=== PATIENT | male | born 1940 | race African-American/Black ===

== ENCOUNTER 2018-07-28 12:21 | Inpatient (IN) | payer OTHER ==
--- NOTE | 2018-07-28 12:54 | CON.CARD ---
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 Amaro 01/2018 presented with several days of orthopea, dyspnea at rest and on exertion , LE edema, PND without chest pain, near or true syncope, palpitations. Reports medication and diet compliance, denies NSAID use. 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 COMPOSITOR: Yes: CVA (rt hemiparesis) Cardio/Vascular: Yes: AFIB, CAD (S/P PCI), CHF (systolic dysfunction, Cardiomyopathy), HTN, Hyperlipdemia, Murmur, Other Gastrointestinal: Yes: Gastritis, GI Bleed Renal/: Yes: Renal Inusuff (Baseline Scr 1.3mg/dL - CKD Stage III), BPH Musculoskeletal: Yes: Osteoarthritis - Past Surgical History Past Surgical History: Yes: Colonoscopy, Permanent Pacemaker (FOR SSS), Stent - Alcohol/Substance Use Hx Alcohol Use: No - Smoking History Smoking history: Unknown if ever smoked Have you smoked in the past 12 months: No Aproximately how many cigarettes per day: 0 If you are a former smoker, when did you quit?: 20 YRS AGO - Social History Usual Living Arrangement: Long Term History of Recent Travel: No Home Medications - Allergies Allergies/Adverse Reactions: Allergies Allergy/AdvReac Type Severity Reaction Status Date / Time No Known Allergies Allergy Verified 07/28/18 12:36 - Home Medications Home Medications: Ambulatory Orders Atorvastatin Ca [Lipitor] 20 mg PO HS 07/27/14 Cholecalciferol (Vitamin D3) [Vitamin D3] 1,000 unit PO DAILY 07/27/14 Carvedilol [Coreg -] 25 mg PO BID #60 tablet 08/01/15 Ramipril [Altace] 5 mg PO DAILY #30 capsule 08/01/15 Spironolactone [Aldactone -] 25 mg PO DAILY #30 tablet 08/01/15 Carvedilol [Coreg -] 25 mg PO BID 07/28/18 Docusate Sodium [Colace -] 100 mg PO BID PRN 07/28/18 Furosemide [Lasix -] 80 mg PO AM 07/28/18 Furosemide [Lasix] 40 mg PO DAILY 07/28/18 Potassium Chloride [K-Dur -] 20 meq PO DAILY 07/28/18 Warfarin Na [Coumadin -] 2.5 mg PO DAILY@1800 07/28/18 Review of Systems - Review of Systems Cardiovascular: reports: Edema, Shortness of Breath Respiratory: reports: Orthopnea, SOB, SOB on Exertion Vital Signs: Vital Signs Temperature 97.9 F 07/28/18 12:34 Pulse Rate 73 07/28/18 12:34 Respiratory Rate 20 07/28/18 12:34 Blood Pressure 114/80 07/28/18 12:34 O2 Sat by Pulse Oximetry (%) 98 07/28/18 12:34 Constitutional: Yes: No Distress, Calm Neck: Yes: Supple Respiratory: Yes: Regular, Diminished, On Nasal O2 Gastrointestinal: Yes: Normal Bowel Sounds, Soft Cardiovascular: Yes: Regular Rate and Rhythm JVD: No Carotid Bruit: No Heart Sounds: Yes: S1, S2 Murmur: Yes: Systolic Murmur, Grade 2 Edema: Yes Edema: LLE: 3+, RLE: 3+ - Other Data Prior Cardiac Procedures: PTCA with Stent Ejection Fraction %: LVEF < 40 % Imaging - Results Chest X-ray: Pending EKG: Report Reviewed (Afib v-paced) Problem List - Problems (1) AICD (automatic cardioverter/defibrillator) present Code(s): Z95.810 - PRESENCE OF AUTOMATIC (IMPLANTABLE) CARDIAC DEFIBRILLATOR (2) COPD (chronic obstructive pulmonary disease) Code(s): J44.9 - CHRONIC OBSTRUCTIVE PULMONARY DISEASE, UNSPECIFIED Qualifiers: Emphysema type: unspecified (3) CVA (cerebral infarction) Code(s): I63.9 - CEREBRAL INFARCTION, UNSPECIFIED Qualifiers: Cerebral infarction mechanism: unspecified mechanism Qualified Code(s): I63.9 - Cerebral infarction, unspecified (4) HLD (hyperlipidemia) Code(s): E78.5 - HYPERLIPIDEMIA, UNSPECIFIED Qualifiers: Hyperlipidemia type: pure hypercholesterolemia Qualified Code(s): E78.00 - Pure hypercholesterolemia, unspecified; E78.0 - Pure hypercholesterolemia (5) HTN (hypertension) Code(s): I10 - ESSENTIAL (PRIMARY) HYPERTENSION Qualifiers: Hypertension type: essential hypertension Qualified Code(s): I10 - Essential (primary) hypertension (6) Leg edema Code(s): R60.0 - LOCALIZED EDEMA (7) Pulmonary hypertension Code(s): I27.2 - OTHER SECONDARY PULMONARY HYPERTENSION * DO NOT USE * (8) Shortness of breath Code(s): R06.02 - SHORTNESS OF BREATH (9) Status post coronary artery stent placement Code(s): Z95.5 - PRESENCE OF CORONARY ANGIOPLASTY IMPLANT AND GRAFT (10) Systolic CHF, acute on chronic Code(s): I50.23 - ACUTE ON CHRONIC SYSTOLIC (CONGESTIVE) HEART FAILURE Assessment/Plan December 19, 2017 Dilated LV with severely decreased LVEF 30%, DAV LA 4.8 cm, mod MR , mild TR, RVP 39 mmHg, mild ao dilatation 4.3 cm Sep 14, 2017 Pharm stress: Severe diffuse global HK LVEF 22% 1. Acute on chronic class III-IV NYHA classification LV systolic failure 2. CAD post PCI/stent angina pectoris 3. Permanent atrial fibrillation on chronic A/C [id number] score of 4 on coumadin with subtherapeutic INR 4. 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 HTN/HCVD 6. Hypercholesterolemia 7. History of CVA with right hemiparesis 8. Acute on CKD stage 3 now at baseline 9. Underlying CKD secondary to Hypertensive Nephrosclerosis vs. Acquired Cystic Renal Disease (unlikely PCKD given normal size kidneys) 10. Anemia 11. PAD 12. COPD and pulm HTN 13. Gynecomastia PLAN: 1. Inotropic diuresis with dobutamine and Lasix gtt and Eplerenone 25 qd with monitor diuretic response, renal function and electrolytes, wrap legs 2. Continue Coreg 25 bid, Lipitor 80 qhs, ASA 81 qd and Entresto 49/51 bid, add BiDil as hemodynamics tolerate 3. Dose Coumadin with close monitoring of INR and CBC 4. Thank you for consultative opportunity
--- NOTE | 2018-07-28 13:03 | PDOC ---
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 The patient saw his PCP who had him see his stage set designer who sent him to the ER for lasix due to lower extremity edema and fluid overload. The patient also note associated fatigue. Pt is a poor historian. Patient denies headache, lightheadedness. Denies fever, chills. Denies chest pain. Denies nausea, vomiting, diarrhea, abdominal pain. Allergies: NKA Surgical History: pacemaker PCP: Leighann De La Cruz Farmworker Grain: Lucretia Amaro <Mary Ann De Anda - Last Filed: 07/28/18 16:54> - General Chief Complaint: Congestive Heart Failure Stated Complaint: PCP SENT Time Seen by Provider: 07/28/18 12:36 Past History <Oziel Epstein - Last Filed: 07/28/18 13:46> - Past Medical History Anemia: Yes Asthma: No Cancer: No Cardiac Disorders: Yes (afib) CVA: Yes (left residual weakness and facial asymmetry) COPD: No CHF: Yes Dementia: No Diabetes: No GI Disorders: No Disorders: Yes (BPH) HTN: Yes Hypercholesterolemia: Yes Liver Disease: No Seizures: No Thyroid Disease: No - Surgical History Abdominal Surgery: No Appendectomy: No Cardiac Surgery: Yes (pacemaker) Cholecystectomy: No Lung Surgery: No Neurologic Surgery: No Orthopedic Surgery: No - Suicide/Smoking/Psychosocial Hx Smoking Status: Yes Smoking History: Unknown if ever smoked Have you smoked in the past 12 months: No Number of Cigarettes Smoked Daily: 0 If you are a former smoker, when did you quit?: 20 YRS AGO Hx Alcohol Use: No Drug/Substance Use Hx: No Substance Use Type: Alcohol Hx Substance Use Treatment: No <Mary Ann De Anda - Last Filed: 07/28/18 16:54> - Past Medical History Allergies/Adverse Reactions: Allergies Allergy/AdvReac Type Severity Reaction Status Date / Time No Known Allergies Allergy Verified 07/28/18 12:36 Home Medications: Ambulatory Orders Atorvastatin Ca [Lipitor] 20 mg PO HS 07/27/14 Cholecalciferol (Vitamin D3) [Vitamin D3] 1,000 unit PO DAILY 07/27/14 Carvedilol [Coreg -] 25 mg PO BID #60 tablet 08/01/15 Ramipril [Altace] 5 mg PO DAILY #30 capsule 08/01/15 Spironolactone [Aldactone -] 25 mg PO DAILY #30 tablet 08/01/15 Carvedilol [Coreg -] 25 mg PO BID 07/28/18 Docusate Sodium [Colace -] 100 mg PO BID PRN 07/28/18 Furosemide [Lasix -] 80 mg PO AM 07/28/18 Furosemide [Lasix] 40 mg PO DAILY 07/28/18 Potassium Chloride [K-Dur -] 20 meq PO DAILY 07/28/18 Warfarin Na [Coumadin -] 2.5 mg PO DAILY@1800 07/28/18 Review of Systems - Review of Systems Comments:: 07/28/18 13:40 GENERAL/CONSTITUTIONAL: +tiredness. No fever or chills. No weakness. HEAD, EYES, EARS, NOSE AND THROAT: No change in vision. No ear pain or discharge. No sore throat. GASTROINTESTINAL: No nausea, vomiting, diarrhea or constipation. GENITOURINARY: No dysuria, frequency, or change in urination. CARDIOVASCULAR: +shortness of breath. +lower extremity edema. No chest pain. RESPIRATORY: No cough, wheezing, or hemoptysis. MUSCULOSKELETAL: No joint or muscle swelling or pain. No neck or back pain. SKIN: No rash NEUROLOGIC: No headache, vertigo, loss of consciousness, or change in strength/ sensation. ENDOCRINE: No increased thirst. No abnormal weight change. HEMATOLOGIC/LYMPHATIC: No anemia, easy bleeding, or history of blood clots. ALLERGIC/IMMUNOLOGIC: No hives or skin allergy. <Mary Ann De Anda - Last Filed: 07/28/18 16:54> *Physical Exam - Vital Signs Last Vital Signs Temp Pulse Resp BP Pulse Ox 97.9 F 73 20 114/80 98 07/28/18 12:34 07/28/18 12:34 07/28/18 12:34 07/28/18 12:34 07/28/18 12:34 <Oziel Epstein - Last Filed: 07/28/18 13:46> - Vital Signs Last Vital Signs Temp Pulse Resp BP Pulse Ox 97.9 F 73 20 114/80 98 07/28/18 12:34 07/28/18 12:34 07/28/18 12:34 07/28/18 12:34 07/28/18 12:34 - Physical Exam Comments: 07/28/18 13:57 GENERAL: Awake, alert, oriented to name and place, in no acute distress eating candy ENT: Auricles normal inspection, hearing grossly normal, nares patent, oropharynx clear without exudates. Moist mucosa NECK: Normal ROM, supple, no lymphadenopathy LUNGS: diminished b/l BS, no crackles or wheezing HEART: Regular rate and rhythm, normal S1 and S2, no murmurs, rubs or gallops ABDOMEN: Soft, nontender, normoactive bowel sounds. No masses EXTREMITIES: 2+ pitting edema symmetric b/l. No cords, erythema, or tenderness NEUROLOGICAL: Normal speech, cranial nerves intact SKIN: Warm, Dry, normal turgor, no rashes or lesions noted. <Mary Ann De Anda - Last Filed: 07/28/18 16:54> Moderate Sedation - Procedure Monitoring Vital Signs: Procedure Monitoring Vital Signs Temperature 97.9 F 07/28/18 12:34 Pulse Rate 73 07/28/18 12:34 Respiratory Rate 07/28/18 12:34 Blood Pressure 114/80 07/28/18 12:34 O2 Sat by Pulse Oximetry (%) 98 07/28/18 12:34 <Oziel Epstein - Last Filed: 07/28/18 13:46> - Procedure Monitoring Vital Signs: Procedure Monitoring Vital Signs Temperature 97.9 F 07/28/18 12:34 Pulse Rate 73 07/28/18 12:34 Respiratory Rate 20 07/28/18 12:34 Blood Pressure 114/80 07/28/18 12:34 O2 Sat by Pulse Oximetry (%) 98 07/28/18 12:34 <Mary Ann De Anda - Last Filed: 07/28/18 16:54> Heart Score/ECG Review #1 07/28/18 13:59 Twelve-lead EKG was performed and reviewed by me. Ventricular paced rhythm, rate 70 to. Normal axis. When compared to EKG from July 2015, no significant change. <Mary Ann De Anda - Last Filed: 07/28/18 16:54> ED Treatment Course - LABORATORY CBC & Chemistry Diagram: 07/28/18 13:00 07/28/18 13:54 - RADIOLOGY Radiology Studies Ordered: Category Date Time Status CHEST X-RAY PORTABLE* [RAD] Stat Radiology 07/28/18 12:57 Ordered <Mary Ann De Anda - Last Filed: 07/28/18 16:54> Medical Decision Making - Medical Decision Making 07/28/18 13:15 78yo M with multiple medical problems presents to the ED for admission for IV diuresis 2/2 CHF exacerbation. Vitals wnl, pt in no acute respiratory distress. Plan for labs, CXR, admission. Dr. Guevara at the bedside evaluating pt at this time 07/28/18 16:52 BNP elevated consistent with CHF exacerbaiton Trop 0.06, likely demand Pt admitted to Dr. De La Cruz Case discussed in detail with admitting physician including history, physical exam and ancillary studies. Admitting physician has assumed care for the patient, will follow all pending diagnostics and will complete the evaluation and treatment. <Mary Ann De Anda - Last Filed: 07/28/18 16:54> *DC/Admit/Observation/Transfer - Attestations Scribe Attestion: 07/28/18 13:46 Documentation prepared by PANKAJ Briscoe, acting as medical aides teacher for Mary Ann De Anda MD. <Oziel Epstein - Last Filed: 07/28/18 13:46> - Discharge Dispostion Decision to Admit order: Yes - Attestations Physician Attestion: 07/28/18 16:54 I, Dr. Mary Ann De Anda MD, attest that this document has been prepared under my direction and personally reviewed by me in its entirety. I further attest, that it accurately reflects all work, treatment, procedures and medical decision -making performed by me. <Mary Ann De Anda - Last Filed: 07/28/18 16:54> Diagnosis at time of Disposition: Shortness of breath, Systolic CHF, acute on chronic, [place] (dyspnea on exertion) - Discharge Dispostion Condition at time of disposition: Stable
[2018-07-28 14:39] LABS: BASO % 1.2 % (0-2.0); EOS % 2.4 % (0-4.5); HEMATOCRIT 34.2 % (35.4-49); HEMOGLOBIN 11.5 GM/dL (11.7-16.9); LYMPH % 21.4 % (8-40); MCH 28.7 pg (25.7-33.7); MCHC 33.6 g/dl (32.0-35.9); MEAN CELL VOLUME 85.4 fl (80-96); MEAN PLT VOLUME 9.2 fl (7.5-11.1); MONO % 11.7 % (3.8-10.2); NEUT % 63.3 % (42.8-82.8); PLATELET COUNT 154 K/MM3 (134-434); RBC 4.01 M/mm3 (4.00-5.60); WHITE BLOOD COUNT 3.4 K/mm3 (4.0-10.0)
[2018-07-28 14:51] LABS: INR 1.59 (0.83-1.09); PROTHROMBIN TIME (PATIENT) 18.9 SEC (9.7-13.0)
[2018-07-28 14:54] LABS: ACTIVATED PTT 33.6 SECONDS (25.2-36.5)
[2018-07-28 15:06] LABS: N-TERMINAL BNP 22047.5 pg/ml (5-450)
[2018-07-28 15:36] LABS: URINE APPEARANCE CLEAR; URINE BILIRUBIN NEGATIVE (<2.0 mg/dL); URINE COLOR YELLOW; URINE GLUCOSE (UA) NEGATIVE (NEGATIVE); URINE KETONE NEGATIVE (NEGATIVE); URINE LEUK ESTERASE TRACE (NEGATIVE); URINE NITRITE NEGATIVE (NEGATIVE); URINE PROTEIN NEGATIVE (NEGATIVE); URINE UROBILINOGEN 4.0 E.U/dl mg/dL (0.2-1.0)
[2018-07-28 15:47] LABS: URINE HYALINE CAST 16 /lpf
--- NOTE | 2018-07-28 15:53 | EKG ---
Test Reason : Blood Pressure : / mmHG Vent. Rate : 072 BPM Atrial Rate : 072 BPM P-R Int : 000 ms QRS Dur : 166 ms QT Int : 466 ms P-R-T Axes : 000 138 -23 degrees QTc Int : 510 ms Ventricular-paced rhythm ABNORMAL ECG WHEN COMPARED WITH ECG OF 23-JUL-2015 15:15, ELECTRONIC VENTRICULAR PACEMAKER HAS REPLACED WIDE QRS RHYTHM Confirmed by CHARLIE LOONEY, YONI ([id number]) on 07/28/2018 3:53:26 PM Referred By: Confirmed By:YONI GUERRA MD
[2018-07-28 15:59] LABS: ALBUMIN 3.6 g/dl (3.4-5.0); ALK PHOS 59 U/L (45-117); ANION GAP 6 MMOL/L (8-16); BILIRUBIN,TOTAL 2.8 mg/dL (0.2-1); BLOOD UREA NITROGEN 25 mg/dL (7-18); CALCIUM 8.8 mg/dL (8.5-10.1); CHLORIDE 105 mmol/L (98-107); CO2 26 mmol/L (21-32); CREATININE 1.8 mg/dL (0.55-1.3); GLUCOSE,RANDOM 118 mg/dL (74-106); MAGNESIUM 2.6 mg/dL (1.8-2.4); POTASSIUM 4.8 mmol/L (3.5-5.1); SGOT/AST 17 U/L (15-37); SGPT/ALT 16 U/L (13-61); SODIUM 137 mmol/L (136-145); TOT PROT 7.6 g/dl (6.4-8.2)
[2018-07-28] MEDS ORDERED: WARFARIN NA 5 MG TABLET (UD) PO ONE (18:00)
[2018-07-28] MEDS ORDERED: FUROSEMIDE 40 MG/4 ML INJECTABLE VIAL IVPUSH ONE (19:28)
[2018-07-28] MEDS ORDERED: WARFARIN NA 5 MG TABLET (UD) ONE (19:30)
[2018-07-28] MEDS ORDERED: FUROSEMIDE 40 MG/4 ML INJECTABLE VIAL ONE (19:30)
[2018-07-28] MEDS: DOBUTAMINE 250 MG/D5W - 250,000 MCG/250 ML INFUS.BAG IV SCH (20:07)
--- NOTE | 2018-07-28 21:09 | HP ---
Admitting History and Physical - Primary Care Physician PCP: Leighann De La Cruz - Admission Chief Complaint: Lower extremity edema History of Present Illness: Patient is a 78 y/o male with past medical history of CHF, HTN, HLD, A-fib, CAD , CVA with right hemiparesis, gastritis, BPH, anemia, and OA. Patient is a poor historian. When asked what brought him to ED he states "my doctor sent me " and could not elaborate further. As per ED documentation patient was sent to [facility] ED by his franchise sales manager Dr. Amaro for lower extremity edema. Denies chest pain, dizziness. History Source: Patient Limitations to Obtaining History: Poor Historian - Past Medical History MANAGER ENDOSCOPY: Yes: CVA (rt hemiparesis) Cardiovascular: Yes: AFIB, CAD (S/P PCI), CHF (systolic dysfunction, Cardiomyopathy), HTN, Hyperlipdemia, Murmur, Other Gastrointestinal: Yes: Gastritis, GI Bleed Renal/: Yes: Renal Inusuff (Baseline Scr 1.3mg/dL - CKD Stage III), BPH Heme/Onc: Yes: Anemia Musculoskeletal: Yes: Osteoarthritis - Past Surgical History Past Surgical History: Yes: Colonoscopy, Permanent Pacemaker (FOR SSS), Stent - Smoking History Smoking history: Unknown if ever smoked Have you smoked in the past 12 months: No Aproximately how many cigarettes per day: 0 If you are a former smoker, when did you quit?: 20 YRS AGO - Alcohol/Substance Use Hx Alcohol Use: No - Social History Usual Living Arrangement: Yes: Other (Lives with friend) History of Recent Travel: No <Minerva Weiner - Last Filed: 07/28/18 21:04> Home Medications <Minerva Weiner - Last Filed: 07/28/18 21:04> <Noy Alfaro - Last Filed: 07/29/18 08:45> - Allergies Allergies/Adverse Reactions: Allergies Allergy/AdvReac Type Severity Reaction Status Date / Time No Known Allergies Allergy Verified 07/28/18 12:36 - Home Medications Home Medications: Ambulatory Orders Atorvastatin Ca [Lipitor] 20 mg PO HS 07/27/14 Cholecalciferol (Vitamin D3) [Vitamin D3] 1,000 unit PO DAILY 07/27/14 Carvedilol [Coreg -] 25 mg PO BID #60 tablet 08/01/15 Ramipril [Altace] 5 mg PO DAILY #30 capsule 08/01/15 Spironolactone [Aldactone -] 25 mg PO DAILY #30 tablet 08/01/15 Carvedilol [Coreg -] 25 mg PO BID 07/28/18 Docusate Sodium [Colace -] 100 mg PO BID PRN 07/28/18 Furosemide [Lasix -] 80 mg PO AM 07/28/18 Furosemide [Lasix] 40 mg PO DAILY 07/28/18 Potassium Chloride [K-Dur -] 20 meq PO DAILY 07/28/18 Warfarin Na [Coumadin -] 2.5 mg PO DAILY@1800 07/28/18 Review of Systems - Review of Systems Constitutional: reports: Other (Fatigue) Eyes: reports: No Symptoms HENT: reports: No Symptoms Neck: reports: No Symptoms Cardiovascular: reports: Edema (B/L lower extremity L>R) Respiratory: reports: Cough (non-productive), SOB Gastrointestinal: reports: No Symptoms Genitourinary: reports: No Symptoms Breasts: reports: No Symptoms Reported Musculoskeletal: reports: No Symptoms Integumentary: reports: No Symptoms Neurological: reports: No Symptoms Endocrine: reports: No Symptoms Hematology/Lymphatic: reports: No Symptoms Psychiatric: reports: No Symptoms <Minerva Weiner Filed: 07/28/18 21:04> Physical Examination Vital Signs: Vital Signs Temperature 98.3 F 07/28/18 19:43 Pulse Rate 70 07/28/18 19:43 Respiratory Rate 18 07/28/18 19:43 Blood Pressure 129/91 07/28/18 20:07 O2 Sat by Pulse Oximetry (%) 100 07/28/18 19:43 Constitutional: Yes: No Distress, Calm Eyes: Yes: Conjunctiva Clear HENT: Yes: Atraumatic Neck: Yes: Supple Cardiovascular: Yes: Regular Rate and Rhythm Respiratory: Yes: Diminished Gastrointestinal: Yes: Normal Bowel Sounds, Soft Musculoskeletal: Yes: Muscle Weakness Extremities: Yes: WNL Edema: Yes Edema: LLE: 3+, RLE: 2+ Integumentary: Yes: WNL Neurological: Yes: Alert, Pre-Existing Deficit Psychiatric: Yes: Alert Labs: CBC, BMP 07/28/18 13:00 07/28/18 13:54 <Minerva Weiner Last Filed: 07/28/18 21:04> Vital Signs: Vital Signs Temperature 98.3 F 07/29/18 02:00 Pulse Rate 76 07/29/18 06:00 Respiratory Rate 20 07/29/18 06:00 Blood Pressure 109/65 07/29/18 06:00 O2 Sat by Pulse Oximetry (%) 100 07/28/18 21:15 Labs: CBC, BMP 07/29/18 06:30 <Noy Alfaro - Last Filed: 07/29/18 08:45> Imaging - Results Chest X-ray: Report Reviewed EKG: Report Reviewed <Minerva Weiner - Last Filed: 07/28/18 21:04> Problem List - Problems (1) [place] (dyspnea on exertion) Code(s): R06.09 - OTHER FORMS OF DYSPNEA (2) Shortness of breath Code(s): R06.02 - SHORTNESS OF BREATH (3) Systolic CHF, acute on chronic Code(s): I50.23 - ACUTE ON CHRONIC SYSTOLIC (CONGESTIVE) HEART FAILURE (4) Afib Code(s): I48.91 - UNSPECIFIED ATRIAL FIBRILLATION Qualifiers: Atrial fibrillation type: chronic Qualified Code(s): I48.2 - Chronic atrial fibrillation (5) CAD (coronary artery disease) Code(s): I25.10 - ATHSCL HEART DISEASE OF [place] CORONARY ARTERY W/O ANG PCTRS Qualifiers: Coronary Disease-Associated Artery/Lesion type: [place] artery [place] vs. transplanted heart: [place] heart Associated angina: without angina Qualified Code(s): I25.10 - Atherosclerotic heart disease of [place] coronary artery without angina pectoris (6) CVA (cerebral infarction) Code(s): I63.9 - CEREBRAL INFARCTION, UNSPECIFIED Qualifiers: Cerebral infarction mechanism: unspecified mechanism Qualified Code(s): I63.9 - Cerebral infarction, unspecified (7) HLD (hyperlipidemia) Code(s): E78.5 - HYPERLIPIDEMIA, UNSPECIFIED Qualifiers: Hyperlipidemia type: pure hypercholesterolemia Qualified Code(s): E78.00 - Pure hypercholesterolemia, unspecified; E78.0 - Pure hypercholesterolemia (8) HTN (hypertension) Code(s): I10 - ESSENTIAL (PRIMARY) HYPERTENSION Qualifiers: Hypertension type: essential hypertension Qualified Code(s): I10 - Essential (primary) hypertension (9) Leg edema Code(s): R60.0 - LOCALIZED EDEMA (10) Pacemaker Code(s): Z95.0 - PRESENCE OF CARDIAC PACEMAKER <Minerva Weiner - Last Filed: 07/28/18 21:04> Assessment/Plan -admit to med-surg, tele monitoring -cardio/pulm consult -Lasix IV BID, entresto -1L fluid restriction -daily weights, strict I&O -cont carvedilol -cont atorvastatin -O2 via NC, keep SpO2 >90% -low Na diet -cont asa -on AC, monitor PT/INR daily and dose accordingly -troponin elev, will monitor -BUN/Cr elev, will consult renal -dvt ppx <Minerva Weiner - Last Filed: 07/28/18 21:04> PATIENT SEEN AND EXAMINED AND I AGREE WITH ABOVE NOTE <Noy Alfaro - Last Filed: 07/29/18 08:45>
[2018-07-28] MEDS: ATORVASTATIN CA 80 MG TABLET (FP) PO SCH (23:08)
[2018-07-28] MEDS: SACUBITRIL/VALSARTAN 49 MG-51 MG TABLET PO SCH (23:08)
[2018-07-28] MEDS: CARVEDILOL 25 MG TABLET (FP) PO SCH (23:08)
[2018-07-29] MEDS ORDERED: FUROSEMIDE 40 MG/4 ML INJECTABLE VIAL IVPUSH SCH (06:00)
[2018-07-29] MEDS: FUROSEMIDE 40 MG/4 ML INJECTABLE VIAL IVPUSH SCH ×2 (06:49→14:26)
[2018-07-29 07:55] LABS: BASO % 1.5 % (0-2.0); EOS % 3.6 % (0-4.5); HEMATOCRIT 32.4 % (35.4-49); HEMOGLOBIN 10.2 GM/dL (11.7-16.9); LYMPH % 26.8 % (8-40); MCHC 31.4 g/dl (32.0-35.9); MEAN CELL VOLUME 86.1 fl (80-96); MEAN PLT VOLUME 9.3 fl (7.5-11.1); MONO % 14.2 % (3.8-10.2); NEUT % 53.9 % (42.8-82.8); PLATELET COUNT 152 K/MM3 (134-434); RBC 3.77 M/mm3 (4.00-5.60)
[2018-07-29 08:03] LABS: INR 1.85 (0.83-1.09)
--- NOTE | 2018-07-29 08:49 | PN ---
Progress Note, Physician History of Present Illness: Good diuretic response with inotropic diuresis with improvement in orthopea, dyspnea and, LE edema. - Current Medication List Current Medications: Active Medications Aspirin (Asa -) 81 mg PO DAILY [facility] Atorvastatin Calcium (Lipitor -) 80 mg PO HS [facility] Last Admin: 07/28/18 23:08 Dose: 80 mg Carvedilol (Coreg -) 25 mg PO BID [facility] Last Admin: 07/28/18 23:08 Dose: 25 mg Furosemide (Lasix Injection -) 60 mg IVPUSH BID@0600,1400 [facility] Last Admin: 07/29/18 06:49 Dose: 60 mg Dobutamine HCl/Dextrose (Dobutamine 250 Mg/D5w -) 250,000 mcg in 250 mls @ 28.032 mls/hr IV TITR [facility]; Protocol Last Titration: 07/28/18 21:15 Dose: 5 mcg/kg/min, 28.032 mls/hr Sacubitril/Valsartan (Entresto 49 Mg-51 Mg Tablet) 1 tab PO BID [facility] Last Admin: 07/28/18 23:08 Dose: 1 tab - Objective Vital Signs: Vital Signs Temperature 98.3 F 07/29/18 02:00 Pulse Rate 76 07/29/18 06:00 Respiratory Rate 20 07/29/18 06:00 Blood Pressure 109/65 07/29/18 06:00 O2 Sat by Pulse Oximetry (%) 100 07/28/18 21:15 Constitutional: Yes: No Distress, Calm, Thin Neck: Yes: Supple Cardiovascular: Yes: Regular Rate and Rhythm Respiratory: Yes: Regular, Diminished, On Nasal O2 Gastrointestinal: Yes: Normal Bowel Sounds, Soft Edema: Yes Edema: LLE: 2+, RLE: 2+ Labs: CBC, BMP 07/29/18 06:30 INR, PTT INR 1.85 (0.83-1.09) H 07/29/18 06:30 - ....Imaging EKG: Report Reviewed (Afib v-paced) Problem List - Problems (1) AICD (automatic cardioverter/defibrillator) present Code(s): Z95.810 - PRESENCE OF AUTOMATIC (IMPLANTABLE) CARDIAC DEFIBRILLATOR (2) COPD (chronic obstructive pulmonary disease) Code(s): J44.9 - CHRONIC OBSTRUCTIVE PULMONARY DISEASE, UNSPECIFIED Qualifiers: Emphysema type: unspecified (3) CVA (cerebral infarction) Code(s): I63.9 - CEREBRAL INFARCTION, UNSPECIFIED Qualifiers: Cerebral infarction mechanism: unspecified mechanism Qualified Code(s): I63.9 - Cerebral infarction, unspecified (4) HLD (hyperlipidemia) Code(s): E78.5 - HYPERLIPIDEMIA, UNSPECIFIED Qualifiers: Hyperlipidemia type: pure hypercholesterolemia Qualified Code(s): E78.00 - Pure hypercholesterolemia, unspecified; E78.0 - Pure hypercholesterolemia (5) HTN (hypertension) Code(s): I10 - ESSENTIAL (PRIMARY) HYPERTENSION Qualifiers: Hypertension type: essential hypertension Qualified Code(s): I10 - Essential (primary) hypertension (6) Leg edema Code(s): R60.0 - LOCALIZED EDEMA (7) Pulmonary hypertension Code(s): I27.2 - OTHER SECONDARY PULMONARY HYPERTENSION * DO NOT USE * (8) Shortness of breath Code(s): R06.02 - SHORTNESS OF BREATH (9) Status post coronary artery stent placement Code(s): Z95.5 - PRESENCE OF CORONARY ANGIOPLASTY IMPLANT AND GRAFT (10) Systolic CHF, acute on chronic Code(s): I50.23 - ACUTE ON CHRONIC SYSTOLIC (CONGESTIVE) HEART FAILURE Assessment/Plan December 19, 2017 Dilated LV with severely decreased LVEF 30%, DAV LA 4.8 cm, mod MR , mild TR, RVP 39 mmHg, mild ao dilatation 4.3 cm Sep 14, 2017 Pharm stress: Severe diffuse global HK LVEF 22% 1. Acute on chronic class III-IV NYHA classification LV systolic failure 2. CAD post PCI/stent angina pectoris 3. Permanent atrial fibrillation on chronic A/C [id number] score of 4 on coumadin with subtherapeutic INR 4. 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 HTN/HCVD 6. Hypercholesterolemia 7. History of CVA with right hemiparesis 8. Acute on CKD stage 3 9. Underlying CKD secondary to Hypertensive Nephrosclerosis vs. Acquired Cystic Renal Disease (unlikely PCKD given normal size kidneys) 10. Anemia 11. PAD 12. COPD and pulm HTN 13. Gynecomastia PLAN: 1. Inotropic diuresis with dobutamine gtt @ 5, Lasix 60 IV bid and Eplerenone 25 qd with monitor diuretic response, renal function and electrolytes, wrap legs 2. Continue Coreg 25 bid, Lipitor 80 qhs, ASA 81 qd and Entresto 49/51 bid, add BiDil as hemodynamics tolerate 3. Dose Coumadin with close monitoring of INR and CBC
[2018-07-29 08:57] LABS: ALK PHOS 49 U/L (45-117); ANION GAP 11 MMOL/L (8-16); BILIRUBIN,TOTAL 2.6 mg/dL (0.2-1); BLOOD UREA NITROGEN 24 mg/dL (7-18); CALCIUM 8.5 mg/dL (8.5-10.1); CHLORIDE 107 mmol/L (98-107); CO2 23 mmol/L (21-32); CREATININE 1.7 mg/dL (0.55-1.3); GLUCOSE,RANDOM 82 mg/dL (74-106); POTASSIUM 3.8 mmol/L (3.5-5.1); SGOT/AST 14 U/L (15-37); SGPT/ALT 13 U/L (13-61); SODIUM 140 mmol/L (136-145); TOT PROT 6.3 g/dl (6.4-8.2)
[2018-07-29] MEDS ORDERED: PT OWN MED DRAWER 7, Y5N ONE (10:06)
[2018-07-29] MEDS: CARVEDILOL 25 MG TABLET (FP) PO SCH ×2 (10:23→22:36)
[2018-07-29] MEDS: EPLERENONE 25 MG TABLET PO SCH (10:23)
[2018-07-29] MEDS: ASPIRIN 81 MG CHEWABLE TABLETS PO SCH (10:23)
[2018-07-29] MEDS: SACUBITRIL/VALSARTAN 49 MG-51 MG TABLET PO SCH ×2 (10:24→23:15)
--- NOTE | 2018-07-29 11:03 | PN ---
Progress Note (short form) - Note Progress Note: PULMONARY CONSULTATION DICTATED 07/29/18 IMP DYSPNEA ACUTE ON CHRONIC CHF NONISCHEMIC CARDIOMYOPATHY AFIB SSS S/P PPM ASHD S/P STENTS H/O PULMONARY NODULES H/O CVA HTN HLD CKD PULMONARY HTN H/O COPD PLAN LASIX/DOBUTAMINE PER CARDIOLOGY INHALED BRONCHODILATORS PRN SUPPLEMENTAL O2 DAILY WTS AC MONITOR INR F/U CHEST X-RAYS MONITOR LYTES,RENAL FUNCTION CHEST CT FOR F/U PULMONARY NODULES DR STONER Problem List - Problems (1) [place] (dyspnea on exertion) Code(s): R06.09 - OTHER FORMS OF DYSPNEA (2) Shortness of breath Code(s): R06.02 - SHORTNESS OF BREATH (3) Systolic CHF, acute on chronic Code(s): I50.23 - ACUTE ON CHRONIC SYSTOLIC (CONGESTIVE) HEART FAILURE (4) AICD (automatic cardioverter/defibrillator) present Code(s): Z95.810 - PRESENCE OF AUTOMATIC (IMPLANTABLE) CARDIAC DEFIBRILLATOR (5) Acute renal failure superimposed on stage 3 chronic kidney disease Code(s): N17.9 - ACUTE KIDNEY FAILURE, UNSPECIFIED; N18.3 - CHRONIC KIDNEY DISEASE, STAGE 3 (MODERATE) (6) CAD (coronary artery disease) Code(s): I25.10 - ATHSCL HEART DISEASE OF [place] CORONARY ARTERY W/O ANG PCTRS Qualifiers: Coronary Disease-Associated Artery/Lesion type: [place] artery [place] vs. transplanted heart: [place] heart Associated angina: without angina Qualified Code(s): I25.10 - Atherosclerotic heart disease of [place] coronary artery without angina pectoris (7) CVA (cerebral infarction) Code(s): I63.9 - CEREBRAL INFARCTION, UNSPECIFIED Qualifiers: Cerebral infarction mechanism: unspecified mechanism Qualified Code(s): I63.9 - Cerebral infarction, unspecified (8) HLD (hyperlipidemia) Code(s): E78.5 - HYPERLIPIDEMIA, UNSPECIFIED Qualifiers: Hyperlipidemia type: pure hypercholesterolemia Qualified Code(s): E78.00 - Pure hypercholesterolemia, unspecified; E78.0 - Pure hypercholesterolemia (9) HTN (hypertension) Code(s): I10 - ESSENTIAL (PRIMARY) HYPERTENSION Qualifiers: Hypertension type: essential hypertension Qualified Code(s): I10 - Essential (primary) hypertension (10) Leg edema Code(s): R60.0 - LOCALIZED EDEMA (11) Pulmonary hypertension Code(s): I27.2 - OTHER SECONDARY PULMONARY HYPERTENSION * DO NOT USE * (12) Status post coronary artery stent placement Code(s): Z95.5 - PRESENCE OF CORONARY ANGIOPLASTY IMPLANT AND GRAFT
--- NOTE | 2018-07-29 11:40 | CONS ---
DATE OF CONSULTATION: 07/29/2018 REFERRING PHYSICIAN: Leighann De La Cruz MD HISTORY OF PRESENT ILLNESS: The patient is a 78-year-old black male with past medical history of ASHD, status post stents, permanent atrial fibrillation, maintained on anticoagulation, sick sinus syndrome, status post pacemaker, nonischemic dilated cardiomyopathy, status post ICD, hypertension, chronic kidney disease, also hyperlipidemia, admitted to [facility] with increasing shortness of breath, dyspnea on exertion and orthopnea. The patient also noted to have increasing lower extremity edema. There are no apparent chest pains, palpitations. Patient was admitted with the above. On admission he was felt to be acute on chronic CHF. He was started on Lasix as well as Dobutrex. Patient denies any chest pain at this time. Denies any fever, chills, nausea, vomiting or diaphoresis. Denies any history of occupational exposure to chemicals or fumes. He has a history of smoking; quit greater than 20 years ago. PAST MEDICAL HISTORY: Again includes history of hypertensive cardiovascular disease, ASHD, status post stents, hypertension, hyperlipidemia, cardiomyopathy, CVA gastritis, BPH, anemia, osteoarthritis, permanent pacemaker for sick sinus, atrial fibrillation, chronic kidney disease. REVIEW OF SYSTEMS: Positive shortness of breath. Positive cough. No chest pain. No palpitation. No abdominal pain. Positive lower extremity edema. CURRENT MEDICATIONS: Include Entresto, Coumadin, Dobutrex, Coreg, Lipitor, Lasix IV 60, eplerenone, aspirin. PHYSICAL EXAMINATION:General: The patient is a well-developed, well-nourished male, awake, alert, mildly confused but in no acute distress. Vital Signs: He is afebrile, blood pressure 130/64, respiratory rate is 20, O2 saturation is 86% on room air. HEENT: Normocephalic, atraumatic. Neck: Supple, large. Cardiac: Irregular S1, S2. Chest: Bilateral crackles. Abdomen: Soft. Bowel sounds positive. Extremities: Bilateral lower extremity edema. LABORATORIES: WBC is 4, hemoglobin 10.2, hematocrit 32.4 with a platelet count of 152,000. INR is 1.85. BUN 24, creatinine 1.7. Chest x-ray: Mild congestion bilaterally, cardiomegaly. BNP is 22,660. IMPRESSION: Acute hypoxemic respiratory failure secondary to: 1. Acute on chronic congestive heart failure. 2. Nonischemic dilated cardiomyopathy. 3. Arteriosclerotic heart disease, status post stent. 4. Atrial fibrillation. 5. History of sick sinus syndrome, status post a permanent pacemaker. 6. History of cerebrovascular accident, residual deficit. 7. Acute on chronic kidney disease. 8. Hypertensive cardiovascular disease. 9. Hyperlipidemia. 10. H/O Pulmonary nodules PLAN: Continue IV Lasix, Dobutrex and eplerenone as per Cardiology. Supplemental O2. Obtain followup chest x-rays.chest ct. Daily weights. Monitor INR. Anticoagulation as INR. Thank you. MAISHA STONER M.D. [id number] MTDD
--- NOTE | 2018-07-29 11:56 | PN ---
Progress Note, Physician - Current Medication List Current Medications: Active Medications Aspirin (Asa -) 81 mg PO DAILY [facility] Last Admin: 07/29/18 10:23 Dose: 81 mg Atorvastatin Calcium (Lipitor -) 80 mg PO HS [facility] Last Admin: 07/28/18 23:08 Dose: 80 mg Carvedilol (Coreg -) 25 mg PO BID [facility] Last Admin: 07/29/18 10:23 Dose: 25 mg Eplerenone (Eplerenone) 25 mg PO DAILY@0800 [facility] Last Admin: 07/29/18 10:23 Dose: 25 mg Furosemide (Lasix Injection -) 60 mg IVPUSH BID@0600,1400 [facility] Last Admin: 07/29/18 06:49 Dose: 60 mg Dobutamine HCl/Dextrose (Dobutamine 250 Mg/D5w -) 250,000 mcg in 250 mls @ 28.032 mls/hr IV TITR [facility]; Protocol Last Titration: 07/28/18 21:15 Dose: 5 mcg/kg/min, 28.032 mls/hr Sacubitril/Valsartan (Entresto 49 Mg-51 Mg Tablet) 1 tab PO BID [facility] Last Admin: 07/29/18 10:24 Dose: 1 tab Warfarin Sodium (Coumadin -) 5 mg PO ONCE@1800 ONE Stop: 07/29/18 18:01 - Objective Vital Signs: Vital Signs Temperature 97.7 F 07/29/18 10:00 Pulse Rate 71 07/29/18 10:00 Respiratory Rate 20 07/29/18 10:00 Blood Pressure 130/64 07/29/18 10:00 O2 Sat by Pulse Oximetry (%) 100 07/28/18 21:15 Cardiovascular: Yes: S1, S2 Respiratory: Yes: Diminished, On Nasal O2 Gastrointestinal: Yes: Normal Bowel Sounds, Soft Edema: Yes Labs: CBC, BMP 07/29/18 06:30 07/29/18 06:30 INR, PTT INR 1.85 (0.83-1.09) H 07/29/18 06:30 Problem List - Problems (1) Systolic CHF, acute on chronic Assessment/Plan: Orders 07/28/18 19:15 Dobutamine 250 mg/D5w - 250,000 mcg in 250 ml IV TITR 07/28/18 22:00 Carvedilol [Coreg -] 25 mg PO BID Sacubitril/Valsartan [Entresto 49 mg-51 mg Tablet] 1 tab PO BID 07/29/18 06:00 Furosemide Injection [Lasix Injection -] 60 mg IVPUSH BID@0600,1400 07/29/18 09:00 Eplerenone 25 mg PO DAILY@0800 Code(s): I50.23 - ACUTE ON CHRONIC SYSTOLIC (CONGESTIVE) HEART FAILURE (2) AICD (automatic cardioverter/defibrillator) present Code(s): Z95.810 - PRESENCE OF AUTOMATIC (IMPLANTABLE) CARDIAC DEFIBRILLATOR (3) Acute renal failure superimposed on stage 3 chronic kidney disease Assessment/Plan: -Renal on board -follow labs Code(s): N17.9 - ACUTE KIDNEY FAILURE, UNSPECIFIED; N18.3 - CHRONIC KIDNEY DISEASE, STAGE 3 (MODERATE) (4) CAD (coronary artery disease) Assessment/Plan: -No cp Troponin, BNP 07/28/18 07/28/18 07/28/18 13:54 13:54 13:54 Troponin I Cancelled Cancelled 0.06 H B-Natriuretic Peptide 20075.5 H 07/29/18 06:30 Troponin I 0.08 H B-Natriuretic Peptide 59939.0 H Code(s): I25.10 - ATHSCL HEART DISEASE OF [place] CORONARY ARTERY W/O ANG PCTRS Qualifiers: Coronary Disease-Associated Artery/Lesion type: [place] artery [place] vs. transplanted heart: [place] heart Associated angina: without angina Qualified Code(s): I25.10 - Atherosclerotic heart disease of [place] coronary artery without angina pectoris (5) COPD (chronic obstructive pulmonary disease) Assessment/Plan: -Pulm on board Code(s): J44.9 - CHRONIC OBSTRUCTIVE PULMONARY DISEASE, UNSPECIFIED Qualifiers: Emphysema type: unspecified (6) Afib Assessment/Plan: -Coumadin -Monitor INR INR, PTT INR 1.85 (0.83-1.09) H 07/29/18 06:30 Code(s): I48.91 - UNSPECIFIED ATRIAL FIBRILLATION Qualifiers: Atrial fibrillation type: chronic Qualified Code(s): I48.2 - Chronic atrial fibrillation
--- NOTE | 2018-07-29 13:10 | CON.NEP ---
Consult Consult Specialty:: nephrology Reason for Consultation:: liana - History of Present Illness Chief Complaint: none History of Present Illness: Patient is a 78 y/o male with past medical history of CHF, HTN, HLD, A-fib, CAD , CVA with right hemiparesis, gastritis, BPH, anemia, and OA. He was referred by manager program for lower extremity edema. He is with his who states he had very tight legs and was dyspneic and coughing. She knew he needed fluid removed The patient is currently eating and does not answer many questions though he makes eye contact. Reportedly, there is no difficulty urinating. per he was in an induced coma in September 2017 for 2 weeks after he had fallen. - History Source Limitations to Obtaining History: Dementia - Past Medical History [employer]: Yes: CVA (rt hemiparesis) Cardio/Vascular: Yes: AFIB, CAD (S/P PCI), CHF (systolic dysfunction, Cardiomyopathy), HTN, Hyperlipdemia, Murmur, Other Gastrointestinal: Yes: Gastritis, GI Bleed Renal/: Yes: Renal Inusuff (Baseline Scr 1.3mg/dL - CKD Stage III), BPH Musculoskeletal: Yes: Osteoarthritis - Past Surgical History Past Surgical History: Yes: Colonoscopy, Permanent Pacemaker (FOR SSS), Stent - Alcohol/Substance Use Hx Alcohol Use: No - Smoking History Smoking history: Unknown if ever smoked Have you smoked in the past 12 months: No Aproximately how many cigarettes per day: 0 If you are a former smoker, when did you quit?: 20 YRS AGO - Social History Usual Living Arrangement: Senior Living History of Recent Travel: No Home Medications - Allergies Allergies/Adverse Reactions: Allergies Allergy/AdvReac Type Severity Reaction Status Date / Time No Known Allergies Allergy Verified 07/28/18 12:36 - Home Medications Home Medications: Ambulatory Orders Atorvastatin Ca [Lipitor] 20 mg PO HS 07/27/14 Cholecalciferol (Vitamin D3) [Vitamin D3] 1,000 unit PO DAILY 07/27/14 Carvedilol [Coreg -] 25 mg PO BID #60 tablet 08/01/15 Ramipril [Altace] 5 mg PO DAILY #30 capsule 08/01/15 Spironolactone [Aldactone -] 25 mg PO DAILY #30 tablet 08/01/15 Carvedilol [Coreg -] 25 mg PO BID 07/28/18 Docusate Sodium [Colace -] 100 mg PO BID PRN 07/28/18 Furosemide [Lasix -] 80 mg PO AM 07/28/18 Furosemide [Lasix] 40 mg PO DAILY 07/28/18 Potassium Chloride [K-Dur -] 20 meq PO DAILY 07/28/18 Warfarin Na [Coumadin -] 2.5 mg PO DAILY@1800 07/28/18 Review of Systems - Review of Systems Constitutional: reports: Weakness Eyes: reports: No Symptoms HENT: reports: No Symptoms Neck: reports: No Symptoms Cardiovascular: reports: Edema Respiratory: reports: Cough Gastrointestinal: reports: No Symptoms Genitourinary: reports: No Symptoms Breasts: reports: No Symptoms Reported Musculoskeletal: reports: No Symptoms Integumentary: reports: No Symptoms Neurological: reports: No Symptoms Endocrine: reports: No Symptoms Hematology/Lymphatic: reports: No Symptoms Psychiatric: reports: No Symptoms Nephrology Consult - Height Height: 5 ft 6 in - Weight Weight: 203 lb 9.6 oz - BMI Body Mass Index (BMI): 32.8 - Lab Results CBC,BMP: CBC, BMP 07/29/18 06:30 07/29/18 06:30 Anion Gap: Anion Gap Anion Gap 11 MMOL/L (8-16) 07/29/18 06:30 - Imaging Chest X-ray: Report Reviewed (chf) - Physical Examination Vital Signs: Vital Signs Temperature 97.7 F 07/29/18 10:00 Pulse Rate 71 07/29/18 10:00 Respiratory Rate 20 07/29/18 10:00 Blood Pressure 130/64 07/29/18 10:00 O2 Sat by Pulse Oximetry (%) 95 07/29/18 09:00 Constitutional: Yes: Well Nourished, No Distress, Calm Eyes: Yes: Conjunctiva Clear HENT: Yes: Atraumatic, Normocephalic Neck: Yes: Supple, Trachea Midline Cardiovascular: Yes: Regular Rate and Rhythm Respiratory: Yes: Regular, Rhonchi Gastrointestinal: Yes: Normal Bowel Sounds Musculoskeletal: Yes: WNL Extremities: Yes: WNL Edema: Yes Edema: LLE: 2+, RLE: 2+ Wound/Incision: Yes: Clean/Dry Neurological: Yes: Alert, Confusion Psychiatric: Yes: Alert Assessment/Plan IMPRESSION CHF probable cardiorenal syndrome ckd - non proteinuric dementia previous pulmonary nodules on CT from 2014 emphysematous changes on that ct from 2015 renal cysts- likely acquired PLAN continue diuresis monitor renal function would repeat ct scan of chest unless already repeated renal sonogram cardiology follow up spep/upep MV
[2018-07-29] MEDS: DOBUTAMINE 250 MG/D5W - 250,000 MCG/250 ML INFUS.BAG IV SCH (16:34)
[2018-07-29] MEDS ORDERED: WARFARIN NA 5 MG TABLET (UD) PO ONE (18:00)
[2018-07-29] MEDS: ATORVASTATIN CA 80 MG TABLET (FP) PO SCH (22:36)
[2018-07-30] MEDS: DOBUTAMINE 250 MG/D5W - 250,000 MCG/250 ML INFUS.BAG IV SCH ×3 (02:41→19:22)
[2018-07-30] MEDS: FUROSEMIDE 40 MG/4 ML INJECTABLE VIAL IVPUSH SCH ×2 (06:12→14:59)
[2018-07-30 08:04] LABS: ANION GAP 9 MMOL/L (8-16); BLOOD UREA NITROGEN 19 mg/dL (7-18); CALCIUM 8.1 mg/dL (8.5-10.1); CHLORIDE 106 mmol/L (98-107); CO2 27 mmol/L (21-32); CREATININE 1.5 mg/dL (0.55-1.3); GLUCOSE,RANDOM 82 mg/dL (74-106); POTASSIUM 3.9 mmol/L (3.5-5.1); SODIUM 142 mmol/L (136-145)
[2018-07-30] MEDS: CARVEDILOL 25 MG TABLET (FP) PO SCH ×2 (09:58→21:21)
[2018-07-30] MEDS: ASPIRIN 81 MG CHEWABLE TABLETS PO SCH (09:58)
[2018-07-30] MEDS: EPLERENONE 25 MG TABLET PO SCH (09:58)
[2018-07-30] MEDS: SACUBITRIL/VALSARTAN 49 MG-51 MG TABLET PO SCH ×2 (09:59→21:21)
--- NOTE | 2018-07-30 10:21 | PN ---
Progress Note, Physician History of Present Illness: pulmonary alert,feeling better,less dyspneic. pt remains on dobutamine drip - Current Medication List Current Medications: Active Medications Aspirin (Asa -) 81 mg PO DAILY [facility] Last Admin: 07/30/18 09:58 Dose: 81 mg Atorvastatin Calcium (Lipitor -) 80 mg PO HS [facility] Last Admin: 07/29/18 22:36 Dose: 80 mg Carvedilol (Coreg -) 25 mg PO BID [facility] Last Admin: 07/30/18 09:58 Dose: 25 mg Eplerenone (Eplerenone) 25 mg PO DAILY@0800 [facility] Last Admin: 07/30/18 09:58 Dose: 25 mg Furosemide (Lasix Injection -) 60 mg IVPUSH BID@0600,1400 [facility] Last Admin: 07/30/18 06:12 Dose: 60 mg Dobutamine HCl/Dextrose (Dobutamine 250 Mg/D5w -) 250,000 mcg in 250 mls @ 28.032 mls/hr IV TITR [facility]; Protocol Last Admin: 07/30/18 02:41 Dose: 5 mcg/kg/min, 28.032 mls/hr Sacubitril/Valsartan (Entresto 49 Mg-51 Mg Tablet) 1 tab PO BID [facility] Last Admin: 07/30/18 09:59 Dose: 1 tab - Objective Vital Signs: Vital Signs Temperature 97.6 F 07/30/18 06:00 Pulse Rate 76 07/30/18 06:00 Respiratory Rate 18 07/30/18 06:00 Blood Pressure 112/67 07/30/18 06:00 O2 Sat by Pulse Oximetry (%) 96 07/29/18 21:00 Constitutional: Yes: Well Nourished, Calm Eyes: Yes: WNL HENT: Yes: WNL Neck: Yes: WNL Cardiovascular: Yes: Regular Rate and Rhythm, S1, S2 Respiratory: Yes: Rales (bibasilar rales) Gastrointestinal: Yes: Normal Bowel Sounds, Soft Extremities: Yes: WNL Edema: Yes Labs: CBC, BMP 07/29/18 06:30 07/30/18 06:30 INR, PTT INR 1.85 (0.83-1.09) H 07/29/18 06:30 Problem List - Problems (1) [place] (dyspnea on exertion) Code(s): R06.09 - OTHER FORMS OF DYSPNEA (2) Shortness of breath Code(s): R06.02 - SHORTNESS OF BREATH (3) Systolic CHF, acute on chronic Code(s): I50.23 - ACUTE ON CHRONIC SYSTOLIC (CONGESTIVE) HEART FAILURE (4) AICD (automatic cardioverter/defibrillator) present Code(s): Z95.810 - PRESENCE OF AUTOMATIC (IMPLANTABLE) CARDIAC DEFIBRILLATOR (5) Acute renal failure superimposed on stage 3 chronic kidney disease Code(s): N17.9 - ACUTE KIDNEY FAILURE, UNSPECIFIED; N18.3 - CHRONIC KIDNEY DISEASE, STAGE 3 (MODERATE) (6) CAD (coronary artery disease) Code(s): I25.10 - ATHSCL HEART DISEASE OF [place] CORONARY ARTERY W/O ANG PCTRS Qualifiers: Coronary Disease-Associated Artery/Lesion type: [place] artery [place] vs. transplanted heart: [place] heart Associated angina: without angina Qualified Code(s): I25.10 - Atherosclerotic heart disease of [place] coronary artery without angina pectoris (7) CVA (cerebral infarction) Code(s): I63.9 - CEREBRAL INFARCTION, UNSPECIFIED Qualifiers: Cerebral infarction mechanism: unspecified mechanism Qualified Code(s): I63.9 - Cerebral infarction, unspecified (8) HLD (hyperlipidemia) Code(s): E78.5 - HYPERLIPIDEMIA, UNSPECIFIED Qualifiers: Hyperlipidemia type: pure hypercholesterolemia Qualified Code(s): E78.00 - Pure hypercholesterolemia, unspecified; E78.0 - Pure hypercholesterolemia (9) HTN (hypertension) Code(s): I10 - ESSENTIAL (PRIMARY) HYPERTENSION Qualifiers: Hypertension type: essential hypertension Qualified Code(s): I10 - Essential (primary) hypertension (10) Leg edema Code(s): R60.0 - LOCALIZED EDEMA (11) Pulmonary hypertension Code(s): I27.2 - OTHER SECONDARY PULMONARY HYPERTENSION * DO NOT USE * (12) Status post coronary artery stent placement Code(s): Z95.5 - PRESENCE OF CORONARY ANGIOPLASTY IMPLANT AND GRAFT Assessment/Plan IMP DYSPNEA IMPROVING ACUTE ON CHRONIC CHF NON-ISCHEMIC CARDIOMYOPATHY AFIB SSS S/P PPM ASHD S/P STENTS H/O CVA H/O PULMONARY NODULES HTN HLD CKD PULMONARY HTN H/O COPD PLAN LASIX/DOBUTAMINE PER CARDIOLOGY INHALED BRONCHODILATORS PRN SUPPLEMENTAL O2 DAILY WTS MONITOR INR F/U CHEST X-RAYS MONITOR LYTES,RENAL FUNCTION CHEST 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 Problem List - Problems (1) [place] (dyspnea on exertion) Code(s): R06.09 - OTHER FORMS OF DYSPNEA (2) Shortness of breath Code(s): R06.02 - SHORTNESS OF BREATH (3) Systolic CHF, acute on chronic Code(s): I50.23 - ACUTE ON CHRONIC SYSTOLIC (CONGESTIVE) HEART FAILURE (4) AICD (automatic cardioverter/defibrillator) present Code(s): Z95.810 - PRESENCE OF AUTOMATIC (IMPLANTABLE) CARDIAC DEFIBRILLATOR (5) Acute renal failure superimposed on stage 3 chronic kidney disease Code(s): N17.9 - ACUTE KIDNEY FAILURE, UNSPECIFIED; N18.3 - CHRONIC KIDNEY DISEASE, STAGE 3 (MODERATE) (6) CAD (coronary artery disease) Code(s): I25.10 - ATHSCL HEART DISEASE OF [place] CORONARY ARTERY W/O ANG PCTRS Qualifiers: Coronary Disease-Associated Artery/Lesion type: [place] artery [place] vs. transplanted heart: [place] heart Associated angina: without angina Qualified Code(s): I25.10 - Atherosclerotic heart disease of [place] coronary artery without angina pectoris (7) CVA (cerebral infarction) Code(s): I63.9 - CEREBRAL INFARCTION, UNSPECIFIED Qualifiers: Cerebral infarction mechanism: unspecified mechanism Qualified Code(s): I63.9 - Cerebral infarction, unspecified (8) HLD (hyperlipidemia) Code(s): E78.5 - HYPERLIPIDEMIA, UNSPECIFIED Qualifiers: Hyperlipidemia type: pure hypercholesterolemia Qualified Code(s): E78.00 - Pure hypercholesterolemia, unspecified; E78.0 - Pure hypercholesterolemia (9) HTN (hypertension) Code(s): I10 - ESSENTIAL (PRIMARY) HYPERTENSION Qualifiers: Hypertension type: essential hypertension Qualified Code(s): I10 - Essential (primary) hypertension (10) Leg edema Code(s): R60.0 - LOCALIZED EDEMA (11) Pulmonary hypertension Code(s): I27.2 - OTHER SECONDARY PULMONARY HYPERTENSION * DO NOT USE * (12) Status post coronary artery stent placement Code(s): Z95.5 - PRESENCE OF CORONARY ANGIOPLASTY IMPLANT AND GRAFT
--- NOTE | 2018-07-30 11:35 | PN ---
Progress Note, Physician - Current Medication List Current Medications: Active Medications Aspirin (Asa -) 81 mg PO DAILY [facility] Last Admin: 07/30/18 09:58 Dose: 81 mg Atorvastatin Calcium (Lipitor -) 80 mg PO HS [facility] Last Admin: 07/29/18 22:36 Dose: 80 mg Carvedilol (Coreg -) 25 mg PO BID [facility] Last Admin: 07/30/18 09:58 Dose: 25 mg Eplerenone (Eplerenone) 25 mg PO DAILY@0800 [facility] Last Admin: 07/30/18 09:58 Dose: 25 mg Furosemide (Lasix Injection -) 60 mg IVPUSH BID@0600,1400 [facility] Last Admin: 07/30/18 06:12 Dose: 60 mg Dobutamine HCl/Dextrose (Dobutamine 250 Mg/D5w -) 250,000 mcg in 250 mls @ 28.032 mls/hr IV TITR [facility]; Protocol Last Admin: 07/30/18 02:41 Dose: 5 mcg/kg/min, 28.032 mls/hr Sacubitril/Valsartan (Entresto 49 Mg-51 Mg Tablet) 1 tab PO BID [facility] Last Admin: 07/30/18 09:59 Dose: 1 tab - Objective Vital Signs: Vital Signs Temperature 97.6 F 07/30/18 06:00 Pulse Rate 76 07/30/18 06:00 Respiratory Rate 18 07/30/18 06:00 Blood Pressure 112/67 07/30/18 06:00 O2 Sat by Pulse Oximetry (%) 96 07/29/18 21:00 Cardiovascular: Yes: S1, S2 Respiratory: Yes: Regular, CTA Bilaterally Gastrointestinal: Yes: Normal Bowel Sounds, Soft Labs: CBC, BMP 07/29/18 06:30 07/30/18 06:30 INR, PTT INR 1.85 (0.83-1.09) H 07/29/18 06:30 Problem List - Problems (1) Systolic CHF, acute on chronic Assessment/Plan: Orders 07/28/18 19:15 Dobutamine 250 mg/D5w - 250,000 mcg in 250 ml IV TITR 07/28/18 22:00 Carvedilol [Coreg -] 25 mg PO BID Sacubitril/Valsartan [Entresto 49 mg-51 mg Tablet] 1 tab PO BID 07/29/18 06:00 Furosemide Injection [Lasix Injection -] 60 mg IVPUSH BID@0600,1400 07/29/18 09:00 Eplerenone 25 mg PO DAILY@0800 Code(s): I50.23 - ACUTE ON CHRONIC SYSTOLIC (CONGESTIVE) HEART FAILURE (2) AICD (automatic cardioverter/defibrillator) present Code(s): Z95.810 - PRESENCE OF AUTOMATIC (IMPLANTABLE) CARDIAC DEFIBRILLATOR (3) Acute renal failure superimposed on stage 3 chronic kidney disease Assessment/Plan: -Renal on board -follow labs Code(s): N17.9 - ACUTE KIDNEY FAILURE, UNSPECIFIED; N18.3 - CHRONIC KIDNEY DISEASE, STAGE 3 (MODERATE) (4) CAD (coronary artery disease) Assessment/Plan: -No cp Troponin, BNP 07/28/18 07/28/18 07/28/18 13:54 13:54 13:54 Troponin I Cancelled Cancelled 0.06 H B-Natriuretic Peptide 35345.5 H 07/29/18 06:30 Troponin I 0.08 H B-Natriuretic Peptide 96758.0 H Code(s): I25.10 - ATHSCL HEART DISEASE OF [place] CORONARY ARTERY W/O ANG PCTRS Qualifiers: Coronary Disease-Associated Artery/Lesion type: [place] artery [place] vs. transplanted heart: [place] heart Associated angina: without angina Qualified Code(s): I25.10 - Atherosclerotic heart disease of [place] coronary artery without angina pectoris (5) COPD (chronic obstructive pulmonary disease) Assessment/Plan: -Pulm on board Code(s): J44.9 - CHRONIC OBSTRUCTIVE PULMONARY DISEASE, UNSPECIFIED Qualifiers: Emphysema type: unspecified (6) Afib Assessment/Plan: -Coumadin -Monitor INR INR, PTT INR 1.85 (0.83-1.09) H 07/29/18 06:30 Code(s): I48.91 - UNSPECIFIED ATRIAL FIBRILLATION Qualifiers: Atrial fibrillation type: chronic Qualified Code(s): I48.2 - Chronic atrial fibrillation
--- NOTE | 2018-07-30 11:50 | PN ---
Progress Note, Physician History of Present Illness: Good diuretic response with inotropic diuresis with improvement in orthopea, dyspnea and, LE edema. - Current Medication List Current Medications: Active Medications Aspirin (Asa -) 81 mg PO DAILY [facility] Last Admin: 07/30/18 09:58 Dose: 81 mg Atorvastatin Calcium (Lipitor -) 80 mg PO HS [facility] Last Admin: 07/29/18 22:36 Dose: 80 mg Carvedilol (Coreg -) 25 mg PO BID [facility] Last Admin: 07/30/18 09:58 Dose: 25 mg Eplerenone (Eplerenone) 25 mg PO DAILY@0800 [facility] Last Admin: 07/30/18 09:58 Dose: 25 mg Furosemide (Lasix Injection -) 60 mg IVPUSH BID@0600,1400 [facility] Last Admin: 07/30/18 06:12 Dose: 60 mg Dobutamine HCl/Dextrose (Dobutamine 250 Mg/D5w -) 250,000 mcg in 250 mls @ 28.032 mls/hr IV TITR [facility]; Protocol Last Admin: 07/30/18 02:41 Dose: 5 mcg/kg/min, 28.032 mls/hr Sacubitril/Valsartan (Entresto 49 Mg-51 Mg Tablet) 1 tab PO BID [facility] Last Admin: 07/30/18 09:59 Dose: 1 tab - Objective Vital Signs: Vital Signs Temperature 97.6 F 07/30/18 06:00 Pulse Rate 76 07/30/18 06:00 Respiratory Rate 18 07/30/18 06:00 Blood Pressure 112/67 07/30/18 06:00 O2 Sat by Pulse Oximetry (%) 96 07/29/18 21:00 Constitutional: Yes: No Distress, Calm, Thin Neck: Yes: Supple Cardiovascular: Yes: Regular Rate and Rhythm Respiratory: Yes: Regular, Diminished, On Nasal O2 Gastrointestinal: Yes: Normal Bowel Sounds, Soft Edema: Yes Edema: LLE: 1+, RLE: 1+ Labs: CBC, BMP 07/29/18 06:30 07/30/18 06:30 INR, PTT INR 1.85 (0.83-1.09) H 07/29/18 06:30 - ....Imaging EKG: Report Reviewed (Tele: Afib v-paced) Problem List - Problems (1) AICD (automatic cardioverter/defibrillator) present Code(s): Z95.810 - PRESENCE OF AUTOMATIC (IMPLANTABLE) CARDIAC DEFIBRILLATOR (2) COPD (chronic obstructive pulmonary disease) Code(s): J44.9 - CHRONIC OBSTRUCTIVE PULMONARY DISEASE, UNSPECIFIED Qualifiers: Emphysema type: unspecified (3) CVA (cerebral infarction) Code(s): I63.9 - CEREBRAL INFARCTION, UNSPECIFIED Qualifiers: Cerebral infarction mechanism: unspecified mechanism Qualified Code(s): I63.9 - Cerebral infarction, unspecified (4) HLD (hyperlipidemia) Code(s): E78.5 - HYPERLIPIDEMIA, UNSPECIFIED Qualifiers: Hyperlipidemia type: pure hypercholesterolemia Qualified Code(s): E78.00 - Pure hypercholesterolemia, unspecified; E78.0 - Pure hypercholesterolemia (5) HTN (hypertension) Code(s): I10 - ESSENTIAL (PRIMARY) HYPERTENSION Qualifiers: Hypertension type: essential hypertension Qualified Code(s): I10 - Essential (primary) hypertension (6) Leg edema Code(s): R60.0 - LOCALIZED EDEMA (7) Pulmonary hypertension Code(s): I27.2 - OTHER SECONDARY PULMONARY HYPERTENSION * DO NOT USE * (8) Shortness of breath Code(s): R06.02 - SHORTNESS OF BREATH (9) Status post coronary artery stent placement Code(s): Z95.5 - PRESENCE OF CORONARY ANGIOPLASTY IMPLANT AND GRAFT (10) Systolic CHF, acute on chronic Code(s): I50.23 - ACUTE ON CHRONIC SYSTOLIC (CONGESTIVE) HEART FAILURE Assessment/Plan December 19, 2017 Dilated LV with severely decreased LVEF 30%, DAV LA 4.8 cm, mod MR , mild TR, RVP 39 mmHg, mild ao dilatation 4.3 cm Sep 14, 2017 Pharm stress: Severe diffuse global HK LVEF 22% 1. Acute on chronic class III-IV NYHA classification LV systolic failure 2. CAD post PCI/stent angina pectoris 3. 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 HTN/HCVD 6. Hypercholesterolemia 7. History of CVA with right hemiparesis 8. Acute on CKD stage 3 improving 9. Underlying CKD secondary to Hypertensive Nephrosclerosis vs. Acquired Cystic Renal Disease (unlikely PCKD given normal size kidneys) 10. Anemia 11. PAD 12. COPD and pulm HTN 13. Gynecomastia PLAN: 1. Wean inotropic diuresis with dobutamine gtt @ 5, Lasix 40 IV bid and Eplerenone 25 qd with monitor diuretic response, renal function and electrolytes , wrap legs 2. Continue Coreg 25 bid, Lipitor 80 qhs, ASA 81 qd and Entresto 49/51 bid, add BiDil as hemodynamics tolerate 3. Dose Coumadin with close monitoring of INR and CBC
[2018-07-30 12:18] LABS: PROTHROMBIN TIME (PATIENT) 23.8 SEC (9.7-13.0)
--- NOTE | 2018-07-30 12:44 | PN ---
Progress Note (short form) - Note Progress Note: RENAL Pt is awake and alert again having lunch denies complaints Last Vital Signs Temp Pulse Resp BP Pulse Ox 97.6 F 76 18 112/67 96 07/30/18 06:00 07/30/18 06:00 07/30/18 06:00 07/30/18 06:00 07/29/18 21:00 lungs clear cvs s1s2 rr abd soft ext has compression bandages on both legs and still has some edema neuro alert CBC, BMP 07/29/18 06:30 07/30/18 06:30 Current Medications Generic Name Dose Route Start Last Admin Trade Name Sivaq PRN Reason Stop Dose Admin Aspirin 81 mg 07/29/18 10:00 07/30/18 09:58 Asa - PO 81 mg DAILY [facility] Administration Atorvastatin Calcium 80 mg 07/28/18 22:00 07/29/18 22:36 Lipitor - PO 80 mg HS [facility] Administration Carvedilol 25 mg 07/28/18 22:00 07/30/18 09:58 Coreg - PO 25 mg BID [facility] Administration Eplerenone 25 mg 07/29/18 09:00 07/30/18 09:58 Eplerenone PO 25 mg DAILY@0800 [facility] Administration Furosemide 40 mg 07/30/18 11:58 Lasix Injection - IVPUSH BID@0600,1400 F[facility] Dobutamine HCl/Dextrose 250,000 mcg in 250 mls @ 28.032 mls/hr 07/28/18 19:15 07/30/18 02:41 Dobutamine 250 Mg/D5w - IV 5 mcg/kg/min TITR [facility] 28.032 mls/hr Administration Protocol 5 MCG/KG/MIN Sacubitril/Valsartan 1 tab 07/28/18 22:00 07/30/18 09:59 Entresto 49 Mg-51 Mg Tablet PO 1 tab BID [facility] Administration Warfarin Sodium 5 mg 07/30/18 18:00 Coumadin - PO 07/30/18 18:01 ONCE@1800 ONE IMPRESSION CHF probable cardiorenal syndrome- JASMYN has improved with diuresis ckd - non proteinuric dementia previous pulmonary nodules on CT from 2014 emphysematous changes on that ct from 2014 renal cysts- likely acquired PLAN continue diuresis monitor renal function would repeat ct scan of chest unless already repeated renal sonogram cardiology follow up spep/upep MV
[2018-07-30] MEDS ORDERED: WARFARIN NA 5 MG TABLET (UD) PO ONE (18:00)
[2018-07-30] MEDS: ATORVASTATIN CA 80 MG TABLET (FP) PO SCH (21:21)
[2018-07-31] MEDS: FUROSEMIDE 40 MG/4 ML INJECTABLE VIAL IVPUSH SCH ×2 (06:40→15:12)
[2018-07-31 07:02] LABS: BASO % 1.1 % (0-2.0); EOS % 4.7 % (0-4.5); HEMOGLOBIN 10.8 GM/dL (11.7-16.9); LYMPH % 25.3 % (8-40); MCH 26.7 pg (25.7-33.7); MCHC 30.9 g/dl (32.0-35.9); MEAN CELL VOLUME 86.3 fl (80-96); MONO % 12.2 % (3.8-10.2); NEUT % 56.7 % (42.8-82.8); PLATELET COUNT 168 K/MM3 (134-434); RBC 4.06 M/mm3 (4.00-5.60); RDW 20.7 % (11.9-15.9); WHITE BLOOD COUNT 3.7 K/mm3 (4.0-10.0)
[2018-07-31 07:20] LABS: INR 1.99 (0.83-1.09); PROTHROMBIN TIME (PATIENT) 23.6 SEC (9.7-13.0)
[2018-07-31 07:45] LABS: ALBUMIN 3.1 g/dl (3.4-5.0); ALK PHOS 54 U/L (45-117); ANION GAP 7 MMOL/L (8-16); BLOOD UREA NITROGEN 17 mg/dL (7-18); CALCIUM 8.2 mg/dL (8.5-10.1); CHLORIDE 106 mmol/L (98-107); CO2 29 mmol/L (21-32); CREATININE 1.5 mg/dL (0.55-1.3); GLUCOSE,RANDOM 93 mg/dL (74-106); POTASSIUM 3.8 mmol/L (3.5-5.1); SGOT/AST 14 U/L (15-37); SGPT/ALT 14 U/L (13-61); SODIUM 142 mmol/L (136-145); TOT PROT 6.7 g/dl (6.4-8.2)
--- NOTE | 2018-07-31 10:49 | PN ---
Progress Note, Physician History of Present Illness: pulmonary alert,feeling better,less dyspneic,on dobutamine drip.. - Current Medication List Current Medications: Active Medications Aspirin (Asa -) 81 mg PO DAILY [facility] Last Admin: 07/30/18 09:58 Dose: 81 mg Atorvastatin Calcium (Lipitor -) 80 mg PO HS [facility] Last Admin: 07/30/18 21:21 Dose: 80 mg Carvedilol (Coreg -) 25 mg PO BID [facility] Last Admin: 07/30/18 21:21 Dose: 25 mg Eplerenone (Eplerenone) 25 mg PO DAILY@0800 [facility] Last Admin: 07/30/18 09:58 Dose: 25 mg Furosemide (Lasix Injection -) 40 mg IVPUSH BID@0600,1400 [facility] Last Admin: 07/31/18 06:40 Dose: 40 mg Dobutamine HCl/Dextrose (Dobutamine 250 Mg/D5w -) 250,000 mcg in 250 mls @ 28.032 mls/hr IV TITR [facility]; Protocol Last Admin: 07/30/18 19:22 Dose: Not Given Sacubitril/Valsartan (Entresto 49 Mg-51 Mg Tablet) 1 tab PO BID [facility] Last Admin: 07/30/18 21:21 Dose: 1 tab - Objective Vital Signs: Vital Signs Temperature 98.5 F 07/31/18 06:00 Pulse Rate 71 07/31/18 06:00 Respiratory Rate 18 07/31/18 06:00 Blood Pressure 102/53 L 07/31/18 06:00 O2 Sat by Pulse Oximetry (%) 98 07/31/18 06:00 Constitutional: Yes: Well Nourished, Calm Eyes: Yes: WNL HENT: Yes: WNL Neck: Yes: WNL Cardiovascular: Yes: Regular Rate and Rhythm, S1, S2 Respiratory: Yes: Rales (bibasilar crackles) Gastrointestinal: Yes: Normal Bowel Sounds, Soft Extremities: Yes: WNL Edema: Yes Labs: CBC, BMP 07/31/18 05:30 07/31/18 05:30 INR, PTT INR 1.99 (0.83-1.09) H 07/31/18 05:30 Problem List - Problems (1) [place] (dyspnea on exertion) Code(s): R06.09 - OTHER FORMS OF DYSPNEA (2) Shortness of breath Code(s): R06.02 - SHORTNESS OF BREATH (3) Systolic CHF, acute on chronic Code(s): I50.23 - ACUTE ON CHRONIC SYSTOLIC (CONGESTIVE) HEART FAILURE (4) AICD (automatic cardioverter/defibrillator) present Code(s): Z95.810 - PRESENCE OF AUTOMATIC (IMPLANTABLE) CARDIAC DEFIBRILLATOR (5) Acute renal failure superimposed on stage 3 chronic kidney disease Code(s): N17.9 - ACUTE KIDNEY FAILURE, UNSPECIFIED; N18.3 - CHRONIC KIDNEY DISEASE, STAGE 3 (MODERATE) (6) CAD (coronary artery disease) Code(s): I25.10 - ATHSCL HEART DISEASE OF [place] CORONARY ARTERY W/O ANG PCTRS Qualifiers: Coronary Disease-Associated Artery/Lesion type: [place] artery [place] vs. transplanted heart: [place] heart Associated angina: without angina Qualified Code(s): I25.10 - Atherosclerotic heart disease of [place] coronary artery without angina pectoris (7) CVA (cerebral infarction) Code(s): I63.9 - CEREBRAL INFARCTION, UNSPECIFIED Qualifiers: Cerebral infarction mechanism: unspecified mechanism Qualified Code(s): I63.9 - Cerebral infarction, unspecified (8) HLD (hyperlipidemia) Code(s): E78.5 - HYPERLIPIDEMIA, UNSPECIFIED Qualifiers: Hyperlipidemia type: pure hypercholesterolemia Qualified Code(s): E78.00 - Pure hypercholesterolemia, unspecified; E78.0 - Pure hypercholesterolemia (9) HTN (hypertension) Code(s): I10 - ESSENTIAL (PRIMARY) HYPERTENSION Qualifiers: Hypertension type: essential hypertension Qualified Code(s): I10 - Essential (primary) hypertension (10) Leg edema Code(s): R60.0 - LOCALIZED EDEMA (11) Pulmonary hypertension Code(s): I27.2 - OTHER SECONDARY PULMONARY HYPERTENSION * DO NOT USE * (12) Status post coronary artery stent placement Code(s): Z95.5 - PRESENCE OF CORONARY ANGIOPLASTY IMPLANT AND GRAFT Assessment/Plan IMP DYSPNEA IMPROVING ACUTE ON CHRONIC CHF NON-ISCHEMIC CARDIOMYOPATHY AFIB SSS S/P PPM ASHD S/P STENTS H/O CVA H/O PULMONARY NODULES HTN HLD CKD PULMONARY HTN H/O COPD PLAN LASIX/DOBUTAMINE PER CARDIOLOGY INHALED BRONCHODILATORS PRN SUPPLEMENTAL O2 DAILY WTS MONITOR INR F/U CHEST X-RAYS MONITOR LYTES,RENAL FUNCTION 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 Problem List - Problems (1) [place] (dyspnea on exertion) Code(s): R06.09 - OTHER FORMS OF DYSPNEA (2) Shortness of breath Code(s): R06.02 - SHORTNESS OF BREATH (3) Systolic CHF, acute on chronic Code(s): I50.23 - ACUTE ON CHRONIC SYSTOLIC (CONGESTIVE) HEART FAILURE (4) AICD (automatic cardioverter/defibrillator) present Code(s): Z95.810 - PRESENCE OF AUTOMATIC (IMPLANTABLE) CARDIAC DEFIBRILLATOR (5) Acute renal failure superimposed on stage 3 chronic kidney disease Code(s): N17.9 - ACUTE KIDNEY FAILURE, UNSPECIFIED; N18.3 - CHRONIC KIDNEY DISEASE, STAGE 3 (MODERATE) (6) CAD (coronary artery disease) Code(s): I25.10 - ATHSCL HEART DISEASE OF [place] CORONARY ARTERY W/O ANG PCTRS Qualifiers: Coronary Disease-Associated Artery/Lesion type: [place] artery [place] vs. transplanted heart: [place] heart Associated angina: without angina Qualified Code(s): I25.10 - Atherosclerotic heart disease of [place] coronary artery without angina pectoris (7) CVA (cerebral infarction) Code(s): I63.9 - CEREBRAL INFARCTION, UNSPECIFIED Qualifiers: Cerebral infarction mechanism: unspecified mechanism Qualified Code(s): I63.9 - Cerebral infarction, unspecified (8) HLD (hyperlipidemia) Code(s): E78.5 - HYPERLIPIDEMIA, UNSPECIFIED Qualifiers: Hyperlipidemia type: pure hypercholesterolemia Qualified Code(s): E78.00 - Pure hypercholesterolemia, unspecified; E78.0 - Pure hypercholesterolemia (9) HTN (hypertension) Code(s): I10 - ESSENTIAL (PRIMARY) HYPERTENSION Qualifiers: Hypertension type: essential hypertension Qualified Code(s): I10 - Essential (primary) hypertension (10) Leg edema Code(s): R60.0 - LOCALIZED EDEMA (11) Pulmonary hypertension Code(s): I27.2 - OTHER SECONDARY PULMONARY HYPERTENSION * DO NOT USE * (12) Status post coronary artery stent placement Code(s): Z95.5 - PRESENCE OF CORONARY ANGIOPLASTY IMPLANT AND GRAFT
[2018-07-31 11:03] LABS: ACANTHOCYTES 1+; ANISOCYTOSIS 1+; MACROCYTOSIS 0; OVALOCYTE 1+; PLATELET ESTIMATE NORMAL
[2018-07-31] MEDS ORDERED: PT OWN MED DRAWER 7, Y5N ONE ×2 (11:07→21:31)
--- NOTE | 2018-07-31 11:43 | PN ---
Progress Note, Physician Chief Complaint: patient seen and examined on lasix and dobutamine drip - Current Medication List Current Medications: Active Medications Aspirin (Asa -) 81 mg PO DAILY [facility] Last Admin: 07/30/18 09:58 Dose: 81 mg Atorvastatin Calcium (Lipitor -) 80 mg PO HS [facility] Last Admin: 07/30/18 21:21 Dose: 80 mg Carvedilol (Coreg -) 25 mg PO BID [facility] Last Admin: 07/30/18 21:21 Dose: 25 mg Eplerenone (Eplerenone) 25 mg PO DAILY@0800 [facility] Last Admin: 07/30/18 09:58 Dose: 25 mg Furosemide (Lasix Injection -) 40 mg IVPUSH BID@0600,1400 [facility] Last Admin: 07/31/18 06:40 Dose: 40 mg Dobutamine HCl/Dextrose (Dobutamine 250 Mg/D5w -) 250,000 mcg in 250 mls @ 28.032 mls/hr IV TITR [facility]; Protocol Last Admin: 07/30/18 19:22 Dose: Not Given Sacubitril/Valsartan (Entresto 49 Mg-51 Mg Tablet) 1 tab PO BID [facility] Last Admin: 07/30/18 21:21 Dose: 1 tab - Objective Vital Signs: Vital Signs Temperature 98.5 F 07/31/18 06:00 Pulse Rate 70 07/31/18 10:00 Respiratory Rate 20 07/31/18 10:00 Blood Pressure 128/78 07/31/18 10:00 O2 Sat by Pulse Oximetry (%) 96 07/31/18 09:00 Constitutional: Yes: Calm Cardiovascular: Yes: Regular Rate and Rhythm, S1, S2 Respiratory: Yes: Rales Gastrointestinal: Yes: Normal Bowel Sounds, Soft Edema: Yes Neurological: Yes: Alert Labs: CBC, BMP 07/31/18 05:30 07/31/18 05:30 INR, PTT INR 1.99 (0.83-1.09) H 07/31/18 05:30 Problem List - Problems (1) Systolic CHF, acute on chronic Assessment/Plan: lasix iv dobutamine cardiolog on board i/o eprenone entrestro Code(s): I50.23 - ACUTE ON CHRONIC SYSTOLIC (CONGESTIVE) HEART FAILURE (2) Acute renal failure superimposed on stage 3 chronic kidney disease Assessment/Plan: renal on board diuresis renal sono to look for renal cysts Code(s): N17.9 - ACUTE KIDNEY FAILURE, UNSPECIFIED; N18.3 - CHRONIC KIDNEY DISEASE, STAGE 3 (MODERATE) (3) Anemia Assessment/Plan: iron panel Code(s): D64.9 - ANEMIA, UNSPECIFIED Qualifiers: Anemia type: unspecified type Qualified Code(s): D64.9 - Anemia, unspecified (4) Afib Assessment/Plan: on coumadin check inr Code(s): I48.91 - UNSPECIFIED ATRIAL FIBRILLATION Qualifiers: Atrial fibrillation type: chronic Qualified Code(s): I48.2 - Chronic atrial fibrillation
[2018-07-31] MEDS: CARVEDILOL 25 MG TABLET (FP) PO SCH ×2 (11:55→21:42)
[2018-07-31] MEDS: ASPIRIN 81 MG CHEWABLE TABLETS PO SCH (11:55)
[2018-07-31] MEDS: SACUBITRIL/VALSARTAN 49 MG-51 MG TABLET PO SCH ×2 (11:55→21:48)
[2018-07-31] MEDS: EPLERENONE 25 MG TABLET PO SCH (11:56)
--- NOTE | 2018-07-31 12:45 | PN ---
Progress Note, Physician History of Present Illness: Good diuretic response with inotropic diuresis with improvement in orthopea, dyspnea and LE edema. - Current Medication List Current Medications: Active Medications Aspirin (Asa -) 81 mg PO DAILY [facility] Last Admin: 07/31/18 11:55 Dose: 81 mg Atorvastatin Calcium (Lipitor -) 80 mg PO HS [facility] Last Admin: 07/30/18 21:21 Dose: 80 mg Carvedilol (Coreg -) 25 mg PO BID [facility] Last Admin: 07/31/18 11:55 Dose: 25 mg Eplerenone (Eplerenone) 25 mg PO DAILY@0800 [facility] Last Admin: 07/31/18 11:56 Dose: 25 mg Furosemide (Lasix Injection -) 40 mg IVPUSH BID@0600,1400 [facility] Last Admin: 07/31/18 06:40 Dose: 40 mg Dobutamine HCl/Dextrose (Dobutamine 250 Mg/D5w -) 250,000 mcg in 250 mls @ 28.032 mls/hr IV TITR [facility]; Protocol Last Admin: 07/30/18 19:22 Dose: Not Given Sacubitril/Valsartan (Entresto 49 Mg-51 Mg Tablet) 1 tab PO BID [facility] Last Admin: 07/31/18 11:55 Dose: 1 tab Warfarin Sodium (Coumadin -) 4 mg PO ONCE@1800 ONE Stop: 07/31/18 18:01 - Objective Vital Signs: Vital Signs Temperature 98.5 F 07/31/18 06:00 Pulse Rate 70 07/31/18 10:00 Respiratory Rate 20 07/31/18 10:00 Blood Pressure 128/78 07/31/18 10:00 O2 Sat by Pulse Oximetry (%) 96 07/31/18 09:00 Constitutional: Yes: No Distress, Calm, Thin Neck: Yes: Supple Cardiovascular: Yes: Regular Rate and Rhythm Respiratory: Yes: Regular, Diminished Gastrointestinal: Yes: Normal Bowel Sounds, Soft Edema: Yes Edema: LLE: Trace, RLE: Trace Labs: CBC, BMP 07/31/18 05:30 07/31/18 05:30 INR, PTT INR 1.99 (0.83-1.09) H 07/31/18 05:30 - ....Imaging EKG: Report Reviewed (Tele: Afib v-paced) Problem List - Problems (1) AICD (automatic cardioverter/defibrillator) present Code(s): Z95.810 - PRESENCE OF AUTOMATIC (IMPLANTABLE) CARDIAC DEFIBRILLATOR (2) COPD (chronic obstructive pulmonary disease) Code(s): J44.9 - CHRONIC OBSTRUCTIVE PULMONARY DISEASE, UNSPECIFIED Qualifiers: Emphysema type: unspecified (3) CVA (cerebral infarction) Code(s): I63.9 - CEREBRAL INFARCTION, UNSPECIFIED Qualifiers: Cerebral infarction mechanism: unspecified mechanism Qualified Code(s): I63.9 - Cerebral infarction, unspecified (4) HLD (hyperlipidemia) Code(s): E78.5 - HYPERLIPIDEMIA, UNSPECIFIED Qualifiers: Hyperlipidemia type: pure hypercholesterolemia Qualified Code(s): E78.00 - Pure hypercholesterolemia, unspecified; E78.0 - Pure hypercholesterolemia (5) HTN (hypertension) Code(s): I10 - ESSENTIAL (PRIMARY) HYPERTENSION Qualifiers: Hypertension type: essential hypertension Qualified Code(s): I10 - Essential (primary) hypertension (6) Leg edema Code(s): R60.0 - LOCALIZED EDEMA (7) Pulmonary hypertension Code(s): I27.2 - OTHER SECONDARY PULMONARY HYPERTENSION * DO NOT USE * (8) Shortness of breath Code(s): R06.02 - SHORTNESS OF BREATH (9) Status post coronary artery stent placement Code(s): Z95.5 - PRESENCE OF CORONARY ANGIOPLASTY IMPLANT AND GRAFT (10) Systolic CHF, acute on chronic Code(s): I50.23 - ACUTE ON CHRONIC SYSTOLIC (CONGESTIVE) HEART FAILURE Assessment/Plan December 19, 2017 Dilated LV with severely decreased LVEF 30%, DAV LA 4.8 cm, mod MR , mild TR, RVP 39 mmHg, mild ao dilatation 4.3 cm Sep 14, 2017 Pharm stress: Severe diffuse global HK LVEF 22% 1. Acute on chronic class III-IV NYHA classification LV systolic failure 2. CAD post PCI/stent angina pectoris 3. 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 HTN/HCVD 6. Hypercholesterolemia 7. History of CVA with right hemiparesis 8. Acute on CKD stage 3 improving 9. Underlying CKD secondary to Hypertensive Nephrosclerosis vs. Acquired Cystic Renal Disease (unlikely PCKD given normal size kidneys) 10. Anemia 11. PAD 12. COPD and pulm HTN 13. Gynecomastia PLAN: 1. Wean inotropic diuresis with dobutamine gtt @ 2.5, Lasix 40 IV bid and Eplerenone 25 qd with monitor diuretic response, renal function and electrolytes , wrap legs 2. Continue Coreg 25 bid, Lipitor 80 qhs, ASA 81 qd and Entresto 49/51 bid, add BiDil as hemodynamics tolerate 3. Dose Coumadin with close monitoring of INR and CBC 4. F/u chest CT and renal US
--- NOTE | 2018-07-31 15:53 | PN ---
Progress Note, Physician History of Present Illness: Pt seen and examined at bedside. He feels that his breathing is improving. He remains on tele and on a dobutamine drip. - Current Medication List Current Medications: Active Medications Aspirin (Asa -) 81 mg PO DAILY [facility] Last Admin: 07/31/18 11:55 Dose: 81 mg Atorvastatin Calcium (Lipitor -) 80 mg PO HS [facility] Last Admin: 07/30/18 21:21 Dose: 80 mg Carvedilol (Coreg -) 25 mg PO BID [facility] Last Admin: 07/31/18 11:55 Dose: 25 mg Eplerenone (Eplerenone) 25 mg PO DAILY@0800 [facility] Last Admin: 07/31/18 11:56 Dose: 25 mg Furosemide (Lasix Injection -) 40 mg IVPUSH BID@0600,1400 [facility] Last Admin: 07/31/18 15:12 Dose: 40 mg Dobutamine HCl/Dextrose (Dobutamine 250 Mg/D5w -) 250,000 mcg in 250 mls @ 14.016 mls/hr IV TITR [facility]; Protocol Sacubitril/Valsartan (Entresto 49 Mg-51 Mg Tablet) 1 tab PO BID [facility] Last Admin: 07/31/18 11:55 Dose: 1 tab Warfarin Sodium (Coumadin -) 4 mg PO ONCE@1800 ONE Stop: 07/31/18 18:01 - Objective Vital Signs: Vital Signs Temperature 98.8 F 07/31/18 14:41 Pulse Rate 77 07/31/18 14:41 Respiratory Rate 20 07/31/18 14:41 Blood Pressure 136/67 07/31/18 14:41 O2 Sat by Pulse Oximetry (%) 96 07/31/18 09:00 Constitutional: Yes: Calm Eyes: Yes: Conjunctiva Clear HENT: Yes: Atraumatic Cardiovascular: Yes: S1, S2 Respiratory: Yes: On Nasal O2 Gastrointestinal: Yes: Soft Genitourinary: Yes: Incontinence Musculoskeletal: Yes: Muscle Weakness Edema: Yes Edema: LLE: 1+, RLE: 1+ Integumentary: Yes: Venous Stasis Changes Neurological: Yes: Oriented Labs: CBC, BMP 07/31/18 05:30 07/31/18 05:30 INR, PTT INR 1.99 (0.83-1.09) H 07/31/18 05:30 Assessment/Plan Current Medications Generic Name Dose Route Start Last Admin Trade Name Suraj PRN Reason Stop Dose Admin Aspirin 81 mg 07/29/18 10:00 07/31/18 11:55 Asa - PO 81 mg DAILY FELICIA Administration Atorvastatin Calcium 80 mg 07/28/18 22:00 07/30/18 21:21 Lipitor - PO 80 mg HS FELICIA Administration Carvedilol 25 mg 07/28/18 22:00 07/31/18 11:55 Coreg - PO 25 mg BID FELICIA Administration Eplerenone 25 mg 07/29/18 09:00 07/31/18 11:56 Eplerenone PO 25 mg DAILY@0800 FEL[facility] Administration Furosemide 40 mg 07/30/18 11:58 07/31/18 15:12 Lasix Injection - IVPUSH 40 mg BID@0600,1400 FELICIA Administration Dobutamine HCl/Dextrose 250,000 mcg in 250 mls @ 14.016 mls/hr 07/31/18 12:49 Dobutamine 250 Mg/D5w - IV TITR FELICIA Protocol 2.5 MCG/KG/MIN Sacubitril/Valsartan 1 tab 07/28/18 22:00 07/31/18 11:55 Entresto 49 Mg-51 Mg Tablet PO 1 tab BID [facility] Administration Warfarin Sodium 4 mg 07/31/18 18:00 Coumadin - PO 07/31/18 18:01 ONCE@1800 ONE Laboratory Tests 07/29/15 07/30/15 07/28/18 05:35 09:45 13:54 Creatinine 1.4 H Cancelled 1.8 H Urine Protein Urine Blood Urine Total Protein Urine PEP Interpret MARISSA M-Fredi 07/28/18 07/29/18 07/30/18 14:46 06:30 06:30 Creatinine 1.7 H 1.5 H Urine Protein Negative Urine Blood Negative Urine Total Protein Urine PEP Interpret MARISSA M-Fredi 07/30/18 07/31/18 06:30 05:30 Creatinine 1.5 H Urine Protein Urine Blood Urine Total Protein Pending Urine PEP Interpret Pending MARISSA M-Fredi Pending Impression 1. CKD 2. likely cardiorenal syndrome 3. CHF 4. dementia 5. pulm nodules 6. renal cysts 7. HLD Plan - cont diuretics - renal function is stabilizing - ua was negative for blood or protein - follow spep - follow chest ct - cardio input appreciated
[2018-07-31] MEDS: DOBUTAMINE 250 MG/D5W - 250,000 MCG/250 ML INFUS.BAG IV SCH (17:56)
[2018-07-31] MEDS ORDERED: WARFARIN NA 2 MG TABLET (UD) PO ONE (18:00)
[2018-07-31] MEDS: ATORVASTATIN CA 80 MG TABLET (FP) PO SCH (21:42)
[2018-08-01] MEDS: FUROSEMIDE 40 MG/4 ML INJECTABLE VIAL IVPUSH SCH ×2 (06:58→13:29)
--- NOTE | 2018-08-01 07:16 | PN ---
Progress Note (short form) - Note Progress Note: Chief Complaint: Events noted, notes reviewed, denies any chest pain or dyspnea , Dobutamine infusion in progress History of Present Illness: Seen and examined on telemetry. Events noted, notes reviewed, denies any chest pain or dyspnea, Dobutamine infusion in progress Weight noted A/C from my understanding has been an issue with Coumadin, unstable INR, recommend DOAC's unless they are absolutely contraindicated Current Medications: Current Medications Aspirin (Asa -) 81 mg PO DAILY [facility] Last Admin: 07/31/18 11:55 Dose: 81 mg Atorvastatin Calcium (Lipitor -) 80 mg PO HS [facility] Last Admin: 07/31/18 21:42 Dose: 80 mg Carvedilol (Coreg -) 25 mg PO BID [facility] Last Admin: 07/31/18 21:42 Dose: 25 mg Eplerenone (Eplerenone) 25 mg PO DAILY@0800 [facility] Last Admin: 07/31/18 11:56 Dose: 25 mg Furosemide (Lasix Injection -) 40 mg IVPUSH BID@0600,1400 [facility] Last Admin: 08/01/18 06:58 Dose: 40 mg Dobutamine HCl/Dextrose (Dobutamine 250 Mg/D5w -) 250,000 mcg in 250 mls @ 14.016 mls/hr IV TITR [facility]; Protocol Last Admin: 07/31/18 17:56 Dose: 2.5 mcg/kg/min, 14.016 mls/hr Sacubitril/Valsartan (Entresto 49 Mg-51 Mg Tablet) 1 tab PO BID [facility] Last Admin: 07/31/18 21:48 Dose: 1 tab - Objective Vital Signs: Last Vital Signs Temp Pulse Resp BP Pulse Ox 97.5 F L 70 20 124/80 95 08/01/18 01:34 08/01/18 05:00 08/01/18 05:00 08/01/18 05:00 07/31/18 21:00 Intake & Output 07/29/18 07/30/18 07/31/18 08/01/18 23:59 23:59 23:59 23:59 Intake Total 856 1220 1086 336 Output Total 1650 900 400 200 Balance -794 320 686 136 Weight 203 lb 9.6 oz 201 lb 199 lb 3.2 oz 198 lb 9.6 oz Constitutional: No Distress, Calm Neck: Supple Negative JVD No Bruit Respiratory: Diminished Breath Sounds at the Bases Cardiovascular: S1 S2 Regular Rate and Rhythm Grade 2-3/6 SM Gastrointestinal: Soft Benign Normal Bowel Sounds Ext: Bilateral 1-2+ edema Labs: CBC, BMP 07/31/18 05:30 07/31/18 05:30 Hepatic Panel Total Bilirubin 2.0 mg/dL (0.2-1) H 07/31/18 05:30 AST 14 U/L (15-37) L 07/31/18 05:30 ALT 14 U/L (13-61) 07/31/18 05:30 Alkaline Phosphatase 54 U/L (45-117) 07/31/18 05:30 Albumin 3.1 g/dl (3.4-5.0) L 07/31/18 05:30 INR, PTT INR 1.99 (0.83-1.09) H 07/31/18 05:30 Assessment/Plan ASSESSMENT: 1. Acute on chronic class III-IV NYHA classification systolic LV failure, clinically resolving 2. CAD post PCI/stent angina pectoris, clinically stable 3. Persistent atrial fibrillation on chronic A/C [id number] score of 4, on Coumadin, sub-therapeutic INR 4. ANNOUNCER-D, history of sick sinus syndrome 5. HTN 6. Hypercholesterolemia 7. History of CVA 8. CKD with acute exacerbation 9. Anemia PLAN: 1. Continue Coreg 2. Continue Entresto 3. Continue Lasix and titrate dosage as needed and as tolerated with close monitoring of renal function 4. Continue Ispra and titrate dosage as needed and as tolerated with close monitoring of renal function 5. Continue Dobutamine at 5 mcg/kg/min., wean off as tolerated 6. Recommend D/C Coumadin (unstable INR) and initiating DOAC's/Eliquis as an alternative with caution and close monitoring of CBC Lucretia Amaro M.D.
[2018-08-01 07:46] LABS: EOS % 5.3 % (0-4.5); HEMATOCRIT 32.5 % (35.4-49); LYMPH % 23.4 % (8-40); MCH 28.8 pg (25.7-33.7); MCHC 33.7 g/dl (32.0-35.9); MEAN CELL VOLUME 85.4 fl (80-96); MEAN PLT VOLUME 8.6 fl (7.5-11.1); MONO % 11.3 % (3.8-10.2); PLATELET COUNT 172 K/MM3 (134-434); RBC 3.81 M/mm3 (4.00-5.60); RDW 20.4 % (11.9-15.9); WHITE BLOOD COUNT 3.6 K/mm3 (4.0-10.0)
[2018-08-01 08:12] LABS: INR 2.04 (0.83-1.09); PROTHROMBIN TIME (PATIENT) 24.2 SEC (9.7-13.0)
[2018-08-01 08:14] LABS: ALBUMIN 2.9 g/dl (3.4-5.0); ALK PHOS 56 U/L (45-117); ANION GAP 5 MMOL/L (8-16); BILIRUBIN,TOTAL 1.8 mg/dL (0.2-1); BLOOD UREA NITROGEN 16 mg/dL (7-18); CALCIUM 8.1 mg/dL (8.5-10.1); CHLORIDE 105 mmol/L (98-107); CO2 31 mmol/L (21-32); CREATININE 1.3 mg/dL (0.55-1.3); GLUCOSE,RANDOM 85 mg/dL (74-106); SGOT/AST 13 U/L (15-37); SGPT/ALT 13 U/L (13-61); SODIUM 141 mmol/L (136-145); TOT PROT 6.4 g/dl (6.4-8.2)
[2018-08-01] MEDS ORDERED: PT OWN MED DRAWER 7, Y5N ONE ×3 (08:33→21:46)
--- NOTE | 2018-08-01 09:04 | PN ---
Progress Note, Physician - Current Medication List Current Medications: Active Medications Aspirin (Asa -) 81 mg PO DAILY [facility] Last Admin: 07/31/18 11:55 Dose: 81 mg Atorvastatin Calcium (Lipitor -) 80 mg PO HS [facility] Last Admin: 07/31/18 21:42 Dose: 80 mg Carvedilol (Coreg -) 25 mg PO BID [facility] Last Admin: 07/31/18 21:42 Dose: 25 mg Eplerenone (Eplerenone) 25 mg PO DAILY@0800 [facility] Last Admin: 07/31/18 11:56 Dose: 25 mg Furosemide (Lasix Injection -) 40 mg IVPUSH BID@0600,1400 [facility] Last Admin: 08/01/18 06:58 Dose: 40 mg Dobutamine HCl/Dextrose (Dobutamine 250 Mg/D5w -) 250,000 mcg in 250 mls @ 14.016 mls/hr IV TITR [facility]; Protocol Last Admin: 07/31/18 17:56 Dose: 2.5 mcg/kg/min, 14.016 mls/hr Sacubitril/Valsartan (Entresto 49 Mg-51 Mg Tablet) 1 tab PO BID [facility] Last Admin: 07/31/18 21:48 Dose: 1 tab - Objective Vital Signs: Vital Signs Temperature 97.5 F L 08/01/18 01:34 Pulse Rate 70 08/01/18 05:00 Respiratory Rate 20 08/01/18 05:00 Blood Pressure 124/80 08/01/18 05:00 O2 Sat by Pulse Oximetry (%) 95 07/31/18 21:00 Cardiovascular: Yes: S1, S2 Respiratory: Yes: Regular, CTA Bilaterally Gastrointestinal: Yes: Normal Bowel Sounds, Soft Edema: Yes (less) Labs: CBC, BMP 08/01/18 06:18 08/01/18 06:18 INR, PTT INR 2.04 (0.83-1.09) H 08/01/18 06:18 Problem List - Problems (1) Systolic CHF, acute on chronic Assessment/Plan: Orders 07/28/18 19:15 Dobutamine 250 mg/D5w - 250,000 mcg in 250 ml IV TITR 07/28/18 22:00 Carvedilol [Coreg -] 25 mg PO BID Sacubitril/Valsartan [Entresto 49 mg-51 mg Tablet] 1 tab PO BID 07/29/18 06:00 Furosemide Injection [Lasix Injection -] 60 mg IVPUSH BID@0600,1400 07/29/18 09:00 Eplerenone 25 mg PO DAILY@0800 Code(s): I50.23 - ACUTE ON CHRONIC SYSTOLIC (CONGESTIVE) HEART FAILURE (2) AICD (automatic cardioverter/defibrillator) present Code(s): Z95.810 - PRESENCE OF AUTOMATIC (IMPLANTABLE) CARDIAC DEFIBRILLATOR (3) Acute renal failure superimposed on stage 3 chronic kidney disease Assessment/Plan: -Renal on board -follow labs Code(s): N17.9 - ACUTE KIDNEY FAILURE, UNSPECIFIED; N18.3 - CHRONIC KIDNEY DISEASE, STAGE 3 (MODERATE) (4) CAD (coronary artery disease) Assessment/Plan: -No cp Troponin, BNP 07/28/18 07/28/18 07/28/18 13:54 13:54 13:54 Troponin I Cancelled Cancelled 0.06 H B-Natriuretic Peptide 73535.5 H 07/29/18 06:30 Troponin I 0.08 H B-Natriuretic Peptide 27772.0 H Code(s): I25.10 - ATHSCL HEART DISEASE OF [place] CORONARY ARTERY W/O ANG PCTRS Qualifiers: Coronary Disease-Associated Artery/Lesion type: [place] artery [place] vs. transplanted heart: [place] heart Associated angina: without angina Qualified Code(s): I25.10 - Atherosclerotic heart disease of [place] coronary artery without angina pectoris (5) COPD (chronic obstructive pulmonary disease) Assessment/Plan: -Pulm on board Code(s): J44.9 - CHRONIC OBSTRUCTIVE PULMONARY DISEASE, UNSPECIFIED Qualifiers: Emphysema type: unspecified (6) Afib Assessment/Plan: -Coumadin -Monitor INR INR, PTT INR 2.04 (0.83-1.09) H 08/01/18 06:18 Code(s): I48.91 - UNSPECIFIED ATRIAL FIBRILLATION Qualifiers: Atrial fibrillation type: chronic Qualified Code(s): I48.2 - Chronic atrial fibrillation (7) UTI (urinary tract infection) Assessment/Plan: Microbiology 07/28/18 14:46 Urine - Urine Clean Catch Urine Culture - Final Acinetobacter Baumannii/Haemol ID consult Code(s): N39.0 - URINARY TRACT INFECTION, SITE NOT SPECIFIED
[2018-08-01] MEDS: EPLERENONE 25 MG TABLET PO SCH (09:12)
[2018-08-01] MEDS: CARVEDILOL 25 MG TABLET (FP) PO SCH ×2 (09:12→21:48)
[2018-08-01] MEDS: ASPIRIN 81 MG CHEWABLE TABLETS PO SCH (09:12)
[2018-08-01] MEDS: SACUBITRIL/VALSARTAN 49 MG-51 MG TABLET PO SCH ×2 (09:13→21:49)
--- NOTE | 2018-08-01 12:04 | PN ---
Progress Note, Physician History of Present Illness: pulmonary alert,no distress,-cp,-sob,-cough,remains on dobutamine drip - Current Medication List Current Medications: Active Medications Apixaban (Eliquis -) 5 mg PO BID [facility] Atorvastatin Calcium (Lipitor -) 80 mg PO HS [facility] Last Admin: 07/31/18 21:42 Dose: 80 mg Carvedilol (Coreg -) 25 mg PO BID [facility] Last Admin: 08/01/18 09:12 Dose: 25 mg Eplerenone (Eplerenone) 25 mg PO DAILY@0800 [facility] Last Admin: 08/01/18 09:12 Dose: 25 mg Furosemide (Lasix Injection -) 60 mg IVPUSH BID@0600,1400 [facility] Dobutamine HCl/Dextrose (Dobutamine 250 Mg/D5w -) 250,000 mcg in 250 mls @ 14.016 mls/hr IV TITR [facility]; Protocol Last Admin: 07/31/18 17:56 Dose: 2.5 mcg/kg/min, 14.016 mls/hr Sacubitril/Valsartan (Entresto 49 Mg-51 Mg Tablet) 1 tab PO BID [facility] Last Admin: 08/01/18 09:13 Dose: 1 tab Warfarin Sodium (Coumadin -) 4 mg PO DAILY@1800 [facility] - Objective Vital Signs: Vital Signs Temperature 98 F 08/01/18 09:00 Pulse Rate 70 08/01/18 09:00 Respiratory Rate 18 08/01/18 09:00 Blood Pressure 130/90 08/01/18 09:00 O2 Sat by Pulse Oximetry (%) 95 07/31/18 21:00 Constitutional: Yes: Well Nourished, Calm Eyes: Yes: WNL HENT: Yes: WNL Neck: Yes: WNL Cardiovascular: Yes: Pulse Irregular, S1, S2 Respiratory: Yes: Diminished Gastrointestinal: Yes: Normal Bowel Sounds, Soft Extremities: Yes: WNL Edema: Yes Labs: CBC, BMP 08/01/18 06:18 08/01/18 06:18 INR, PTT INR 2.04 (0.83-1.09) H 08/01/18 06:18 Problem List - Problems (1) [place] (dyspnea on exertion) Code(s): R06.09 - OTHER FORMS OF DYSPNEA (2) Shortness of breath Code(s): R06.02 - SHORTNESS OF BREATH (3) Systolic CHF, acute on chronic Code(s): I50.23 - ACUTE ON CHRONIC SYSTOLIC (CONGESTIVE) HEART FAILURE (4) AICD (automatic cardioverter/defibrillator) present Code(s): Z95.810 - PRESENCE OF AUTOMATIC (IMPLANTABLE) CARDIAC DEFIBRILLATOR (5) Acute renal failure superimposed on stage 3 chronic kidney disease Code(s): N17.9 - ACUTE KIDNEY FAILURE, UNSPECIFIED; N18.3 - CHRONIC KIDNEY DISEASE, STAGE 3 (MODERATE) (6) CAD (coronary artery disease) Code(s): I25.10 - ATHSCL HEART DISEASE OF [place] CORONARY ARTERY W/O ANG PCTRS Qualifiers: Coronary Disease-Associated Artery/Lesion type: [place] artery [place] vs. transplanted heart: [place] heart Associated angina: without angina Qualified Code(s): I25.10 - Atherosclerotic heart disease of [place] coronary artery without angina pectoris (7) CVA (cerebral infarction) Code(s): I63.9 - CEREBRAL INFARCTION, UNSPECIFIED Qualifiers: Cerebral infarction mechanism: unspecified mechanism Qualified Code(s): I63.9 - Cerebral infarction, unspecified (8) HLD (hyperlipidemia) Code(s): E78.5 - HYPERLIPIDEMIA, UNSPECIFIED Qualifiers: Hyperlipidemia type: pure hypercholesterolemia Qualified Code(s): E78.00 - Pure hypercholesterolemia, unspecified; E78.0 - Pure hypercholesterolemia (9) HTN (hypertension) Code(s): I10 - ESSENTIAL (PRIMARY) HYPERTENSION Qualifiers: Hypertension type: essential hypertension Qualified Code(s): I10 - Essential (primary) hypertension (10) Leg edema Code(s): R60.0 - LOCALIZED EDEMA (11) Pulmonary hypertension Code(s): I27.2 - OTHER SECONDARY PULMONARY HYPERTENSION * DO NOT USE * (12) Status post coronary artery stent placement Code(s): Z95.5 - PRESENCE OF CORONARY ANGIOPLASTY IMPLANT AND GRAFT Assessment/Plan IMP DYSPNEA IMPROVING ACUTE ON CHRONIC CHF NON-ISCHEMIC CARDIOMYOPATHY AFIB SSS S/P PPM ASHD S/P STENTS H/O CVA H/O PULMONARY NODULES HTN HLD CKD PULMONARY HTN H/O COPD PLAN LASIX/DOBUTAMINE PER CARDIOLOGY INHALED BRONCHODILATORS PRN SUPPLEMENTAL O2 DAILY WTS ELIQUIS F/U CHEST X-RAYS MONITOR LYTES,RENAL FUNCTION DR STONER Problem List - Problems (1) [place] (dyspnea on exertion) Code(s): R06.09 - OTHER FORMS OF DYSPNEA (2) Shortness of breath Code(s): R06.02 - SHORTNESS OF BREATH (3) Systolic CHF, acute on chronic Code(s): I50.23 - ACUTE ON CHRONIC SYSTOLIC (CONGESTIVE) HEART FAILURE (4) AICD (automatic cardioverter/defibrillator) present Code(s): Z95.810 - PRESENCE OF AUTOMATIC (IMPLANTABLE) CARDIAC DEFIBRILLATOR (5) Acute renal failure superimposed on stage 3 chronic kidney disease Code(s): N17.9 - ACUTE KIDNEY FAILURE, UNSPECIFIED; N18.3 - CHRONIC KIDNEY DISEASE, STAGE 3 (MODERATE) (6) CAD (coronary artery disease) Code(s): I25.10 - ATHSCL HEART DISEASE OF [place] CORONARY ARTERY W/O ANG PCTRS Qualifiers: Coronary Disease-Associated Artery/Lesion type: [place] artery [place] vs. transplanted heart: [place] heart Associated angina: without angina Qualified Code(s): I25.10 - Atherosclerotic heart disease of [place] coronary artery without angina pectoris (7) CVA (cerebral infarction) Code(s): I63.9 - CEREBRAL INFARCTION, UNSPECIFIED Qualifiers: Cerebral infarction mechanism: unspecified mechanism Qualified Code(s): I63.9 - Cerebral infarction, unspecified (8) HLD (hyperlipidemia) Code(s): E78.5 - HYPERLIPIDEMIA, UNSPECIFIED Qualifiers: Hyperlipidemia type: pure hypercholesterolemia Qualified Code(s): E78.00 - Pure hypercholesterolemia, unspecified; E78.0 - Pure hypercholesterolemia (9) HTN (hypertension) Code(s): I10 - ESSENTIAL (PRIMARY) HYPERTENSION Qualifiers: Hypertension type: essential hypertension Qualified Code(s): I10 - Essential (primary) hypertension (10) Leg edema Code(s): R60.0 - LOCALIZED EDEMA (11) Pulmonary hypertension Code(s): I27.2 - OTHER SECONDARY PULMONARY HYPERTENSION * DO NOT USE * (12) Status post coronary artery stent placement Code(s): Z95.5 - PRESENCE OF CORONARY ANGIOPLASTY IMPLANT AND GRAFT
--- NOTE | 2018-08-01 13:05 | PN ---
Progress Note, Physician History of Present Illness: Pt seen and examined at bedside. He is awake and appears comfortable. He denies shortness of breath. - Current Medication List Current Medications: Active Medications Apixaban (Eliquis -) 5 mg PO BID [facility] Atorvastatin Calcium (Lipitor -) 80 mg PO HS [facility] Last Admin: 07/31/18 21:42 Dose: 80 mg Carvedilol (Coreg -) 25 mg PO BID [facility] Last Admin: 08/01/18 09:12 Dose: 25 mg Eplerenone (Eplerenone) 25 mg PO DAILY@0800 [facility] Last Admin: 08/01/18 09:12 Dose: 25 mg Furosemide (Lasix Injection -) 60 mg IVPUSH BID@0600,1400 [facility] Dobutamine HCl/Dextrose (Dobutamine 250 Mg/D5w -) 250,000 mcg in 250 mls @ 14.016 mls/hr IV TITR [facility]; Protocol Last Admin: 07/31/18 17:56 Dose: 2.5 mcg/kg/min, 14.016 mls/hr Sacubitril/Valsartan (Entresto 49 Mg-51 Mg Tablet) 1 tab PO BID [facility] Last Admin: 08/01/18 09:13 Dose: 1 tab Warfarin Sodium (Coumadin -) 4 mg PO DAILY@1800 [facility] - Objective Vital Signs: Vital Signs Temperature 98 F 08/01/18 09:00 Pulse Rate 70 08/01/18 09:00 Respiratory Rate 18 08/01/18 09:00 Blood Pressure 130/90 08/01/18 09:00 O2 Sat by Pulse Oximetry (%) 95 07/31/18 21:00 Constitutional: Yes: Calm Eyes: Yes: Conjunctiva Clear HENT: Yes: Atraumatic Neck: Yes: Supple Cardiovascular: Yes: S1, S2 Respiratory: Yes: CTA Bilaterally Gastrointestinal: Yes: Soft Musculoskeletal: Yes: WNL Edema: Yes Edema: LLE: Trace, RLE: Trace Neurological: Yes: Oriented Psychiatric: Yes: Oriented Labs: CBC, BMP 08/01/18 06:18 08/01/18 06:18 INR, PTT INR 2.04 (0.83-1.09) H 08/01/18 06:18 Assessment/Plan Current Medications Generic Name Dose Route Start Last Admin Trade Name Sivaq PRN Reason Stop Dose Admin Apixaban 5 mg 08/01/18 22:00 Eliquis - PO BID [facility] Atorvastatin Calcium 80 mg 07/28/18 22:00 07/31/18 21:42 Lipitor - PO 80 mg HS [facility]ELICIA Administration Carvedilol 25 mg 07/28/18 22:00 08/01/18 09:12 Coreg - PO 25 mg BID [facility] Administration Eplerenone 25 mg 07/29/18 09:00 08/01/18 09:12 Eplerenone PO 25 mg DAILY@0800 [facility] Administration Furosemide 60 mg 08/01/18 09:19 Lasix Injection - IVPUSH BID@0600,1400 [facility] Dobutamine HCl/Dextrose 250,000 mcg in 250 mls @ 14.016 mls/hr 07/31/18 12:49 07/31/18 17:56 Dobutamine 250 Mg/D5w - IV 2.5 mcg/kg/min TITR [facility]ELIC[facility] 14.016 mls/hr Administration Protocol 2.5 MCG/KG/MIN Sacubitril/Valsartan 1 tab 07/28/18 22:00 08/01/18 09:13 Entresto 49 Mg-51 Mg Tablet PO 1 tab BID [facility] Administration Warfarin Sodium 4 mg 08/01/18 18:00 Coumadin - PO DAILY@1800 [facility] Impression 1. CKD 2. likely cardiorenal syndrome 3. CHF 4. dementia 5. pulm nodules 6. renal cysts 7. HLD Plan - cont lasix - renal function is improving - likely in part cardiorenal - follow spep - ct chest reviewed - cardio input appreciated
--- NOTE | 2018-08-01 15:45 | PN ---
Progress Note (short form) - Note Progress Note: ID consult dictated imp/reccd 78 yo man admitted for CHF 07/28 unclear why ua and urine culture were sent no fevers no dysuria asked to comment on urine culture results ua is negative low colony count acinetobacter no need to treat AT THIS TIME- he is asymptomatic with low colony count suspect this represents colonization contact isolation for resistant acinetobacter diuresis per cardiology please call back if needed Problem List - Problems (1) Systolic CHF, acute on chronic Code(s): I50.23 - ACUTE ON CHRONIC SYSTOLIC (CONGESTIVE) HEART FAILURE (2) Asymptomatic bacteriuria Code(s): R82.71 - BACTERIURIA (3) 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
--- NOTE | 2018-08-01 16:38 | CONS ---
INFECTIOUS DISEASE CONSULTATION DATE OF CONSULTATION: DATE OF DICTATION: 08/01/2018 REQUESTING PHYSICIAN: Leighann De L aCruz MD This is a 78-year-old man, past medical history of congestive heart failure. He has cardiomyopathy and a defibrillator. He has a history of severe non-ischemic dilated cardiomyopathy as well as coronary artery disease, permanent atrial fibrillation, sick sinus syndrome, who also had a CVA, admitted with worsening shortness of breath and lower extremity edema. This was on the . He had no complaints of fevers or chills and was otherwise well except for his shortness of breath and leg edema. He was admitted on the . He had denied any fevers, chills, nausea, vomiting, diaphoresis. He denies any dysuria. He, for unclear reasons, had a UA and urine culture sent on the , and I am asked to comment on the results. He is currently resting comfortably. He has been in the hospital since the . Today is the , and he feels well. He reports his breathing has improved. His lower extremity edema has also improved. He is hoping to go home soon. He has no urinary complaints whatsoever. ALLERGIES: He has no known drug allergies. PAST MEDICAL HISTORY: Notable for history of cardiomyopathy, hypertension, hyperlipidemia. He is status post CVA. He has history of gastritis, BPH, anemia, osteoarthritis, sick sinus syndrome, atrial fibrillation, chronic kidney disease. He has a permanent pacemaker in place as well. MEDICATIONS AN OUTPATIENT: Include atorvastatin, Coreg, Coumadin, Colace, vitamin D, Lasix, Lipitor, Aldactone, Altace, and Lasix. SOCIAL HISTORY: He lives at home with his . There is no history of any substance use. He quit smoking 20 years ago. He has a defibrillator in place as well. REVIEW OF SYSTEMS: He reports improvement in his breathing, improvement in his lower extremity edema. No fevers or chills. No flank pain or dysuria. In fact, he reports his urination is improved. PHYSICAL EXAMINATION: General: He is awake and alert. Vital Signs: Temperature is 98, pulse of 70, blood pressure 130/90, respiratory rate is 18. He weighs 90 kg. HEENT: He is normocephalic. His eyes are anicteric. Neck: Supple. Lungs: Bibasilar crackles. Heart: Regular rate and rhythm. Chest: Defibrillator site is without any erythema. Abdomen: Soft. He has no suprapubic or CVA tenderness. Extremities: Trace edema. DIAGNOSTIC DATA: Labs are notable for a white count of 3.6, hemoglobin 11, platelets are 172. INR is 2. BUN is 16 and creatinine 1.3. Urinalysis had 5 leukocytes and trace leukocyte esterase. Urine culture has 30,000-40,000 acinetobacter. He had a chest CT done during the hospital stay that showed moderate cardiomegaly, prominent pulmonary arteries, interstitial changes consistent with congestion, trace ascites. In summary, this is a 78-year-old man with ischemic cardiomyopathy and defibrillator, admitted for congestive heart failure on July 28, who has: 1. Asymptomatic bacteriuria. No need to treat at this time. He is asymptomatic with low colony count. I suspect this represents colonization. He does need contact isolation for resistance as the organism fits criteria for multi-drug resistant acinetobacter. 2. Congestive heart failure. Diuresis per Cardiology. Please call back if needed. DIVINE MATA M.D. [id number]
[2018-08-01] MEDS: DOBUTAMINE 250 MG/D5W - 250,000 MCG/250 ML INFUS.BAG IV SCH (17:59)
[2018-08-01] MEDS ORDERED: WARFARIN NA 2 MG TABLET (UD) PO SCH (18:00)
[2018-08-01] MEDS: ATORVASTATIN CA 80 MG TABLET (FP) PO SCH (21:48)
[2018-08-01] MEDS: APIXABAN 5 MG TABLET PO SCH (21:48)
[2018-08-02] MEDS: FUROSEMIDE 40 MG/4 ML INJECTABLE VIAL IVPUSH SCH (06:09)
[2018-08-02 06:20] LABS: BASO % 1.8 % (0-2.0); HEMOGLOBIN 10.8 GM/dL (11.7-16.9); LYMPH % 29.6 % (8-40); MCH 28.8 pg (25.7-33.7); MCHC 33.6 g/dl (32.0-35.9); MEAN CELL VOLUME 85.7 fl (80-96); MEAN PLT VOLUME 8.9 fl (7.5-11.1); MONO % 10.9 % (3.8-10.2); NEUT % 51.7 % (42.8-82.8); PLATELET COUNT 171 K/MM3 (134-434); RBC 3.74 M/mm3 (4.00-5.60); RDW 20.4 % (11.9-15.9); WHITE BLOOD COUNT 3.2 K/mm3 (4.0-10.0)
[2018-08-02 06:36] LABS: ALK PHOS 54 U/L (45-117); ANION GAP 7 MMOL/L (8-16); BILIRUBIN,TOTAL 1.8 mg/dL (0.2-1); BLOOD UREA NITROGEN 17 mg/dL (7-18); CALCIUM 7.8 mg/dL (8.5-10.1); CHLORIDE 106 mmol/L (98-107); CO2 29 mmol/L (21-32); CREATININE 1.2 mg/dL (0.55-1.3); GLUCOSE,RANDOM 83 mg/dL (74-106); MAGNESIUM 1.9 mg/dL (1.8-2.4); SGOT/AST 12 U/L (15-37); SGPT/ALT 13 U/L (13-61); SODIUM 142 mmol/L (136-145); TOT PROT 6.2 g/dl (6.4-8.2)
[2018-08-02 06:41] LABS: INR 2.34 (0.83-1.09); PROTHROMBIN TIME (PATIENT) 27.8 SEC (9.7-13.0)
[2018-08-02 08:06] LABS: SERUM IRON SATURATION 15 % (15-55); TOTAL IRON BINDING CAPACITY 266 ug/dL (250-450); UIBC 227 ug/dL (111-343)
[2018-08-02] MEDS ORDERED: PT OWN MED DRAWER 7, Y5N ONE (09:49)
--- NOTE | 2018-08-02 10:16 | PN ---
Progress Note, Physician History of Present Illness: Good diuretic response with inotropic diuresis with improvement in orthopea, dyspnea and LE edema. - Current Medication List Current Medications: Active Medications Apixaban (Eliquis -) 5 mg PO BID [facility] Last Admin: 08/01/18 21:48 Dose: 5 mg Atorvastatin Calcium (Lipitor -) 80 mg PO HS [facility] Last Admin: 08/01/18 21:48 Dose: 80 mg Carvedilol (Coreg -) 25 mg PO BID [facility] Last Admin: 08/01/18 21:48 Dose: 25 mg Eplerenone (Eplerenone) 25 mg PO DAILY@0800 [facility] Last Admin: 08/01/18 09:12 Dose: 25 mg Furosemide (Lasix Injection -) 60 mg IVPUSH BID@0600,1400 [facility] Last Admin: 08/02/18 06:09 Dose: 60 mg Dobutamine HCl/Dextrose (Dobutamine 250 Mg/D5w -) 250,000 mcg in 250 mls @ 14.016 mls/hr IV TITR [facility]; Protocol Last Admin: 08/01/18 17:59 Dose: 2.5 mcg/kg/min, 14.016 mls/hr Sacubitril/Valsartan (Entresto 49 Mg-51 Mg Tablet) 1 tab PO BID [facility] Last Admin: 08/01/18 21:49 Dose: 1 tab - Objective Vital Signs: Vital Signs Temperature 98 F 08/02/18 09:20 Pulse Rate 82 08/02/18 09:20 Respiratory Rate 20 08/02/18 09:20 Blood Pressure 95/57 L 08/02/18 09:20 O2 Sat by Pulse Oximetry (%) 95 08/01/18 22:27 Constitutional: Yes: No Distress, Calm, Thin Neck: Yes: Supple Cardiovascular: Yes: Regular Rate and Rhythm, Murmur (2/6 SM) Respiratory: Yes: Regular, Diminished, On Nasal O2 Gastrointestinal: Yes: Normal Bowel Sounds, Soft Edema: Yes Edema: LLE: Trace, RLE: Trace Labs: CBC, BMP 08/02/18 05:30 08/02/18 05:30 INR, PTT INR 2.34 (0.83-1.09) H 08/02/18 05:30 - ....Imaging EKG: Report Reviewed (Tele: Afib v-paced) Problem List - Problems (1) AICD (automatic cardioverter/defibrillator) present Code(s): Z95.810 - PRESENCE OF AUTOMATIC (IMPLANTABLE) CARDIAC DEFIBRILLATOR (2) COPD (chronic obstructive pulmonary disease) Code(s): J44.9 - CHRONIC OBSTRUCTIVE PULMONARY DISEASE, UNSPECIFIED Qualifiers: Emphysema type: unspecified (3) CVA (cerebral infarction) Code(s): I63.9 - CEREBRAL INFARCTION, UNSPECIFIED Qualifiers: Cerebral infarction mechanism: unspecified mechanism Qualified Code(s): I63.9 - Cerebral infarction, unspecified (4) HLD (hyperlipidemia) Code(s): E78.5 - HYPERLIPIDEMIA, UNSPECIFIED Qualifiers: Hyperlipidemia type: pure hypercholesterolemia Qualified Code(s): E78.00 - Pure hypercholesterolemia, unspecified; E78.0 - Pure hypercholesterolemia (5) HTN (hypertension) Code(s): I10 - ESSENTIAL (PRIMARY) HYPERTENSION Qualifiers: Hypertension type: essential hypertension Qualified Code(s): I10 - Essential (primary) hypertension (6) Leg edema Code(s): R60.0 - LOCALIZED EDEMA (7) Pulmonary hypertension Code(s): I27.2 - OTHER SECONDARY PULMONARY HYPERTENSION * DO NOT USE * (8) Shortness of breath Code(s): R06.02 - SHORTNESS OF BREATH (9) Status post coronary artery stent placement Code(s): Z95.5 - PRESENCE OF CORONARY ANGIOPLASTY IMPLANT AND GRAFT (10) Systolic CHF, acute on chronic Code(s): I50.23 - ACUTE ON CHRONIC SYSTOLIC (CONGESTIVE) HEART FAILURE Assessment/Plan December 19, 2017 Dilated LV with severely decreased LVEF 30%, DAV LA 4.8 cm, mod MR , mild TR, RVP 39 mmHg, mild ao dilatation 4.3 cm Sep 14, 2017 Pharm stress: Severe diffuse global HK LVEF 22% Jul 31, [address]: Pulm HTN, congestion, trace ascites, cholelithiasis with thickened GB 1. Acute on chronic class III-IV NYHA classification LV systolic failure, clinically resolving 2. CAD post PCI/stent angina pectoris 3. 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 HTN/HCVD 6. Hypercholesterolemia 7. History of CVA with right hemiparesis 8. Acute on CKD stage 3 improving 9. Underlying CKD secondary to Hypertensive Nephrosclerosis vs. Acquired Cystic Renal Disease (unlikely PCKD given normal size kidneys) 10. Anemia 11. PAD 12. COPD and pulm HTN 13. Gynecomastia PLAN: 1. Wean inotropic diuresis with dobutamine gtt @ 2.5, Lasix 40 IV bid and Eplerenone 25 qd with monitor diuretic response, renal function and electrolytes , wrap legs 2. Continue Coreg 25 bid, Lipitor 80 qhs and Entresto 49/51 bid, add BiDil as hemodynamics tolerate 3. D/C Coumadin (unstable INR) and initiated DOAC's/Eliquis 5 bid as an alternative once INR<2.0
[2018-08-02] MEDS ORDERED: FUROSEMIDE 40 MG/4 ML INJECTABLE VIAL IVPUSH SCH (10:23)
[2018-08-02] MEDS: APIXABAN 5 MG TABLET PO SCH ×2 (10:26→22:13)
[2018-08-02] MEDS: EPLERENONE 25 MG TABLET PO SCH ×2 (10:26→15:25)
[2018-08-02] MEDS: CARVEDILOL 25 MG TABLET (FP) PO SCH ×3 (10:26→22:13)
[2018-08-02] MEDS: SACUBITRIL/VALSARTAN 49 MG-51 MG TABLET PO SCH ×2 (10:27→22:13)
--- NOTE | 2018-08-02 11:10 | PN ---
Progress Note, Physician History of Present Illness: pulmonary alert,no distress,-sob,-cp,pt remains on Dobutamine drip - Current Medication List Current Medications: Active Medications Apixaban (Eliquis -) 5 mg PO BID [facility] Last Admin: 08/02/18 10:26 Dose: 5 mg Atorvastatin Calcium (Lipitor -) 80 mg PO HS [facility] Last Admin: 08/01/18 21:48 Dose: 80 mg Carvedilol (Coreg -) 25 mg PO BID [facility] Last Admin: 08/01/18 21:48 Dose: 25 mg Eplerenone (Eplerenone) 25 mg PO DAILY@0800 [facility] Last Admin: 08/01/18 09:12 Dose: 25 mg Furosemide (Lasix Injection -) 40 mg IVPUSH BID@0600,1400 [facility] Stop: 08/02/18 23:59 Dobutamine HCl/Dextrose (Dobutamine 250 Mg/D5w -) 250,000 mcg in 250 mls @ 14.016 mls/hr IV TITR [facility]; Protocol Last Admin: 08/01/18 17:59 Dose: 2.5 mcg/kg/min, 14.016 mls/hr Sacubitril/Valsartan (Entresto 49 Mg-51 Mg Tablet) 1 tab PO BID [facility] Last Admin: 08/02/18 10:27 Dose: 1 tab - Objective Vital Signs: Vital Signs Temperature 98 F 08/02/18 09:20 Pulse Rate 82 08/02/18 09:20 Respiratory Rate 20 08/02/18 09:20 Blood Pressure 95/57 L 08/02/18 09:20 O2 Sat by Pulse Oximetry (%) 95 08/01/18 22:27 Constitutional: Yes: Well Nourished, Calm Eyes: Yes: WNL HENT: Yes: WNL Neck: Yes: WNL Cardiovascular: Yes: Pulse Irregular, S1, S2 Respiratory: Yes: Diminished, Rales (BIBASILAR RALES) Gastrointestinal: Yes: Normal Bowel Sounds, Soft Extremities: Yes: WNL Edema: Yes Labs: CBC, BMP 08/02/18 05:30 08/02/18 05:30 INR, PTT INR 2.34 (0.83-1.09) H 08/02/18 05:30 Problem List - Problems (1) [place] (dyspnea on exertion) Code(s): R06.09 - OTHER FORMS OF DYSPNEA (2) Shortness of breath Code(s): R06.02 - SHORTNESS OF BREATH (3) Systolic CHF, acute on chronic Code(s): I50.23 - ACUTE ON CHRONIC SYSTOLIC (CONGESTIVE) HEART FAILURE (4) AICD (automatic cardioverter/defibrillator) present Code(s): Z95.810 - PRESENCE OF AUTOMATIC (IMPLANTABLE) CARDIAC DEFIBRILLATOR (5) Acute renal failure superimposed on stage 3 chronic kidney disease Code(s): N17.9 - ACUTE KIDNEY FAILURE, UNSPECIFIED; N18.3 - CHRONIC KIDNEY DISEASE, STAGE 3 (MODERATE) (6) CAD (coronary artery disease) Code(s): I25.10 - ATHSCL HEART DISEASE OF [place] CORONARY ARTERY W/O ANG PCTRS Qualifiers: Coronary Disease-Associated Artery/Lesion type: [place] artery [place] vs. transplanted heart: redding heart Associated angina: without angina Qualified Code(s): I25.10 - Atherosclerotic heart disease of [place] coronary artery without angina pectoris (7) CVA (cerebral infarction) Code(s): I63.9 - CEREBRAL INFARCTION, UNSPECIFIED Qualifiers: Cerebral infarction mechanism: unspecified mechanism Qualified Code(s): I63.9 - Cerebral infarction, unspecified (8) HLD (hyperlipidemia) Code(s): E78.5 - HYPERLIPIDEMIA, UNSPECIFIED Qualifiers: Hyperlipidemia type: pure hypercholesterolemia Qualified Code(s): E78.00 - Pure hypercholesterolemia, unspecified; E78.0 - Pure hypercholesterolemia (9) HTN (hypertension) Code(s): I10 - ESSENTIAL (PRIMARY) HYPERTENSION Qualifiers: Hypertension type: essential hypertension Qualified Code(s): I10 - Essential (primary) hypertension (10) Leg edema Code(s): R60.0 - LOCALIZED EDEMA (11) Pulmonary hypertension Code(s): I27.2 - OTHER SECONDARY PULMONARY HYPERTENSION * DO NOT USE * (12) Status post coronary artery stent placement Code(s): Z95.5 - PRESENCE OF CORONARY ANGIOPLASTY IMPLANT AND GRAFT Assessment/Plan IMP DYSPNEA IMPROVING ACUTE ON CHRONIC CHF NON-ISCHEMIC CARDIOMYOPATHY AFIB SSS S/P PPM ASHD S/P STENTS H/O CVA H/O PULMONARY NODULES HTN HLD CKD PULMONARY HTN H/O COPD PLAN LASIX/DOBUTAMINE PER CARDIOLOGY INHALED BRONCHODILATORS PRN SUPPLEMENTAL O2 DAILY WTS ELIQUIS F/U CHEST X-RAYS MONITOR LYTES,RENAL FUNCTION DR STONER Problem List - Problems (1) [place] (dyspnea on exertion) Code(s): R06.09 - OTHER FORMS OF DYSPNEA (2) Shortness of breath Code(s): R06.02 - SHORTNESS OF BREATH (3) Systolic CHF, acute on chronic Code(s): I50.23 - ACUTE ON CHRONIC SYSTOLIC (CONGESTIVE) HEART FAILURE (4) AICD (automatic cardioverter/defibrillator) present Code(s): Z95.810 - PRESENCE OF AUTOMATIC (IMPLANTABLE) CARDIAC DEFIBRILLATOR (5) Acute renal failure superimposed on stage 3 chronic kidney disease Code(s): N17.9 - ACUTE KIDNEY FAILURE, UNSPECIFIED; N18.3 - CHRONIC KIDNEY DISEASE, STAGE 3 (MODERATE) (6) CAD (coronary artery disease) Code(s): I25.10 - ATHSCL HEART DISEASE OF [place] CORONARY ARTERY W/O ANG PCTRS Qualifiers: Coronary Disease-Associated Artery/Lesion type: [place]ing artery [place] vs. transplanted heart: redding heart Associated angina: without angina Qualified Code(s): I25.10 - Atherosclerotic heart disease of [place] coronary artery without angina pectoris (7) CVA (cerebral infarction) Code(s): I63.9 - CEREBRAL INFARCTION, UNSPECIFIED Qualifiers: Cerebral infarction mechanism: unspecified mechanism Qualified Code(s): I63.9 - Cerebral infarction, unspecified (8) HLD (hyperlipidemia) Code(s): E78.5 - HYPERLIPIDEMIA, UNSPECIFIED Qualifiers: Hyperlipidemia type: pure hypercholesterolemia Qualified Code(s): E78.00 - Pure hypercholesterolemia, unspecified; E78.0 - Pure hypercholesterolemia (9) HTN (hypertension) Code(s): I10 - ESSENTIAL (PRIMARY) HYPERTENSION Qualifiers: Hypertension type: essential hypertension Qualified Code(s): I10 - Essential (primary) hypertension (10) Leg edema Code(s): R60.0 - LOCALIZED EDEMA (11) Pulmonary hypertension Code(s): I27.2 - OTHER SECONDARY PULMONARY HYPERTENSION * DO NOT USE * (12) Status post coronary artery stent placement Code(s): Z95.5 - PRESENCE OF CORONARY ANGIOPLASTY IMPLANT AND GRAFT
--- NOTE | 2018-08-02 11:54 | PN ---
Progress Note, Physician History of Present Illness: Pt seen and examined at bedside. He is awake and alert. He denies shortness of breath. - Current Medication List Current Medications: Active Medications Apixaban (Eliquis -) 5 mg PO BID [facility] Last Admin: 08/02/18 10:26 Dose: 5 mg Atorvastatin Calcium (Lipitor -) 80 mg PO HS [facility] Last Admin: 08/01/18 21:48 Dose: 80 mg Carvedilol (Coreg -) 25 mg PO BID [facility] Last Admin: 08/01/18 21:48 Dose: 25 mg Eplerenone (Eplerenone) 25 mg PO DAILY@0800 [facility] Last Admin: 08/01/18 09:12 Dose: 25 mg Furosemide (Lasix Injection -) 40 mg IVPUSH BID@0600,1400 [facility] Stop: 08/02/18 23:59 Dobutamine HCl/Dextrose (Dobutamine 250 Mg/D5w -) 250,000 mcg in 250 mls @ 14.016 mls/hr IV TITR [facility]; Protocol Last Admin: 08/01/18 17:59 Dose: 2.5 mcg/kg/min, 14.016 mls/hr Sacubitril/Valsartan (Entresto 49 Mg-51 Mg Tablet) 1 tab PO BID [facility] Last Admin: 08/02/18 10:27 Dose: 1 tab - Objective Vital Signs: Vital Signs Temperature 98 F 08/02/18 09:20 Pulse Rate 82 08/02/18 09:20 Respiratory Rate 20 08/02/18 09:20 Blood Pressure 95/57 L 08/02/18 09:20 O2 Sat by Pulse Oximetry (%) 95 08/01/18 22:27 Constitutional: Yes: Calm Eyes: Yes: Conjunctiva Clear HENT: Yes: Atraumatic Neck: Yes: Supple Cardiovascular: Yes: S1, S2 Respiratory: Yes: CTA Bilaterally Gastrointestinal: Yes: Soft Genitourinary: Yes: WNL Musculoskeletal: Yes: Muscle Weakness Edema: Yes Edema: LLE: Trace, RLE: Trace Neurological: Yes: Other (awake) Psychiatric: Yes: Oriented Labs: CBC, BMP 08/02/18 05:30 08/02/18 05:30 INR, PTT INR 2.34 (0.83-1.09) H 08/02/18 05:30 Assessment/Plan Current Medications Generic Name Dose Route Start Last Admin Trade Name Suraj PRN Reason Stop Dose Admin Apixaban 5 mg 08/01/18 22:00 08/02/18 10:26 Eliquis - PO 5 mg BID [facility] Administration Atorvastatin Calcium 80 mg 07/28/18 22:00 08/01/18 21:48 Lipitor - PO 80 mg HS [facility] Administration Carvedilol 25 mg 07/28/18 22:00 08/01/18 21:48 Coreg - PO 25 mg BID [facility] Administration Eplerenone 25 mg 07/29/18 09:00 08/01/18 09:12 Eplerenone PO 25 mg DAILY@0800 [facility] Administration Furosemide 40 mg 08/02/18 10:23 Lasix Injection - IVPUSH 08/02/18 23:59 BID@0600,1400 [facility] Dobutamine HCl/Dextrose 250,000 mcg in 250 mls @ 14.016 mls/hr 07/31/18 12:49 08/01/18 17:59 Dobutamine 250 Mg/D5w - IV 2.5 mcg/kg/min TITR [facility] 14.016 mls/hr Administration Protocol 2.5 MCG/KG/MIN Sacubitril/Valsartan 1 tab 07/28/18 22:00 08/02/18 10:27 Entresto 49 Mg-51 Mg Tablet PO 1 tab BID [facility] Administration Impression 1. CKD 2. likely cardiorenal syndrome 3. CHF 4. dementia 5. pulm nodules 6. renal cysts 7. HLD Plan - volume status is improving - cont lasix - repeat labs in am - renal function is improved - likely in part cardiorenal - follow spep
[2018-08-02] MEDS: DOBUTAMINE 250 MG/D5W - 250,000 MCG/250 ML INFUS.BAG IV SCH (13:38)
[2018-08-02 17:16] LABS: TOTAL PROTEIN, URINE 18.3 mg/dL (Not Estab.)
--- NOTE | 2018-08-02 17:21 | PN ---
Progress Note, Physician Chief Complaint: CHF ARF on CKD stage 3 History of Present Illness: Previous notes and events reviewed alert and awake NAD on dobutamine drip denies chest pain, sob - Current Medication List Current Medications: Active Medications Apixaban (Eliquis -) 5 mg PO BID [facility] Last Admin: 08/02/18 10:26 Dose: 5 mg Atorvastatin Calcium (Lipitor -) 80 mg PO HS [facility] Last Admin: 08/01/18 21:48 Dose: 80 mg Carvedilol (Coreg -) 25 mg PO BID [facility] Last Admin: 08/02/18 15:25 Dose: 25 mg Eplerenone (Eplerenone) 25 mg PO DAILY@0800 [facility] Last Admin: 08/02/18 15:25 Dose: 25 mg Furosemide (Lasix Injection -) 40 mg IVPUSH BID@0600,1400 [facility] Stop: 08/02/18 23:59 Last Admin: 08/02/18 15:24 Dose: 40 mg Dobutamine HCl/Dextrose (Dobutamine 250 Mg/D5w -) 250,000 mcg in 250 mls @ 14.016 mls/hr IV TITR [facility]; Protocol Last Admin: 08/02/18 13:38 Dose: 2.5 mcg/kg/min, 14.016 mls/hr Sacubitril/Valsartan (Entresto 49 Mg-51 Mg Tablet) 1 tab PO BID [facility] Last Admin: 08/02/18 10:27 Dose: 1 tab - Objective Vital Signs: Vital Signs Temperature 97.9 F 08/02/18 14:55 Pulse Rate 76 08/02/18 14:55 Respiratory Rate 20 08/02/18 14:55 Blood Pressure 120/70 08/02/18 14:55 O2 Sat by Pulse Oximetry (%) 95 08/02/18 09:00 Constitutional: Yes: No Distress, Calm Eyes: Yes: Conjunctiva Clear HENT: Yes: Atraumatic Cardiovascular: Yes: Regular Rate and Rhythm Respiratory: Yes: Diminished Gastrointestinal: Yes: Soft Musculoskeletal: Yes: Muscle Weakness Extremities: Yes: WNL Edema: Yes (B/L lower extremity) Integumentary: Yes: WNL Neurological: Yes: Alert Psychiatric: Yes: Alert Labs: CBC, BMP 08/02/18 05:30 08/02/18 05:30 INR, PTT INR 2.34 (0.83-1.09) H 08/02/18 05:30 Problem List - Problems (1) [place] (dyspnea on exertion) Code(s): R06.09 - OTHER FORMS OF DYSPNEA (2) Shortness of breath Code(s): R06.02 - SHORTNESS OF BREATH (3) Systolic CHF, acute on chronic Code(s): I50.23 - ACUTE ON CHRONIC SYSTOLIC (CONGESTIVE) HEART FAILURE (4) Afib Code(s): I48.91 - UNSPECIFIED ATRIAL FIBRILLATION Qualifiers: Atrial fibrillation type: chronic Qualified Code(s): I48.2 - Chronic atrial fibrillation (5) CAD (coronary artery disease) Code(s): I25.10 - ATHSCL HEART DISEASE OF [place] CORONARY ARTERY W/O ANG PCTRS Qualifiers: Coronary Disease-Associated Artery/Lesion type: [place] artery [place] vs. transplanted heart: [place] heart Associated angina: without angina Qualified Code(s): I25.10 - Atherosclerotic heart disease of [place] coronary artery without angina pectoris (6) CVA (cerebral infarction) Code(s): I63.9 - CEREBRAL INFARCTION, UNSPECIFIED Qualifiers: Cerebral infarction mechanism: unspecified mechanism Qualified Code(s): I63.9 - Cerebral infarction, unspecified (7) HLD (hyperlipidemia) Code(s): E78.5 - HYPERLIPIDEMIA, UNSPECIFIED Qualifiers: Hyperlipidemia type: pure hypercholesterolemia Qualified Code(s): E78.00 - Pure hypercholesterolemia, unspecified; E78.0 - Pure hypercholesterolemia (8) HTN (hypertension) Code(s): I10 - ESSENTIAL (PRIMARY) HYPERTENSION Qualifiers: Hypertension type: essential hypertension Qualified Code(s): I10 - Essential (primary) hypertension (9) Leg edema Code(s): R60.0 - LOCALIZED EDEMA (10) Pacemaker Code(s): Z95.0 - PRESENCE OF CARDIAC PACEMAKER Assessment/Plan -cardio on board -Lasix IV BID, entresto -cont with Eliquis -BNP elev, will monitor for downward trend -1L fluid restriction -daily weights, strict I&O -cont carvedilol -cont atorvastatin -O2 via NC, keep SpO2 >90% -low Na diet -nephrology on board -BUN/Cr wnl, will cont to monitor -renal US pending -MARISSA M-spike pending -dvt ppx
[2018-08-02] MEDS: ATORVASTATIN CA 80 MG TABLET (FP) PO SCH (22:13)
[2018-08-03 06:15] LABS: HEMOGLOBIN 10.4 GM/dL (11.7-16.9); MCH 28.9 pg (25.7-33.7); MCHC 33.7 g/dl (32.0-35.9); MEAN CELL VOLUME 85.8 fl (80-96); MEAN PLT VOLUME 8.9 fl (7.5-11.1); PLATELET COUNT 167 K/MM3 (134-434); RBC 3.62 M/mm3 (4.00-5.60)
[2018-08-03] MEDS ORDERED: DOBUTAMINE 250 MG/D5W - 250,000 MCG/250 ML INFUS.BAG ONE (06:25)
[2018-08-03 07:19] LABS: INR 2.34 (0.83-1.09); PROTHROMBIN TIME (PATIENT) 27.8 SEC (9.7-13.0)
[2018-08-03 08:08] LABS: ALBUMIN 3.1 g/dl (3.4-5.0); ALK PHOS 53 U/L (45-117); ANION GAP 8 MMOL/L (8-16); BLOOD UREA NITROGEN 20 mg/dL (7-18); CHLORIDE 106 mmol/L (98-107); CO2 27 mmol/L (21-32); CREATININE 1.2 mg/dL (0.55-1.3); GLUCOSE,RANDOM 88 mg/dL (74-106); N-TERMINAL BNP 10668.2 pg/ml (5-450); POTASSIUM 3.8 mmol/L (3.5-5.1); SGOT/AST 14 U/L (15-37); SGPT/ALT 12 U/L (13-61); SODIUM 142 mmol/L (136-145); TOT PROT 6.3 g/dl (6.4-8.2)
--- NOTE | 2018-08-03 09:16 | PN ---
Progress Note, Physician History of Present Illness: Good diuretic response with inotropic diuresis with improvement in orthopea, dyspnea and LE edema. - Current Medication List Current Medications: Active Medications Apixaban (Eliquis -) 5 mg PO BID [facility] Last Admin: 08/02/18 22:13 Dose: 5 mg Atorvastatin Calcium (Lipitor -) 80 mg PO HS [facility] Last Admin: 08/02/18 22:13 Dose: 80 mg Carvedilol (Coreg -) 25 mg PO BID [facility] Last Admin: 08/02/18 22:13 Dose: 25 mg Eplerenone (Eplerenone) 25 mg PO DAILY@0800 [facility] Last Admin: 08/02/18 15:25 Dose: 25 mg Dobutamine HCl/Dextrose (Dobutamine 250 Mg/D5w -) 250,000 mcg in 250 mls @ 14.016 mls/hr IV TITR [facility]; Protocol Last Admin: 08/02/18 13:38 Dose: 2.5 mcg/kg/min, 14.016 mls/hr Sacubitril/Valsartan (Entresto 49 Mg-51 Mg Tablet) 1 tab PO BID [facility] Last Admin: 08/02/18 22:13 Dose: 1 tab - Objective Vital Signs: Vital Signs Temperature 97.5 F L 08/03/18 06:00 Pulse Rate 74 08/03/18 06:00 Respiratory Rate 20 08/03/18 06:00 Blood Pressure 109/74 08/03/18 06:00 O2 Sat by Pulse Oximetry (%) 95 08/02/18 20:59 Constitutional: Yes: No Distress, Calm, Thin Neck: Yes: Supple Cardiovascular: Yes: Regular Rate and Rhythm Respiratory: Yes: Regular, Diminished Gastrointestinal: Yes: Normal Bowel Sounds, Soft Edema: Yes Edema: LLE: Trace, RLE: Trace Labs: CBC, BMP 08/03/18 05:30 08/03/18 05:30 INR, PTT INR 2.34 (0.83-1.09) H 08/03/18 05:30 - ....Imaging EKG: Report Reviewed (Tele: Afib v-paced) Problem List - Problems (1) AICD (automatic cardioverter/defibrillator) present Code(s): Z95.810 - PRESENCE OF AUTOMATIC (IMPLANTABLE) CARDIAC DEFIBRILLATOR (2) COPD (chronic obstructive pulmonary disease) Code(s): J44.9 - CHRONIC OBSTRUCTIVE PULMONARY DISEASE, UNSPECIFIED Qualifiers: Emphysema type: unspecified (3) CVA (cerebral infarction) Code(s): I63.9 - CEREBRAL INFARCTION, UNSPECIFIED Qualifiers: Cerebral infarction mechanism: unspecified mechanism Qualified Code(s): I63.9 - Cerebral infarction, unspecified (4) HLD (hyperlipidemia) Code(s): E78.5 - HYPERLIPIDEMIA, UNSPECIFIED Qualifiers: Hyperlipidemia type: pure hypercholesterolemia Qualified Code(s): E78.00 - Pure hypercholesterolemia, unspecified; E78.0 - Pure hypercholesterolemia (5) HTN (hypertension) Code(s): I10 - ESSENTIAL (PRIMARY) HYPERTENSION Qualifiers: Hypertension type: essential hypertension Qualified Code(s): I10 - Essential (primary) hypertension (6) Leg edema Code(s): R60.0 - LOCALIZED EDEMA (7) Pulmonary hypertension Code(s): I27.2 - OTHER SECONDARY PULMONARY HYPERTENSION * DO NOT USE * (8) Shortness of breath Code(s): R06.02 - SHORTNESS OF BREATH (9) Status post coronary artery stent placement Code(s): Z95.5 - PRESENCE OF CORONARY ANGIOPLASTY IMPLANT AND GRAFT (10) Systolic CHF, acute on chronic Code(s): I50.23 - ACUTE ON CHRONIC SYSTOLIC (CONGESTIVE) HEART FAILURE Assessment/Plan December 19, 2017 Dilated LV with severely decreased LVEF 30%, DAV LA 4.8 cm, mod MR , mild TR, RVP 39 mmHg, mild ao dilatation 4.3 cm Sep 14, 2017 Pharm stress: Severe diffuse global HK LVEF 22% Jul 31, [address]: Pulm HTN, congestion, trace ascites, cholelithiasis with thickened GB 1. Acute on chronic class III-IV NYHA classification LV systolic failure, clinically resolving 2. CAD post PCI/stent angina pectoris 3. 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 HTN/HCVD 6. Hypercholesterolemia 7. History of CVA with right hemiparesis 8. Acute on CKD stage 3 improving 9. Underlying CKD secondary to Hypertensive Nephrosclerosis vs. Acquired Cystic Renal Disease (unlikely PCKD given normal size kidneys) 10. Anemia 11. PAD 12. COPD and pulm HTN 13. Gynecomastia PLAN: 1. Wean off inotropic diuresis, resume Lasix 40 po bid and Eplerenone 25 qd with monitor diuretic response, renal function and electrolytes, wrap legs 2. Continue Coreg 25 bid, Lipitor 80 qhs and Entresto 49/51 bid, add BiDil as hemodynamics tolerate 3. D/Patrice Coumadin (unstable INR) and initiated DOAC's/Eliquis 5 bid as an alternative 4. Ambulate, PT and d/c planning
[2018-08-03] MEDS: EPLERENONE 25 MG TABLET PO SCH (11:01)
[2018-08-03] MEDS: SACUBITRIL/VALSARTAN 49 MG-51 MG TABLET PO SCH ×2 (11:02→22:00)
[2018-08-03] MEDS: CARVEDILOL 25 MG TABLET (FP) PO SCH ×2 (11:02→22:00)
[2018-08-03] MEDS: FUROSEMIDE 40 MG TABLET (FP) PO SCH ×2 (11:02→14:42)
[2018-08-03] MEDS: APIXABAN 5 MG TABLET PO SCH ×2 (11:02→22:00)
--- NOTE | 2018-08-03 12:56 | PN ---
Progress Note (short form) - Note Progress Note: PULMONARY States breathing is better. Denies chest pain, cough or wheezing. Remains on dobutamine gtt. Vital Signs Period Temp Pulse Resp BP Sys/Ludwig Pulse Ox Last 24 Hr 97.5 F-97.9 F 68-76 18-22 109-120/70-81 95-96 Intake & Output 07/31/18 08/01/18 08/02/18 08/03/18 23:59 23:59 23:59 23:59 Intake Total 1086 644 486 218 Output Total 400 1350 1300 Balance 186 706 -814 218 Weight 90.356 kg 90.083 kg 88.961 kg Gen: NAD at rest Heart: RRR Lung: decreased breath sounds at the bases Abd: soft, nontender Ext: + edema CBC, BMP 08/03/18 05:30 08/03/18 05:30 Active Medications Apixaban (Eliquis -) 5 mg PO BID [facility] Last Admin: 08/03/18 11:02 Dose: 5 mg Atorvastatin Calcium (Lipitor -) 80 mg PO HS [facility] Last Admin: 08/02/18 22:13 Dose: 80 mg Carvedilol (Coreg -) 25 mg PO BID [facility] Last Admin: 08/03/18 11:02 Dose: 25 mg Eplerenone (Eplerenone) 25 mg PO DAILY@0800 [facility] Last Admin: 08/03/18 11:01 Dose: 25 mg Furosemide (Lasix -) 40 mg PO BID@0600,1400 [facility] Last Admin: 08/03/18 11:02 Dose: 40 mg Sacubitril/Valsartan (Entresto 49 Mg-51 Mg Tablet) 1 tab PO BID [facility] Last Admin: 08/03/18 11:02 Dose: 1 tab A/P Acute on Chronic Systolic Heart Failure CAD s/p stent Atrial Fibrillation s/p ICD COPD Pulmonary HTN Acute on CKD h/o CVA HTN Hypercholesterolemia - taper off dobutamine per cardiology - continue lasix, entresto - monitor urine output, creatinine - rate control - continue anticoagulation - O2 to keep Spo2 >90%
--- NOTE | 2018-08-03 13:14 | PN ---
Progress Note, Physician Chief Complaint: CHF ARF on CKD stage 3 History of Present Illness: Previous notes and events reviewed alert and awake NAD denies chest pain, sob improvement in B/L lower extremity edema - Current Medication List Current Medications: Active Medications Apixaban (Eliquis -) 5 mg PO BID [facility] Last Admin: 08/03/18 11:02 Dose: 5 mg Atorvastatin Calcium (Lipitor -) 80 mg PO HS [facility] Last Admin: 08/02/18 22:13 Dose: 80 mg Carvedilol (Coreg -) 25 mg PO BID [facility] Last Admin: 08/03/18 11:02 Dose: 25 mg Eplerenone (Eplerenone) 25 mg PO DAILY@0800 [facility] Last Admin: 08/03/18 11:01 Dose: 25 mg Furosemide (Lasix -) 40 mg PO BID@0600,1400 [facility] Last Admin: 08/03/18 11:02 Dose: 40 mg Sacubitril/Valsartan (Entresto 49 Mg-51 Mg Tablet) 1 tab PO BID [facility] Last Admin: 08/03/18 11:02 Dose: 1 tab - Objective Vital Signs: Vital Signs Temperature 97.5 F L 08/03/18 06:00 Pulse Rate 68 08/03/18 10:00 Respiratory Rate 22 H 08/03/18 10:00 Blood Pressure 119/81 08/03/18 10:00 O2 Sat by Pulse Oximetry (%) 96 08/03/18 09:00 Constitutional: Yes: Well Nourished, No Distress, Calm Eyes: Yes: Conjunctiva Clear HENT: Yes: Atraumatic Neck: Yes: Supple Cardiovascular: Yes: Regular Rate and Rhythm Respiratory: Yes: Regular, Diminished Gastrointestinal: Yes: WNL, Soft Musculoskeletal: Yes: Muscle Weakness Edema: Yes Edema: LLE: Trace, RLE: Trace Integumentary: Yes: WNL Neurological: Yes: Alert Psychiatric: Yes: Alert Labs: CBC, BMP 08/03/18 05:30 08/03/18 05:30 INR, PTT INR 2.34 (0.83-1.09) H 08/03/18 05:30 Problem List - Problems (1) [place] (dyspnea on exertion) Code(s): R06.09 - OTHER FORMS OF DYSPNEA (2) Shortness of breath Code(s): R06.02 - SHORTNESS OF BREATH (3) Systolic CHF, acute on chronic Code(s): I50.23 - ACUTE ON CHRONIC SYSTOLIC (CONGESTIVE) HEART FAILURE (4) Afib Code(s): I48.91 - UNSPECIFIED ATRIAL FIBRILLATION Qualifiers: Atrial fibrillation type: chronic Qualified Code(s): I48.2 - Chronic atrial fibrillation (5) CAD (coronary artery disease) Code(s): I25.10 - ATHSCL HEART DISEASE OF [place] CORONARY ARTERY W/O ANG PCTRS Qualifiers: Coronary Disease-Associated Artery/Lesion type: [place] artery [place] vs. transplanted heart: [place] heart Associated angina: without angina Qualified Code(s): I25.10 - Atherosclerotic heart disease of [place] coronary artery without angina pectoris (6) CVA (cerebral infarction) Code(s): I63.9 - CEREBRAL INFARCTION, UNSPECIFIED Qualifiers: Cerebral infarction mechanism: unspecified mechanism Qualified Code(s): I63.9 - Cerebral infarction, unspecified (7) HLD (hyperlipidemia) Code(s): E78.5 - HYPERLIPIDEMIA, UNSPECIFIED Qualifiers: Hyperlipidemia type: pure hypercholesterolemia Qualified Code(s): E78.00 - Pure hypercholesterolemia, unspecified; E78.0 - Pure hypercholesterolemia (8) HTN (hypertension) Code(s): I10 - ESSENTIAL (PRIMARY) HYPERTENSION Qualifiers: Hypertension type: essential hypertension Qualified Code(s): I10 - Essential (primary) hypertension (9) Leg edema Code(s): R60.0 - LOCALIZED EDEMA (10) Pacemaker Code(s): Z95.0 - PRESENCE OF CARDIAC PACEMAKER Assessment/Plan -cardio on board -switched to PO LasixBID, entresto -started on Elperenone -cont with Eliquis -BNP elev but trending down, now 37150 -1L fluid restriction -daily weights, strict I&O -cont carvedilol -cont atorvastatin -O2 via NC, keep SpO2 >90% -low Na diet -nephrology on board -BUN/Cr wnl, will cont to monitor -dvt ppx
--- NOTE | 2018-08-03 15:32 | PN ---
Progress Note, Physician History of Present Illness: Pt seen and examined at bedside. He appears comfortable. He denies shortness of breath. - Current Medication List Current Medications: Active Medications Apixaban (Eliquis -) 5 mg PO BID [facility] Last Admin: 08/03/18 11:02 Dose: 5 mg Atorvastatin Calcium (Lipitor -) 80 mg PO HS [facility] Last Admin: 08/02/18 22:13 Dose: 80 mg Carvedilol (Coreg -) 25 mg PO BID [facility] Last Admin: 08/03/18 11:02 Dose: 25 mg Eplerenone (Eplerenone) 25 mg PO DAILY@0800 [facility] Last Admin: 08/03/18 11:01 Dose: 25 mg Furosemide (Lasix -) 40 mg PO BID@0600,1400 [facility] Last Admin: 08/03/18 14:42 Dose: 40 mg Sacubitril/Valsartan (Entresto 49 Mg-51 Mg Tablet) 1 tab PO BID [facility] Last Admin: 08/03/18 11:02 Dose: 1 tab - Objective Vital Signs: Vital Signs Temperature 97.6 F 08/03/18 14:00 Pulse Rate 69 08/03/18 14:00 Respiratory Rate 20 08/03/18 14:00 Blood Pressure 107/65 08/03/18 14:00 O2 Sat by Pulse Oximetry (%) 96 08/03/18 09:00 Constitutional: Yes: Calm Eyes: Yes: Conjunctiva Clear HENT: Yes: Atraumatic Neck: Yes: Supple Cardiovascular: Yes: S1, S2 Respiratory: Yes: CTA Bilaterally Gastrointestinal: Yes: Soft Musculoskeletal: Yes: WNL Edema: Yes Edema: LLE: Trace, RLE: Trace Neurological: Yes: Oriented Psychiatric: Yes: Oriented Labs: CBC, BMP 08/03/18 05:30 08/03/18 05:30 INR, PTT INR 2.34 (0.83-1.09) H 08/03/18 05:30 Problem List - Problems (1) Systolic CHF, acute on chronic Code(s): I50.23 - ACUTE ON CHRONIC SYSTOLIC (CONGESTIVE) HEART FAILURE Assessment/Plan Current Medications Generic Name Dose Route Start Last Admin Trade Name Freq PRN Reason Stop Dose Admin Apixaban 5 mg 08/01/18 22:00 08/03/18 11:02 Eliquis - PO 5 mg BID [facility] Administration Atorvastatin Calcium 80 mg 07/28/18 22:00 08/02/18 22:13 Lipitor - PO 80 mg HS [facility] Administration Carvedilol 25 mg 07/28/18 22:00 08/03/18 11:02 Coreg - PO 25 mg BID [facility] Administration Eplerenone 25 mg 07/29/18 09:00 08/03/18 11:01 Eplerenone PO 25 mg DAILY@0800 [facility] Administration Furosemide 40 mg 08/03/18 09:28 08/03/18 14:42 Lasix - PO 40 mg BID@0600,1400 [facility] Administration Sacubitril/Valsartan 1 tab 07/28/18 22:00 08/03/18 11:02 Entresto 49 Mg-51 Mg Tablet PO 1 tab BID [facility] Administration Impression 1. CKD 2. likely cardiorenal syndrome 3. CHF 4. dementia 5. pulm nodules 6. renal cysts 7. HLD Plan - cont PO lasix - pt off of dobutamine - monitor renal function - monitor volume status - cont 2 gm sodium diet with fluid restriction - likely in part cardiorenal - follow spep
[2018-08-03] MEDS: ATORVASTATIN CA 80 MG TABLET (FP) PO SCH (22:00)
[2018-08-04] MEDS: FUROSEMIDE 40 MG TABLET (FP) PO SCH ×2 (06:37→13:55)
[2018-08-04 07:54] LABS: HEMATOCRIT 30.7 % (35.4-49); HEMOGLOBIN 10.3 GM/dL (11.7-16.9); MCH 28.9 pg (25.7-33.7); MCHC 33.7 g/dl (32.0-35.9); MEAN CELL VOLUME 85.8 fl (80-96); MEAN PLT VOLUME 8.9 fl (7.5-11.1); PLATELET COUNT 167 K/MM3 (134-434); RBC 3.58 M/mm3 (4.00-5.60); RDW 19.9 % (11.9-15.9)
[2018-08-04 08:23] LABS: ALBUMIN 3.1 g/dl (3.4-5.0); ALK PHOS 55 U/L (45-117); ANION GAP 9 MMOL/L (8-16); BILIRUBIN,TOTAL 1.6 mg/dL (0.2-1); BLOOD UREA NITROGEN 23 mg/dL (7-18); CALCIUM 8.5 mg/dL (8.5-10.1); CHLORIDE 104 mmol/L (98-107); CO2 28 mmol/L (21-32); CREATININE 1.3 mg/dL (0.55-1.3); GLUCOSE,RANDOM 108 mg/dL (74-106); POTASSIUM 3.9 mmol/L (3.5-5.1); SGOT/AST 14 U/L (15-37); SGPT/ALT 14 U/L (13-61); SODIUM 141 mmol/L (136-145); TOT PROT 6.6 g/dl (6.4-8.2)
[2018-08-04] MEDS: EPLERENONE 25 MG TABLET PO SCH (10:39)
[2018-08-04] MEDS: APIXABAN 5 MG TABLET PO SCH (10:40)
[2018-08-04] MEDS: SACUBITRIL/VALSARTAN 49 MG-51 MG TABLET PO SCH (10:40)
[2018-08-04] MEDS: CARVEDILOL 25 MG TABLET (FP) PO SCH (10:40)
[2018-08-04 11:33] VITALS: TEMP 98.2
--- NOTE | 2018-08-04 11:33 | PN ---
Progress Note, Physician History of Present Illness: PULMONARY ALERT,NO DISTRESS,OFF DOBUTAMINE DRIP - Current Medication List Current Medications: Active Medications Apixaban (Eliquis -) 5 mg PO BID [facility] Last Admin: 08/04/18 10:40 Dose: 5 mg Atorvastatin Calcium (Lipitor -) 80 mg PO HS [facility] Last Admin: 08/03/18 22:00 Dose: 80 mg Carvedilol (Coreg -) 25 mg PO BID [facility] Last Admin: 08/04/18 10:40 Dose: 25 mg Eplerenone (Eplerenone) 25 mg PO DAILY@0800 [facility] Last Admin: 08/04/18 10:39 Dose: 25 mg Furosemide (Lasix -) 40 mg PO BID@0600,1400 [facility] Last Admin: 08/04/18 06:37 Dose: 40 mg Sacubitril/Valsartan (Entresto 49 Mg-51 Mg Tablet) 1 tab PO BID [facility] Last Admin: 08/04/18 10:40 Dose: 1 tab - Objective Vital Signs: Vital Signs Temperature 98 F 08/04/18 02:00 Pulse Rate 71 08/04/18 09:25 Respiratory Rate 18 08/04/18 09:25 Blood Pressure 106/64 08/04/18 09:25 O2 Sat by Pulse Oximetry (%) 97 08/04/18 09:00 Constitutional: Yes: Well Nourished, Calm Eyes: Yes: WNL HENT: Yes: WNL Neck: Yes: WNL Cardiovascular: Yes: Pulse Irregular, S1, S2 Respiratory: Yes: Diminished Gastrointestinal: Yes: Normal Bowel Sounds, Soft Extremities: Yes: WNL Edema: Yes Labs: CBC, BMP 08/04/18 06:45 08/04/18 06:45 INR, PTT INR 2.34 (0.83-1.09) H 08/03/18 05:30 Problem List - Problems (1) [place] (dyspnea on exertion) Code(s): R06.09 - OTHER FORMS OF DYSPNEA (2) Shortness of breath Code(s): R06.02 - SHORTNESS OF BREATH (3) Systolic CHF, acute on chronic Code(s): I50.23 - ACUTE ON CHRONIC SYSTOLIC (CONGESTIVE) HEART FAILURE (4) AICD (automatic cardioverter/defibrillator) present Code(s): Z95.810 - PRESENCE OF AUTOMATIC (IMPLANTABLE) CARDIAC DEFIBRILLATOR (5) Acute renal failure superimposed on stage 3 chronic kidney disease Code(s): N17.9 - ACUTE KIDNEY FAILURE, UNSPECIFIED; N18.3 - CHRONIC KIDNEY DISEASE, STAGE 3 (MODERATE) (6) CAD (coronary artery disease) Code(s): I25.10 - ATHSCL HEART DISEASE OF [place] CORONARY ARTERY W/O ANG PCTRS Qualifiers: Coronary Disease-Associated Artery/Lesion type: [place] artery [place] vs. transplanted heart: [place] heart Associated angina: without angina Qualified Code(s): I25.10 - Atherosclerotic heart disease of [place] coronary artery without angina pectoris (7) CVA (cerebral infarction) Code(s): I63.9 - CEREBRAL INFARCTION, UNSPECIFIED Qualifiers: Cerebral infarction mechanism: unspecified mechanism Qualified Code(s): I63.9 - Cerebral infarction, unspecified (8) HLD (hyperlipidemia) Code(s): E78.5 - HYPERLIPIDEMIA, UNSPECIFIED Qualifiers: Hyperlipidemia type: pure hypercholesterolemia Qualified Code(s): E78.00 - Pure hypercholesterolemia, unspecified; E78.0 - Pure hypercholesterolemia (9) HTN (hypertension) Code(s): I10 - ESSENTIAL (PRIMARY) HYPERTENSION Qualifiers: Hypertension type: essential hypertension Qualified Code(s): I10 - Essential (primary) hypertension (10) Leg edema Code(s): R60.0 - LOCALIZED EDEMA (11) Pulmonary hypertension Code(s): I27.2 - OTHER SECONDARY PULMONARY HYPERTENSION * DO NOT USE * (12) Status post coronary artery stent placement Code(s): Z95.5 - PRESENCE OF CORONARY ANGIOPLASTY IMPLANT AND GRAFT Assessment/Plan IMP DYSPNEA IMPROVING ACUTE ON CHRONIC CHF IMPROVING NON-ISCHEMIC CARDIOMYOPATHY AFIB SSS S/P PPM ASHD S/P STENTS H/O CVA H/O PULMONARY NODULES HTN HLD CKD PULMONARY HTN H/O COPD PLAN LASIX INHALED BRONCHODILATORS PRN SUPPLEMENTAL O2 DAILY WTS ELIQUIS F/U CHEST X-RAYS MONITOR LYTES,RENAL FUNCTION DR STONER Problem List - Problems (1) [place] (dyspnea on exertion) Code(s): R06.09 - OTHER FORMS OF DYSPNEA (2) Shortness of breath Code(s): R06.02 - SHORTNESS OF BREATH (3) Systolic CHF, acute on chronic Code(s): I50.23 - ACUTE ON CHRONIC SYSTOLIC (CONGESTIVE) HEART FAILURE (4) AICD (automatic cardioverter/defibrillator) present Code(s): Z95.810 - PRESENCE OF AUTOMATIC (IMPLANTABLE) CARDIAC DEFIBRILLATOR (5) Acute renal failure superimposed on stage 3 chronic kidney disease Code(s): N17.9 - ACUTE KIDNEY FAILURE, UNSPECIFIED; N18.3 - CHRONIC KIDNEY DISEASE, STAGE 3 (MODERATE) (6) CAD (coronary artery disease) Code(s): I25.10 - ATHSCL HEART DISEASE OF [place] CORONARY ARTERY W/O ANG PCTRS Qualifiers: Coronary Disease-Associated Artery/Lesion type: [place] artery [place] vs. transplanted heart: [place] heart Associated angina: without angina Qualified Code(s): I25.10 - Atherosclerotic heart disease of [place] coronary artery without angina pectoris (7) CVA (cerebral infarction) Code(s): I63.9 - CEREBRAL INFARCTION, UNSPECIFIED Qualifiers: Cerebral infarction mechanism: unspecified mechanism Qualified Code(s): I63.9 - Cerebral infarction, unspecified (8) HLD (hyperlipidemia) Code(s): E78.5 - HYPERLIPIDEMIA, UNSPECIFIED Qualifiers: Hyperlipidemia type: pure hypercholesterolemia Qualified Code(s): E78.00 - Pure hypercholesterolemia, unspecified; E78.0 - Pure hypercholesterolemia (9) HTN (hypertension) Code(s): I10 - ESSENTIAL (PRIMARY) HYPERTENSION Qualifiers: Hypertension type: essential hypertension Qualified Code(s): I10 - Essential (primary) hypertension (10) Leg edema Code(s): R60.0 - LOCALIZED EDEMA (11) Pulmonary hypertension Code(s): I27.2 - OTHER SECONDARY PULMONARY HYPERTENSION * DO NOT USE * (12) Status post coronary artery stent placement Code(s): Z95.5 - PRESENCE OF CORONARY ANGIOPLASTY IMPLANT AND GRAFT
--- NOTE | 2018-08-04 12:18 | PN ---
Progress Note, Physician History of Present Illness: Orthopea, dyspnea on exertion and LE edema has resolved post inotropic diuresis. - Current Medication List Current Medications: Active Medications Apixaban (Eliquis -) 5 mg PO BID [facility] Last Admin: 08/04/18 10:40 Dose: 5 mg Atorvastatin Calcium (Lipitor -) 80 mg PO HS [facility] Last Admin: 08/03/18 22:00 Dose: 80 mg Carvedilol (Coreg -) 25 mg PO BID [facility] Last Admin: 08/04/18 10:40 Dose: 25 mg Eplerenone (Eplerenone) 25 mg PO DAILY@0800 [facility] Last Admin: 08/04/18 10:39 Dose: 25 mg Furosemide (Lasix -) 40 mg PO BID@0600,1400 [facility] Last Admin: 08/04/18 06:37 Dose: 40 mg Sacubitril/Valsartan (Entresto 49 Mg-51 Mg Tablet) 1 tab PO BID [facility] Last Admin: 08/04/18 10:40 Dose: 1 tab - Objective Vital Signs: Vital Signs Temperature 98.2 F 08/04/18 09:25 Pulse Rate 71 08/04/18 09:25 Respiratory Rate 18 08/04/18 09:25 Blood Pressure 106/64 08/04/18 09:25 O2 Sat by Pulse Oximetry (%) 97 08/04/18 09:00 Constitutional: Yes: No Distress, Calm, Thin Neck: Yes: Supple Cardiovascular: Yes: Regular Rate and Rhythm, Murmur (2/6 SM) Respiratory: Yes: Regular, Diminished Gastrointestinal: Yes: Normal Bowel Sounds, Soft Edema: No Labs: CBC, BMP 08/04/18 06:45 08/04/18 06:45 INR, PTT INR 2.34 (0.83-1.09) H 08/03/18 05:30 - ....Imaging EKG: Report Reviewed (Tele: Afib v-paced) Problem List - Problems (1) AICD (automatic cardioverter/defibrillator) present Code(s): Z95.810 - PRESENCE OF AUTOMATIC (IMPLANTABLE) CARDIAC DEFIBRILLATOR (2) COPD (chronic obstructive pulmonary disease) Code(s): J44.9 - CHRONIC OBSTRUCTIVE PULMONARY DISEASE, UNSPECIFIED Qualifiers: Emphysema type: unspecified (3) CVA (cerebral infarction) Code(s): I63.9 - CEREBRAL INFARCTION, UNSPECIFIED Qualifiers: Cerebral infarction mechanism: unspecified mechanism Qualified Code(s): I63.9 - Cerebral infarction, unspecified (4) HLD (hyperlipidemia) Code(s): E78.5 - HYPERLIPIDEMIA, UNSPECIFIED Qualifiers: Hyperlipidemia type: pure hypercholesterolemia Qualified Code(s): E78.00 - Pure hypercholesterolemia, unspecified; E78.0 - Pure hypercholesterolemia (5) HTN (hypertension) Code(s): I10 - ESSENTIAL (PRIMARY) HYPERTENSION Qualifiers: Hypertension type: essential hypertension Qualified Code(s): I10 - Essential (primary) hypertension (6) Pulmonary hypertension Code(s): I27.2 - OTHER SECONDARY PULMONARY HYPERTENSION * DO NOT USE * (7) Status post coronary artery stent placement Code(s): Z95.5 - PRESENCE OF CORONARY ANGIOPLASTY IMPLANT AND GRAFT (8) Systolic CHF, acute on chronic Code(s): I50.23 - ACUTE ON CHRONIC SYSTOLIC (CONGESTIVE) HEART FAILURE Assessment/Plan December 19, 2017 Dilated LV with severely decreased LVEF 30%, DAV LA 4.8 cm, mod MR , mild TR, RVP 39 mmHg, mild ao dilatation 4.3 cm Sep 14, 2017 Pharm stress: Severe diffuse global HK LVEF 22% Jul 31, [address]: Pulm HTN, congestion, trace ascites, cholelithiasis with thickened GB 1. Acute on chronic class III-IV NYHA classification LV systolic failure, clinically resolving 2. CAD post PCI/stent angina pectoris 3. Permanent atrial fibrillation on chronic A/C [id number] score of 4 on coumadin with therapeutic INR 4. 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 HTN/HCVD 6. Hypercholesterolemia 7. History of CVA with right hemiparesis 8. Acute on CKD stage 3 improving 9. Underlying CKD secondary to Hypertensive Nephrosclerosis vs. Acquired Cystic Renal Disease (unlikely PCKD given normal size kidneys) 10. Anemia 11. PAD 12. COPD and pulm HTN 13. Gynecomastia PLAN: 1. Continue Lasix 40 po bid and Eplerenone 25 qd with monitor diuretic response , renal function and electrolytes 2. Continue Coreg 25 bid, Lipitor 80 qhs and Entresto 49/51 bid, add BiDil as hemodynamics tolerate 3. Continue Eliquis 5 bid 4. Ambulate, PT and d/c planning
[2018-08-04 12:52] VITALS: BMI 31.9
--- NOTE | 2018-08-04 13:07 | PN ---
Progress Note, Physician History of Present Illness: Pt seen and examined at bedside. He is awake and appears comfortable. His is at bedside and care was discussed with her. - Current Medication List Current Medications: Active Medications Apixaban (Eliquis -) 5 mg PO BID [facility] Last Admin: 08/04/18 10:40 Dose: 5 mg Atorvastatin Calcium (Lipitor -) 80 mg PO HS [facility] Last Admin: 08/03/18 22:00 Dose: 80 mg Carvedilol (Coreg -) 25 mg PO BID [facility] Last Admin: 08/04/18 10:40 Dose: 25 mg Eplerenone (Eplerenone) 25 mg PO DAILY@0800 [facility] Last Admin: 08/04/18 10:39 Dose: 25 mg Furosemide (Lasix -) 40 mg PO BID@0600,1400 [facility] Last Admin: 08/04/18 06:37 Dose: 40 mg Sacubitril/Valsartan (Entresto 49 Mg-51 Mg Tablet) 1 tab PO BID [facility] Last Admin: 08/04/18 10:40 Dose: 1 tab - Objective Vital Signs: Vital Signs Temperature 98.2 F 08/04/18 09:25 Pulse Rate 71 08/04/18 09:25 Respiratory Rate 18 08/04/18 09:25 Blood Pressure 106/64 08/04/18 09:25 O2 Sat by Pulse Oximetry (%) 97 08/04/18 09:00 Constitutional: Yes: Calm Eyes: Yes: Conjunctiva Clear HENT: Yes: Atraumatic Neck: Yes: Supple Cardiovascular: Yes: S1, S2 Respiratory: Yes: CTA Bilaterally Gastrointestinal: Yes: Normal Bowel Sounds, Soft Genitourinary: Yes: WNL Musculoskeletal: Yes: Muscle Weakness Edema: Yes Edema: LLE: Trace, RLE: Trace Neurological: Yes: Oriented Psychiatric: Yes: Oriented Labs: CBC, BMP 08/04/18 06:45 08/04/18 06:45 INR, PTT INR 2.34 (0.83-1.09) H 08/03/18 05:30 Problem List - Problems (1) Systolic CHF, acute on chronic Code(s): I50.23 - ACUTE ON CHRONIC SYSTOLIC (CONGESTIVE) HEART FAILURE Assessment/Plan Current Medications Generic Name Dose Route Start Last Admin Trade Name Freq PRN Reason Stop Dose Admin Apixaban 5 mg 08/01/18 22:00 08/04/18 10:40 Eliquis - PO 5 mg BID [facility] Administration Atorvastatin Calcium 80 mg 07/28/18 22:00 08/03/18 22:00 Lipitor - PO 80 mg HS [facility] Administration Carvedilol 25 mg 07/28/18 22:00 08/04/18 10:40 Coreg - PO 25 mg BID [facility] Administration Eplerenone 25 mg 07/29/18 09:00 08/04/18 10:39 Eplerenone PO 25 mg DAILY@0800 [facility] Administration Furosemide 40 mg 08/03/18 09:28 08/04/18 06:37 Lasix - PO 40 mg BID@0600,1400 [facility] Administration Sacubitril/Valsartan 1 tab 07/28/18 22:00 08/04/18 10:40 Entresto 49 Mg-51 Mg Tablet PO 1 tab BID [facility] Administration Laboratory Tests 07/30/18 07/30/18 06:30 15:30 Total Protein (PEP) 6.2 Kirtj-4-Lbcuhroxe (%) 5.2 Osmct-7-Whrdrjqsq (%) 11.3 M-Fredi % Not observed MARISSA M-Fredi Not observed Impression 1. CKD 2. likely cardiorenal syndrome 3. CHF 4. dementia 5. pulm nodules 6. renal cysts 7. HLD Plan - cont current regimen - renal function is stable - volume status is stable - cont PO lasix - monitor volume status - cont 2 gm sodium diet with fluid restriction - likely in part cardiorenal - follow spep - will need outpt follow up
[2018-08-04 13:54] VITALS: BP 104/68; PULSE 69
--- NOTE | 2018-08-04 14:41 | DS ---
Physical Examination Vital Signs: Vital Signs Temperature 98.2 F 08/04/18 13:45 Pulse Rate 69 08/04/18 13:45 Respiratory Rate 18 08/04/18 13:45 Blood Pressure 104/68 08/04/18 13:45 O2 Sat by Pulse Oximetry (%) 97 08/04/18 09:00 Findings/Remarks: Patient is a 78 y/o male, currently denies chest pain, dizziness, SOB. Bilateral lower extremity edema has improved. Constitutional: Yes: Well Nourished, No Distress, Calm Eyes: Yes: Conjunctiva Clear HENT: Yes: Atraumatic Neck: Yes: Supple Cardiovascular: Yes: Regular Rate and Rhythm Respiratory: Yes: Regular, CTA Bilaterally Gastrointestinal: Yes: Normal Bowel Sounds, Soft Musculoskeletal: Yes: Muscle Weakness Extremities: Yes: WNL Edema: Yes Edema: LLE: Trace, RLE: Trace Integumentary: Yes: WNL Neurological: Yes: Alert Psychiatric: Yes: Alert Labs: CBC, BMP 08/04/18 06:45 08/04/18 06:45 Discharge Summary Reason For Visit: DYSPNEA ON EXERTION/ SOB/ACUTE ON CHRONIC SYSTOLIC Current Active Problems Acute hypoxemic respiratory failure (Acute) Asymptomatic bacteriuria (Acute) 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 CXR. EKG Hospital Course: Patient is a 78 y/o male presented to ER with complaints of dyspnea at rest and on exertion and bilateral lower extremity edema. Patient was admitted with tele monitoring. Patient was started on dobutamine drip, lasix IVP for diuresis and responded well. Edema to bilateral lower extremity edema greatly decreased. Patient was followed by cardiology while in-patient. Was started on Eliquis 5mg BID in place of Coumadin by Dr. Amaro. Patient will be having [facility] services initiated for [facility] and PT services. Condition: Improved - Instructions Diet, Activity, Other Instructions: Patient instructed to follow up with PMD within 3-4 days after discharge Instructed to follow up with Material Handling Supervisor Dr Amaro as outpatient [facility] for [facility] and PT in place instructed on 1L fluid restriction per day explained that patient needs to weight self daily first thing in the morning, if noticed a 5lb weight gain or more in 1 day notify PMD low sodium diet if develop chest pain, SOB, or worsening of lower extremity swelling notify PMD and/or street commissioner Disposition: HOME - Home Medications Comprehensive Discharge Medication List: Ambulatory Orders Cholecalciferol (Vitamin D3) [Vitamin D3] 1,000 unit PO DAILY 07/27/14 Carvedilol [Coreg -] 25 mg PO BID #60 tablet 08/01/15 Carvedilol [Coreg -] 25 mg PO BID 07/28/18 Docusate Sodium [Colace -] 100 mg PO BID PRN 07/28/18 Potassium Chloride [K-Dur -] 20 meq PO DAILY 07/28/18 Apixaban [Eliquis -] 5 mg PO BID #60 tablet 08/04/18 Atorvastatin Ca [Lipitor] 80 mg PO HS #30 tablet 08/04/18 Carvedilol [Coreg -] 25 mg PO BID #60 tablet 08/04/18 Eplerenone 25 mg PO DAILY@0800 #30 tablet 08/04/18 Furosemide [Lasix -] 40 mg PO BID@0600,1400 #60 tablet 08/04/18 Sacubitril/Valsartan [Entresto 49 mg-51 mg Tablet] 1 tab PO BID #60 tablet 08/04
== END 2018-08-04 16:05 | disposition home health service (06) | DRG 291 ==
LOC: JER 12:21 → JERBED 16:54 → J4W 21:46
PROVIDERS: ADMIT Family Medicine; ATTEND Family Medicine
DX: I13.0 Hypertensive heart and chronic kidney disease with heart failure and stage 1 through stage 4 chronic kidney disease, or unspecified chronic kidney disease (principal); I50.23 Acute on chronic systolic (congestive) heart failure; I69.351 Hemiplegia and hemiparesis following cerebral infarction affecting right dominant side; N17.9 Acute kidney failure, unspecified; N39.0 Urinary tract infection, site not specified; N18.3 Chronic kidney disease, stage 3 (moderate); N62 Hypertrophy of breast; J44.9 Chronic obstructive pulmonary disease, unspecified; I25.119 Atherosclerotic heart disease of native coronary artery with unspecified angina pectoris; N28.1 Cyst of kidney, acquired; I27.20 Pulmonary hypertension, unspecified; N40.0 Benign prostatic hyperplasia without lower urinary tract symptoms; D64.9 Anemia, unspecified; R91.1 Solitary pulmonary nodule; K29.70 Gastritis, unspecified, without bleeding; F03.90 Unspecified dementia, unspecified severity, without behavioral disturbance, psychotic disturbance, mood disturbance, and anxiety; I42.8 Other cardiomyopathies; I48.2 Chronic atrial fibrillation; R60.0 Localized edema; I73.89 Other specified peripheral vascular diseases; Z95.810 Presence of automatic (implantable) cardiac defibrillator; Z95.5 Presence of coronary angioplasty implant and graft; Z22.39 Carrier of other specified bacterial diseases
CPT/HCPCS: 36415; 71045-TC-FY; 71250-TC; 76775-TC; 80048; 80053; 81003; 81015; 82550; 82728; 83036; 83540; 83550; 83735; 83880; 84155; 84156; 84157; 84165; 84484; 85025; 85027; 85610; 85730; 87086; 87186; 93005; 93010; 97116-GP; 97161-GP; 99284-25; J1250

== ENCOUNTER 2018-12-15 15:24 | Inpatient (IN) | payer OTHER ==
--- NOTE | 2018-12-15 15:40 | PDOC ---
History of Present Illness - General Chief Complaint: Edema Stated Complaint: EDEMA Time Seen by Provider: 12/15/18 15:40 - History of Present Illness Initial Comments: 12/15/18 15:40 Mr. Garcia is a 78 yo male w/ pmh of HTN, HLD, afib (on eliquis), previous GI bleed, CHF, CAD, CVA, BPH, anemia, and osteoarthritis who presents for evaluation of leg swelling and shortness of breath. Patient is accompanied by his friend to ED. Friend reports that had encouraged patient to go to PCP for evaluation of SOB and swelling who sent him to ED. Patient currently reporting shortness of breath has improved however he is unable to ambulate without difficulty. Also complaining of increased leg swelling and pain. The patient denies chest pain, headache and dizziness. Denies fever, chills, nausea, vomit, diarrhea and constipation. Denies dysuria, frequency, urgency and hematuria. Past History - Past Medical History Allergies/Adverse Reactions: Allergies Allergy/AdvReac Type Severity Reaction Status Date / Time No Known Allergies Allergy Verified 12/15/18 15:49 Home Medications: Ambulatory Orders Cholecalciferol (Vitamin D3) [Vitamin D3] 1,000 unit PO DAILY 07/27/14 Carvedilol [Coreg -] 25 mg PO BID #60 tablet 08/01/15 Apixaban [Eliquis -] 5 mg PO BID #60 tablet 08/04/18 Atorvastatin Ca [Lipitor] 80 mg PO HS #30 tablet 08/04/18 Eplerenone 25 mg PO DAILY@0800 #30 tablet 08/04/18 Furosemide [Lasix -] 40 mg PO BID@0600,1400 #60 tablet 08/04/18 Sacubitril/Valsartan [Entresto 49 mg-51 mg Tablet] 1 tab PO BID #60 tablet 08/04 Ramipril 5 mg PO DAILY 12/15/18 Spironolactone 25 mg PO DAILY 12/15/18 Anemia: Yes Asthma: No Cancer: No Cardiac Disorders: Yes (afib, cardiomyopathy) CVA: Yes (left residual weakness and facial asymmetry) COPD: No CHF: Yes Dementia: No Diabetes: No GI Disorders: No Disorders: Yes (BPH) HTN: Yes Hypercholesterolemia: Yes Liver Disease: No Seizures: No Thyroid Disease: No - Surgical History Abdominal Surgery: No Appendectomy: No Cardiac Surgery: Yes (AICD, stent) Cholecystectomy: No Lung Surgery: No Neurologic Surgery: No Orthopedic Surgery: No - Suicide/Smoking/Psychosocial Hx Smoking Status: Yes Smoking History: Unknown if ever smoked Have you smoked in the past 12 months: No Number of Cigarettes Smoked Daily: 0 If you are a former smoker, when did you quit?: 20 YRS AGO Hx Alcohol Use: No Drug/Substance Use Hx: No Substance Use Type: None Hx Substance Use Treatment: No Review of Systems - Review of Systems Comments:: 12/15/18 15:40 GENERAL/CONSTITUTIONAL: No fever or chills. No weakness. HEAD, EYES, EARS, NOSE AND THROAT: No change in vision. No ear pain or discharge. No sore throat. CARDIOVASCULAR: +Increasing shortness of breath for "a long time." No chest pain RESPIRATORY: No cough, wheezing, or hemoptysis. GASTROINTESTINAL: No nausea, vomiting, diarrhea or constipation. GENITOURINARY: No dysuria, frequency, or change in urination. MUSCULOSKELETAL: +JUVENCIO leg pain. No neck or back pain. SKIN: No rash NEUROLOGIC: No headache, vertigo, loss of consciousness, or change in strength/ sensation. ENDOCRINE: No increased thirst. No abnormal weight change HEMATOLOGIC/LYMPHATIC: No anemia, easy bleeding, or history of blood clots. ALLERGIC/IMMUNOLOGIC: No hives or skin allergy. *Physical Exam - Physical Exam Comments: 12/15/18 15:41 GENERAL: Awake, alert, and fully oriented, in no acute distress HEAD: +L sided facial droop (chronic). No signs of trauma, normocephalic, atraumatic EYES: PERRLA, EOMI, sclera anicteric, conjunctiva clear ENT: Auricles normal inspection, hearing grossly normal, nares patent, oropharynx clear without exudates. Moist mucosa NECK: Normal ROM, supple, no lymphadenopathy, JVD, or masses LUNGS: No distress, speaks full sentences, clear to auscultation bilaterally HEART: Regular rate and rhythm, normal S1 and S2, no murmurs, rubs or gallops, peripheral pulses normal and equal bilaterally. ABDOMEN: Soft, nontender, normoactive bowel sounds. No guarding, no rebound. No masses EXTREMITIES: +Severe JUVENCIO Pedal edema. Normal range of motion. No clubbing or cyanosis. NEUROLOGICAL: +Speech mildly slurred however at patient's baseline per friend who is with him following CVA. Cranial nerves II through XII grossly intact. Normal gait per patient, no focal sensorimotor deficits SKIN: Warm, Dry, normal turgor, no rashes or lesions noted. ED Treatment Course - LABORATORY CBC & Chemistry Diagram: 12/15/18 16:19 12/15/18 16:19 Medical Decision Making - Medical Decision Making 12/15/18 16:20 Mr. Garcia is a 78 yo male w/ pmh as described who presents for evaluation of symptoms c/w CHF exacerbation vs. hypervolemia vs. acute lung process. [facility] as well as EKG and CXR. Patient given 40 IV lasix empirically as clearly edematous. 12/15/18 18:28 Patient noted to be severely hypervolemic as below. CXR c/w this picture. Patient will be admitted for further cardiac evaluation and diuresis. Patient also noted to be anemic. Given previous GI bleed patient evaluated w/ FOBT for active GI bleed. Laboratory Results - last 24 hr 12/15/18 12/15/18 16:19 16:19 WBC 3.2 L RBC 2.92 L Hgb 8.7 L Hct 27.0 L MCV 92.3 MCH 29.7 MCHC 32.1 RDW 18.2 H Plt Count 226 D MPV 9.0 Absolute Neuts (auto) 2.2 Neutrophils % 69.4 D Lymphocytes % 15.7 D Monocytes % 11.4 H Eosinophils % 3.2 Basophils % 0.3 Nucleated RBC % 0 Sodium 138 Potassium 5.1 Chloride 108 H Carbon Dioxide 24 Anion Gap 6 L BUN 29 H Creatinine 1.7 H Est GFR (CKD-EPI)AfAm 43.79 Est GFR (CKD-EPI)NonAf 37.79 Random Glucose 101 Calcium 8.8 Total Bilirubin 2.3 H AST 20 ALT 15 Alkaline Phosphatase 78 Creatine Kinase 86 Troponin I 0.04 B-Natriuretic Peptide 82412.9 H Total Protein 7.6 Albumin 3.4 *DC/Admit/Observation/Transfer Diagnosis at time of Disposition: Hypervolemia Qualifiers: Hypervolemia type: unspecified Qualified Code(s): E87.70 - Fluid overload, unspecified CHF exacerbation Qualifiers: Heart failure type: unspecified Qualified Code(s): I50.9 - Heart failure, unspecified - Discharge Dispostion Decision to Admit order: Yes - Referrals Referrals: Leighann De La Cruz MD [Primary Care Provider] - - Patient Instructions - Post Discharge Activity
[2018-12-15] MEDS ORDERED: ALBUTEROL SO4 2.5/IPRATROPIUM 0.5 INH SOL 3 ML VIAL.NEB. NEB ONE ×2 (15:56→16:00)
[2018-12-15] MEDS ORDERED: FUROSEMIDE 40 MG/4 ML INJECTABLE VIAL IVPUSH ONE (15:57)
[2018-12-15] MEDS ORDERED: FUROSEMIDE 40 MG/4 ML INJECTABLE VIAL ONE (16:00)
[2018-12-15 16:30] LABS: BASO % 0.3 % (0-2.0); EOS % 3.2 % (0-4.5); HEMOGLOBIN 8.7 GM/dL (11.7-16.9); LYMPH % 15.7 % (8-40); MCH 29.7 pg (25.7-33.7); MCHC 32.1 g/dl (32.0-35.9); MEAN CELL VOLUME 92.3 fl (80-96); MONO % 11.4 % (3.8-10.2); NEUT % 69.4 % (42.8-82.8); PLATELET COUNT 226 K/MM3 (134-434); RBC 2.92 M/mm3 (4.00-5.60); RDW 18.2 % (11.9-15.9); WHITE BLOOD COUNT 3.2 K/mm3 (4.0-10.0)
--- NOTE | 2018-12-15 16:33 | PDOC ---
Documentation entered by Natasha Chávez SCRIBE, acting as scribe for Shalini Peng MD. Shaliin Peng MD: This documentation has been prepared by the scribe, Natasha Chávez SCRIBE, under my direction and personally reviewed by me in its entirety. I confirm that the documentation accurately reflects all work, treatment, procedures, and medical decision making performed by me. Attending Attestation - Resident Resident Name: Pako Greenwood - ED Attending Attestation I have performed the following: I have examined & evaluated the patient, The case was reviewed & discussed with the resident, I agree w/resident's findings & plan - HPI HPI: 12/15/18 16:01 Mr. Garcia is a 78-year-old male with a past medical history significant for HTN, HLD, OA, CHF, Afib on Eliquis, CAD s/p PCI, CVA with right-sided hemiparesis and left-sided facial droop was sent to the emergency department by PCP for shortness of breath and LE edema. Allergies: NKDA PCP: Dr. Tenzin De La Cruz Bathhouse Keeper: Dr. Amaro 12/15/18 16:29 12/15/18 17:02 - Physicial Exam PE: 12/15/18 16:33 NAD, EOMI, PERRL, nl conjunctiva, anicteric; neck supple. +diminished breath sound throughout, ppm palpated on chest wall. poor inspiratory effort, irregularly irregular, no murmur, abdomen soft nontender. Back nontender. ROSE x4 , +chronic left facial drooping, chronic right sided weakness. 4+ pitting edema up to the thigh. normal color for ethnicity, WWP. 12/15/18 17:02 12/15/18 17:03 - Medical Decision Making 12/15/18 16:30 See HPI for details. Prior notes reviewed, including admissions, discharges and consultations. VS reviewed wnl DDX CHF, ACS, arrhythmia, anemia, electrolyte/metabolic derangements. ED course: - fluid overloaded, IV lasix diuresis. similar presentation - labs and lytes, baseline leukopenia and Cr elevation, no change; acute on chronic anemia, guaiac neg anemia could be alternative etiology of SOB, in addition to CHF CXR with cardiomegaly and pulmonary/central vascular congestion, gurpreet with CHF. EKG V paced pattern, neg for sgarbossa, wide QRS and LBBB noted, admit tele for CHF exacerbation, anemia. 12/15/18 18:04 12/15/18 18:09 12/18/18 13:39 Heart Score/ECG Review #1 ECG reviewed & interpreted by me at: 15:40 General ECG Interpretation: Normal Rate Compared to previous ECG there are: No significant change 12/15/18 18:08 V paced pattern, neg for sgarbossa, wide QRS and LBBB noted,
[2018-12-15 17:18] LABS: ALBUMIN 3.4 g/dl (3.4-5.0); BILIRUBIN,TOTAL 2.3 mg/dL (0.2-1); CALCIUM 8.8 mg/dL (8.5-10.1); CREATININE 1.7 mg/dL (0.55-1.3); N-TERMINAL BNP 17597.9 pg/ml (5-450); POTASSIUM 5.1 mmol/L (3.5-5.1); TOT PROT 7.6 g/dl (6.4-8.2)
--- NOTE | 2018-12-15 18:02 | CON.CARD ---
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 Amaro Aug 09, 2018 presented with several days of orthopea, dyspnea at rest and on exertion, LE edema, PND without chest pain, near or true syncope, palpitations. Reports medication and diet compliance, denies NSAID use. 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) Cardio/Vascular: Yes: AFIB, CAD (S/P PCI), CHF (systolic dysfunction, Cardiomyopathy), HTN, Hyperlipdemia, Murmur, Other Gastrointestinal: Yes: Gastritis, GI Bleed Renal/: Yes: Renal Inusuff (Baseline Scr 1.3mg/dL - CKD Stage III), BPH Musculoskeletal: Yes: Osteoarthritis - Past Surgical History Past Surgical History: Yes: Colonoscopy, Permanent Pacemaker (FOR SSS), Stent - Alcohol/Substance Use Hx Alcohol Use: No - Smoking History Smoking history: Unknown if ever smoked Have you smoked in the past 12 months: No Aproximately how many cigarettes per day: 0 If you are a former smoker, when did you quit?: 20 YRS AGO - Social History Usual Living Arrangement: [facility] History of Recent Travel: No Home Medications - Allergies Allergies/Adverse Reactions: Allergies Allergy/AdvReac Type Severity Reaction Status Date / Time No Known Allergies Allergy Verified 12/15/18 15:49 - Home Medications Home Medications: Ambulatory Orders Cholecalciferol (Vitamin D3) [Vitamin D3] 1,000 unit PO DAILY 07/27/14 Carvedilol [Coreg -] 25 mg PO BID #60 tablet 08/01/15 Apixaban [Eliquis -] 5 mg PO BID #60 tablet 08/04/18 Atorvastatin Ca [Lipitor] 80 mg PO HS #30 tablet 08/04/18 Eplerenone 25 mg PO DAILY@0800 #30 tablet 08/04/18 Furosemide [Lasix -] 40 mg PO BID@0600,1400 #60 tablet 08/04/18 Sacubitril/Valsartan [Entresto 49 mg-51 mg Tablet] 1 tab PO BID #60 tablet 08/04 Ramipril 5 mg PO DAILY 12/15/18 Spironolactone 25 mg PO DAILY 12/15/18 Review of Systems - Review of Systems Cardiovascular: reports: Edema, Shortness of Breath Respiratory: reports: Exercise Intolerance, Orthopnea, SOB on Exertion Vital Signs: Vital Signs Temperature 97.8 F 12/15/18 15:30 Pulse Rate 73 12/15/18 15:30 Respiratory Rate 18 12/15/18 15:30 Blood Pressure 116/82 12/15/18 15:30 O2 Sat by Pulse Oximetry (%) 100 12/15/18 16:49 Constitutional: Yes: No Distress, Calm Neck: Yes: Supple Respiratory: Yes: Regular, Diminished, On Nasal O2 Gastrointestinal: Yes: Normal Bowel Sounds, Soft Cardiovascular: Yes: Regular Rate and Rhythm JVD: No Carotid Bruit: No Heart Sounds: Yes: S1, S2 Murmur: Yes: Systolic Murmur, Grade 1 Extremities: Yes: Other (Warm and well-perfused) Edema: Yes Edema: LLE: 2+, RLE: 2+ - Other Data Labs, Other Data: CBC, BMP 12/15/18 16:19 12/15/18 16:19 Troponin, BNP 12/15/18 16:19 Troponin I 0.04 B-Natriuretic Peptide 75272.9 H Troponin, BNP 12/15/18 16:19 Troponin I 0.04 B-Natriuretic Peptide 70267.9 H V-paced @ 71 Ejection Fraction %: LVEF < 40 % Imaging - Results Chest X-ray: Pending Problem List - Problems (1) CHF exacerbation Code(s): I50.9 - HEART FAILURE, UNSPECIFIED Qualifiers: Heart failure type: combined systolic and diastolic Qualified Code(s): I50.43 - 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) heart failure (2) AICD (automatic cardioverter/defibrillator) present Code(s): Z95.810 - PRESENCE OF AUTOMATIC (IMPLANTABLE) CARDIAC DEFIBRILLATOR (3) Afib Code(s): I48.91 - UNSPECIFIED ATRIAL FIBRILLATION Qualifiers: Atrial fibrillation type: chronic Qualified Code(s): I48.2 - Chronic atrial fibrillation (4) CAD (coronary artery disease) Code(s): I25.10 - ATHSCL HEART DISEASE OF [place] CORONARY ARTERY W/O ANG PCTRS Qualifiers: Coronary Disease-Associated Artery/Lesion type: [place] artery [place] vs. transplanted heart: [place] heart Associated angina: without angina Qualified Code(s): I25.10 - Atherosclerotic heart disease of [place] coronary artery without angina pectoris (5) CVA (cerebral infarction) Code(s): I63.9 - CEREBRAL INFARCTION, UNSPECIFIED Qualifiers: Cerebral infarction mechanism: unspecified mechanism Qualified Code(s): I63.9 - Cerebral infarction, unspecified (6) [place] (dyspnea on exertion) Code(s): R06.09 - OTHER FORMS OF DYSPNEA (7) HLD (hyperlipidemia) Code(s): E78.5 - HYPERLIPIDEMIA, UNSPECIFIED Qualifiers: Hyperlipidemia type: pure hypercholesterolemia Qualified Code(s): E78.00 - Pure hypercholesterolemia, unspecified; E78.0 - Pure hypercholesterolemia (8) Leg edema Code(s): R60.0 - LOCALIZED EDEMA (9) Pulmonary hypertension Code(s): I27.2 - OTHER SECONDARY PULMONARY HYPERTENSION * DO NOT USE * (10) Shortness of breath Code(s): R06.02 - SHORTNESS OF BREATH (11) Status post coronary artery stent placement Code(s): Z95.5 - PRESENCE OF CORONARY ANGIOPLASTY IMPLANT AND GRAFT (12) Systolic CHF, acute on chronic Code(s): I50.23 - ACUTE ON CHRONIC SYSTOLIC (CONGESTIVE) HEART FAILURE Assessment/Plan December 19, 2017 Dilated LV with severely decreased LVEF 30%, DAV LA 4.8 cm, mod MR , mild TR, RVP 39 mmHg, mild ao dilatation 4.3 cm Sep 14, 2017 Pharm stress: Severe diffuse global HK LVEF 22% Jul 31, [address]: Pulm HTN, congestion, trace ascites, cholelithiasis with thickened GB 1. Acute on chronic class III-IV NYHA classification LV systolic failure 2. CAD post PCI/stent angina pectoris 3. 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 HTN/HCVD 6. Hypercholesterolemia 7. History of CVA with right hemiparesis 8. Acute on CKD stage 3 9. Underlying CKD secondary to Hypertensive Nephrosclerosis vs. Acquired Cystic Renal Disease (unlikely PCKD given normal size kidneys) 10. Anemia 11. PAD 12. COPD and pulm HTN 13. Gynecomastia PLAN: 1. Start Lasix 40 IV bid and Eplerenone 25 bid with monitor diuretic response, renal function and electrolytes 2. Continue Coreg 25 bid, Lipitor 80 qhs and Entresto 49/51 bid, add BiDil as hemodynamics tolerate 3. Continue Eliquis 5 bid, compression therapy 4. Thank you for consultative opportunity
--- NOTE | 2018-12-15 19:45 | HP ---
CHIEF COMPLAINT: shortness of breath PCP: Dorothy HISTORY OF PRESENT ILLNESS: 78 yo AA M with severe CHF with systolic dysfunction c/o several days of orthopea, dyspnea at rest and on exertion, LE edema, PND without chest pain. 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, sustained VT s/p ATP, hypertensive cardiovascular disease, hyperlipidemia, CVA with residual deficit, PAD, CKD, chronic anemia PAST SURGICAL HISTORY: AICD placement Social History: Smoking: former smoker, quit 20 years ago Alcohol: no Drugs: no Family History: no Allergies No Known Allergies Allergy (Verified 12/15/18 15:49) HOME MEDICATIONS: Home Medications Medication Instructions Recorded Cholecalciferol (Vitamin D3) 1,000 unit PO DAILY 07/27/14 [Vitamin D3] Carvedilol [Coreg -] 25 mg PO BID #60 tablet 08/01/15 Apixaban [Eliquis -] 5 mg PO BID #60 tablet 08/04/18 Atorvastatin Ca [Lipitor] 80 mg PO HS #30 tablet 08/04/18 Eplerenone 25 mg PO DAILY@0800 #30 tablet 08/04/18 Furosemide [Lasix -] 40 mg PO BID@0600,1400 #60 tablet 08/04/18 Sacubitril/Valsartan [Entresto 49 1 tab PO BID #60 tablet 08/04/18 mg-51 mg Tablet] Ramipril 5 mg PO DAILY 12/15/18 Spironolactone 25 mg PO DAILY 12/15/18 REVIEW OF SYSTEMS CONSTITUTIONAL: Absent: fever, chills, diaphoresis, generalized weakness, malaise, loss of appetite, weight change HEENT: Absent: rhinorrhea, nasal congestion, throat pain, throat swelling, difficulty swallowing, mouth swelling, ear pain, eye pain, visual changes CARDIOVASCULAR: Absent: chest pain, syncope, palpitations, irregular heart rate, lightheadedness , present- peripheral edema RESPIRATORY: Absent, wheezing, stridor, hemoptysis present- cough, shortness of breath, dyspnea with exertion, orthopnea GASTROINTESTINAL: Absent: abdominal pain, abdominal distension, nausea, vomiting, diarrhea, constipation, melena, hematochezia GENITOURINARY: Absent: dysuria, frequency, urgency, hesitancy, hematuria, flank pain, genital pain MUSCULOSKELETAL: Absent: myalgia, arthralgia, joint swelling, back pain, neck pain SKIN: Absent: rash, itching, pallor HEMATOLOGIC/IMMUNOLOGIC: Absent: easy bleeding, easy bruising, lymphadenopathy, frequent infections ENDOCRINE: Absent: unexplained weight gain, unexplained weight loss, heat intolerance, cold intolerance NEUROLOGIC: Absent: headache, focal weakness or paresthesias, dizziness, unsteady gait, seizure, mental status changes, bladder or bowel incontinence PSYCHIATRIC: Absent: anxiety, depression, suicidal or homicidal ideation, hallucinations. PHYSICAL EXAMINATION Vital Signs - 24 hr 12/15/18 12/15/18 12/15/18 15:30 16:48 16:49 Temperature 97.8 F Pulse Rate 73 Pulse Rate [ Radial] Respiratory 18 Rate Blood Pressure 116/82 Blood Pressure [Left Arm] O2 Sat by Pulse 100 100 100 Oximetry (%) 12/15/18 19:05 Temperature Pulse Rate Pulse Rate [ 79 Radial] Respiratory 18 Rate Blood Pressure Blood Pressure 132/78 [Left Arm] O2 Sat by Pulse 100 Oximetry (%) GENERAL: Awake, alert, and fully oriented, in no acute distress. HEAD: Normal with no signs of trauma. EYES: Pupils equal, round and reactive to light, extraocular movements intact, sclera anicteric, conjunctiva clear. No lid lag. EARS, NOSE, THROAT: Ears normal, nares patent, oropharynx clear without exudates. Moist mucous membranes. NECK: + JVD LUNGS: Breath sounds equal, clear to auscultation bilaterally. No wheezes, and no crackles. No accessory muscle use. HEART: s1+s+ RRR ABDOMEN: Soft, nontender, not distended, normoactive bowel sounds, no guarding, no rebound, no masses. MUSCULOSKELETAL: Normal range of motion at all joints. No bony deformities or tenderness. No CVA tenderness. UPPER EXTREMITIES: 2+ pulses, warm, well-perfused. No cyanosis. + clubbing b/l LOWER EXTREMITIES: b/l pedal edema NEUROLOGICAL: slurred speech - from old cva PSYCHIATRIC: Cooperative. Good eye contact. Appropriate mood and affect. SKIN: Warm, dry, normal turgor, no rashes or lesions noted, normal capillary refill. Laboratory Results - last 24 hr 12/15/18 12/15/18 16:19 16:19 WBC 3.2 L RBC 2.92 L Hgb 8.7 L Hct 27.0 L MCV 92.3 MCH 29.7 MCHC 32.1 RDW 18.2 H Plt Count 226 D MPV 9.0 Absolute Neuts (auto) 2.2 Neutrophils % 69.4 D Lymphocytes % 15.7 D Monocytes % 11.4 H Eosinophils % 3.2 Basophils % 0.3 Nucleated RBC % 0 Sodium 138 Potassium 5.1 Chloride 108 H Carbon Dioxide 24 Anion Gap 6 L BUN 29 H Creatinine 1.7 H Est GFR (CKD-EPI)AfAm 43.79 Est GFR (CKD-EPI)NonAf 37.79 Random Glucose 101 Calcium 8.8 Total Bilirubin 2.3 H AST 20 ALT 15 Alkaline Phosphatase 78 Creatine Kinase 86 Troponin I 0.04 B-Natriuretic Peptide 91993.9 H Total Protein 7.6 Albumin 3.4 CXR reviewed EKG reviewed ASSESSMENT/PLAN: #CHF exacerbation NYHA stage 3-systolic dysfunction, associated with fluid overload, dyspnea, orthopnea. -admit to telemetry -monitor v/s closely -i/o -daily weights -salt/free water restriction -IV furosemide 40mg bid -c/w Entresto -c/w carvedilol 25mg po bid -eplerenone -cardiology recs appreciated #CAD -c/w atorvastatin 80mg po daily #AFib on ac (Apixaban)- rate controlled -c/w apixaban 5mg po bid #JASMYN on CKD -avoid nephrotoxins -i/o -daily weights -renal U/S #DVT ppx - on apixaban already Visit type - Emergency Visit Emergency Visit: Yes ED Registration Date: 12/15/18 Care time: The patient presented to the Emergency Department on the above date and was hospitalized for further evaluation of their emergent condition. - New Patient This patient is new to me today: Yes Date on this admission: 12/15/18 - Critical Care Critical Care patient: No
[2018-12-15 23:19] VITALS: BMI 38.7
[2018-12-15] MEDS: APIXABAN 5 MG TABLET PO SCH (23:54)
[2018-12-15] MEDS: CARVEDILOL 25 MG TABLET (FP) PO SCH (23:54)
[2018-12-15] MEDS: EPLERENONE 25 MG TABLET PO SCH (23:54)
[2018-12-15] MEDS: ATORVASTATIN CA 80 MG TABLET (FP) PO SCH (23:54)
[2018-12-15] MEDS: SACUBITRIL/VALSARTAN 49 MG-51 MG TABLET PO SCH (23:54)
[2018-12-16] MEDS: FUROSEMIDE 40 MG/4 ML INJECTABLE VIAL IVPUSH SCH ×2 (06:01→13:15)
[2018-12-16 06:09] LABS: BASO % 1.4 % (0-2.0); EOS % 3.9 % (0-4.5); HEMATOCRIT 25.2 % (35.4-49); HEMOGLOBIN 8.3 GM/dL (11.7-16.9); LYMPH % 20.7 % (8-40); MCH 29.8 pg (25.7-33.7); MCHC 32.9 g/dl (32.0-35.9); MEAN CELL VOLUME 90.7 fl (80-96); MEAN PLT VOLUME 9.9 fl (7.5-11.1); MONO % 17.5 % (3.8-10.2); NEUT % 56.5 % (42.8-82.8); PLATELET COUNT 208 K/MM3 (134-434); RBC 2.78 M/mm3 (4.00-5.60); RDW 18.1 % (11.9-15.9); WHITE BLOOD COUNT 3.2 K/mm3 (4.0-10.0)
[2018-12-16 06:42] LABS: CALCIUM 8.6 mg/dL (8.5-10.1); CREATININE 1.8 mg/dL (0.55-1.3); MAGNESIUM 2.5 mg/dL (1.8-2.4); POTASSIUM 4.4 mmol/L (3.5-5.1)
[2018-12-16] MEDS: APIXABAN 5 MG TABLET PO SCH ×2 (09:56→21:26)
[2018-12-16] MEDS: CARVEDILOL 25 MG TABLET (FP) PO SCH ×2 (09:57→21:26)
--- NOTE | 2018-12-16 11:57 | PN ---
Progress Note, Physician Chief Complaint: ASLEEP CHART AND NOTES REVIEWED FAMILY BEDSIDE - Current Medication List Current Medications: Active Medications Apixaban (Eliquis -) 5 mg PO BID [facility] Last Admin: 12/16/18 09:56 Dose: 5 mg Atorvastatin Calcium (Lipitor -) 80 mg PO HS [facility] Last Admin: 12/15/18 23:54 Dose: 80 mg Carvedilol (Coreg -) 25 mg PO BID [facility] Last Admin: 12/16/18 09:57 Dose: 25 mg Eplerenone (Eplerenone) 25 mg PO BID [facility] Last Admin: 12/15/18 23:54 Dose: 25 mg Furosemide (Lasix Injection -) 40 mg IVPUSH BIDLASIX [facility] Last Admin: 12/16/18 06:01 Dose: 40 mg Sacubitril/Valsartan (Entresto 49 Mg-51 Mg Tablet) 1 tab PO BID [facility] Last Admin: 12/15/18 23:54 Dose: 1 tab - Objective Vital Signs: Vital Signs Temperature 98.6 F 12/16/18 06:30 Pulse Rate 71 12/16/18 06:30 Respiratory Rate 15 12/16/18 06:30 Blood Pressure 121/81 12/16/18 06:30 O2 Sat by Pulse Oximetry (%) 98 12/16/18 09:00 Constitutional: Yes: Mild Distress Cardiovascular: Yes: Regular Rate and Rhythm Respiratory: Yes: Diminished, On Nasal O2 Gastrointestinal: Yes: WNL Genitourinary: Yes: Other Musculoskeletal: Yes: Muscle Weakness Edema: Yes Neurological: Yes: Pre-Existing Deficit Psychiatric: Yes: Other Labs: CBC, BMP 12/16/18 05:22 12/16/18 05:22 Problem List - Problems (1) CHF exacerbation Code(s): I50.9 - HEART FAILURE, UNSPECIFIED Qualifiers: Heart failure type: combined systolic and diastolic Qualified Code(s): I50.43 - 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) heart failure (2) Hypervolemia Code(s): E87.70 - FLUID OVERLOAD, UNSPECIFIED Qualifiers: Hypervolemia type: unspecified Qualified Code(s): E87.70 - Fluid overload, unspecified (3) AICD (automatic cardioverter/defibrillator) present Code(s): Z95.810 - PRESENCE OF AUTOMATIC (IMPLANTABLE) CARDIAC DEFIBRILLATOR (4) Acute hypoxemic respiratory failure Code(s): J96.01 - ACUTE RESPIRATORY FAILURE WITH HYPOXIA (5) Acute renal failure superimposed on stage 3 chronic kidney disease Code(s): N17.9 - ACUTE KIDNEY FAILURE, UNSPECIFIED; N18.3 - CHRONIC KIDNEY DISEASE, STAGE 3 (MODERATE) (6) Afib Code(s): I48.91 - UNSPECIFIED ATRIAL FIBRILLATION Qualifiers: Atrial fibrillation type: chronic Qualified Code(s): I48.2 - Chronic atrial fibrillation (7) Anemia Code(s): D64.9 - ANEMIA, UNSPECIFIED Qualifiers: Anemia type: unspecified type Qualified Code(s): D64.9 - Anemia, unspecified (8) Systolic CHF, acute on chronic Code(s): I50.23 - ACUTE ON CHRONIC SYSTOLIC (CONGESTIVE) HEART FAILURE Assessment/Plan IV LASIX FOR DIURETICS CARDIO EVAL APPRECIATED RENAL EVAL FOR HYPONATREMIA/AZOTEMIA MONITOR LABS BP CONTROL ANEMIA STABLE OOB TO CHAIR WITH PT
[2018-12-16] MEDS ORDERED: PT OWN MED DRAWER 7, Y5N ONE ×2 (12:01→21:14)
[2018-12-16] MEDS: SACUBITRIL/VALSARTAN 49 MG-51 MG TABLET PO SCH ×2 (12:55→21:26)
[2018-12-16] MEDS: EPLERENONE 25 MG TABLET PO SCH ×2 (12:56→21:26)
--- NOTE | 2018-12-16 15:27 | CON.NEP ---
Consult Consult Specialty:: nephrology - History of Present Illness Chief Complaint: dyspnea/edema History of Present Illness: 78 year old man with history of chf, cva, cad and ckd presents with increased edema and dyspnea. 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: CVA (rt hemiparesis) Cardio/Vascular: Yes: AFIB, CAD (S/P PCI), CHF (systolic dysfunction, Cardiomyopathy), HTN, Hyperlipdemia, Murmur, Other Gastrointestinal: Yes: Gastritis, GI Bleed Renal/: Yes: Renal Inusuff (Baseline Scr 1.3mg/dL - CKD Stage III), BPH Musculoskeletal: Yes: Osteoarthritis - Past Surgical History Past Surgical History: Yes: Colonoscopy, Permanent Pacemaker (FOR SSS), Stent - Alcohol/Substance Use Hx Alcohol Use: No - Smoking History Smoking history: Unknown if ever smoked Have you smoked in the past 12 months: No Aproximately how many cigarettes per day: 0 If you are a former smoker, when did you quit?: 20 YRS AGO - Social History Usual Living Arrangement: [facility] History of Recent Travel: No Home Medications - Allergies Allergies/Adverse Reactions: Allergies Allergy/AdvReac Type Severity Reaction Status Date / Time No Known Allergies Allergy Verified 12/15/18 15:49 - Home Medications Home Medications: Ambulatory Orders Cholecalciferol (Vitamin D3) [Vitamin D3] 1,000 unit PO DAILY 07/27/14 Carvedilol [Coreg -] 25 mg PO BID #60 tablet 08/01/15 Apixaban [Eliquis -] 5 mg PO BID #60 tablet 08/04/18 Atorvastatin Ca [Lipitor] 80 mg PO HS #30 tablet 08/04/18 Eplerenone 25 mg PO DAILY@0800 #30 tablet 08/04/18 Furosemide [Lasix -] 40 mg PO BID@0600,1400 #60 tablet 08/04/18 Sacubitril/Valsartan [Entresto 49 mg-51 mg Tablet] 1 tab PO BID #60 tablet 08/04 Ramipril 5 mg PO DAILY 12/15/18 Spironolactone 25 mg PO DAILY 12/15/18 Review of Systems - Review of Systems Constitutional: reports: Weakness Eyes: reports: No Symptoms HENT: reports: No Symptoms Neck: reports: No Symptoms Cardiovascular: reports: Edema, Shortness of Breath Respiratory: reports: SOB Gastrointestinal: reports: No Symptoms Genitourinary: reports: No Symptoms Breasts: reports: No Symptoms Reported Musculoskeletal: reports: No Symptoms Integumentary: reports: No Symptoms Neurological: reports: No Symptoms Nephrology Consult - Height Height: 5 ft 6 in - Weight Weight: 240 lb 4 oz - BMI Body Mass Index (BMI): 38.7 - Lab Results CBC,BMP: CBC, BMP 12/16/18 05:22 12/16/18 05:22 Anion Gap: Anion Gap Anion Gap 8 MMOL/L (8-16) 12/16/18 05:22 - Imaging Chest X-ray: Report Reviewed (congestive changes) Ultrasound: Report Reviewed (bilateral cysts, 1 complex with internal echoes) - Physical Examination Vital Signs: Vital Signs Temperature 98.6 F 12/16/18 06:30 Pulse Rate 71 12/16/18 06:30 Respiratory Rate 15 12/16/18 06:30 Blood Pressure 121/81 12/16/18 06:30 O2 Sat by Pulse Oximetry (%) 98 12/16/18 09:00 Constitutional: Yes: Well Nourished, No Distress, Calm, Poor Hygeine HENT: Yes: Atraumatic, Normocephalic Neck: Yes: Supple, Trachea Midline Cardiovascular: Yes: Regular Rate and Rhythm Respiratory: Yes: CTA Bilaterally Gastrointestinal: Yes: Normal Bowel Sounds Renal/: Yes: WNL Musculoskeletal: Yes: WNL Extremities: Yes: WNL Edema: LLE: 4+, RLE: 4+ Integumentary: Yes: WNL Neurological: Yes: Alert, Oriented Psychiatric: Yes: Alert Assessment/Plan IMPRESSION ckd chf non proteinuric fluid overload cardiorenal syndrome likely PLAN would monitor on current meds agree with lasix and eplerenone but will need to follow up k may benefit from use of metolazone monitor renal function MV
[2018-12-16] MEDS: ATORVASTATIN CA 80 MG TABLET (FP) PO SCH (21:26)
[2018-12-17] MEDS: FUROSEMIDE 40 MG/4 ML INJECTABLE VIAL IVPUSH SCH ×2 (05:31→13:26)
[2018-12-17 05:58] LABS: HEMATOCRIT 24.5 % (35.4-49); HEMOGLOBIN 7.9 GM/dL (11.7-16.9); MCH 29.2 pg (25.7-33.7); MCHC 32.1 g/dl (32.0-35.9); MEAN CELL VOLUME 90.9 fl (80-96); MEAN PLT VOLUME 9.7 fl (7.5-11.1); PLATELET COUNT 195 K/MM3 (134-434); RBC 2.69 M/mm3 (4.00-5.60); RDW 17.9 % (11.9-15.9); WHITE BLOOD COUNT 3.1 K/mm3 (4.0-10.0)
[2018-12-17 06:31] LABS: CALCIUM 8.4 mg/dL (8.5-10.1); CREATININE 1.7 mg/dL (0.55-1.3); POTASSIUM 4.2 mmol/L (3.5-5.1)
--- NOTE | 2018-12-17 08:02 | PN ---
Progress Note (short form) - Note Progress Note: RENAL Pt is awake and alert comfortable states he feels better Last Vital Signs Temp Pulse Resp BP Pulse Ox 97.9 F 74 16 104/80 98 12/17/18 05:00 12/17/18 05:00 12/17/18 05:00 12/17/18 05:00 12/16/18 20:54 lungs clear cvs s1s2 rr abd soft ext +edema neuro a+ox3 CBC, BMP 12/17/18 05:25 12/17/18 05:25 Current Medications Generic Name Dose Route Start Last Admin Trade Name Suraj PRN Reason Stop Dose Admin Apixaban 5 mg 12/15/18 22:00 12/16/18 21:26 Eliquis - PO 5 mg BID FELICIA Administration Atorvastatin Calcium 80 mg 12/15/18 22:00 12/16/18 21:26 Lipitor - PO 80 mg HS FELICIA Administration Carvedilol 25 mg 12/15/18 22:00 12/16/18 21:26 Coreg - PO 25 mg BID FELICIA Administration Eplerenone 25 mg 12/15/18 22:00 12/16/18 21:26 Eplerenone PO 25 mg BID FELICIA Administration Furosemide 40 mg 12/16/18 06:00 12/17/18 05:31 Lasix Injection - IVPUSH 40 mg BIDLASIX FELICIA Administration Sacubitril/Valsartan 1 tab 12/15/18 22:00 12/16/18 21:26 Entresto 49 Mg-51 Mg Tablet PO 1 tab BID FELICIA Administration IMPRESSION ckd- renal function stable chf- has lost 9 pounds (if we believe it) non proteinuric fluid overload cardiorenal syndrome likely PLAN would monitor on current meds agree with lasix and eplerenone but will need to follow up k may benefit from use of metolazone monitor renal function MV
[2018-12-17] MEDS ORDERED: PT OWN MED DRAWER 7, Y5N ONE ×2 (09:18→20:52)
[2018-12-17] MEDS: EPLERENONE 25 MG TABLET PO SCH ×2 (09:30→21:25)
[2018-12-17] MEDS: APIXABAN 5 MG TABLET PO SCH ×2 (09:30→21:24)
[2018-12-17] MEDS: CARVEDILOL 25 MG TABLET (FP) PO SCH ×2 (09:30→21:24)
[2018-12-17] MEDS: SACUBITRIL/VALSARTAN 49 MG-51 MG TABLET PO SCH (09:31)
--- NOTE | 2018-12-17 12:53 | PN ---
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 Amaro Aug 09, 2018 presented with several days of orthopea, dyspnea at rest and on exertion, LE edema, PND without chest pain, near or true syncope, palpitations. Symptoms improving with IV diuresis, 9 lbs weight loss since admission. - Current Medication List Current Medications: Active Medications Apixaban (Eliquis -) 5 mg PO BID [facility] Last Admin: 12/17/18 09:30 Dose: 5 mg Atorvastatin Calcium (Lipitor -) 80 mg PO HS [facility] Last Admin: 12/16/18 21:26 Dose: 80 mg Carvedilol (Coreg -) 25 mg PO BID [facility] Last Admin: 12/17/18 09:30 Dose: 25 mg Eplerenone (Eplerenone) 25 mg PO BID [facility] Last Admin: 12/17/18 09:30 Dose: 25 mg Furosemide (Lasix Injection -) 40 mg IVPUSH BIDLASIX [facility] Last Admin: 12/17/18 05:31 Dose: 40 mg Sacubitril/Valsartan (Entresto 49 Mg-51 Mg Tablet) 1 tab PO BID [facility] Last Admin: 12/17/18 09:31 Dose: 1 tab - Objective Vital Signs: Vital Signs Temperature 97.8 F 12/17/18 10:00 Pulse Rate 78 12/17/18 10:00 Respiratory Rate 18 12/17/18 10:00 Blood Pressure 97/72 12/17/18 10:00 O2 Sat by Pulse Oximetry (%) 98 12/17/18 10:00 Constitutional: Yes: No Distress, Calm, Thin Neck: Yes: Supple Cardiovascular: Yes: Regular Rate and Rhythm, Murmur (2/6 SM) Respiratory: Yes: Regular, Diminished, On Nasal O2 Gastrointestinal: Yes: Normal Bowel Sounds, Soft Edema: Yes Edema: LLE: Trace, RLE: Trace Labs: CBC, BMP 12/17/18 05:25 12/17/18 05:25 Problem List - Problems (1) CHF exacerbation Code(s): I50.9 - HEART FAILURE, UNSPECIFIED Qualifiers: Heart failure type: combined systolic and diastolic Qualified Code(s): I50.43 - 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) heart failure (2) AICD (automatic cardioverter/defibrillator) present Code(s): Z95.810 - PRESENCE OF AUTOMATIC (IMPLANTABLE) CARDIAC DEFIBRILLATOR (3) Afib Code(s): I48.91 - UNSPECIFIED ATRIAL FIBRILLATION Qualifiers: Atrial fibrillation type: chronic Qualified Code(s): I48.2 - Chronic atrial fibrillation (4) CAD (coronary artery disease) Code(s): I25.10 - ATHSCL HEART DISEASE OF [place] CORONARY ARTERY W/O ANG PCTRS Qualifiers: Coronary Disease-Associated Artery/Lesion type: [place] artery [place] vs. transplanted heart: [place] heart Associated angina: without angina Qualified Code(s): I25.10 - Atherosclerotic heart disease of [place] coronary artery without angina pectoris (5) CVA (cerebral infarction) Code(s): I63.9 - CEREBRAL INFARCTION, UNSPECIFIED Qualifiers: Cerebral infarction mechanism: unspecified mechanism Qualified Code(s): I63.9 - Cerebral infarction, unspecified (6) [place] (dyspnea on exertion) Code(s): R06.09 - OTHER FORMS OF DYSPNEA (7) HLD (hyperlipidemia) Code(s): E78.5 - HYPERLIPIDEMIA, UNSPECIFIED Qualifiers: Hyperlipidemia type: pure hypercholesterolemia Qualified Code(s): E78.00 - Pure hypercholesterolemia, unspecified; E78.0 - Pure hypercholesterolemia (8) Leg edema Code(s): R60.0 - LOCALIZED EDEMA (9) Pulmonary hypertension Code(s): I27.2 - OTHER SECONDARY PULMONARY HYPERTENSION * DO NOT USE * (10) Shortness of breath Code(s): R06.02 - SHORTNESS OF BREATH (11) Status post coronary artery stent placement Code(s): Z95.5 - PRESENCE OF CORONARY ANGIOPLASTY IMPLANT AND GRAFT (12) Systolic CHF, acute on chronic Code(s): I50.23 - ACUTE ON CHRONIC SYSTOLIC (CONGESTIVE) HEART FAILURE Assessment/Plan December 19, 2017 Dilated LV with severely decreased LVEF 30%, DAV LA 4.8 cm, mod MR , mild TR, RVP 39 mmHg, mild ao dilatation 4.3 cm Sep 14, 2017 Pharm stress: Severe diffuse global HK LVEF 22% Jul 31, [address]: Pulm HTN, congestion, trace ascites, cholelithiasis with thickened GB 1. Acute on chronic class III-IV NYHA classification LV systolic failure resolving 2. CAD post PCI/stent angina pectoris 3. Permanent atrial fibrillation on chronic A/C [id number] score of 4 on coumadin with therapeutic INR 4. ASPHALT BLENDER-D (post device upgrade), history of sick sinus syndrome 5. HTN/HCVD 6. Hypercholesterolemia 7. History of CVA with right hemiparesis 8. CKD 3 secondary to Hypertensive Nephrosclerosis vs. Acquired Cystic Renal Disease (unlikely PCKD given normal size kidneys) 9. Anemia of CKD 10. PAD 11. COPD and pulm HTN 12. Gynecomastia PLAN: 1. Continue Lasix 40 IV bid and Eplerenone 25 bid with monitor diuretic response , renal function and electrolytes 2. Continue Coreg 25 bid, Lipitor 80 qhs and increase Entresto 97/103 bid, add BiDil as hemodynamics tolerate 3. Continue Eliquis 5 bid, compression therapy
--- NOTE | 2018-12-17 13:08 | PN ---
Progress Note, Physician Chief Complaint: AWAKE MORE ALERT TODAY DENIES CP OR SOB - Current Medication List Current Medications: Active Medications Apixaban (Eliquis -) 5 mg PO BID [facility] Last Admin: 12/17/18 09:30 Dose: 5 mg Atorvastatin Calcium (Lipitor -) 80 mg PO HS [facility] Last Admin: 12/16/18 21:26 Dose: 80 mg Carvedilol (Coreg -) 25 mg PO BID [facility] Last Admin: 12/17/18 09:30 Dose: 25 mg Eplerenone (Eplerenone) 25 mg PO BID [facility] Last Admin: 12/17/18 09:30 Dose: 25 mg Furosemide (Lasix Injection -) 40 mg IVPUSH BIDLASIX [facility] Last Admin: 12/17/18 05:31 Dose: 40 mg Sacubitril/Valsartan (Entresto 97 Mg-103 Mg Tablet) 1 tab PO BID [facility] - Objective Vital Signs: Vital Signs Temperature 97.8 F 12/17/18 10:00 Pulse Rate 78 12/17/18 10:00 Respiratory Rate 18 12/17/18 10:00 Blood Pressure 97/72 12/17/18 10:00 O2 Sat by Pulse Oximetry (%) 98 12/17/18 10:00 Constitutional: Yes: Mild Distress Eyes: Yes: WNL HENT: Yes: WNL Neck: Yes: WNL Cardiovascular: Yes: Regular Rate and Rhythm Respiratory: Yes: Diminished, On Nasal O2 Gastrointestinal: Yes: Soft Genitourinary: Yes: Incontinence Extremities: Yes: Deformity Edema: Yes Integumentary: Yes: Pressure Ulcer Wound/Incision: Yes: Dressing Dry and Intact (LEGS B/L) Neurological: Yes: Unsteady Gait ...Motor Strength: LLE, RLE Psychiatric: Yes: Other Labs: CBC, BMP 12/17/18 05:25 12/17/18 05:25 Problem List - Problems (1) CHF exacerbation Code(s): I50.9 - HEART FAILURE, UNSPECIFIED Qualifiers: Heart failure type: combined systolic and diastolic Qualified Code(s): I50.43 - 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) heart failure (2) Hypervolemia Code(s): E87.70 - FLUID OVERLOAD, UNSPECIFIED Qualifiers: Hypervolemia type: unspecified Qualified Code(s): E87.70 - Fluid overload, unspecified (3) AICD (automatic cardioverter/defibrillator) present Code(s): Z95.810 - PRESENCE OF AUTOMATIC (IMPLANTABLE) CARDIAC DEFIBRILLATOR (4) Acute hypoxemic respiratory failure Code(s): J96.01 - ACUTE RESPIRATORY FAILURE WITH HYPOXIA (5) Acute renal failure superimposed on stage 3 chronic kidney disease Code(s): N17.9 - ACUTE KIDNEY FAILURE, UNSPECIFIED; N18.3 - CHRONIC KIDNEY DISEASE, STAGE 3 (MODERATE) (6) Afib Code(s): I48.91 - UNSPECIFIED ATRIAL FIBRILLATION Qualifiers: Atrial fibrillation type: chronic Qualified Code(s): I48.2 - Chronic atrial fibrillation (7) Anemia Code(s): D64.9 - ANEMIA, UNSPECIFIED Qualifiers: Anemia type: unspecified type Qualified Code(s): D64.9 - Anemia, unspecified (8) Systolic CHF, acute on chronic Code(s): I50.23 - ACUTE ON CHRONIC SYSTOLIC (CONGESTIVE) HEART FAILURE (9) Leg ulcer Code(s): L97.909 - NON-PRS CHRONIC ULC UNSP PRT OF UNSP LOW LEG W UNSP SEVERITY (10) Leg edema Code(s): R60.0 - LOCALIZED EDEMA Assessment/Plan IV LASIX FOR DIURETICS CARDIO EVAL APPRECIATED RENAL EVAL FOR HYPONATREMIA/AZOTEMIA MONITOR LABS BP CONTROL ANEMIA STABLE OOB TO CHAIR WITH PT LEG ULCERS VASC SX EVAL AND PODIATRY F/U
--- NOTE | 2018-12-17 15:30 | EKG ---
Test Reason : Blood Pressure : / mmHG Vent. Rate : 071 BPM Atrial Rate : 064 BPM P-R Int : 000 ms QRS Dur : 176 ms QT Int : 500 ms P-R-T Axes : 000 158 004 degrees QTc Int : 543 ms Ventricular-paced rhythm ABNORMAL ECG WHEN COMPARED WITH ECG OF 28-JUL-2018 13:43, NO SIGNIFICANT CHANGE WAS FOUND Confirmed by KELSEY MACARIO MD ([id number]) on 12/17/2018 3:30:37 PM Referred By: Confirmed By:KELSEY MACARIO MD
[2018-12-17] MEDS: ATORVASTATIN CA 80 MG TABLET (FP) PO SCH (21:25)
[2018-12-17] MEDS: SACUBITRIL/VALSARTAN 97 MG-103 MG TABLET PO SCH (21:25)
[2018-12-18 06:19] LABS: HEMATOCRIT 23.4 % (35.4-49); HEMOGLOBIN 7.7 GM/dL (11.7-16.9); MCH 29.6 pg (25.7-33.7); MCHC 32.7 g/dl (32.0-35.9); MEAN CELL VOLUME 90.5 fl (80-96); MEAN PLT VOLUME 9.5 fl (7.5-11.1); PLATELET COUNT 192 K/MM3 (134-434); RBC 2.59 M/mm3 (4.00-5.60); RDW 17.9 % (11.9-15.9); WHITE BLOOD COUNT 3.3 K/mm3 (4.0-10.0)
[2018-12-18] MEDS: FUROSEMIDE 40 MG/4 ML INJECTABLE VIAL IVPUSH SCH (06:42)
[2018-12-18 06:51] LABS: ALBUMIN 2.9 g/dl (3.4-5.0); BILIRUBIN,TOTAL 1.8 mg/dL (0.2-1); CALCIUM 8.6 mg/dL (8.5-10.1); CREATININE 1.8 mg/dL (0.55-1.3); POTASSIUM 4.1 mmol/L (3.5-5.1); TOT PROT 6.5 g/dl (6.4-8.2)
--- NOTE | 2018-12-18 10:20 | PN ---
Progress Note, Physician History of Present Illness: Pt seen and examined at bedside. He is awake and appears comfortable. He feels that his breathing is improved. - Current Medication List Current Medications: Active Medications Apixaban (Eliquis -) 5 mg PO BID [facility] Last Admin: 12/17/18 21:24 Dose: 5 mg Atorvastatin Calcium (Lipitor -) 80 mg PO HS [facility] Last Admin: 12/17/18 21:25 Dose: 80 mg Carvedilol (Coreg -) 25 mg PO BID [facility] Last Admin: 12/17/18 21:24 Dose: 25 mg Eplerenone (Eplerenone) 25 mg PO BID [facility] Last Admin: 12/17/18 21:25 Dose: 25 mg Furosemide (Lasix Injection -) 40 mg IVPUSH BIDLASIX [facility] Last Admin: 12/18/18 06:42 Dose: 40 mg Sacubitril/Valsartan (Entresto 97 Mg-103 Mg Tablet) 1 tab PO BID [facility] Last Admin: 12/17/18 21:25 Dose: 1 tab - Objective Vital Signs: Vital Signs Temperature 98.6 F 12/18/18 06:00 Pulse Rate 75 12/18/18 06:00 Respiratory Rate 18 12/18/18 06:00 Blood Pressure 112/71 12/18/18 06:00 O2 Sat by Pulse Oximetry (%) 98 12/17/18 21:00 Constitutional: Yes: Calm Eyes: Yes: Conjunctiva Clear HENT: Yes: Atraumatic Cardiovascular: Yes: S1, S2 Respiratory: Yes: On Nasal O2 Gastrointestinal: Yes: Soft Genitourinary: Yes: WNL Musculoskeletal: Yes: WNL Edema: Yes Edema: LUE: Trace, RUE: Trace, LLE: 2+, RLE: 2+ Integumentary: Yes: Venous Stasis Changes Neurological: Yes: Oriented Labs: CBC, BMP 12/18/18 05:37 12/18/18 05:37 Assessment/Plan Current Medications Generic Name Dose Route Start Last Admin Trade Name Freq PRN Reason Stop Dose Admin Apixaban 5 mg 12/15/18 22:00 12/17/18 21:24 Eliquis - PO 5 mg BID FELICIA Administration Atorvastatin Calcium 80 mg 12/15/18 22:00 12/17/18 21:25 Lipitor - PO 80 mg HS FELICIA Administration Carvedilol 25 mg 12/15/18 22:00 12/17/18 21:24 Coreg - PO 25 mg BID FELICIA Administration Eplerenone 25 mg 12/15/18 22:00 12/17/18 21:25 Eplerenone PO 25 mg BID FELICIA Administration Furosemide 40 mg 12/16/18 06:00 12/18/18 06:42 Lasix Injection - IVPUSH 40 mg BIDLASIX FELICIA Administration Sacubitril/Valsartan 1 tab 12/17/18 22:00 12/17/18 21:25 Entresto 97 Mg-103 Mg Tablet PO 1 tab BID FELICIA Administration Impression 1. CKD 2. possible cardiorenal syndrome 3. CHF 4. dementia 5. pulm nodules 6. renal cysts 7. HLD Plan - check ua - monitor renal function and lytes on diuretics - monitor volume status - repeat bmp in am - cardio input appreciated
--- NOTE | 2018-12-18 10:31 | PN ---
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 Amaro Aug 09, 2018 initially presented with several days of orthopea, dyspnea at rest and on exertion, LE edema, PND without chest pain, near or true syncope, palpitations. Symptoms improving with IV diuresis, 12 lbs weight loss since admission, now off O2. - Current Medication List Current Medications: Active Medications Apixaban (Eliquis -) 5 mg PO BID [facility] Last Admin: 12/17/18 21:24 Dose: 5 mg Atorvastatin Calcium (Lipitor -) 80 mg PO HS [facility] Last Admin: 12/17/18 21:25 Dose: 80 mg Carvedilol (Coreg -) 25 mg PO BID [facility] Last Admin: 12/17/18 21:24 Dose: 25 mg Eplerenone (Eplerenone) 25 mg PO BID [facility] Last Admin: 12/17/18 21:25 Dose: 25 mg Furosemide (Lasix Injection -) 40 mg IVPUSH BIDLASIX [facility] Last Admin: 12/18/18 06:42 Dose: 40 mg Sacubitril/Valsartan (Entresto 97 Mg-103 Mg Tablet) 1 tab PO BID [facility] Last Admin: 12/17/18 21:25 Dose: 1 tab - Objective Vital Signs: Vital Signs Temperature 98.6 F 12/18/18 06:00 Pulse Rate 75 12/18/18 06:00 Respiratory Rate 18 12/18/18 06:00 Blood Pressure 112/71 12/18/18 06:00 O2 Sat by Pulse Oximetry (%) 98 12/17/18 21:00 Constitutional: Yes: No Distress, Calm, Thin Neck: Yes: Supple Cardiovascular: Yes: Regular Rate and Rhythm, Murmur (2/6 SM) Respiratory: Yes: Regular, Diminished Gastrointestinal: Yes: Normal Bowel Sounds, Soft Edema: Yes Edema: LLE: Trace, RLE: Trace Wound/Incision: Yes: Dressing Dry and Intact Labs: CBC, BMP 12/18/18 05:37 06/03/19 05:37 Problem List - Problems (1) CHF exacerbation Code(s): I50.9 - HEART FAILURE, UNSPECIFIED Qualifiers: Heart failure type: combined systolic and diastolic Qualified Code(s): I50.43 - 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) heart failure (2) AICD (automatic cardioverter/defibrillator) present Code(s): Z95.810 - PRESENCE OF AUTOMATIC (IMPLANTABLE) CARDIAC DEFIBRILLATOR (3) Afib Code(s): I48.91 - UNSPECIFIED ATRIAL FIBRILLATION Qualifiers: Atrial fibrillation type: chronic Qualified Code(s): I48.2 - Chronic atrial fibrillation (4) CAD (coronary artery disease) Code(s): I25.10 - ATHSCL HEART DISEASE OF [place] CORONARY ARTERY W/O ANG PCTRS Qualifiers: Coronary Disease-Associated Artery/Lesion type: [place] artery [place] vs. transplanted heart: [place] heart Associated angina: without angina Qualified Code(s): I25.10 - Atherosclerotic heart disease of [place] coronary artery without angina pectoris (5) CVA (cerebral infarction) Code(s): I63.9 - CEREBRAL INFARCTION, UNSPECIFIED Qualifiers: Cerebral infarction mechanism: unspecified mechanism Qualified Code(s): I63.9 - Cerebral infarction, unspecified (6) [place] (dyspnea on exertion) Code(s): R06.09 - OTHER FORMS OF DYSPNEA (7) HLD (hyperlipidemia) Code(s): E78.5 - HYPERLIPIDEMIA, UNSPECIFIED Qualifiers: Hyperlipidemia type: pure hypercholesterolemia Qualified Code(s): E78.00 - Pure hypercholesterolemia, unspecified; E78.0 - Pure hypercholesterolemia (8) Leg edema Code(s): R60.0 - LOCALIZED EDEMA (9) Pulmonary hypertension Code(s): I27.2 - OTHER SECONDARY PULMONARY HYPERTENSION * DO NOT USE * (10) Shortness of breath Code(s): R06.02 - SHORTNESS OF BREATH (11) Status post coronary artery stent placement Code(s): Z95.5 - PRESENCE OF CORONARY ANGIOPLASTY IMPLANT AND GRAFT (12) Systolic CHF, acute on chronic Code(s): I50.23 - ACUTE ON CHRONIC SYSTOLIC (CONGESTIVE) HEART FAILURE Assessment/Plan December 19, 2017 Dilated LV with severely decreased LVEF 30%, DAV LA 4.8 cm, mod MR , mild TR, RVP 39 mmHg, mild ao dilatation 4.3 cm Sep 14, 2017 Pharm stress: Severe diffuse global HK LVEF 22% Jul 31, [address]: Pulm HTN, congestion, trace ascites, cholelithiasis with thickened GB 1. Acute on chronic class III-IV NYHA classification LV systolic failure resolving 2. CAD post PCI/stent angina pectoris 3. Permanent atrial fibrillation on chronic A/C [id number] score of 4 on coumadin with therapeutic INR 4. 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 HTN/HCVD 6. Hypercholesterolemia 7. History of CVA with right hemiparesis 8. CKD 3 secondary to Hypertensive Nephrosclerosis vs. Acquired Cystic Renal Disease (unlikely PCKD given normal size kidneys) 9. Anemia of CKD 10. PAD 11. COPD and pulm HTN 12. Gynecomastia PLAN: 1. Resume Lasix 40 oral bid and Eplerenone 25 bid with monitor diuretic response , renal function and electrolytes 2. Continue Coreg 25 bid, Lipitor 80 qhs and increased Entresto 97/103 bid, add BiDil as hemodynamics tolerate 3. Continue Eliquis 5 bid, compression therapy, PT as tolerated
[2018-12-18] MEDS: APIXABAN 5 MG TABLET PO SCH ×2 (10:42→21:38)
[2018-12-18] MEDS ORDERED: PT OWN MED DRAWER 7, Y5N ONE ×2 (10:46→21:05)
[2018-12-18] MEDS: SACUBITRIL/VALSARTAN 97 MG-103 MG TABLET PO SCH ×2 (10:47→21:38)
[2018-12-18] MEDS: EPLERENONE 25 MG TABLET PO SCH ×2 (10:48→21:38)
[2018-12-18] MEDS: CARVEDILOL 25 MG TABLET (FP) PO SCH ×2 (10:48→21:38)
--- NOTE | 2018-12-18 10:50 | PN ---
Progress Note, Physician Chief Complaint: pennie seen and examined able to tell me his name awake - Current Medication List Current Medications: Active Medications Apixaban (Eliquis -) 5 mg PO BID [facility] Last Admin: 12/17/18 21:24 Dose: 5 mg Atorvastatin Calcium (Lipitor -) 80 mg PO HS [facility] Last Admin: 12/17/18 21:25 Dose: 80 mg Carvedilol (Coreg -) 25 mg PO BID [facility] Last Admin: 12/17/18 21:24 Dose: 25 mg Eplerenone (Eplerenone) 25 mg PO BID [facility] Last Admin: 12/17/18 21:25 Dose: 25 mg Furosemide (Lasix -) 40 mg PO BID@0600,1400 [facility] Sacubitril/Valsartan (Entresto 97 Mg-103 Mg Tablet) 1 tab PO BID [facility] Last Admin: 12/17/18 21:25 Dose: 1 tab - Objective Vital Signs: Vital Signs Temperature 98.6 F 12/18/18 06:00 Pulse Rate 75 12/18/18 06:00 Respiratory Rate 18 12/18/18 06:00 Blood Pressure 112/71 12/18/18 06:00 O2 Sat by Pulse Oximetry (%) 98 12/17/18 21:00 Constitutional: Yes: Calm Cardiovascular: Yes: Regular Rate and Rhythm, S1, S2 Respiratory: Yes: CTA Bilaterally Gastrointestinal: Yes: Normal Bowel Sounds, Soft Wound/Incision: Yes: Other (legs wrapped) Neurological: Yes: Alert Labs: CBC, BMP 12/18/18 05:37 12/18/18 05:37 Problem List - Problems (1) CHF exacerbation Assessment/Plan: now on oral lasix and eplerenone follow up renal function Code(s): I50.9 - HEART FAILURE, UNSPECIFIED Qualifiers: Heart failure type: combined systolic and diastolic Qualified Code(s): I50.43 - 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) heart failure (2) Leg ulcer Assessment/Plan: vascular consult Code(s): L97.909 - NON-PRS CHRONIC ULC UNSP PRT OF UNSP LOW LEG W UNSP SEVERITY (3) Afib Assessment/Plan: coreg and AC Code(s): I48.91 - UNSPECIFIED ATRIAL FIBRILLATION Qualifiers: Atrial fibrillation type: chronic Qualified Code(s): I48.2 - Chronic atrial fibrillation (4) Anemia Assessment/Plan: check iron panel if h/h <7 will transfuse Code(s): D64.9 - ANEMIA, UNSPECIFIED Qualifiers: Anemia type: unspecified type Qualified Code(s): D64.9 - Anemia, unspecified
--- NOTE | 2018-12-18 11:54 | CON.PULM ---
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 Admitted via ER due to several days of orthopnea, dyspnea on exertion, LE edema , and PND. No fever or chills. No travel history or sick contacts. No hemoptysis or night sweats. 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: CVA (rt hemiparesis) Cardio/Vascular: Yes: AFIB, CAD (S/P PCI), CHF (systolic dysfunction, Cardiomyopathy), HTN, Hyperlipdemia, Murmur, Other Gastrointestinal: Yes: Gastritis, GI Bleed Renal/: Yes: Renal Inusuff (Baseline Scr 1.3mg/dL - CKD Stage III), BPH Musculoskeletal: Yes: Osteoarthritis - Past Surgical History Past Surgical History: Yes: Colonoscopy, Permanent Pacemaker (FOR SSS), Stent - Alcohol/Substance Use Hx Alcohol Use: No - Smoking History Smoking history: Unknown if ever smoked Have you smoked in the past 12 months: No Aproximately how many cigarettes per day: 0 If you are a former smoker, when did you quit?: 20 YRS AGO - Social History Usual Living Arrangement: Halfway History of Recent Travel: No Home Medications - Allergies Allergies/Adverse Reactions: Allergies Allergy/AdvReac Type Severity Reaction Status Date / Time No Known Allergies Allergy Verified 12/15/18 15:49 - Home Medications Home Medications: Ambulatory Orders Cholecalciferol (Vitamin D3) [Vitamin D3] 1,000 unit PO DAILY 07/27/14 Carvedilol [Coreg -] 25 mg PO BID #60 tablet 08/01/15 Apixaban [Eliquis -] 5 mg PO BID #60 tablet 08/04/18 Atorvastatin Ca [Lipitor] 80 mg PO HS #30 tablet 08/04/18 Eplerenone 25 mg PO DAILY@0800 #30 tablet 08/04/18 Furosemide [Lasix -] 40 mg PO BID@0600,1400 #60 tablet 08/04/18 Sacubitril/Valsartan [Entresto 49 mg-51 mg Tablet] 1 tab PO BID #60 tablet 08/04 Ramipril 5 mg PO DAILY 12/15/18 Spironolactone 25 mg PO DAILY 12/15/18 Review of Systems - Review of Systems Constitutional: denies: Chills, Lethargy Eyes: reports: No Symptoms HENT: reports: No Symptoms Neck: reports: No Symptoms Cardiovascular: reports: Chest Pain, Edema, Shortness of Breath Respiratory: reports: Cough, Orthopnea, Snoring, SOB, SOB on Exertion. denies: Hemoptysis, Wheezing Gastrointestinal: reports: No Symptoms Genitourinary: reports: No Symptoms Breasts: reports: No Symptoms Reported Musculoskeletal: reports: Back Pain Integumentary: reports: No Symptoms Neurological: reports: No Symptoms Endocrine: reports: No Symptoms Hematology/Lymphatic: reports: No Symptoms Psychiatric: reports: No Symptoms Physical Exam Vital Sings: Vital Signs Temperature 98.6 F 12/18/18 06:00 Pulse Rate 70 12/18/18 10:00 Respiratory Rate 14 12/18/18 10:00 Blood Pressure 101/65 12/18/18 10:00 O2 Sat by Pulse Oximetry (%) 98 12/18/18 09:00 Constitutional: Yes: No Distress Eyes: Yes: Conjunctiva Clear, EOM Intact HENT: Yes: Atraumatic, Normocephalic Neck: Yes: Trachea Midline Cardiovascular: Yes: Pulse Irregular Respiratory: Yes: Diminished, Rales, Rhonchi, SOB. No: Stridor, Tachypnea, Wheezes ...Inspection: Yes: WNL ...Clubbing: No Gastrointestinal: Yes: Normal Bowel Sounds, Soft Musculoskeletal: Yes: WNL Extremities: Yes: WNL Edema: Yes Peripheral Pulses WNL: Yes Integumentary: Yes: WNL Neurological: Yes: Alert, Oriented ...Motor Strength: WNL Psychiatric: Yes: Alert, Oriented Labs: CBC, BMP 12/18/18 05:37 12/18/18 05:37 Imaging - Results Chest X-ray: Report Reviewed, Image Reviewed Problem List - Problems (1) CHF exacerbation Code(s): I50.9 - HEART FAILURE, UNSPECIFIED Qualifiers: Heart failure type: combined systolic and diastolic Qualified Code(s): I50.43 - 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) heart failure (2) Hypervolemia Code(s): E87.70 - FLUID OVERLOAD, UNSPECIFIED Qualifiers: Hypervolemia type: unspecified Qualified Code(s): E87.70 - Fluid overload, unspecified (3) Leg ulcer Code(s): L97.909 - NON-PRS CHRONIC ULC UNSP PRT OF UNSP LOW LEG W UNSP SEVERITY (4) AICD (automatic cardioverter/defibrillator) present Code(s): Z95.810 - PRESENCE OF AUTOMATIC (IMPLANTABLE) CARDIAC DEFIBRILLATOR (5) Acute hypoxemic respiratory failure Code(s): J96.01 - ACUTE RESPIRATORY FAILURE WITH HYPOXIA (6) Acute renal failure superimposed on stage 3 chronic kidney disease Code(s): N17.9 - ACUTE KIDNEY FAILURE, UNSPECIFIED; N18.3 - CHRONIC KIDNEY DISEASE, STAGE 3 (MODERATE) (7) Afib Code(s): I48.91 - UNSPECIFIED ATRIAL FIBRILLATION Qualifiers: Atrial fibrillation type: chronic Qualified Code(s): I48.2 - Chronic atrial fibrillation (8) Anemia Code(s): D64.9 - ANEMIA, UNSPECIFIED Qualifiers: Anemia type: unspecified type Qualified Code(s): D64.9 - Anemia, unspecified (9) CAD (coronary artery disease) Code(s): I25.10 - ATHSCL HEART DISEASE OF [place] CORONARY ARTERY W/O ANG PCTRS Qualifiers: Coronary Disease-Associated Artery/Lesion type: [place] artery [place] vs. transplanted heart: [place] heart Associated angina: without angina Qualified Code(s): I25.10 - Atherosclerotic heart disease of [place] coronary artery without angina pectoris (10) CHF (congestive heart failure) Code(s): I50.9 - HEART FAILURE, UNSPECIFIED (11) COPD (chronic obstructive pulmonary disease) Code(s): J44.9 - CHRONIC OBSTRUCTIVE PULMONARY DISEASE, UNSPECIFIED Qualifiers: Emphysema type: unspecified (12) CVA (cerebral infarction) Code(s): I63.9 - CEREBRAL INFARCTION, UNSPECIFIED Qualifiers: Cerebral infarction mechanism: unspecified mechanism Qualified Code(s): I63.9 - Cerebral infarction, unspecified (13) [place] (dyspnea on exertion) Code(s): R06.09 - OTHER FORMS OF DYSPNEA (14) Emphysema of lung Code(s): J43.9 - EMPHYSEMA, UNSPECIFIED Qualifiers: Emphysema type: unspecified Qualified Code(s): J43.9 - Emphysema, unspecified (15) HLD (hyperlipidemia) Code(s): E78.5 - HYPERLIPIDEMIA, UNSPECIFIED Qualifiers: Hyperlipidemia type: pure hypercholesterolemia Qualified Code(s): E78.00 - Pure hypercholesterolemia, unspecified; E78.0 - Pure hypercholesterolemia (16) HTN (hypertension) Code(s): I10 - ESSENTIAL (PRIMARY) HYPERTENSION Qualifiers: Hypertension type: essential hypertension Qualified Code(s): I10 - Essential (primary) hypertension (17) Pacemaker Code(s): Z95.0 - PRESENCE OF CARDIAC PACEMAKER (18) Pulmonary hypertension Code(s): I27.2 - OTHER SECONDARY PULMONARY HYPERTENSION * DO NOT USE * (19) Shortness of breath Code(s): R06.02 - SHORTNESS OF BREATH (20) Status post coronary artery stent placement Code(s): Z95.5 - PRESENCE OF CORONARY ANGIOPLASTY IMPLANT AND GRAFT (21) Systolic CHF, acute on chronic Code(s): I50.23 - ACUTE ON CHRONIC SYSTOLIC (CONGESTIVE) HEART FAILURE Assessment/Plan Lasix BID O2 as needed BD TX PRN Monitor off systemic steroids Entresto Monitor off ABX No smoking Should have sleep apnea screen as an outpatient Will follow Thank you. Dr Pearl
--- NOTE | 2018-12-18 13:22 | CONSULT ---
Consult Consult Specialty:: Podiatry Reason for Consultation:: Edema, xerosis, onychomycosis - History of Present Illness Chief Complaint: swelling of feet. painful toe nails that are discolored. - Past Medical History [employer]OR [employer]UCATION: Yes: CVA (rt hemiparesis) Cardio/Vascular: Yes: AFIB, CAD (S/P PCI), CHF (systolic dysfunction, Cardiomyopathy), HTN, Hyperlipdemia, Murmur, Other Gastrointestinal: Yes: Gastritis, GI Bleed Renal/: Yes: Renal Inusuff (Baseline Scr 1.3mg/dL - CKD Stage III), BPH Musculoskeletal: Yes: Osteoarthritis - Past Surgical History Past Surgical History: Yes: Colonoscopy, Permanent Pacemaker (FOR SSS), Stent - Alcohol/Substance Use Hx Alcohol Use: No - Smoking History Smoking history: Unknown if ever smoked Have you smoked in the past 12 months: No Aproximately how many cigarettes per day: 0 If you are a former smoker, when did you quit?: 20 YRS AGO - Social History Usual Living Arrangement: Custodial History of Recent Travel: No Home Medications - Allergies Allergies/Adverse Reactions: Allergies Allergy/AdvReac Type Severity Reaction Status Date / Time No Known Allergies Allergy Verified 12/15/18 15:49 - Home Medications Home Medications: Ambulatory Orders Cholecalciferol (Vitamin D3) [Vitamin D3] 1,000 unit PO DAILY 07/27/14 Carvedilol [Coreg -] 25 mg PO BID #60 tablet 08/01/15 Apixaban [Eliquis -] 5 mg PO BID #60 tablet 08/04/18 Atorvastatin Ca [Lipitor] 80 mg PO HS #30 tablet 08/04/18 Eplerenone 25 mg PO DAILY@0800 #30 tablet 08/04/18 Furosemide [Lasix -] 40 mg PO BID@0600,1400 #60 tablet 08/04/18 Sacubitril/Valsartan [Entresto 49 mg-51 mg Tablet] 1 tab PO BID #60 tablet 08/04 Ramipril 5 mg PO DAILY 12/15/18 Spironolactone 25 mg PO DAILY 12/15/18 Physical Exam Vital Signs: Vital Signs Temperature 98.6 F 12/18/18 06:00 Pulse Rate 70 12/18/18 10:00 Respiratory Rate 14 12/18/18 10:00 Blood Pressure 101/65 12/18/18 10:00 O2 Sat by Pulse Oximetry (%) 98 12/18/18 09:00 Extremities: Yes: Other (+edema, +tender dystrophic mycotic nails x 10, +xerosis , -ulceration of feet, non palpable pulses) Labs: CBC, BMP 12/18/18 05:37 12/18/18 05:37 Assessment/Plan onychomycosis with pain edema xerosis ammonium lactate b/l feet nail debridement [id number] recommend vascular eval will debride nails
--- NOTE | 2018-12-18 13:27 | PN ---
Progress Note (short form) - Note Progress Note: Briefly, pt is a 78 y/o M w/ PMHx severe CHF with systolic dysfunction a/w orthopea, dyspnea at rest and on exertion, LE edema, PND without chest pain. Vascular consulted for le ulcers. On exam, pt laying in bed in nad, aid bedside administering sponge bath. B/L le's with peter wraps poorly placed. Peter wraps removed, no ulcers over b/l anterior/posterior calfs or feet. Skin in good condition with no breakdown noted. 1-2+ pitting edema b/l les to calfs. 2+ b/l fems, monophasic doppler signal b/l dp/pts. Legs wrapped with peter wraps from met heads to just below knee. Continue b/l le elevation above level of heart while pt is at rest. Continue daily peter wraps to decrease edema. It is essential to provide offloading to b/l heels to prevent ulcers. Frequent turning and positioning recommended. d/w attending Dr Carver
[2018-12-18] MEDS: FUROSEMIDE 40 MG TABLET (FP) PO SCH (15:27)
[2018-12-18] MEDS: ATORVASTATIN CA 80 MG TABLET (FP) PO SCH (21:39)
[2018-12-19] MEDS: FUROSEMIDE 40 MG TABLET (FP) PO SCH ×2 (05:28→14:26)
[2018-12-19 06:29] LABS: BASO % 1.7 % (0-2.0); EOS % 3.7 % (0-4.5); HEMATOCRIT 24.2 % (35.4-49); HEMOGLOBIN 7.9 GM/dL (11.7-16.9); LYMPH % 20.2 % (8-40); MCH 29.5 pg (25.7-33.7); MCHC 32.8 g/dl (32.0-35.9); MEAN CELL VOLUME 89.9 fl (80-96); MEAN PLT VOLUME 9.3 fl (7.5-11.1); MONO % 11.9 % (3.8-10.2); NEUT % 62.5 % (42.8-82.8); PLATELET COUNT 187 K/MM3 (134-434); RBC 2.69 M/mm3 (4.00-5.60); RDW 18.2 % (11.9-15.9); WHITE BLOOD COUNT 3.2 K/mm3 (4.0-10.0)
[2018-12-19 06:59] LABS: ALBUMIN 3.2 g/dl (3.4-5.0); BILIRUBIN,TOTAL 2.1 mg/dL (0.2-1); CALCIUM 8.5 mg/dL (8.5-10.1); CREATININE 1.6 mg/dL (0.55-1.3); POTASSIUM 4.2 mmol/L (3.5-5.1); TOT PROT 6.9 g/dl (6.4-8.2)
[2018-12-19] MEDS ORDERED: FUROSEMIDE 40 MG/4 ML INJECTABLE VIAL IVPUSH SCH (08:21)
--- NOTE | 2018-12-19 08:22 | PN ---
Progress Note, Physician - Current Medication List Current Medications: Active Medications Apixaban (Eliquis -) 5 mg PO BID [facility] Last Admin: 12/18/18 21:38 Dose: 5 mg Atorvastatin Calcium (Lipitor -) 80 mg PO HS [facility] Last Admin: 12/18/18 21:39 Dose: 80 mg Carvedilol (Coreg -) 25 mg PO BID [facility] Last Admin: 12/18/18 21:38 Dose: 25 mg Eplerenone (Eplerenone) 25 mg PO BID [facility] Last Admin: 12/18/18 21:38 Dose: 25 mg Furosemide (Lasix -) 40 mg PO BID@0600,1400 [facility] Last Admin: 12/19/18 05:28 Dose: 40 mg Sacubitril/Valsartan (Entresto 97 Mg-103 Mg Tablet) 1 tab PO BID [facility] Last Admin: 12/18/18 21:38 Dose: 1 tab - Objective Vital Signs: Vital Signs Temperature 98.7 F 12/19/18 06:00 Pulse Rate 70 12/19/18 06:00 Respiratory Rate 18 12/19/18 06:00 Blood Pressure 113/77 12/19/18 06:00 O2 Sat by Pulse Oximetry (%) 98 12/18/18 20:00 Cardiovascular: Yes: S1, S2 Respiratory: Yes: Rales Gastrointestinal: Yes: Normal Bowel Sounds, Soft Labs: CBC, BMP 12/19/18 06:02 12/19/18 06:02 Assessment/Plan - Problems (1) CHF exacerbation Assessment/Plan: now on oral lasix and eplerenone follow up renal function Code(s): I50.9 - HEART FAILURE, UNSPECIFIED Qualifiers: Heart failure type: combined systolic and diastolic Qualified Code(s): I50.43 - 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) heart failure (2) Leg ulcer Assessment/Plan: vascular consult Code(s): L97.909 - NON-PRS CHRONIC ULC UNSP PRT OF UNSP LOW LEG W UNSP SEVERITY (3) Afib Assessment/Plan: coreg and AC Code(s): I48.91 - UNSPECIFIED ATRIAL FIBRILLATION Qualifiers: Atrial fibrillation type: chronic Qualified Code(s): I48.2 - Chronic atrial fibrillation (4) Anemia Assessment/Plan: check iron panel TRANSFUSE PRBC GI CONSULT Code(s): D64.9 - ANEMIA, UNSPECIFIED Qualifiers: Anemia type: unspecified type Qualified Code(s): D64.9 - Anemia, unspecified
[2018-12-19] MEDS ORDERED: PT OWN MED DRAWER 7, Y5N ONE ×3 (08:23→21:49)
--- NOTE | 2018-12-19 09:43 | PN ---
Progress Note, Physician Chief Complaint: Events noted Not in distress History of Present Illness: Patient was seen and examined. Awake and alert. Chart was reviewed Denies chest pain, SOB or palpitations - Current Medication List Current Medications: Active Medications Apixaban (Eliquis -) 5 mg PO BID [facility] Last Admin: 12/18/18 21:38 Dose: 5 mg Atorvastatin Calcium (Lipitor -) 80 mg PO HS [facility] Last Admin: 12/18/18 21:39 Dose: 80 mg Carvedilol (Coreg -) 25 mg PO BID [facility] Last Admin: 12/18/18 21:38 Dose: 25 mg Eplerenone (Eplerenone) 25 mg PO BID [facility] Last Admin: 12/18/18 21:38 Dose: 25 mg Furosemide (Lasix -) 40 mg PO BID@0600,1400 [facility] Last Admin: 12/19/18 05:28 Dose: 40 mg Furosemide (Lasix Injection -) 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 No: Tenderness Edema: Yes (Wrapped) Additional Findings/Remarks: - Review of Systems Constitutional: reports: Weakness. denies: Chills, Fever Eyes: denies: Blurred Vision, Double Vision Cardiovascular: denies: Chest Pain, Palpitations, Shortness of Breath Respiratory: denies: Cough, Hemoptysis, Orthopnea, PND, SOB, SOB on Exertion Gastrointestinal: denies: Abdominal Pain, Constipation, Diarrhea, Melena, Nausea , Rectal Bleeding, Vomiting Genitourinary: denies: Dysuria, Hematuria Musculoskeletal: denies: Back Pain, Joint Pain Neurological: denies Headache. denies: Dizziness, Seizure, Syncope Labs: CBC, BMP 12/19/18 06:02 12/19/18 06:02 Problem List - Problems (1) CHF exacerbation Code(s): I50.9 - HEART FAILURE, UNSPECIFIED Qualifiers: Heart failure type: combined systolic and diastolic Qualified Code(s): I50.43 - 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) heart failure (2) AICD (automatic cardioverter/defibrillator) present Code(s): Z95.810 - PRESENCE OF AUTOMATIC (IMPLANTABLE) CARDIAC DEFIBRILLATOR (3) Acute hypoxemic respiratory failure Code(s): J96.01 - ACUTE RESPIRATORY FAILURE WITH HYPOXIA (4) Acute renal failure superimposed on stage 3 chronic kidney disease Code(s): N17.9 - ACUTE KIDNEY FAILURE, UNSPECIFIED; N18.3 - CHRONIC KIDNEY DISEASE, STAGE 3 (MODERATE) (5) Afib Code(s): I48.91 - UNSPECIFIED ATRIAL FIBRILLATION Qualifiers: Atrial fibrillation type: chronic Qualified Code(s): I48.2 - Chronic atrial fibrillation (6) Anemia Code(s): D64.9 - ANEMIA, UNSPECIFIED Qualifiers: Anemia type: unspecified type Qualified Code(s): D64.9 - Anemia, unspecified (7) CAD (coronary artery disease) Code(s): I25.10 - ATHSCL HEART DISEASE OF [place] CORONARY ARTERY W/O ANG PCTRS Qualifiers: Coronary Disease-Associated Artery/Lesion type: [place] artery [place] vs. transplanted heart: [place] heart Associated angina: without angina Qualified Code(s): I25.10 - Atherosclerotic heart disease of [place] coronary artery without angina pectoris (8) COPD (chronic obstructive pulmonary disease) Code(s): J44.9 - CHRONIC OBSTRUCTIVE PULMONARY DISEASE, UNSPECIFIED Qualifiers: Emphysema type: unspecified (9) CVA (cerebral infarction) Code(s): I63.9 - CEREBRAL INFARCTION, UNSPECIFIED Qualifiers: Cerebral infarction mechanism: unspecified mechanism Qualified Code(s): I63.9 - Cerebral infarction, unspecified (10) [place] (dyspnea on exertion) Code(s): R06.09 - OTHER FORMS OF DYSPNEA (11) HLD (hyperlipidemia) Code(s): E78.5 - HYPERLIPIDEMIA, UNSPECIFIED Qualifiers: Hyperlipidemia type: pure hypercholesterolemia Qualified Code(s): E78.00 - Pure hypercholesterolemia, unspecified; E78.0 - Pure hypercholesterolemia (12) HTN (hypertension) Code(s): I10 - ESSENTIAL (PRIMARY) HYPERTENSION Qualifiers: Hypertension type: essential hypertension Qualified Code(s): I10 - Essential (primary) hypertension (13) Pulmonary hypertension Code(s): I27.2 - OTHER SECONDARY PULMONARY HYPERTENSION * DO NOT USE * (14) Status post coronary artery stent placement Code(s): Z95.5 - PRESENCE OF CORONARY ANGIOPLASTY IMPLANT AND GRAFT (15) Systolic CHF, acute on chronic Code(s): I50.23 - ACUTE ON CHRONIC SYSTOLIC (CONGESTIVE) HEART FAILURE Assessment/Plan 1. Acute on chronic class III-IV NYHA classification LV systolic failure 2. CAD post PCI/stent, angina pectoris 3. Permanent atrial fibrillation on chronic anticoagulation (Coumadin), [id number] score of 4 4. 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 HTN/HCVD 6. Hypercholesterolemia 7. History of CVA with right hemiparesis 8. CKD 3 secondary to Hypertensive Nephrosclerosis vs. Acquired Cystic Renal Disease (unlikely PCKD given normal size kidneys) 9. Anemia of CKD 10. PAD 11. COPD and pulmonary HTN 12. Gynecomastia PLAN: 1. Continue Lasix 40 mg BID and Eplerenone 25 mg BID with monitoring renal function and electrolytes 2. Continue Coreg 25 mg BID, Lipitor 80 mg QHS and Entresto 97/103 mg BID. BiDil as outpatient 3. Continue Eliquis 5 mg BID compression therapy and PT as tolerated Further plans are to follow Ari Hinojosa MD
[2018-12-19] MEDS: CARVEDILOL 25 MG TABLET (FP) PO SCH ×2 (09:59→21:50)
[2018-12-19] MEDS: APIXABAN 5 MG TABLET PO SCH ×2 (09:59→21:50)
[2018-12-19] MEDS: SACUBITRIL/VALSARTAN 97 MG-103 MG TABLET PO SCH ×2 (10:00→21:51)
[2018-12-19] MEDS: EPLERENONE 25 MG TABLET PO SCH ×2 (10:00→21:51)
--- NOTE | 2018-12-19 12:34 | PN ---
Progress Note (short form) - Note Progress Note: 78 M, severe nonischemic dilated cardiomyopathy, CAD s/p BMS proximal RCA 2008, permanent afib on coumadin, sick sinus syndrome, STUDENT-D, sustained VT s/p ATP, hypertensive cardiovascular disease, hyperlipidemia, CVA with residual deficit, PAD, CKD, and chronic anemia. Admitted via ER due to several days of orthopnea, dyspnea on exertion, LE edema , and PND. No fever or chills. No travel history or sick contacts. No hemoptysis or night sweats. 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) Cardio/Vascular: Yes: AFIB, CAD (S/P PCI), CHF (systolic dysfunction, Cardiomyopathy), HTN, Hyperlipdemia, Murmur, Other Gastrointestinal: Yes: Gastritis, GI Bleed Renal/: Yes: Renal Inusuff (Baseline Scr 1.3mg/dL - CKD Stage III), BPH Musculoskeletal: Yes: Osteoarthritis - Past Surgical History Past Surgical History: Yes: Colonoscopy, Permanent Pacemaker (FOR SSS), Stent - Alcohol/Substance Use Hx Alcohol Use: No - Smoking History Smoking history: Unknown if ever smoked Have you smoked in the past 12 months: No Aproximately how many cigarettes per day: 0 If you are a former smoker, when did you quit?: 20 YRS AGO - Social History Usual Living Arrangement: Assisted History of Recent Travel: No Home Medications - Allergies Allergies/Adverse Reactions: Allergies Allergy/AdvReac Type Severity Reaction Status Date / Time No Known Allergies Allergy Verified 12/15/18 15:49 - Home Medications Home Medications: Ambulatory Orders Cholecalciferol (Vitamin D3) [Vitamin D3] 1,000 unit PO DAILY 07/27/14 Carvedilol [Coreg -] 25 mg PO BID #60 tablet 08/01/15 Apixaban [Eliquis -] 5 mg PO BID #60 tablet 08/04/18 Atorvastatin Ca [Lipitor] 80 mg PO HS #30 tablet 08/04/18 Eplerenone 25 mg PO DAILY@0800 #30 tablet 08/04/18 Furosemide [Lasix -] 40 mg PO BID@0600,1400 #60 tablet 08/04/18 Sacubitril/Valsartan [Entresto 49 mg-51 mg Tablet] 1 tab PO BID #60 tablet 08/04 Ramipril 5 mg PO DAILY 12/15/18 Spironolactone 25 mg PO DAILY 12/15/18 Review of Systems - Review of Systems Constitutional: denies: Chills, Lethargy Eyes: reports: No Symptoms HENT: reports: No Symptoms Neck: reports: No Symptoms Cardiovascular: reports: Chest Pain, Edema, Shortness of Breath Respiratory: reports: Cough, Orthopnea, Snoring, SOB, SOB on Exertion. denies: Hemoptysis, Wheezing Gastrointestinal: reports: No Symptoms Genitourinary: reports: No Symptoms Breasts: reports: No Symptoms Reported Musculoskeletal: reports: Back Pain Integumentary: reports: No Symptoms Neurological: reports: No Symptoms Endocrine: reports: No Symptoms Hematology/Lymphatic: reports: No Symptoms Psychiatric: reports: No Symptoms Physical Exam Vital Sings: Vital Signs Temperature 98.6 F 12/18/18 06:00 Pulse Rate 70 12/18/18 10:00 Respiratory Rate 14 12/18/18 10:00 Blood Pressure 101/65 12/18/18 10:00 O2 Sat by Pulse Oximetry (%) 98 12/18/18 09:00 Constitutional: Yes: No Distress Eyes: Yes: Conjunctiva Clear, EOM Intact HENT: Yes: Atraumatic, Normocephalic Neck: Yes: Trachea Midline Cardiovascular: Yes: Pulse Irregular Respiratory: Yes: Diminished, Rales, Rhonchi, SOB. No: Stridor, Tachypnea, Wheezes ...Inspection: Yes: WNL ...Clubbing: No Gastrointestinal: Yes: Normal Bowel Sounds, Soft Musculoskeletal: Yes: WNL Extremities: Yes: WNL Edema: Yes Peripheral Pulses WNL: Yes Integumentary: Yes: WNL Neurological: Yes: Alert, Oriented ...Motor Strength: WNL Psychiatric: Yes: Alert, Oriented Labs: CBC, BMP 12/18/18 05:37 12/18/18 05:37 Imaging - Results Chest X-ray: Report Reviewed, Image Reviewed Problem List - Problems (1) CHF exacerbation Code(s): I50.9 - HEART FAILURE, UNSPECIFIED Qualifiers: Heart failure type: combined systolic and diastolic Qualified Code(s): I50.43 - 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) heart failure (2) Hypervolemia Code(s): E87.70 - FLUID OVERLOAD, UNSPECIFIED Qualifiers: Hypervolemia type: unspecified Qualified Code(s): E87.70 - Fluid overload, unspecified (3) Leg ulcer Code(s): L97.909 - NON-PRS CHRONIC ULC UNSP PRT OF UNSP LOW LEG W UNSP SEVERITY (4) AICD (automatic cardioverter/defibrillator) present Code(s): Z95.810 - PRESENCE OF AUTOMATIC (IMPLANTABLE) CARDIAC DEFIBRILLATOR (5) Acute hypoxemic respiratory failure Code(s): J96.01 - ACUTE RESPIRATORY FAILURE WITH HYPOXIA (6) Acute renal failure superimposed on stage 3 chronic kidney disease Code(s): N17.9 - ACUTE KIDNEY FAILURE, UNSPECIFIED; N18.3 - CHRONIC KIDNEY DISEASE, STAGE 3 (MODERATE) (7) Afib Code(s): I48.91 - UNSPECIFIED ATRIAL FIBRILLATION Qualifiers: Atrial fibrillation type: chronic Qualified Code(s): I48.2 - Chronic atrial fibrillation (8) Anemia Code(s): D64.9 - ANEMIA, UNSPECIFIED Qualifiers: Anemia type: unspecified type Qualified Code(s): D64.9 - Anemia, unspecified (9) CAD (coronary artery disease) Code(s): I25.10 - ATHSCL HEART DISEASE OF [place] CORONARY ARTERY W/O ANG PCTRS Qualifiers: Coronary Disease-Associated Artery/Lesion type: [place] artery [place] vs. transplanted heart: [place] heart Associated angina: without angina Qualified Code(s): I25.10 - Atherosclerotic heart disease of [place] coronary artery without angina pectoris (10) CHF (congestive heart failure) Code(s): I50.9 - HEART FAILURE, UNSPECIFIED (11) COPD (chronic obstructive pulmonary disease) Code(s): J44.9 - CHRONIC OBSTRUCTIVE PULMONARY DISEASE, UNSPECIFIED Qualifiers: Emphysema type: unspecified (12) CVA (cerebral infarction) Code(s): I63.9 - CEREBRAL INFARCTION, UNSPECIFIED Qualifiers: Cerebral infarction mechanism: unspecified mechanism Qualified Code(s): I63.9 - Cerebral infarction, unspecified (13) [place] (dyspnea on exertion) Code(s): R06.09 - OTHER FORMS OF DYSPNEA (14) Emphysema of lung Code(s): J43.9 - EMPHYSEMA, UNSPECIFIED Qualifiers: Emphysema type: unspecified Qualified Code(s): J43.9 - Emphysema, unspecified (15) HLD (hyperlipidemia) Code(s): E78.5 - HYPERLIPIDEMIA, UNSPECIFIED Qualifiers: Hyperlipidemia type: pure hypercholesterolemia Qualified Code(s): E78.00 - Pure hypercholesterolemia, unspecified; E78.0 - Pure hypercholesterolemia (16) HTN (hypertension) Code(s): I10 - ESSENTIAL (PRIMARY) HYPERTENSION Qualifiers: Hypertension type: essential hypertension Qualified Code(s): I10 - Essential (primary) hypertension (17) Pacemaker Code(s): Z95.0 - PRESENCE OF CARDIAC PACEMAKER (18) Pulmonary hypertension Code(s): I27.2 - OTHER SECONDARY PULMONARY HYPERTENSION * DO NOT USE * (19) Shortness of breath Code(s): R06.02 - SHORTNESS OF BREATH (20) Status post coronary artery stent placement Code(s): Z95.5 - PRESENCE OF CORONARY ANGIOPLASTY IMPLANT AND GRAFT (21) Systolic CHF, acute on chronic Code(s): I50.23 - ACUTE ON CHRONIC SYSTOLIC (CONGESTIVE) HEART FAILURE Assessment/Plan Lasix BID O2 as needed BD TX PRN Monitor off systemic steroids Entresto Monitor off ABX No smoking Should have sleep apnea screen as an outpatient Dr Pearl Problem List - Problems (1) CHF exacerbation Code(s): I50.9 - HEART FAILURE, UNSPECIFIED Qualifiers: Heart failure type: combined systolic and diastolic Qualified Code(s): I50.43 - 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) heart failure (2) Hypervolemia Code(s): E87.70 - FLUID OVERLOAD, UNSPECIFIED Qualifiers: Hypervolemia type: unspecified Qualified Code(s): E87.70 - Fluid overload, unspecified (3) Leg ulcer Code(s): L97.909 - NON-PRS CHRONIC ULC UNSP PRT OF UNSP LOW LEG W UNSP SEVERITY (4) AICD (automatic cardioverter/defibrillator) present Code(s): Z95.810 - PRESENCE OF AUTOMATIC (IMPLANTABLE) CARDIAC DEFIBRILLATOR (5) Acute hypoxemic respiratory failure Code(s): J96.01 - ACUTE RESPIRATORY FAILURE WITH HYPOXIA (6) Acute renal failure superimposed on stage 3 chronic kidney disease Code(s): N17.9 - ACUTE KIDNEY FAILURE, UNSPECIFIED; N18.3 - CHRONIC KIDNEY DISEASE, STAGE 3 (MODERATE) (7) Afib Code(s): I48.91 - UNSPECIFIED ATRIAL FIBRILLATION Qualifiers: Atrial fibrillation type: chronic Qualified Code(s): I48.2 - Chronic atrial fibrillation (8) Anemia Code(s): D64.9 - ANEMIA, UNSPECIFIED Qualifiers: Anemia type: unspecified type Qualified Code(s): D64.9 - Anemia, unspecified (9) CAD (coronary artery disease) Code(s): I25.10 - ATHSCL HEART DISEASE OF [place] CORONARY ARTERY W/O ANG PCTRS Qualifiers: Coronary Disease-Associated Artery/Lesion type: [place] artery [place] vs. transplanted heart: [place] heart Associated angina: without angina Qualified Code(s): I25.10 - Atherosclerotic heart disease of [place] coronary artery without angina pectoris (10) CHF (congestive heart failure) Code(s): I50.9 - HEART FAILURE, UNSPECIFIED (11) COPD (chronic obstructive pulmonary disease) Code(s): J44.9 - CHRONIC OBSTRUCTIVE PULMONARY DISEASE, UNSPECIFIED Qualifiers: Emphysema type: unspecified (12) CVA (cerebral infarction) Code(s): I63.9 - CEREBRAL INFARCTION, UNSPECIFIED Qualifiers: Cerebral infarction mechanism: unspecified mechanism Qualified Code(s): I63.9 - Cerebral infarction, unspecified (13) [place] (dyspnea on exertion) Code(s): R06.09 - OTHER FORMS OF DYSPNEA (14) Emphysema of lung Code(s): J43.9 - EMPHYSEMA, UNSPECIFIED Qualifiers: Emphysema type: unspecified Qualified Code(s): J43.9 - Emphysema, unspecified (15) HLD (hyperlipidemia) Code(s): E78.5 - HYPERLIPIDEMIA, UNSPECIFIED Qualifiers: Hyperlipidemia type: pure hypercholesterolemia Qualified Code(s): E78.00 - Pure hypercholesterolemia, unspecified; E78.0 - Pure hypercholesterolemia (16) HTN (hypertension) Code(s): I10 - ESSENTIAL (PRIMARY) HYPERTENSION Qualifiers: Hypertension type: essential hypertension Qualified Code(s): I10 - Essential (primary) hypertension (17) Pacemaker Code(s): Z95.0 - PRESENCE OF CARDIAC PACEMAKER (18) Pulmonary hypertension Code(s): I27.2 - OTHER SECONDARY PULMONARY HYPERTENSION * DO NOT USE * (19) Shortness of breath Code(s): R06.02 - SHORTNESS OF BREATH (20) Status post coronary artery stent placement Code(s): Z95.5 - PRESENCE OF CORONARY ANGIOPLASTY IMPLANT AND GRAFT (21) Systolic CHF, acute on chronic Code(s): I50.23 - ACUTE ON CHRONIC SYSTOLIC (CONGESTIVE) HEART FAILURE
--- NOTE | 2018-12-19 14:12 | PN ---
Progress Note, Physician History of Present Illness: Pt seen and examined at bedside. He denies shortness of breath. He is awake and appears comfortable. - Current Medication List Current Medications: Active Medications Apixaban (Eliquis -) 5 mg PO BID [facility] Last Admin: 12/19/18 09:59 Dose: 5 mg Atorvastatin Calcium (Lipitor -) 80 mg PO HS [facility] Last Admin: 12/18/18 21:39 Dose: 80 mg Carvedilol (Coreg -) 25 mg PO BID [facility] Last Admin: 12/19/18 09:59 Dose: 25 mg Eplerenone (Eplerenone) 25 mg PO BID [facility] Last Admin: 12/19/18 10:00 Dose: 25 mg Furosemide (Lasix -) 40 mg PO BID@0600,1400 [facility] Last Admin: 12/19/18 05:28 Dose: 40 mg Furosemide (Lasix Injection -) 40 mg IVPUSH NATIONAL RECRUITER [facility] Stop: 12/19/18 15:00 Last Admin: 12/19/18 09:59 Dose: 40 mg Sacubitril/Valsartan (Entresto 97 Mg-103 Mg Tablet) 1 tab PO BID [facility] Last Admin: 12/19/18 10:00 Dose: 1 tab - Objective Vital Signs: Vital Signs Temperature 98.7 F 12/19/18 06:00 Pulse Rate 70 12/19/18 10:00 Respiratory Rate 16 12/19/18 10:00 Blood Pressure 106/66 12/19/18 10:00 O2 Sat by Pulse Oximetry (%) 96 12/19/18 09:00 Constitutional: Yes: Calm Eyes: Yes: Conjunctiva Clear HENT: Yes: Atraumatic Neck: Yes: Supple Cardiovascular: Yes: S1, S2 Respiratory: Yes: CTA Bilaterally Gastrointestinal: Yes: Soft Genitourinary: Yes: WNL Edema: Yes Edema: LLE: 1+, RLE: 1+ Neurological: Yes: Oriented Labs: CBC, BMP 12/19/18 06:02 12/19/18 06:02 Assessment/Plan Current Medications Generic Name Dose Route Start Last Admin Trade Name Freq PRN Reason Stop Dose Admin Apixaban 5 mg 12/15/18 22:00 12/19/18 09:59 Eliquis - PO 5 mg BID FELICIA Administration Atorvastatin Calcium 80 mg 12/15/18 22:00 12/18/18 21:39 Lipitor - PO 80 mg HS FELICIA Administration Carvedilol 25 mg 12/15/18 22:00 12/19/18 09:59 Coreg - PO 25 mg BID FELICIA Administration Eplerenone 25 mg 12/15/18 22:00 12/19/18 10:00 Eplerenone PO 25 mg BID FELICIA Administration Furosemide 40 mg 12/18/18 14:00 12/19/18 05:28 Lasix - PO 40 mg BID@0600,1400 FELICIA Administration Furosemide 40 mg 12/19/18 08:21 12/19/18 09:59 Lasix Injection - IVPUSH 12/19/18 15:00 40 mg NATIONAL RECRUITER FELICIA Administration Sacubitril/Valsartan 1 tab 12/17/18 22:00 12/19/18 10:00 Entresto 97 Mg-103 Mg Tablet PO 1 tab BID FELICIA Administration Impression 1. CKD 2. possible cardiorenal syndrome 3. CHF 4. dementia 5. pulm nodules 6. renal cysts 7. HLD Plan - renal function is improving - volume status improving - follow up ua - monitor lytes
--- NOTE | 2018-12-19 17:04 | CON.GI ---
Consult Consult Specialty:: Gastroenterology Referred by:: Dr. Robles Reason for Consultation:: Anemia - History of Present Illness Chief Complaint: Dyspnea and weakness History of Present Illness: 78F is admitted with dyspnea and weakness. His Hb was 8.7. It was 10 on . He denies any overt bleeding. He denies hematemesis. He denies constipation , dysphagia or early satiety. He had a colonoscopy with me on o when tubular adenomas were removed from the cecum and transverse colon and hyperplastic polyps from the sigmoid and rectum. Moderate diverticulosis was noted universally. I have not seen him since then. He did have an EGD with Dr. Fitzpatrick on 03/11/13 which was normal. 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 EGD WNL 2012l) Hepatobiliary: Yes: Cholelithiasis Renal/: Yes: Renal Inusuff (Baseline Scr 1.3mg/dL - CKD Stage III), BPH, Renal Calculi, Other (renal cysts) Musculoskeletal: Yes: Osteoarthritis - Past Surgical History Past Surgical History: Yes: Colonoscopy, Permanent Pacemaker (FOR SSS, AICD), Stent (RCA 2008), TURP, Upper Endoscopy - Alcohol/Substance Use Hx Alcohol Use: Yes (formerly drank alcoholc heavily) History of Substance Use: reports: None - Smoking History Smoking history: Former smoker Have you smoked in the past 12 months: No Aproximately how many cigarettes per day: 0 If you are a former smoker, when did you quit?: 20 YRS AGO - Social History Usual Living Arrangement: Fdc ADL: Support Services 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 Place of : [facility]) History of Recent Travel: No Home Medications - Allergies Allergies/Adverse Reactions: Allergies Allergy/AdvReac Type Severity Reaction Status Date / Time No Known Allergies Allergy Verified 12/15/18 15:49 - Home Medications Home Medications: Ambulatory Orders Cholecalciferol (Vitamin D3) [Vitamin D3] 1,000 unit PO DAILY 07/27/14 Carvedilol [Coreg -] 25 mg PO BID #60 tablet 08/01/15 Apixaban [Eliquis -] 5 mg PO BID #60 tablet 08/04/18 Atorvastatin Ca [Lipitor] 80 mg PO HS #30 tablet 08/04/18 Eplerenone 25 mg PO DAILY@0800 #30 tablet 08/04/18 Furosemide [Lasix -] 40 mg PO BID@0600,1400 #60 tablet 08/04/18 Sacubitril/Valsartan [Entresto 49 mg-51 mg Tablet] 1 tab PO BID #60 tablet 08/04 Ramipril 5 mg PO DAILY 12/15/18 Spironolactone 25 mg PO DAILY 12/15/18 Family Disease History - Family Disease History Family Disease History: Other: Father (estranged), Mother (forgot when she passed) Review of Systems - Review of Systems Constitutional: reports: Lethargy, Malaise, Unintentional Wgt. Loss, Weakness Eyes: reports: No Symptoms HENT: reports: No Symptoms Neck: reports: No Symptoms Cardiovascular: reports: Edema (marked LE edema), Palpitations, Shortness of Breath Respiratory: reports: Exercise Intolerance, SOB on Exertion Gastrointestinal: reports: No Symptoms Genitourinary: reports: Frequency Musculoskeletal: reports: Back Pain, Joint Pain Physical Exam-GI Vital Signs: Vital Signs Temperature 98.8 F 12/19/18 14:00 Pulse Rate 70 12/19/18 14:00 Respiratory Rate 16 12/19/18 14:00 Blood Pressure 108/68 12/19/18 14:00 O2 Sat by Pulse Oximetry (%) 96 12/19/18 09:00 CBC,CMP WBC 3.2 K/mm3 (4.0-10.0) L 12/19/18 06:02 RBC 2.69 M/mm3 (4.00-5.60) L 12/19/18 06:02 Hgb 7.9 GM/dL (11.7-16.9) L 12/19/18 06:02 Hct 24.2 % (35.4-49) L 12/19/18 06:02 MCV 89.9 fl (80-96) 12/19/18 06:02 MCH 29.5 pg (25.7-33.7) 12/19/18 06:02 MCHC 32.8 g/dl (32.0-35.9) 12/19/18 06:02 RDW 18.2 % (11.9-15.9) H 12/19/18 06:02 Plt Count 187 K/MM3 (134-434) 12/19/18 06:02 MPV 9.3 fl (7.5-11.1) 12/19/18 06:02 Absolute Neuts (auto) 2.0 K/mm3 (1.5-8.0) 12/19/18 06:02 Neutrophils % 62.5 % (42.8-82.8) 12/19/18 06:02 Lymphocytes % 20.2 % (8-40) 12/19/18 06:02 Monocytes % 11.9 % (3.8-10.2) H 12/19/18 06:02 Eosinophils % 3.7 % (0-4.5) 12/19/18 06:02 Basophils % 1.7 % (0-2.0) 12/19/18 06:02 Nucleated RBC % 0 % (0-0) 12/19/18 06:02 Sodium 142 mmol/L (136-145) 12/19/18 06:02 Potassium 4.2 mmol/L (3.5-5.1) 12/19/18 06:02 Chloride 107 mmol/L (98-107) 12/19/18 06:02 Carbon Dioxide 29 mmol/L (21-32) 12/19/18 06:02 Anion Gap 6 MMOL/L (8-16) L 12/19/18 06:02 BUN 29 mg/dL (7-18) H 12/19/18 06:02 Creatinine 1.6 mg/dL (0.55-1.3) H 12/19/18 06:02 Est GFR (CKD-EPI)AfAm 47.12 12/19/18 06:02 Est GFR (CKD-EPI)NonAf 40.66 12/19/18 06:02 Random Glucose 92 mg/dL (74-106) 12/19/18 06:02 Calcium 8.5 mg/dL (8.5-10.1) 12/19/18 06:02 Magnesium 2.5 mg/dL (1.8-2.4) H 12/16/18 05:22 Ferritin 16.7 ng/ml (8-388) 12/19/18 06:02 Total Bilirubin 2.1 mg/dL (0.2-1) H 12/19/18 06:02 AST 15 U/L (15-37) 12/19/18 06:02 ALT 13 U/L (13-61) 12/19/18 06:02 Alkaline Phosphatase 76 U/L (45-117) 12/19/18 06:02 Creatine Kinase 86 U/L (26-308) 12/15/18 16:19 Troponin I 0.04 ng/ml (0.00-0.05) 12/16/18 05:22 B-Natriuretic Peptide 94288.9 pg/ml (5-450) H 12/15/18 16:19 Total Protein 6.9 g/dl (6.4-8.2) 12/19/18 06:02 Albumin 3.2 g/dl (3.4-5.0) L 12/19/18 06:02 Current Medications Generic Name Dose Route Start Last Admin Trade Name Suraj PRN Reason Stop Dose Admin Apixaban 5 mg 12/15/18 22:00 12/19/18 09:59 Eliquis - PO 5 mg BID FELICIA Administration Atorvastatin Calcium 80 mg 12/15/18 22:00 12/18/18 21:39 Lipitor - PO 80 mg HS FELICIA Administration Carvedilol 25 mg 12/15/18 22:00 12/19/18 09:59 Coreg - PO 25 mg BID FELICIA Administration Eplerenone 25 mg 12/15/18 22:00 12/19/18 10:00 Eplerenone PO 25 mg BID FELICIA Administration Furosemide 40 mg 12/18/18 14:00 12/19/18 14:26 Lasix - PO 40 mg BID@0600,1400 FELICIA Administration Sacubitril/Valsartan 1 tab 12/17/18 22:00 12/19/18 10:00 Entresto 97 Mg-103 Mg Tablet PO 1 tab BID FELICIA Administration Constitutional: Yes: Calm Eyes: Yes: Conjunctiva Clear HENT: Yes: Atraumatic Neck: Yes: Trachea Midline Cardiovascular: Yes: Regular Rate and Rhythm (wi5th left sided PPM), Murmur (2/ 6 SE< at LLSB) Respiratory: Yes: Rales (at bases) Gastrointestinal Inspection: Yes: WNL ...Auscultate: Yes: Normoactive Bowel Sounds ...Palpate: Yes: Soft, Other (nontender) ...Rectal Exam: Yes: Guaiac Negative (no masses, brown guaiac negative stool) Edema: LLE: 3+, RLE: 3+ Neurological: Yes: Alert, Other (forgetful) Psychiatric: Yes: Alert Labs: CBC, BMP 12/19/18 06:02 12/19/18 06:02 Laboratory Tests 10/16/12 10/21/12 03/10/13 17:10 06:00 17:55 Hgb 6.7 L* 9.9 L 5.7 L* D 03/12/13 03/18/13 10/05/13 05:30 06:00 05:50 Hgb 7.6 L* 10.3 L 12.3 D 10/08/13 07/27/14 07/23/15 05:50 18:23 15:25 Hgb 11.4 L 9.7 L D 10.6 L 07/30/15 07/28/18 12/15/18 09:45 13:00 16:19 Hgb 10.8 L 11.5 L 8.7 L 12/18/18 05:37 Hgb 7.7 L Problem List - Problems (1) Anemia Assessment/Plan: Despite no obvious or occult bleeding I cannot exclude chronic indolent GI blood losses from vascular ectasias, recurrent colon adenomas or cancer, silent GERD and ulcer disease. He should ideally have an EGD, colonoscopy and capsule endoscopy but his cardiac and respiratory risks preclude doing these safely. If brisk bleeding ensues then we will need to reconsider. Code(s): D64.9 - ANEMIA, UNSPECIFIED Qualifiers: Anemia type: unspecified type Qualified Code(s): D64.9 - Anemia, unspecified (2) Colon adenomas Code(s): D12.6 - BENIGN NEOPLASM OF COLON, UNSPECIFIED (3) Diverticula of colon Code(s): K57.30 - DVRTCLOS OF LG INT W/O PERFORATION OR ABSCESS W/O BLEEDING (4) CHF exacerbation Code(s): I50.9 - HEART FAILURE, UNSPECIFIED Qualifiers: Heart failure type: combined systolic and diastolic Qualified Code(s): I50.43 - 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) heart failure (5) AICD (automatic cardioverter/defibrillator) present Code(s): Z95.810 - PRESENCE OF AUTOMATIC (IMPLANTABLE) CARDIAC DEFIBRILLATOR (6) Acute hypoxemic respiratory failure Code(s): J96.01 - ACUTE RESPIRATORY FAILURE WITH HYPOXIA (7) Acute renal failure superimposed on stage 3 chronic kidney disease Code(s): N17.9 - ACUTE KIDNEY FAILURE, UNSPECIFIED; N18.3 - CHRONIC KIDNEY DISEASE, STAGE 3 (MODERATE) (8) CAD (coronary artery disease) Code(s): I25.10 - ATHSCL HEART DISEASE OF [place] CORONARY ARTERY W/O ANG PCTRS Qualifiers: Coronary Disease-Associated Artery/Lesion type: [place] artery [place] vs. transplanted heart: [place] heart Associated angina: without angina Qualified Code(s): I25.10 - Atherosclerotic heart disease of [place] coronary artery without angina pectoris (9) Pulmonary hypertension Code(s): I27.2 - OTHER SECONDARY PULMONARY HYPERTENSION * DO NOT USE * (10) Status post coronary artery stent placement Code(s): Z95.5 - PRESENCE OF CORONARY ANGIOPLASTY IMPLANT AND GRAFT Assessment/Plan Impression: - Despite no obvious or occult bleeding I cannot exclude chronic indolent GI blood losses from vascular ectasias, recurrent colon adenomas or cancer, silent GERD and ulcer disease. - Diverticulosis - Silent GB stones Plan: -- Harsh should ideally have an EGD, colonoscopy and capsule endoscopy but his cardiac and respiratory risks preclude doing these safely. If brisk bleeding ensues then we will need to reconsider. -- PPI empirically -- Consider hematology evaluation
[2018-12-19 17:58] LABS: EPI CELLS 1.4 /HPF (0-5/HPF); HYALINE CASTS 2 /lpf (0-8); PH,URINE 5.5 (5.0-8.0); URINE APPEARANCE CLEAR; URINE BACTERIA 78.7 /hpf (NEGATIVE); URINE BILIRUBIN NEGATIVE (NEGATIVE); URINE COLOR YELLOW; URINE GLUCOSE (UA) NEGATIVE (NEGATIVE); URINE KETONE NEGATIVE (NEGATIVE); URINE LEUK ESTERASE TRACE (NEGATIVE); URINE NITRITE NEGATIVE (NEGATIVE); URINE PROTEIN TRACE (NEGATIVE); URINE RBC 0 /hpf (0-4); URINE WBC 2 /hpf (0-5)
[2018-12-19 18:12] LABS: HEMATOCRIT 29.5 % (35.4-49); HEMOGLOBIN 9.4 GM/dL (11.7-16.9); MCH 29.7 pg (25.7-33.7); MEAN CELL VOLUME 92.7 fl (80-96); MEAN PLT VOLUME 9.8 fl (7.5-11.1); PLATELET COUNT 206 K/MM3 (134-434); RBC 3.19 M/mm3 (4.00-5.60); RDW 18.2 % (11.9-15.9); WHITE BLOOD COUNT 3.3 K/mm3 (4.0-10.0)
[2018-12-19] MEDS: ATORVASTATIN CA 80 MG TABLET (FP) PO SCH (21:50)
[2018-12-19] MEDS: PANTOPRAZOLE 40 MG TABLET (FP) PO SCH (21:50)
[2018-12-20] MEDS: FUROSEMIDE 40 MG TABLET (FP) PO SCH ×2 (05:26→15:34)
[2018-12-20 06:25] LABS: BASO % 1.4 % (0-2.0); EOS % 3.7 % (0-4.5); HEMATOCRIT 26.4 % (35.4-49); HEMOGLOBIN 8.6 GM/dL (11.7-16.9); LYMPH % 19.8 % (8-40); MCH 29.2 pg (25.7-33.7); MCHC 32.4 g/dl (32.0-35.9); MEAN CELL VOLUME 89.9 fl (80-96); MEAN PLT VOLUME 9.8 fl (7.5-11.1); MONO % 11.3 % (3.8-10.2); NEUT % 63.8 % (42.8-82.8); PLATELET COUNT 204 K/MM3 (134-434); RBC 2.94 M/mm3 (4.00-5.60); RDW 18.3 % (11.9-15.9); WHITE BLOOD COUNT 3.3 K/mm3 (4.0-10.0)
[2018-12-20 06:46] LABS: ALBUMIN 3.2 g/dl (3.4-5.0); BILIRUBIN,DIRECT 0.7 mg/dL (0.0-0.2); BILIRUBIN,TOTAL 2.4 mg/dL (0.2-1)
[2018-12-20 07:18] LABS: ALBUMIN 3.2 g/dl (3.4-5.0); BILIRUBIN,TOTAL 2.5 mg/dL (0.2-1); CALCIUM 8.5 mg/dL (8.5-10.1); CREATININE 1.7 mg/dL (0.55-1.3); POTASSIUM 4.2 mmol/L (3.5-5.1)
--- NOTE | 2018-12-20 07:43 | PN ---
Progress Note, Physician - Current Medication List Current Medications: Active Medications Apixaban (Eliquis -) 5 mg PO BID [facility] Last Admin: 12/19/18 21:50 Dose: 5 mg Atorvastatin Calcium (Lipitor -) 80 mg PO HS [facility] Last Admin: 12/19/18 21:50 Dose: 80 mg Carvedilol (Coreg -) 25 mg PO BID [facility] Last Admin: 12/19/18 21:50 Dose: 25 mg Eplerenone (Eplerenone) 25 mg PO BID [facility] Last Admin: 12/19/18 21:51 Dose: 25 mg Furosemide (Lasix -) 40 mg PO BID@0600,1400 [facility] Last Admin: 12/20/18 05:26 Dose: 40 mg Pantoprazole Sodium (Protonix -) 40 mg PO BID [facility] Last Admin: 12/19/18 21:50 Dose: 40 mg Sacubitril/Valsartan (Entresto 97 Mg-103 Mg Tablet) 1 tab PO BID [facility] Last Admin: 12/19/18 21:51 Dose: 1 tab - Objective Vital Signs: Vital Signs Temperature 98 F 12/20/18 06:00 Pulse Rate 70 12/20/18 06:00 Respiratory Rate 18 12/20/18 06:00 Blood Pressure 103/84 12/20/18 06:00 O2 Sat by Pulse Oximetry (%) 96 12/19/18 22:00 Cardiovascular: Yes: S1, S2 Respiratory: Yes: Regular, CTA Bilaterally Gastrointestinal: Yes: Normal Bowel Sounds, Soft Edema: Yes Labs: CBC, BMP 12/20/18 05:24 12/20/18 05:24 Assessment/Plan - Problems (1) CHF exacerbation Assessment/Plan: now on oral lasix and eplerenone follow up renal function Code(s): I50.9 - HEART FAILURE, UNSPECIFIED Qualifiers: Heart failure type: combined systolic and diastolic Qualified Code(s): I50.43 - 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) heart failure (2) Leg ulcer Assessment/Plan: vascular consult Code(s): L97.909 - NON-PRS CHRONIC ULC UNSP PRT OF UNSP LOW LEG W UNSP SEVERITY (3) Afib Assessment/Plan: coreg and AC Code(s): I48.91 - UNSPECIFIED ATRIAL FIBRILLATION Qualifiers: Atrial fibrillation type: chronic Qualified Code(s): I48.2 - Chronic atrial fibrillation (4) Anemia Assessment/Plan: check iron panel TRANSFUSED PRBC GI CONSULT NOTED FOLLOW LABS IF STABLE WILL DC TO SNF HEM CONSULT Code(s): D64.9 - ANEMIA, UNSPECIFIED Qualifiers: Anemia type: unspecified type Qualified Code(s): D64.9 - Anemia, unspecified
[2018-12-20 08:06] LABS: SERUM IRON SATURATION 10 % (15-55); TOTAL IRON BINDING CAPACITY 284 ug/dL (250-450); UIBC 255 ug/dL (111-343)
--- NOTE | 2018-12-20 10:28 | PN ---
Progress Note, Physician History of Present Illness: Pt seen and examined at bedside. He feels that his breathing is improved. He denies chest pain. - Current Medication List Current Medications: Active Medications Apixaban (Eliquis -) 5 mg PO BID [facility] Last Admin: 12/19/18 21:50 Dose: 5 mg Atorvastatin Calcium (Lipitor -) 80 mg PO HS [facility] Last Admin: 12/19/18 21:50 Dose: 80 mg Carvedilol (Coreg -) 25 mg PO BID [facility] Last Admin: 12/19/18 21:50 Dose: 25 mg Eplerenone (Eplerenone) 25 mg PO BID [facility] Last Admin: 12/19/18 21:51 Dose: 25 mg Furosemide (Lasix -) 40 mg PO BID@0600,1400 [facility] Last Admin: 12/20/18 05:26 Dose: 40 mg Pantoprazole Sodium (Protonix -) 40 mg PO BID [facility] Last Admin: 12/19/18 21:50 Dose: 40 mg Sacubitril/Valsartan (Entresto 97 Mg-103 Mg Tablet) 1 tab PO BID [facility] Last Admin: 12/19/18 21:51 Dose: 1 tab - Objective Vital Signs: Vital Signs Temperature 98 F 12/20/18 06:00 Pulse Rate 70 12/20/18 06:00 Respiratory Rate 18 12/20/18 06:00 Blood Pressure 103/84 12/20/18 06:00 O2 Sat by Pulse Oximetry (%) 96 12/19/18 22:00 Constitutional: Yes: Calm Eyes: Yes: Conjunctiva Clear HENT: Yes: Atraumatic Neck: Yes: Supple Cardiovascular: Yes: S1, S2 Respiratory: Yes: CTA Bilaterally Gastrointestinal: Yes: Soft Genitourinary: Yes: Incontinence Musculoskeletal: Yes: WNL Extremities: Yes: WNL Edema: Yes Edema: LLE: 1+, RLE: 1+ Neurological: Yes: Oriented Psychiatric: Yes: Oriented Labs: CBC, BMP 12/20/18 05:24 12/20/18 05:24 Problem List - Problems (1) CHF exacerbation Code(s): I50.9 - HEART FAILURE, UNSPECIFIED Qualifiers: Heart failure type: combined systolic and diastolic Qualified Code(s): I50.43 - 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) heart failure Assessment/Plan Current Medications Generic Name Dose Route Start Last Admin Trade Name Freq PRN Reason Stop Dose Admin Apixaban 5 mg 12/15/18 22:00 12/19/18 21:50 Eliquis - PO 5 mg BID FELICIA Administration Atorvastatin Calcium 80 mg 12/15/18 22:00 12/19/18 21:50 Lipitor - PO 80 mg HS FELICIA Administration Carvedilol 25 mg 12/15/18 22:00 12/19/18 21:50 Coreg - PO 25 mg BID FELICIA Administration Eplerenone 25 mg 12/15/18 22:00 12/19/18 21:51 Eplerenone PO 25 mg BID FELICIA Administration Furosemide 40 mg 12/18/18 14:00 12/20/18 05:26 Lasix - PO 40 mg BID@0600,1400 FELICIA Administration Pantoprazole Sodium 40 mg 12/19/18 22:00 12/19/18 21:50 Protonix - PO 40 mg BID FELICIA Administration Sacubitril/Valsartan 1 tab 12/17/18 22:00 12/19/18 21:51 Entresto 97 Mg-103 Mg Tablet PO 1 tab BID FELICIA Administration Laboratory Tests 12/19/18 17:13 Urine Glucose (UA) Negative Urine Ketones Negative Urine Blood Negative Urine Nitrite Negative Urine Bilirubin Negative Impression 1. CKD 2. possible cardiorenal syndrome 3. CHF 4. dementia 5. pulm nodules 6. renal cysts 7. HLD Plan - cont to monitor renal function - volume status stabilizing - ua neg for blood or protein - avoid nsaids
[2018-12-20] MEDS ORDERED: PT OWN MED DRAWER 7, Y5N ONE (10:36)
[2018-12-20] MEDS: APIXABAN 5 MG TABLET PO SCH (10:37)
[2018-12-20] MEDS: CARVEDILOL 25 MG TABLET (FP) PO SCH (10:37)
[2018-12-20] MEDS: SACUBITRIL/VALSARTAN 97 MG-103 MG TABLET PO SCH (10:38)
[2018-12-20] MEDS: EPLERENONE 25 MG TABLET PO SCH (10:39)
[2018-12-20] MEDS: PANTOPRAZOLE 40 MG TABLET (FP) PO SCH (10:42)
[2018-12-20 11:54] LABS: HEMATOCRIT 27.2 % (35.4-49); HEMOGLOBIN 8.7 GM/dL (11.7-16.9); MCHC 31.9 g/dl (32.0-35.9); MEAN PLT VOLUME 9.7 fl (7.5-11.1); PLATELET COUNT 199 K/MM3 (134-434); RBC 2.99 M/mm3 (4.00-5.60); WHITE BLOOD COUNT 3.6 K/mm3 (4.0-10.0)
--- NOTE | 2018-12-20 12:02 | PN ---
Progress Note, Physician History of Present Illness: 78 yo AAM h/o severe nonischemic dilated cardiomyopathy, CAD s/p BMS prox RCA , permanent afib on coumadin per INR, sick sinus syndrome s/ [employer]ETTE [employer]ER-D, sustained VT s/p ATP, hypertensive cardiovascular disease, hyperlipidemia , CVA with residual deficit, PAD, CKD, chronic anemia last saw Dr. Amaro Aug 09, 2018 initially presented with several days of orthopea, dyspnea at rest and on exertion, LE edema, PND without chest pain, near or true syncope, palpitations. Symptoms improving with IV and now diuresis, 19 lbs weight loss since admission, now off O2 sitting in chair. - Current Medication List Current Medications: Active Medications Apixaban (Eliquis -) 5 mg PO BID [facility] Last Admin: 12/20/18 10:37 Dose: 5 mg Atorvastatin Calcium (Lipitor -) 80 mg PO HS [facility] Last Admin: 12/19/18 21:50 Dose: 80 mg Carvedilol (Coreg -) 25 mg PO BID [facility] Last Admin: 12/20/18 10:37 Dose: 25 mg Eplerenone (Eplerenone) 25 mg PO BID [facility] Last Admin: 12/20/18 10:39 Dose: 25 mg Furosemide (Lasix -) 40 mg PO BID@0600,1400 [facility] Last Admin: 12/20/18 05:26 Dose: 40 mg Pantoprazole Sodium (Protonix -) 40 mg PO BID [facility] Last Admin: 12/20/18 10:42 Dose: 40 mg Sacubitril/Valsartan (Entresto 97 Mg-103 Mg Tablet) 1 tab PO BID [facility] Last Admin: 12/20/18 10:38 Dose: 1 tab - Objective Vital Signs: Vital Signs Temperature 98 F 12/20/18 06:00 Pulse Rate 70 12/20/18 06:00 Respiratory Rate 18 12/20/18 06:00 Blood Pressure 103/84 12/20/18 06:00 O2 Sat by Pulse Oximetry (%) 96 12/19/18 22:00 Constitutional: Yes: No Distress, Calm, Thin Neck: Yes: Supple Cardiovascular: Yes: Regular Rate and Rhythm Respiratory: Yes: Regular, Diminished Gastrointestinal: Yes: Normal Bowel Sounds, Soft Edema: Yes Edema: LLE: 1+, RLE: 1+ Labs: CBC, BMP 12/20/18 11:36 12/20/18 05:24 Problem List - Problems (1) CHF exacerbation Code(s): I50.9 - HEART FAILURE, UNSPECIFIED Qualifiers: Heart failure type: combined systolic and diastolic Qualified Code(s): I50.43 - 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) heart failure (2) AICD (automatic cardioverter/defibrillator) present Code(s): Z95.810 - PRESENCE OF AUTOMATIC (IMPLANTABLE) CARDIAC DEFIBRILLATOR (3) Afib Code(s): I48.91 - UNSPECIFIED ATRIAL FIBRILLATION Qualifiers: Atrial fibrillation type: chronic Qualified Code(s): I48.2 - Chronic atrial fibrillation (4) CAD (coronary artery disease) Code(s): I25.10 - ATHSCL HEART DISEASE OF [place] CORONARY ARTERY W/O ANG PCTRS Qualifiers: Coronary Disease-Associated Artery/Lesion type: [place] artery [place] vs. transplanted heart: [place] heart Associated angina: without angina Qualified Code(s): I25.10 - Atherosclerotic heart disease of [place] coronary artery without angina pectoris (5) CVA (cerebral infarction) Code(s): I63.9 - CEREBRAL INFARCTION, UNSPECIFIED Qualifiers: Cerebral infarction mechanism: unspecified mechanism Qualified Code(s): I63.9 - Cerebral infarction, unspecified (6) [place] (dyspnea on exertion) Code(s): R06.09 - OTHER FORMS OF DYSPNEA (7) HLD (hyperlipidemia) Code(s): E78.5 - HYPERLIPIDEMIA, UNSPECIFIED Qualifiers: Hyperlipidemia type: pure hypercholesterolemia Qualified Code(s): E78.00 - Pure hypercholesterolemia, unspecified; E78.0 - Pure hypercholesterolemia (8) Leg edema Code(s): R60.0 - LOCALIZED EDEMA (9) Pulmonary hypertension Code(s): I27.2 - OTHER SECONDARY PULMONARY HYPERTENSION * DO NOT USE * (10) Shortness of breath Code(s): R06.02 - SHORTNESS OF BREATH (11) Status post coronary artery stent placement Code(s): Z95.5 - PRESENCE OF CORONARY ANGIOPLASTY IMPLANT AND GRAFT (12) Systolic CHF, acute on chronic Code(s): I50.23 - ACUTE ON CHRONIC SYSTOLIC (CONGESTIVE) HEART FAILURE Assessment/Plan December 19, 2017 Dilated LV with severely decreased LVEF 30%, DAV LA 4.8 cm, mod MR , mild TR, RVP 39 mmHg, mild ao dilatation 4.3 cm Sep 14, 2017 Pharm stress: Severe diffuse global HK LVEF 22% Jul 31, [address]: Pulm HTN, congestion, trace ascites, cholelithiasis with thickened GB 1. Acute on chronic class III-IV NYHA classification LV systolic failure 2. CAD post PCI/stent, angina pectoris 3. Permanent atrial fibrillation on chronic anticoagulation (Coumadin), [id number] score of 4 4. [employer]ER-D (post device upgrade), history of sick sinus syndrome 5. HTN/HCVD 6. Hypercholesterolemia 7. History of CVA with right hemiparesis 8. CKD 3 secondary to Hypertensive Nephrosclerosis vs. Acquired Cystic Renal Disease (unlikely PCKD given normal size kidneys) 9. Anemia of CKD 10. PAD 11. COPD and pulmonary HTN 12. Gynecomastia PLAN: 1. Continue Lasix 40 mg BID and Eplerenone 25 mg BID with monitoring renal function and electrolytes 2. Continue Coreg 25 mg BID, Lipitor 80 mg QHS and Entresto 97/103 mg BID. BiDil as outpatient 3. Continue Eliquis 5 mg BID compression therapy and PT as tolerated
--- NOTE | 2018-12-20 13:15 | PN ---
Progress Note (short form) - Note Progress Note: PULMONARY States breathing is better today. Denies cough or wheezing. No chest pain. Vital Signs Period Temp Pulse Resp BP Sys/Ludwig Pulse Ox Last 24 Hr 98 F-98.8 F 70-77 16-18 103-119/68-86 96 Intake & Output 12/17/18 12/18/18 12/19/18 12/20/18 23:59 23:59 23:59 23:59 Intake Total 620 240 250 Output Total 1075 450 600 900 Balance -455 -210 -350 -900 Weight 105.035 kg 103.51 kg 103.056 kg 100.414 kg Gen: NAD in chair Heart: RRR Lung: decreased breath sounds at the bases Abd: soft, nontender Ext: + edema CBC, BMP 12/20/18 11:36 12/20/18 05:24 Active Medications Apixaban (Eliquis -) 5 mg PO BID [facility] Last Admin: 12/20/18 10:37 Dose: 5 mg Atorvastatin Calcium (Lipitor -) 80 mg PO HS [facility] Last Admin: 12/19/18 21:50 Dose: 80 mg Carvedilol (Coreg -) 25 mg PO BID [facility] Last Admin: 12/20/18 10:37 Dose: 25 mg Eplerenone (Eplerenone) 25 mg PO BID [facility] Last Admin: 12/20/18 10:39 Dose: 25 mg Furosemide (Lasix -) 40 mg PO BID@0600,1400 [facility] Last Admin: 12/20/18 05:26 Dose: 40 mg Pantoprazole Sodium (Protonix -) 40 mg PO BID [facility] Last Admin: 12/20/18 10:42 Dose: 40 mg Sacubitril/Valsartan (Entresto 97 Mg-103 Mg Tablet) 1 tab PO BID [facility] Last Admin: 12/20/18 10:38 Dose: 1 tab A/P Acute on Chronic Systolic Heart Failure CAD Atrial Fibrillation h/o CVA COPD Pulmonary HTN CKD Anemia - continue lasix - monitor urine output, creatinine - daily weights - rate controlled - continue anticoagulation - O2 as needed - inhaled bronchodilators as needed
[2018-12-20 14:04] VITALS: PULSE 74
--- NOTE | 2018-12-20 14:14 | DS ---
Physical Examination Vital Signs: Vital Signs Temperature 98.4 F 12/20/18 14:00 Pulse Rate 74 12/20/18 14:00 Respiratory Rate 18 12/20/18 14:00 Blood Pressure 106/65 12/20/18 14:00 O2 Sat by Pulse Oximetry (%) 96 12/19/18 22:00 Labs: CBC, BMP 12/20/18 11:36 12/20/18 05:24 Discharge Summary Reason For Visit: CHF ACUTE ,HPERVOLEMIA Current Active Problems CHF exacerbation (Acute) Colon adenomas (Acute) Diverticula of colon (Acute) Hypervolemia (Acute) Leg ulcer (Acute) - Instructions Diet, Activity, Other Instructions: cbc q week bmp q week - Home Medications Comprehensive Discharge Medication List: Ambulatory Orders Cholecalciferol (Vitamin D3) [Vitamin D3] 1,000 unit PO DAILY 07/27/14 Carvedilol [Coreg -] 25 mg PO BID #60 tablet 08/01/15 Apixaban [Eliquis -] 5 mg PO BID #60 tablet 08/04/18 Atorvastatin Ca [Lipitor] 80 mg PO HS #30 tablet 08/04/18 Eplerenone 25 mg PO DAILY@0800 #30 tablet 08/04/18 Sacubitril/Valsartan [Entresto 49 mg-51 mg Tablet] 1 tab PO BID #60 tablet 08/04 Spironolactone 25 mg PO DAILY 12/15/18 Furosemide [Lasix -] 40 mg PO BID@0600,1400 tablet 12/20/18 Pantoprazole Sodium [Protonix -] 40 mg PO BID tablet.ec 12/20/18
--- NOTE | 2018-12-20 15:31 | CONSULT ---
Consultation: REQUESTING PROVIDER: Dr BURKS CONSULT REQUEST: We have been asked to medically evaluate this patient for ( anemia). HISTORY OF PRESENT ILLNESS: History was taken partially fro medical records and from the patiet as he is a poor historian. The patient is a 78 year old male with a PMH of chronic anemia, dilated cardiomyopathy, CAD, permanent a.fib on AC, sick sinus syndrome, hyperlipidemia , CVA with residual deficit, PAD, CKD admitted for CHF exacerbation. We were called for evaluation of anemia. The patient is feeling better today, denies SOB, chest pain, cough, fever, chills. He also denies weakness, headache. PSH:cataract surgery bilateral, Colonoscopy, Permanent Pacemaker (FOR SSS), Stent SH: quit smoking 40 years ago, denies drinking alcohol, o drugs Lives with a friend, used to travel for work. FH: mother when he was 8mo, father n/a, no cancer history REVIEW OF SYSTEMS: CONSTITUTIONAL: Absent: fever, chills, loss of appetite HEENT: Absent: nasal congestion, difficulty swallowing, visual changes CARDIOVASCULAR: Absent: chest pain, syncope, palpitations, irregular heart rate, lightheadedness , peripheral edema RESPIRATORY: Absent: cough, shortness of breath, dyspnea with exertion, orthopnea GASTROINTESTINAL: Absent: abdominal pain, nausea, vomiting, diarrhea, constipation GENITOURINARY: Absent: dysuria, frequency, urgency, hematuria, flank pain MUSCULOSKELETAL: Absent: myalgia, joint swelling, back pain, neck pain SKIN: Absent: rash, itching, pallor HEMATOLOGIC/IMMUNOLOGIC: Absent: easy bleeding, easy bruising, lymphadenopathy, frequent infections ENDOCRINE: Absent: unexplained weight gain, unexplained weight loss, NEUROLOGIC: Absent: headache, focal weakness or paresthesias, dizziness, seizure PSYCHIATRIC: Absent: anxiety, depression PHYSICAL EXAMINATION Vital Signs - 24 hr 12/19/18 12/19/18 12/20/18 17:24 22:00 02:00 Temperature 98.8 F 98 F 98.2 F Pulse Rate 70 77 73 Respiratory 16 18 18 Rate Blood Pressure 112/76 119/86 103/69 O2 Sat by Pulse 96 Oximetry (%) 12/20/18 12/20/18 06:00 14:00 Temperature 98 F 98.4 F Pulse Rate 70 74 Respiratory 18 18 Rate Blood Pressure 103/84 106/65 O2 Sat by Pulse Oximetry (%) GENERAL: Awake, alert, and fully oriented, in no acute distress, sitting in a chair comfortably. HEAD: Normal with no signs of trauma. EYES: Extraocular movements intact, conjunctiva clear. EARS, NOSE, THROAT: Ears normal, nares patent, oropharynx clear without exudates. Moist mucous membranes. NECK: Normal range of motion, supple without lymphadenopathy, + JVD, or masses. LUNGS: Occasional crackles, diminished. No wheezes, no accessory muscle use. HEART: Irregular rate and rhythm, normal S1 and S2 without murmur, rub or gallop , ICD ABDOMEN: Obese, soft, nontender, normoactive bowel sounds, no guarding, no rebound, no masses. MUSCULOSKELETAL: Normal range of motion at all joints. No bony deformities or tenderness. No CVA tenderness. UPPER EXTREMITIES: 1 + peripheral edema in left hand, no edema in RUE. LOWER EXTREMITIES: 2+ pulses, 2+ peripheral edema, hyperpigmentation in RLE, no open wounds, drainage. NEUROLOGICAL: Slurred speech, no facial asymmetry, gait not observed. PSYCHIATRIC: Cooperative. SKIN: Warm, dry. Laboratory Results - last 24 hr 12/19/18 12/19/18 12/19/18 06:02 17:13 17:55 WBC 3.3 L RBC 3.19 L Hgb 9.4 L Hct 29.5 L D MCV 92.7 MCH 29.7 MCHC 32.0 RDW 18.2 H Plt Count 206 MPV 9.8 Absolute Neuts (auto) Neutrophils % Lymphocytes % Monocytes % Eosinophils % Basophils % Nucleated RBC % Retic Count Sodium Potassium Chloride Carbon Dioxide Anion Gap BUN Creatinine Est GFR (CKD-EPI)AfAm Est GFR (CKD-EPI)NonAf Random Glucose Calcium Iron 29 L TIBC 284 Iron Saturation 10 L Ferritin Total Bilirubin Direct Bilirubin AST ALT Alkaline Phosphatase LD Total Total Protein Albumin Vitamin B12 Serum Folate Urine Color Yellow Urine Appearance Clear Urine pH 5.5 Ur Specific [place] 1.012 Urine Protein Trace Urine Glucose (UA) Negative Urine Ketones Negative Urine Blood Negative Urine Nitrite Negative Urine Bilirubin Negative Urine Urobilinogen 2.0 Ur Leukocyte Esterase Trace Urine WBC (Auto) 2 Urine RBC (Auto) 0 Urine Casts (Auto) 2 U Epithel Cells (Auto) 1.4 Urine Bacteria (Auto) 78.7 12/20/18 12/20/18 12/20/18 05:24 05:24 05:24 WBC 3.3 L RBC 2.94 L Hgb 8.6 L Hct 26.4 L MCV 89.9 MCH 29.2 MCHC 32.4 RDW 18.3 H Plt Count 204 MPV 9.8 Absolute Neuts (auto) 2.1 Neutrophils % 63.8 Lymphocytes % 19.8 Monocytes % 11.3 H Eosinophils % 3.7 Basophils % 1.4 Nucleated RBC % 0 Retic Count Sodium 142 Potassium 4.2 Chloride 107 Carbon Dioxide 29 Anion Gap 6 L BUN 28 H Creatinine 1.7 H Est GFR (CKD-EPI)AfAm 43.79 Est GFR (CKD-EPI)NonAf 37.79 Random Glucose 96 Calcium 8.5 Iron TIBC Iron Saturation Ferritin 17.4 Total Bilirubin 2.5 H Direct Bilirubin AST 14 L ALT 16 Alkaline Phosphatase 70 LD Total 208 Total Protein 7.0 Albumin 3.2 L Vitamin B12 526 Serum Folate 6 Urine Color Urine Appearance Urine pH Ur Specific [place] Urine Protein Urine Glucose (UA) Urine Ketones Urine Blood Urine Nitrite Urine Bilirubin Urine Urobilinogen Ur Leukocyte Esterase Urine WBC (Auto) Urine RBC (Auto) Urine Casts (Auto) U Epithel Cells (Auto) Urine Bacteria (Auto) 12/20/18 12/20/18 06 06:00 06:00 11:36 WBC 3.6 L RBC 2.99 L Hgb 8.7 L Hct 27.2 L MCV 91.0 MCH 29.0 MCHC 31.9 L RDW 18.0 H Plt Count 199 MPV 9.7 Absolute Neuts (auto) Neutrophils % Lymphocytes % Monocytes % Eosinophils % Basophils % Nucleated RBC % Retic Count 1.06 Sodium Potassium Chloride Carbon Dioxide Anion Gap BUN Creatinine Est GFR (CKD-EPI)AfAm Est GFR (CKD-EPI)NonAf Random Glucose Calcium Iron TIBC Iron Saturation Ferritin Total Bilirubin 2.4 H Direct Bilirubin 0.7 H AST 12 L ALT 15 Alkaline Phosphatase 77 LD Total Total Protein 7.0 Albumin 3.2 L Vitamin B12 Serum Folate Urine Color Urine Appearance Urine pH Ur Specific [place] Urine Protein Urine Glucose (UA) Urine Ketones Urine Blood Urine Nitrite Urine Bilirubin Urine Urobilinogen Ur Leukocyte Esterase Urine WBC (Auto) Urine RBC (Auto) Urine Casts (Auto) U Epithel Cells (Auto) Urine Bacteria (Auto) Active Medications Generic Name Dose Route Start Last Admin Trade Name Freq PRN Reason Stop Dose Admin Apixaban 5 mg 12/15/18 22:00 12/20/18 10:37 Eliquis - PO 5 mg BID FELICIA Administration Atorvastatin Calcium 80 mg 12/15/18 22:00 12/19/18 21:50 Lipitor - PO 80 mg HS FELICIA Administration Carvedilol 25 mg 12/15/18 22:00 12/20/18 10:37 Coreg - PO 25 mg BID FELICIA Administration Eplerenone 25 mg 12/15/18 22:00 12/20/18 10:39 Eplerenone PO 25 mg BID FELICIA Administration Furosemide 40 mg 12/18/18 14:00 12/20/18 05:26 Lasix - PO 40 mg BID@0600,1400 FELICIA Administration Pantoprazole Sodium 40 mg 12/19/18 22:00 12/20/18 10:42 Protonix - PO 40 mg BID FELICIA Administration Sacubitril/Valsartan 1 tab 12/17/18 22:00 12/20/18 10:38 Entresto 97 Mg-103 Mg Tablet PO 1 tab BID FELICIA Administration ASSESSMENT/PLAN: The patient is a 78 year old male with a PMH of chronic anemia, dilated cardiomyopathy, CAD, permanent afib on AC, sick sinus syndrome, hyperlipidemia, CVA with residual deficit, PAD, CKD admitted for CHF exacerbation. We were called for evaluation for anemia. chronic anemia s/p blood transfusion h/o of GI bleed indirect hyperbilirubinemia leukopenia CAD CVA afib hyperlipidemia PAD CKD leg ulcer BPH Please follow up CBC in outpatient PCP clinic. Anemia is likely due to chronic disease or blood loss. Indirect hyperbilirubinemia- may be secondary to transfusion or hemolysis. Leukopenia is likely chronic, non significant. Reverse A/G ratio- consider protein studies. We recommend f/u with Dr Sheldon in outpatient office after the discharge. Dispo: We will continue to follow the patient. Thank you for this consultative opportunity. Problem List - Problems (1) CHF exacerbation Code(s): I50.9 - HEART FAILURE, UNSPECIFIED Qualifiers: Heart failure type: combined systolic and diastolic Qualified Code(s): I50.43 - 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) heart failure (2) Leg ulcer Code(s): L97.909 - NON-PRS CHRONIC ULC UNSP PRT OF UNSP LOW LEG W UNSP SEVERITY (3) AICD (automatic cardioverter/defibrillator) present Code(s): Z95.810 - PRESENCE OF AUTOMATIC (IMPLANTABLE) CARDIAC DEFIBRILLATOR (4) Afib Code(s): I48.91 - UNSPECIFIED ATRIAL FIBRILLATION Qualifiers: Atrial fibrillation type: chronic Qualified Code(s): I48.2 - Chronic atrial fibrillation (5) Anemia Code(s): D64.9 - ANEMIA, UNSPECIFIED Qualifiers: Anemia type: unspecified type Qualified Code(s): D64.9 - Anemia, unspecified (6) CAD (coronary artery disease) Code(s): I25.10 - ATHSCL HEART DISEASE OF [place] CORONARY ARTERY W/O ANG PCTRS Qualifiers: Coronary Disease-Associated Artery/Lesion type: [place] artery [place] vs. transplanted heart: [place] heart Associated angina: without angina Qualified Code(s): I25.10 - Atherosclerotic heart disease of [place] coronary artery without angina pectoris (7) COPD (chronic obstructive pulmonary disease) Code(s): J44.9 - CHRONIC OBSTRUCTIVE PULMONARY DISEASE, UNSPECIFIED Qualifiers: Emphysema type: unspecified (8) CVA (cerebral infarction) Code(s): I63.9 - CEREBRAL INFARCTION, UNSPECIFIED Qualifiers: Cerebral infarction mechanism: unspecified mechanism Qualified Code(s): I63.9 - Cerebral infarction, unspecified (9) HLD (hyperlipidemia) Code(s): E78.5 - HYPERLIPIDEMIA, UNSPECIFIED Qualifiers: Hyperlipidemia type: pure hypercholesterolemia Qualified Code(s): E78.00 - Pure hypercholesterolemia, unspecified; E78.0 - Pure hypercholesterolemia (10) HTN (hypertension) Code(s): I10 - ESSENTIAL (PRIMARY) HYPERTENSION Qualifiers: Hypertension type: essential hypertension Qualified Code(s): I10 - Essential (primary) hypertension Visit type - Emergency Visit Emergency Visit: Yes ED Registration Date: 12/15/18 Care time: The patient presented to the Emergency Department on the above date and was hospitalized for further evaluation of their emergent condition. - New Patient This patient is new to me today: Yes Date on this admission: 12/20/18 - Critical Care Critical Care patient: No
--- NOTE | 2018-12-20 16:28 | PN ---
Teaching Attending Note Name of Resident: Nallely Kirk ATTENDING PHYSICIAN STATEMENT I saw and evaluated the patient. I reviewed the resident's note and discussed the case with the resident. I agree with the resident's findings and plan as documented. 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 decreased vision secondary to cataracts, positive SOB, dyspnea, no chest pains, no nausea, emesis, no dysuria, hematuria , no back pains Last Vital Signs Temp Pulse Resp BP Pulse Ox 98.4 F 74 18 106/65 98 12/20/18 14:00 12/20/18 14:00 12/20/18 14:00 12/20/18 14:00 12/20/18 09:00 HEENT: right ptosis Oropharynx: No thrush, No mucositis,edentulous Cor: RSR paced , No murmurs, No gallops Lungs:rhonchi, wheezes Abd: Soft, Normal bowel sounds, No organomegaly Ext LE edema LUE edema Scrotal , penile edema Skin: No rashes, Integument intact CBC, BMP 12/20/18 11:36 12/20/18 05:24 Current Medications Generic Name Dose Route Start Last Admin Trade Name Freq PRN Reason Stop Dose Admin Apixaban 5 mg 12/15/18 22:00 12/20/18 10:37 Eliquis - PO 5 mg BID FELICIA Administration Atorvastatin Calcium 80 mg 12/15/18 22:00 12/19/18 21:50 Lipitor - PO 80 mg HS FELICIA Administration Carvedilol 25 mg 12/15/18 22:00 12/20/18 10:37 Coreg - PO 25 mg BID FELICIA Administration Eplerenone 25 mg 12/15/18 22:00 12/20/18 10:39 Eplerenone PO 25 mg BID FELICIA Administration Furosemide 40 mg 12/18/18 14:00 12/20/18 15:34 Lasix - PO 40 mg BID@0600,1400 FELICIA Administration Pantoprazole Sodium 40 mg 12/19/18 22:00 12/20/18 10:42 Protonix - PO 40 mg BID FELICIA Administration Sacubitril/Valsartan 1 tab 12/17/18 22:00 12/20/18 10:38 Entresto 97 Mg-103 Mg Tablet PO 1 tab BID FELICIA Administration Has received one unit of packed cells Stools guaic negative x2 Abnormal Lab Results 12/19/18 12/19/18 12/20/18 06:02 17:55 05:24 WBC 3.3 L 3.3 L RBC 3.19 L 2.94 L Hgb 9.4 L 8.6 L Hct 29.5 L D 26.4 L MCHC RDW 18.2 H 18.3 H Monocytes % 11.3 H Anion Gap BUN Creatinine Iron 29 L Iron Saturation 10 L Total Bilirubin Direct Bilirubin AST Albumin 12/20/18 12/20/18 12/20/18 05:24 06:00 11:36 WBC 3.6 L RBC 2.99 L Hgb 8.7 L Hct 27.2 L MCHC 31.9 L RDW 18.0 H Monocytes % Anion Gap 6 L BUN 28 H Creatinine 1.7 H Iron Iron Saturation Total Bilirubin 2.5 H 2.4 H Direct Bilirubin 0.7 H AST 14 L 12 L Albumin 3.2 L 3.2 L Impression: Anemia- likely multifactorial with combination of blood loss and chronic disease . LUE edema- for duplex 'Indirect hyperbilirubinemia- ? secondary to recently transfused blood ? component of hemolysis CKD - may be candidate for MARTÍN per renal protocol Leukopenia --? secondary to congestive changes Reverse A/G ratio- consider - protein studies. OBJECTIVE: ASSESSMENT AND PLAN:
[2018-12-20 18:27] VITALS: BP 110/88; TEMP 98.4
[2018-12-21 10:12] LABS: HBSAG SCREEN Negative (Negative); HEP A AB, IGM Negative (Negative); HEP B CORE AB, TOT Negative (Negative)
[2018-12-21 15:14] LABS: TRANSGLUTAMINASE IGA < 2 U/mL (0-3); TRANSGLUTAMINASE IGG < 2 U/mL (0-5)
== END 2018-12-20 19:05 | DRG 291 ==
LOC: JER 15:24 → JERBED 18:13 → J2W 22:44
PROVIDERS: ADMIT Family Medicine; ATTEND Family Medicine
DX: I13.0 Hypertensive heart and chronic kidney disease with heart failure and stage 1 through stage 4 chronic kidney disease, or unspecified chronic kidney disease (principal); I50.43 Acute on chronic combined systolic (congestive) and diastolic (congestive) heart failure; I69.351 Hemiplegia and hemiparesis following cerebral infarction affecting right dominant side; N17.9 Acute kidney failure, unspecified; I42.8 Other cardiomyopathies; E78.5 Hyperlipidemia, unspecified; I25.10 Atherosclerotic heart disease of native coronary artery without angina pectoris; N40.0 Benign prostatic hyperplasia without lower urinary tract symptoms; Z98.61 Coronary angioplasty status; I44.7 Left bundle-branch block, unspecified; I48.2 Chronic atrial fibrillation; I49.5 Sick sinus syndrome; Z95.810 Presence of automatic (implantable) cardiac defibrillator; I27.20 Pulmonary hypertension, unspecified; N18.3 Chronic kidney disease, stage 3 (moderate); R91.1 Solitary pulmonary nodule; N28.1 Cyst of kidney, acquired; J43.9 Emphysema, unspecified; B35.1 Tinea unguium; L85.3 Xerosis cutis; D63.1 Anemia in chronic kidney disease; D50.0 Iron deficiency anemia secondary to blood loss (chronic)
CPT/HCPCS: 36415; 36430; 36511; 71045-TC-FY; 76775-TC; 80048; 80053; 80076; 81003; 82105; 82272; 82550; 82607; 82728; 82746; 83010; 83516; 83540; 83550; 83615; 83735; 83880; 84155; 84165; 84484; 85025; 85027; 85044; 86704; 86706; 86708; 86803; 86850; 86900; 86901; 86922; 87340; 93005; 93010; 97116-GP; 97161-GP; 99285-25; P9038; P9058

== ENCOUNTER 2019-01-04 18:18 | Inpatient (IN) | payer OTHER ==
--- NOTE | 2019-01-04 18:57 | PDOC ---
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 The patient states he does not know why he is here in the ED but admits that he vomited 4 times this morning. The patient also endorses amos-umbilical abdominal pain and a bulge in his abdomen which only came about earlier today. The patient states his vomit this morning was orange in color. The patient does not remember what he ate last night or today. he states his last bowel movement was yesterday morning and it was normal without diarrhea or constipation. The patient thinks he has not passed flatus since yesterday morning. Allergies: NKDA, NKA PCP: Dr. Tenzin De La Cruz Clinical Liaison: Dr. Amaro GI: Dr. Villegas PSH: AICD placement, stent Social Hx: Former smoker, quit 20+ years ago. Denies current alcohol, cigarette or illicit drug usage. Past History - Past Medical History Allergies/Adverse Reactions: Allergies Allergy/AdvReac Type Severity Reaction Status Date / Time No Known Allergies Allergy Verified 01/04/19 18:50 Home Medications: Ambulatory Orders Cholecalciferol (Vitamin D3) [Vitamin D3] 1,000 unit PO DAILY 07/27/14 Carvedilol [Coreg -] 25 mg PO BID #60 tablet 08/01/15 Apixaban [Eliquis -] 5 mg PO BID #60 tablet 08/04/18 Atorvastatin Ca [Lipitor] 80 mg PO HS #30 tablet 08/04/18 Eplerenone 25 mg PO DAILY@0800 #30 tablet 08/04/18 Sacubitril/Valsartan [Entresto 49 mg-51 mg Tablet] 1 tab PO BID #60 tablet 08/04 Spironolactone 25 mg PO DAILY 12/15/18 Furosemide [Lasix -] 40 mg PO BID@0600,1400 tablet 12/20/18 Pantoprazole Sodium [Protonix -] 40 mg PO BID tablet.ec 12/20/18 Anemia: Yes Asthma: No Cancer: No Cardiac Disorders: Yes (afib, cardiomyopathy) CVA: Yes (left residual weakness and facial asymmetry) COPD: No CHF: Yes Dementia: No Diabetes: No GI Disorders: No Disorders: Yes (BPH) HTN: Yes Hypercholesterolemia: Yes Liver Disease: No Seizures: No Thyroid Disease: No - Surgical History Abdominal Surgery: No Appendectomy: No Cardiac Surgery: Yes (AICD, stent) Cholecystectomy: No Lung Surgery: No Neurologic Surgery: No Orthopedic Surgery: No - Suicide/Smoking/Psychosocial Hx Smoking Status: Yes Smoking History: Unknown if ever smoked Have you smoked in the past 12 months: No Number of Cigarettes Smoked Daily: 0 If you are a former smoker, when did you quit?: 20 YRS AGO Information on smoking cessation initiated: No Hx Alcohol Use: No Drug/Substance Use Hx: No Substance Use Type: None Hx Substance Use Treatment: No Review of Systems - Review of Systems Able to Perform ROS?: Yes Comments:: CONSTITUTIONAL: Absent: fever, no chills, no fatigue EYES: Absent: visual changes ENT: Absent: ear pain, no sore throat CARDIOVASCULAR: Absent: chest pain, no palpitations RESPIRATORY: Absent: cough, no SOB GI: Present: Abdominal pain, nausea, vomiting Absent: no constipation, no diarrhea GENITOURINARY: Absent: dysuria, no frequency, no hematuria MUSKULOSKELETAL: Absent: back pain, no arthralgia, no myalgia SKIN: Absent: rash NEURO: Absent: headache *Physical Exam - Vital Signs Last Vital Signs Temp Pulse Resp BP Pulse Ox 99.3 F 76 16 126/76 100 01/04/19 18:18 01/04/19 18:18 01/04/19 18:18 01/04/19 18:18 01/04/19 18:18 - Physical Exam Comments: GENERAL: Confused. No apparent distress. HEENT: Normocephalic, atraumatic. PERRL, EOM intact. CARDIOVASCULAR: Irregularly irregular. PULMONARY: b/l rales in both lung [place] ABDOMEN: The abdomen is tense. Normal bowel sounds. There is a 3x4 bulge immediately right of the umbilicus. This bulge is TTP. There is no guarding or rebound tenderness. EXTREMITIES: Limited ROM in all four extremities. B/l 1+ edema SKIN: Warm, dry. No rash NEUROLOGICAL: There is left facial droop. Procedures - Bedside Ultrasound Bedside Ultrasound: Lung Remarks: POCUS Cardiac US shows a severely reduced LV function. EPSS - 20 consistent w/ severe HF. There is both mitral and tricuspid regurgitation. Globally reduced wall function. LUNG: There are B lines all over in both upper and lower lung [place]. IVC: Plethoric, minimal respiratory variation suggesting patient is fluid overloaded. ED Treatment Course - LABORATORY CBC & Chemistry Diagram: 01/04/19 19:55 01/04/19 19:55 - RADIOLOGY Radiograph Interpretation: CTAP: 3.4 x 3.4 x 3.2 cm periumbilical hernia containing a short segment of small bowel (probably fluid-containing, with uncertain bowel wall thickening but no visible pneumatosis). Minimally dilated small bowel all four quadrants with transition point at the hernia sac. Findings consistent with SBO caused by the periumbilical hernia. 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 The patient states he does not know why he is here in the ED but admits that he vomited 4 times this morning. The patient also endorses amos-umbilical abdominal pain and a bulge in his abdomen which only came about earlier today. The patient states his vomit this morning was orange in color. The patient does not remember what he ate last night or today. he states his last bowel movement was yesterday morning and it was normal without diarrhea or constipation. The patient thinks he has not passed flatus since yesterday morning. Vital Signs Temp Pulse Resp BP Pulse Ox 99.3 F 76 16 126/76 100 01/04/19 18:18 01/04/19 18:18 01/04/19 18:18 01/04/19 18:18 01/04/19 18:18 DDx IBNLT: Hernia - incarcerated vs strangulated, SBO, gastroenteritis, colitis , electrolyte/metabolic disturbance, CHF exacerbation. Plan: Labs, Urine, analgesia, anti-emetics, EKG, IV hydration, CTAP, re-assess. POCUS - Cardiac US shows a severely reduced LV function. EPSS - 20 consistent w/ severe HF. There is both mitral and tricuspid regurgitation. Globally reduced wall function. - LUNG: There are B lines all over in both upper and lower lung [place]. - IVC: Plethoric, minimal respiratory variation suggesting patient is fluid overloaded. BNP elevated higher than ever before at 64,514 - Patient likely having an acute CHF exacerbation BUN/Cr elevated 30/2.2 - Patient also having an JASMYN CTAP: Shows SBO caused by Amos-Umbilical hernia - I have reduced the Hernia at bedside. - The fascial wall defect is palpable and will need repair. *DC/Admit/Observation/Transfer Diagnosis at time of Disposition: Shortness of breath, Systolic CHF, acute on chronic, CHF exacerbation, JASMYN ( acute kidney injury), Abdominal pain, SBO (small bowel obstruction), Periumbilical hernia - Discharge Dispostion Condition at time of disposition: Guarded Decision to Admit order: Yes - Referrals - Patient Instructions - Post Discharge Activity
[2019-01-04] MEDS ORDERED: ONDANSETRON 4 MG/2 ML VIAL IVPUSH ONE (19:21)
[2019-01-04] MEDS ORDERED: SODIUM CHLORIDE 500 ML IV STA (19:21)
[2019-01-04] MEDS ORDERED: ACETAMINOPHEN 1000 MG/100 ML VIAL (NON FORMULARY) IVPB ONE (19:21)
[2019-01-04] MEDS ORDERED: FAMOTIDINE 20 MG/50 ML IVPB 20 MG/50 ML MG IVPB ONE ×2 (19:21→22:04)
[2019-01-04 20:23] LABS: BASO % 0.2 % (0-2.0); EOS % 0.4 % (0-4.5); HEMATOCRIT 31.6 % (35.4-49); HEMOGLOBIN 10.2 GM/dL (11.7-16.9); LYMPH % 8.7 % (8-40); MCH 28.9 pg (25.7-33.7); MCHC 32.4 g/dl (32.0-35.9); MEAN CELL VOLUME 89.3 fl (80-96); MEAN PLT VOLUME 10.2 fl (7.5-11.1); MONO % 7.3 % (3.8-10.2); NEUT % 83.4 % (42.8-82.8); PLATELET COUNT 255 K/MM3 (134-434); RBC 3.54 M/mm3 (4.00-5.60); RDW 19.2 % (11.9-15.9); WHITE BLOOD COUNT 4.4 K/mm3 (4.0-10.0)
[2019-01-04 20:24] LABS: INR 1.94 (0.83-1.09); PROTHROMBIN TIME (PATIENT) 23.1 SEC (9.7-13.0)
[2019-01-04] MEDS ORDERED: morphine CARPU-JECT 4 MG/1 ML DISP.SYRIN IVPUSH ONE (20:30)
[2019-01-04] MEDS ORDERED: FUROSEMIDE 40 MG/4 ML INJECTABLE VIAL IVPUSH ONE (20:31)
[2019-01-04 20:42] LABS: ALBUMIN 3.7 g/dl (3.4-5.0); BILIRUBIN,TOTAL 3.8 mg/dL (0.2-1); BLOOD UREA NITROGEN 30.6 mg/dL (7-18); CALCIUM 9.4 mg/dL (8.5-10.1); CREATININE 2.2 mg/dL (0.55-1.3); MAGNESIUM 2.6 mg/dL (1.8-2.4); PHOSPHOROUS 4.2 mg/dL (2.5-4.9); POTASSIUM 4.4 mmol/L (3.5-5.1); TOT PROT 8.1 g/dl (6.4-8.2)
--- NOTE | 2019-01-04 20:47 | PDOC ---
Documentation entered by Natasha Chávez SCRIBE, acting as scribe for Desiree Trejo DO. Desiree Trejo DO: This documentation has been prepared by the pedroibe, Natasha Chávez SCRIBE, under my direction and personally reviewed by me in its entirety. I confirm that the documentation accurately reflects all work, treatment, procedures, and medical decision making performed by me. Attending Attestation - Resident Resident Name: Olivier Bethea - ED Attending Attestation I have performed the following: I have examined & evaluated the patient, The case was reviewed & discussed with the resident, I agree w/resident's findings & plan, Exceptions are as noted - HPI HPI: 01/04/19 21:37 The patient is a 78-year-old male with a past medical history significant for HTN, HLD, Afib (on Eliquis), CHF, CAD s/p PCI, CVA with right-sided hemiparesis , BPH, and OA presents to the emergency department via EMS with vomiting. The patient is unsure why hes at the ER. The patient reports he had 4 episodes of orange colored emesis earlier today and reports a new onset of bulging in the umbilical region associated pain. The patient is unable to recall his last meal. The patient is a poor historian at baseline. Allergies: NKDA. PCP: Dr. Tenzin De La Cruz - Physicial Exam PE: 01/04/19 21:38 Constitutional: Awake, alert. No acute distress. Head: Normocephalic. Atraumatic Eyes: PERRL. EOMI. Conjunctivae are not pale. ENT: Mucous membranes are moist and intact. Posterior pharynx without exudates or erythema. Uvula midline. Neck: Supple. Full ROM. No lymphadenopathy. Cardiovascular: Regular rate. Regular rhythm. S1, S2 regular. Distal pulses are 2+ and symmetric. Pulmonary/Chest: +rales diffused. No evidence of respiratory distress. Clear to auscultation bilaterally No wheezing or rhonchi. Abdominal: +pitting edema to the abdomen, umbilical hernia nonreducible. There is no tenderness. No rebound, guarding. Back: No CVA tenderness. Musculoskeletal: +3+ pitting edema b/l No edema. No cyanosis. No clubbing. Full range of motion in all extremities. No calf tenderness. Skin: Skin is warm and dry. No petechiae. No purpura. Neurological: No focal findings, poor historian. Awake, alert, answers all questions. - Medical Decision Making 01/04/19 20:46 I, Dr. Desiree Trejo, DO, attest that this document has been prepared under my direction and personally reviewed by me in its entirety. I further attest, that it accurately reflects all work, treatment, procedures and medical decision -making performed by me. 01/04/19 20:46 a/p: 78yo male with sob/abd pain -pt with rales, tachypnea and an umbilical hernia -had 2 episodes of n/v earlier tonight -pt with hx of chf - concern for acute chf exacerbation -also with n/v and umbilical hernia, will give pain meds, ice to the area and try to reduce the hernia -labs, ekg, cxr and poss ct abd/pelvis -will monitor and reassess 01/04/19 21:01 pt with JASMYN on CKD and borderline trop 01/04/19 23:24 pt with CHF exacerbation ct pending will attempt reduction of hernia after ct pt will need admission for chf exacerbation 01/05/19 00:43 pt with umbilical hernia that was causing obstruction, but has been reduced no longer with n/v no pneumotosis of the bowel on ct elevated cr resident sent microblog for symphony 01/05/19 01:06 resident discussed the case with SYMPHONY who accepts pt to service Heart Score/ECG Review - ECG Intrepretation Comment:: 01/04/19 23:27 v paced at 70, no acute changes
[2019-01-04 21:27] LABS: N-TERMINAL BNP 64514.7 pg/ml (5-450)
[2019-01-04] MEDS ORDERED: MORPHINE SULFATE 2 MG/ML VIAL ONE (22:03)
[2019-01-04] MEDS ORDERED: ACETAMINOPHEN INJECTION 100 ML IVPB ONE (22:03)
[2019-01-04] MEDS ORDERED: FUROSEMIDE 40 MG/4 ML INJECTABLE VIAL ONE (22:04)
[2019-01-04] MEDS ORDERED: ONDANSETRON 4 MG/2 ML VIAL ONE (22:04)
[2019-01-04 22:28] LABS: EPI CELLS 4.3 /HPF (0-5/HPF); HYALINE CASTS 42 /lpf (0-8); URINE APPEARANCE CLOUDY; URINE BACTERIA 9.6 /hpf (NEGATIVE); URINE BILIRUBIN NEGATIVE (NEGATIVE); URINE COLOR DK YELLOW; URINE GLUCOSE (UA) NEGATIVE (NEGATIVE); URINE KETONE NEGATIVE (NEGATIVE); URINE LEUK ESTERASE NEGATIVE (NEGATIVE); URINE NITRITE NEGATIVE (NEGATIVE); URINE PROTEIN 2+ (NEGATIVE); URINE WBC 6 /hpf (0-5)
[2019-01-04 22:32] LABS: URINE RBC 4.8 /hpf (0-4)
--- NOTE | 2019-01-05 01:33 | PN ---
Teaching Attending Note Name of Resident: Natty Betancourt ATTENDING PHYSICIAN STATEMENT I saw and evaluated the patient. I reviewed the resident's note and discussed the case with the resident. I agree with the resident's findings and plan as documented. SUBJECTIVE: Patient is a 78 year old man from [facility] with PMH of Dementia, HTN, HLD, Afib (on eliquis), AICD, GI bleeding, CHF, CAD s/p PCI, CVA with right- sided hemiparesis and left-sided facial droop, BPH, Anemia, and Osteoarthritis who presents with complaint of vomiting. The patient states he does not know why he is here in the ER but admits that he vomited 4 times this morning. The patient also has amos-umbilical abdominal pain and a bulge in his abdomen which only came about earlier today. The patient states his vomit this morning was orange in color. The patient does not remember what he ate last night or today. His last bowel movement was yesterday morning and it was normal. The patient thinks he has not passed flatus since yesterday morning. Right periumblical hernia was reduced by ER staff. OBJECTIVE: Somnolent but arousable. Vital Signs Period Temp Pulse Resp BP Sys/Ludwig Pulse Ox Last 24 Hr 97.6 F-99.3 F 70-76 16-19 126-127/76-85 100-100 HEENT: No Jaundice, eye redness or discharge, PERRLA, EOMI. Normocephalic, atraumatic. Edentulous. External ears are normal and hearing is grossly intact. No nasal discharge. Neck: Supple, nontender. No palpable adenopathy or thyromegaly. No JVD Chest: Good effort. Clear to auscultation and percussion. Heart: Regular. No S3, rub or murmur Abdomen: Not distended, soft, right periumblical tenderness and no HSM. No rebound or guarding. Normal bowel sounds. Ext: Peripheral pulses intact. Leg edema. Skin: Warm and dry. No petechiae, rash or ecchymosis. Neuro: Somnolent but arousable. Oriented to person. CN 2-12 grossly intact. Sensation grossly intact in all four extremities and DTR are symmetric. Psych: Appropriate mood and affect. Good insight. Home Medications Medication Instructions Recorded Cholecalciferol (Vitamin D3) 1,000 unit PO DAILY 07/27/14 [Vitamin D3] Carvedilol [Coreg -] 25 mg PO BID #60 tablet 08/01/15 Apixaban [Eliquis -] 5 mg PO BID #60 tablet 08/04/18 Atorvastatin Ca [Lipitor] 80 mg PO HS #30 tablet 08/04/18 Eplerenone 25 mg PO DAILY@0800 #30 tablet 08/04/18 Sacubitril/Valsartan [Entresto 49 1 tab PO BID #60 tablet 08/04/18 mg-51 mg Tablet] Spironolactone 25 mg PO DAILY 12/15/18 Furosemide [Lasix -] 40 mg PO BID@0600,1400 tablet 12/20/18 Pantoprazole Sodium [Protonix -] 40 mg PO BID tablet.ec 12/20/18 Abnormal Lab Results 01/04/19 01/04/19 01/04/19 19:55 19:55 19:55 RBC 3.54 L Hgb 10.2 L Hct 31.6 L D RDW 19.2 H Neutrophils % 83.4 H D PT with INR 23.10 H INR 1.94 H BUN 30.6 H Creatinine 2.2 H Random Glucose 133 H Lactic Acid Magnesium 2.6 H Total Bilirubin 3.8 H Troponin I B-Natriuretic Peptide Urine Protein 01/04/19 01/04/19 01/04/19 19:55 19:55 22:15 RBC Hgb Hct RDW Neutrophils % PT with INR INR BUN Creatinine Random Glucose Lactic Acid 2.3 H* Magnesium Total Bilirubin Troponin I 0.06 H B-Natriuretic Peptide 05136.7 H Urine Protein 2+ H ASSESSMENT AND PLAN: 1. Abdominal pain/Vomiting - Patient has not vomited since arriving the ER and he not complaining of abdominal pain anymore. ER staff reduced the periumblical hernia. CT scan of abdomen/pelvis showed small bowel obstruction. Associated lactic acidosis raises the concern for bowel ischemia/incarceration. Will repeat lactic acid, get LDH and KUB xray and consult surgery. EKG shows ventricular-paced rhythm but no significant ST-T wave changes and mildly elevated troponin may be due to KCD or demand ischemia. Will trend troponin to rule out ACS and get ECHO. Last ECHO on record is from 2013. CXR shows cardiomegaly with no significant change in the lung [place] compared to the prior CXR. Continue comprehensive care of all his comorbid conditions including Eliquis for Afib.. 2. CKD - Cause unclear. Needs nephrologic workup in view of proteinuria. Will consult nephrology and avoid nephrotoxic agents such as NSAIDS, aminoglycosides , contrast dyes and certain Alternative medicine products. 3. Anemia - Likely partly due to CKD. Will do basic anemia work up including serial stool guaiacs, reticulocyte count and iron studies. 4. Obesity Counseled on the risks associated with obesity. Will provide patient all the necessary assistance, counseling and positive reinforcement to facilitate weight loss. Consult hangersmith. 5. Hypertension - Will restart suitable outpatient antihypertensive drugs when clinically appropriate. Revise regimen to ensure good BP control. Nonpharmacologic measures to control hypertension like weight loss, salt restriction and exercise discussed. 6. DVT prophylaxis - On Eliquis for afib. 7. Advance directives - Full code
--- NOTE | 2019-01-05 03:03 | HP ---
Admitting History and Physical - Primary Care Physician PCP: Dr De La Cruz - Admission Chief Complaint: n/vomiting History of Present Illness: Pt is a 78-yo male with a PMHx of HTN, HLD, Afib (on Eliquis), CHF, CAD s/p PCI , CVA with right-sided hemiparesis, BPH, and OA BIBEMS from [facility] with one day hx of vomiting. Per records, patient had 4 episodes of orange colored emesis earlier today and reports a new onset of bulging in the umbilical region associated pain. In the ED, ice was placed on the hernia and the pt sent to CT, then post CT, the hernai was reduced. When I saw the pt, he was drowsy but arousable but unable to provide hx. He had no subsequent vomting episodes in ED and was able to rest comfortably. Following hernia reduction ED wanted pt admitted for CHF exacerbation. Pt's LA was however elevated 2.3 without concomitant rise in WBC, or temperature. Trop-25,000, CXR similar to prior with evidence of persistent effusions. CT: Partial bowel obstruction with amos-umbilical hernia (4 x3.4 x3.4) short segment of SBO (probably fluid- containing, with uncertain bowel wall thickening but no visible pneumatosis. Minimally dilated small bowel all 4 quadrants with transition point at hernia sac. Diverticulosis colon. Small stone L kidney. No ureterolithiasis or obstructive uropathy. No bladder calculi. Cystic foci b/l kidneys. Cholelithiasis. Nodular liver contour, possible cirrhosis. Calcified lymphnodes RUQ. CArdiomegaly. ICD. Small b/l pleural effusions. b/l ground glass densities and interstitial thickening, possibly interstitial edema. Dependent atelectasis lung bases, L>R gynecomastia. 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 EGD WNL 2013l) Hepatobiliary: Yes: Cholelithiasis Renal/: Yes: Renal Inusuff (Baseline Scr 1.3mg/dL - CKD Stage III), BPH, Renal Calculi, Other (renal cysts) Heme/Onc: Yes: Anemia Musculoskeletal: Yes: Osteoarthritis - Past Surgical History Past Surgical History: Yes: Colonoscopy, Permanent Pacemaker (FOR SSS, AICD), Stent (RCA 2008), TURP, Upper Endoscopy - Smoking History Smoking history: Unknown if ever smoked Have you smoked in the past 12 months: No Aproximately how many cigarettes per day: 0 If you are a former smoker, when did you quit?: 20 YRS AGO - Alcohol/Substance Use Hx Alcohol Use: No History of Substance Use: reports: None - Social History ADL: Support Services 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 History of Recent Travel: No Home Medications - Allergies Allergies/Adverse Reactions: Allergies Allergy/AdvReac Type Severity Reaction Status Date / Time No Known Allergies Allergy Verified 01/04/19 18:50 - Home Medications Home Medications: Ambulatory Orders Apixaban [Eliquis -] 5 mg PO BID #60 tablet 08/04/18 Atorvastatin Ca [Lipitor] 80 mg PO HS #30 tablet 08/04/18 Sacubitril/Valsartan [Entresto 49 mg-51 mg Tablet] 1 tab PO BID #60 tablet 08/04 Furosemide [Lasix -] 40 mg PO BID@0600,1400 tablet 12/20/18 Pantoprazole Sodium [Protonix -] 40 mg PO BID tablet.ec 12/20/18 Acetaminophen 325 mg PO PRN PRN 01/05/19 Bisacodyl [Dulcolax] 10 mg RC PRN 01/05/19 Carvedilol 25 mg PO BID 01/05/19 Cholecalciferol (Vitamin D3) [Vitamin D3] 1,000 unit PO DAILY 01/05/19 Eplerenone 25 mg PO BID 01/05/19 Fleet Enema 118 ml MT PRN 01/05/19 Magnesium Hydroxide [Milk of Magnesia] 400 mg PO PRN 01/05/19 Tuberculin Ppd 5 Tu/0.1ML [TUBERSOL (PARK CARE ONLY) 5mL VIAL] 0.1 ml ONCE 01/05 Family Disease History - Family Disease History Family Disease History: Other: Father (estranged), Mother (forgot when she passed) Physical Examination Vital Signs: Vital Signs Temperature 97.6 F 01/05/19 00:17 Pulse Rate 73 01/05/19 00:40 Respiratory Rate 18 01/05/19 00:40 Blood Pressure 102/67 01/05/19 00:40 O2 Sat by Pulse Oximetry (%) 97 01/05/19 00:40 Constitutional: Yes: Obese Eyes: Yes: Conjunctiva Clear, EOM Intact, PERRL. No: Sclera Icterus HENT: Yes: Atraumatic Neck: Yes: Supple Cardiovascular: Yes: S1, S2 Respiratory: Yes: Rales Gastrointestinal: Yes: Normal Bowel Sounds, Soft, Other (R periumbilcical reduced hernia measuring about 2x 2cm, no erythema, tympanitic abdomen, no guarding). No: Tenderness Edema: Yes Edema: LLE: 2+, RLE: 2+ (chronic) Peripheral Pulses WNL: Yes (hard to palpate) Neurological: No: Facial Droop, Pre-Existing Deficit ...Motor Strength: WNL Labs: CBC, BMP 01/04/19 19:55 01/04/19 19:55 Assessment/Plan CT: bowel obstruction with amos-umbilical hernia (4 x3.4 x3.4) short segment of SBO (probably fluid- containing, with uncertain bowel wall thickening but no visible pneumatosis. Minimally dilated small bowel all 4 quadrants with transition point at hernia sac. Diverticulosis colon. Small stone L kidney. No ureterolithiasis or obstructive uropathy. No bladder calculi. Cystic foci b/l kidneys. Cholelithiasis. Nodular liver contour, possible cirrhosis. Calcified lymphnodes RUQ. CArdiomegaly. ICD. Small b/l pleural effusions. b/l ground glass densities and interstitial thickening, possibly interstitial edema. Dependent atelectasis lung bases, L>R gynecomastia. Ambulatory Orders Cholecalciferol (Vitamin D3) [Vitamin D3] 1,000 unit PO DAILY 07/27/14 Carvedilol [Coreg -] 25 mg PO BID #60 tablet 08/01/15 Apixaban [Eliquis -] 5 mg PO BID #60 tablet 08/04/18 Atorvastatin Ca [Lipitor] 80 mg PO HS #30 tablet 08/04/18 Eplerenone 25 mg PO DAILY@0800 #30 tablet 08/04/18 Sacubitril/Valsartan [Entresto 49 mg-51 mg Tablet] 1 tab PO BID #60 tablet 08/04 Spironolactone 25 mg PO DAILY 12/15/18 Furosemide [Lasix -] 40 mg PO BID@0600,1400 tablet 12/20/18 Pantoprazole Sodium [Protonix -] 40 mg PO BID tablet.ec 12/20/18 Assessment/Plan: Pt is a 78-yo male with a PMHx of HTN, HLD, Afib (on Eliquis), CHF, CAD s/p PCI , CVA with right-sided hemiparesis, BPH, and OA BIBEMS from [facility] with one day hx of vomiting. Assessment: N/V- n/v- with elevated LA no fever or wbc bowel obstruction with amos-umbilical hernia (4 x3.4 x3.4) Reduced in hernia in ED- R/o ischemic bowel SBO R/o mesenteric ischemia Pt unable to get imaging with contrast due to renal function Will trend LA, send LDH, do KUB May require surgical eval if positive Diverticulosis colon- no GI bleed on rectal exam Small stone L kidney. Cystic foci b/l kidneys. Cholelithiasis. Nodular liver contour, possible cirrhosis. Calcified lymphnodes RUQ. CArdiomegaly. ICD. Small b/l pleural effusions. b/l ground glass densities and interstitial thickening, possibly interstitial edema. HTN, HLD, Afib (on Eliquis), CHF, CAD s/p PCI, CVA with right-sided hemiparesis, BPH, and OA Anemia PAH CKD Prolonged QTC Plan: Echo Hold fluids- pt with effusions and ascites Renal consult Trend LA, trops KUB On eliquis, holding in case needs a procedure Amylase, Iron studies, stool occult Repeat EKG No standing fluids Resume diuresis if no intra-abdominal pathology requiring procedure NPO Avoid nephrotoxic drugs Pt appears to be on both entresto/acei, for medrec in am For hemonc evel for lung nodule Cont lipitor Visit type - Emergency Visit Emergency Visit: Yes ED Registration Date: 01/04/19 Care time: The patient presented to the Emergency Department on the above date and was hospitalized for further evaluation of their emergent condition. - New Patient This patient is new to me today: Yes Date on this admission: 01/04/19 - Critical Care Critical Care patient: No
[2019-01-05 06:12] LABS: BASO % 0.4 % (0-2.0); EOS % 1.3 % (0-4.5); HEMATOCRIT 25.7 % (35.4-49); HEMOGLOBIN 8.4 GM/dL (11.7-16.9); LYMPH % 12.5 % (8-40); MCH 29.2 pg (25.7-33.7); MCHC 32.8 g/dl (32.0-35.9); MEAN CELL VOLUME 89.1 fl (80-96); MEAN PLT VOLUME 9.9 fl (7.5-11.1); MONO % 13.5 % (3.8-10.2); NEUT % 72.3 % (42.8-82.8); PLATELET COUNT 199 K/MM3 (134-434); RBC 2.88 M/mm3 (4.00-5.60); RDW 18.5 % (11.9-15.9); WHITE BLOOD COUNT 3.1 K/mm3 (4.0-10.0)
[2019-01-05] MEDS ORDERED: MAGNESIUM HYDROX 2400MG/30ML ORAL SUSPENSION 30 ML CUP PO SCH (06:30)
[2019-01-05] MEDS ORDERED: BISACODYL 10 MG SUPP.RECT RC SCH (06:30)
[2019-01-05] MEDS ORDERED: FLEET ENEMA PR SCH (06:30)
[2019-01-05] MEDS ORDERED: SODIUM CHLORIDE 0.9% 500 ML INFUS.BAG IV ONE (07:11)
[2019-01-05] MEDS ORDERED: CARVEDILOL 12.5 MG TABLET (FP) ONE (07:16)
[2019-01-05] MEDS ORDERED: PANTOPRAZOLE SODIUM 40 MG VIAL ONE (07:16)
--- NOTE | 2019-01-05 08:19 | PN ---
Progress Note, Physician - Current Medication List Current Medications: Active Medications Atorvastatin Calcium (Lipitor -) 80 mg PO HS FELICIA Bisacodyl (Dulcolax Suppository -) 10 mg RC PRN FELICIA Carvedilol (Coreg -) 25 mg PO BID FELICIA Magnesium Hydroxide (Milk Of Magnesia -) ml PO PRN FELICIA Non-Formulary Medication (Fleet Enema) 118 ml [place] PRN FELICIA Pantoprazole Sodium (Protonix -) 40 mg PO BID FELICIA - Objective Vital Signs: Vital Signs Temperature 98.1 F 01/05/19 07:50 Pulse Rate 71 01/05/19 07:50 Respiratory Rate 20 01/05/19 07:50 Blood Pressure 104/65 01/05/19 07:50 O2 Sat by Pulse Oximetry (%) 100 01/05/19 07:50 Cardiovascular: Yes: S1, S2 Respiratory: Yes: Diminished Gastrointestinal: Yes: Soft, Hypoactive Bowel Sounds Neurological: Yes: Alert, Weakness Labs: CBC, BMP 01/05/19 05:55 01/05/19 03:21 INR, PTT INR 1.94 (0.83-1.09) H 01/04/19 19:55 Problem List - Problems (1) SBO (small bowel obstruction) Assessment/Plan: MAYBE DUE TO HERNIA NPO GI AND SURGICAL CONSULT Code(s): K56.609 - UNSP INTESTNL OBST, UNSP TO PARTIAL VERSUS COMPLETE OBST (2) Sepsis Assessment/Plan: BC AND UC MONITOR LACTIC ACID GI CONSULT Code(s): A41.9 - SEPSIS, UNSPECIFIED ORGANISM (3) JASMYN (acute kidney injury) Assessment/Plan: CAUTIOUS HYDRATION RENAL CONSULT Code(s): N17.9 - ACUTE KIDNEY FAILURE, UNSPECIFIED (4) AICD (automatic cardioverter/defibrillator) present Code(s): Z95.810 - PRESENCE OF AUTOMATIC (IMPLANTABLE) CARDIAC DEFIBRILLATOR (5) Afib Assessment/Plan: HOLD AC CARDIO Code(s): I48.91 - UNSPECIFIED ATRIAL FIBRILLATION Qualifiers: Atrial fibrillation type: chronic Qualified Code(s): I48.2 - Chronic atrial fibrillation (6) Anemia Assessment/Plan: MONITOR COUNTS WILL PROBABLY NEED PRBC GI CONSULT Code(s): D64.9 - ANEMIA, UNSPECIFIED Qualifiers: Anemia type: unspecified type Qualified Code(s): D64.9 - Anemia, unspecified
[2019-01-05 09:25] LABS: RETICULOCYTES 1.14 % (0.5-1.5)
[2019-01-05] MEDS: PANTOPRAZOLE 40 MG TABLET (FP) PO SCH ×2 (10:00→22:10)
[2019-01-05] MEDS: CARVEDILOL 25 MG TABLET (FP) PO SCH ×2 (10:00→22:10)
--- NOTE | 2019-01-05 10:15 | CON.CARD ---
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 Amaro Aug 09, 2018 referred for nausea, non-bloody emesis, amos-umbilical abdominal pain and hernia reduced by ER staff with relief, last BM and flatus yesterday AM. CT scan shows high grade pSBO referable to incarcerated umbilical hernia. 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 EGD WNL 2012l) Hepatobiliary: Yes: Cholelithiasis Renal/: Yes: Renal Inusuff (Baseline Scr 1.3mg/dL - CKD Stage III), BPH, Renal Calculi, Other (renal cysts) Musculoskeletal: Yes: Osteoarthritis - Past Surgical History Past Surgical History: Yes: Colonoscopy, Permanent Pacemaker (FOR SSS, AICD), Stent (RCA 2008), TURP, Upper Endoscopy - Alcohol/Substance Use Hx Alcohol Use: No History of Substance Use: reports: None - Smoking History Smoking history: Unknown if ever smoked Have you smoked in the past 12 months: No Aproximately how many cigarettes per day: 0 If you are a former smoker, when did you quit?: 20 YRS AGO - Social History Usual Living Arrangement: [employer] ADL: Support Services 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 History of Recent Travel: No Home Medications - Allergies Allergies/Adverse Reactions: Allergies Allergy/AdvReac Type Severity Reaction Status Date / Time No Known Allergies Allergy Verified 01/04/19 18:50 - Home Medications Home Medications: Ambulatory Orders Apixaban [Eliquis -] 5 mg PO BID #60 tablet 08/04/18 Atorvastatin Ca [Lipitor] 80 mg PO HS #30 tablet 08/04/18 Sacubitril/Valsartan [Entresto 49 mg-51 mg Tablet] 1 tab PO BID #60 tablet 08/04 Furosemide [Lasix -] 40 mg PO BID@0600,1400 tablet 12/20/18 Pantoprazole Sodium [Protonix -] 40 mg PO BID tablet.ec 12/20/18 Acetaminophen 325 mg PO PRN PRN 01/05/19 Bisacodyl [Dulcolax] 10 mg RC PRN 01/05/19 Carvedilol 25 mg PO BID 01/05/19 Cholecalciferol (Vitamin D3) [Vitamin D3] 1,000 unit PO DAILY 01/05/19 Eplerenone 25 mg PO BID 01/05/19 Fleet Enema 118 ml [place] PRN 01/05/19 Magnesium Hydroxide [Milk of Magnesia] 400 mg PO PRN 01/05/19 Tuberculin Ppd 5 Tu/0.1ML [TUBERSOL (PARK CARE ONLY) 5mL VIAL] 0.1 ml ONCE 01/05 Family Disease History - Family Disease History Family Disease History: Other: Father (estranged), Mother (forgot when she passed) Review of Systems - Review of Systems Gastrointestinal: reports: Abdominal Pain, Bloating, Nausea, Vomiting Vital Signs: Vital Signs Temperature 98.1 F 01/05/19 07:50 Pulse Rate 71 01/05/19 07:50 Respiratory Rate 20 01/05/19 07:50 Blood Pressure 104/65 01/05/19 07:50 O2 Sat by Pulse Oximetry (%) 100 01/05/19 07:50 Constitutional: Yes: No Distress, Calm Neck: Yes: Supple Respiratory: Yes: Regular, Diminished, On Nasal O2 Gastrointestinal: Yes: Soft, Hypoactive Bowel Sounds Cardiovascular: Yes: Regular Rate and Rhythm JVD: No Carotid Bruit: No Heart Sounds: Yes: S1, S2 Murmur: Yes: Systolic Murmur, Grade 1 Edema: Yes Edema: LLE: 1+, RLE: 1+ - Other Data Labs, Other Data: CBC, BMP 01/05/19 05:55 01/05/19 03:21 INR, PTT INR 1.94 (0.83-1.09) H 01/04/19 19:55 Troponin, BNP 01/04/19 01/05/19 01/05/19 19:55 03:21 03:21 Troponin I 0.06 H Cancelled Cancelled B-Natriuretic Peptide 60499.7 H Troponin, BNP 01/04/19 01/05/19 01/05/19 19:55 03:21 03:21 Troponin I 0.06 H Cancelled Cancelled B-Natriuretic Peptide 89139.7 H V-paced @ 70 Ejection Fraction %: LVEF < 40 % Imaging - Results Chest X-ray: Report Reviewed (NAD) Problem List - Problems (1) JASMYN (acute kidney injury) Code(s): N17.9 - ACUTE KIDNEY FAILURE, UNSPECIFIED (2) Periumbilical hernia Code(s): K42.9 - UMBILICAL HERNIA WITHOUT OBSTRUCTION OR GANGRENE (3) SBO (small bowel obstruction) Code(s): K56.609 - UNSP INTESTNL OBST, UNSP TO PARTIAL VERSUS COMPLETE OBST (4) AICD (automatic cardioverter/defibrillator) present Code(s): Z95.810 - PRESENCE OF AUTOMATIC (IMPLANTABLE) CARDIAC DEFIBRILLATOR (5) Afib Code(s): I48.91 - UNSPECIFIED ATRIAL FIBRILLATION Qualifiers: Atrial fibrillation type: chronic Qualified Code(s): I48.2 - Chronic atrial fibrillation (6) Anemia Code(s): D64.9 - ANEMIA, UNSPECIFIED Qualifiers: Anemia type: unspecified type Qualified Code(s): D64.9 - Anemia, unspecified (7) CAD (coronary artery disease) Code(s): I25.10 - ATHSCL HEART DISEASE OF [place] CORONARY ARTERY W/O ANG PCTRS Qualifiers: Coronary Disease-Associated Artery/Lesion type: [place] artery [place] vs. transplanted heart: [place] heart Associated angina: without angina Qualified Code(s): I25.10 - Atherosclerotic heart disease of [place] coronary artery without angina pectoris (8) CHF (congestive heart failure) Code(s): I50.9 - HEART FAILURE, UNSPECIFIED (9) CVA (cerebral infarction) Code(s): I63.9 - CEREBRAL INFARCTION, UNSPECIFIED Qualifiers: Cerebral infarction mechanism: unspecified mechanism Qualified Code(s): I63.9 - Cerebral infarction, unspecified (10) HLD (hyperlipidemia) Code(s): E78.5 - HYPERLIPIDEMIA, UNSPECIFIED Qualifiers: Hyperlipidemia type: pure hypercholesterolemia Qualified Code(s): E78.00 - Pure hypercholesterolemia, unspecified; E78.0 - Pure hypercholesterolemia (11) HTN (hypertension) Code(s): I10 - ESSENTIAL (PRIMARY) HYPERTENSION Qualifiers: Hypertension type: essential hypertension Qualified Code(s): I10 - Essential (primary) hypertension (12) Leg edema Code(s): R60.0 - LOCALIZED EDEMA (13) Status post coronary artery stent placement Code(s): Z95.5 - PRESENCE OF CORONARY ANGIOPLASTY IMPLANT AND GRAFT Assessment/Plan December 19, 2017 Dilated LV with severely decreased LVEF 30%, DAV LA 4.8 cm, mod MR , mild TR, RVP 39 mmHg, mild ao dilatation 4.3 cm Sep 14, 2017 Pharm stress: Severe diffuse global HK LVEF 22% Jul 31, [address]: Pulm HTN, congestion, trace ascites, cholelithiasis with thickened GB January 04, 2019 Abd&pelvic CT: High grade pSBO with incarcerated umbilical hernia , ascites, bilateral effusions, cardiomegaly, cholelithiasis and left nephrolithiasis 1. High grade partial SBO referable to incarcerated umbilical hernia, pre-op CV evaluation 2. LV systolic dysfunction with h/o failure 3. CAD post PCI/stent, angina pectoris 4. Permanent atrial fibrillation on chronic anticoagulation (Eliquis), [id number] score of 4 5. 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 HTN/HCVD 7. Hypercholesterolemia 8. History of CVA with right hemiparesis 9. Acute on CKD 3 (pre-renal) secondary to Hypertensive Nephrosclerosis vs. Acquired Cystic Renal Disease (unlikely PCKD given normal size kidneys) 10. Anemia of CKD 11. PAD 12. COPD and pulmonary HTN 13. Gynecomastia PLAN: 1. Given absence of symptoms of decompensated CHF, malignant arrhythmia, or acute coronary syndrome, may proceed with hernia repair from CV-standpoint w/o further testing, NGT decompression, bowel rest, judicious hydration 2. Hold Lasix 40 mg BID, Eplerenone 25 mg BID and Entresto 97/103 mg BID with monitoring renal recovery and electrolytes 3. Continue Coreg 25 mg BID, Lipitor 80 mg QHS. BiDil as outpatient 4. Hold Eliquis 5 mg BID 2 days prior to surgery and resume once hemostasis achieved, compression therapy bilateral LE. 5. Thank you for consultative opportunity
--- NOTE | 2019-01-05 11:45 | ECHO ---
Name: EDGAR BOYCE Exam:Adult Echocardiogram Study Date: 01/05/2019 10:02 AM Age: 78 yrs Reason For Study: CHF Height: 66 in Weight: 230 lb BSA: 2.1 m2 MMode/2D Measurements & Calculations IVSd: 1.6 cm Ao root diam: 3.5 cm LVIDd: 6.1 cm LA dimension: 4.1 cm LVIDs: 4.9 cm LVPWd: 1.9 cm EDV(Teich): 190.0 ml LVOT diam: 2.0 cm ESV(Teich): 112.5 ml LAV (MOD-bp): 143.0 ml Doppler Measurements & Calculations MV E max garcía: 119.0 cm/sec Ao V2 max: 97.7 cm/sec MV dec time: 0.15 sec Ao max P.8 mmHg LEIGHANN(V,D): 2.8 cm2 LV V1 max P.9 mmHg MR max garcía: 388.2 cm/sec LV V1 max: 85.4 cm/sec MR max P.3 mmHg TR max garcía: 286.9 cm/sec PA V2 max: 88.2 cm/sec TR max P.6 mmHg PA max P.1 mmHg Med Peak E' García: 4.4 cm/sec PI Vmax: 287.8 cm/sec Med E/e': 27.3 Lat Peak E' García: 2.8 cm/sec Lat E/e': 42.1 Left Ventricle The left ventricle is mildly dilated. Left ventricular systolic function is severely reduced. Ejectio n Fraction = 15-20%. The transmitral spectral Doppler flow pattern is suggestive of restrictive physiol ogy. There is severe global hypokinesis of the left ventricle. Right Ventricle There is a pacemaker lead in the right ventricle. The right ventricle is moderate to severely dilated . The right ventricular systolic function is moderate to severely reduced. Atria The left atrium is moderately dilated. The right atrium is moderately dilated. Mitral Valve The mitral valve is grossly normal. There is no mitral valve stenosis. There is moderate mitral regur gitation. Tricuspid Valve The tricuspid valve is not well visualized, but is grossly normal. There is mild to moderate tricuspi d regurgitation. Right ventricular systolic pressure is elevated at 40-50mmHg. Aortic Valve The aortic valve opens well. No hemodynamically significant valvular aortic stenosis. No aortic regur gitation is present. Pulmonic Valve The pulmonic valve is not well seen, but is grossly normal. There is no pulmonic valvular stenosis. M oderate pulmonic valvular regurgitation. Great Vessels The aortic root is normal size. Pericardium/Pleura There is no pericardial effusion. Interpretation Summary The left ventricle is mildly dilated. The transmitral spectral Doppler flow pattern is suggestive of restrictive physiology. Left ventricular systolic function is severely reduced. Ejection Fraction = 15-20%. There is severe global hypokinesis of the left ventricle. There is a pacemaker lead in the right ventricle. The right ventricular systolic function is moderate to severely reduced. The right ventricle is moderate to severely dilated. The left atrium is moderately dilated. The right atrium is moderately dilated. There is moderate mitral regurgitation. There is mild to moderate tricuspid regurgitation. Right ventricular systolic pressure is elevated at 40-50mmHg. Moderate pulmonic valvular regurgitation. MD Fernandes *Kristen 01/05/2019 11:44 AM
[2019-01-05 11:53] LABS: HEMATOCRIT 27.3 % (35.4-49); MCH 29.3 pg (25.7-33.7); MCHC 33.1 g/dl (32.0-35.9); MEAN CELL VOLUME 88.5 fl (80-96); MEAN PLT VOLUME 9.7 fl (7.5-11.1); PLATELET COUNT 224 K/MM3 (134-434); RBC 3.09 M/mm3 (4.00-5.60); RDW 18.1 % (11.9-15.9); WHITE BLOOD COUNT 3.4 K/mm3 (4.0-10.0)
[2019-01-05 12:36] LABS: ALBUMIN 3.3 g/dl (3.4-5.0); BILIRUBIN,TOTAL 3.3 mg/dL (0.2-1); BLOOD UREA NITROGEN 34.4 mg/dL (7-18); CALCIUM 8.4 mg/dL (8.5-10.1); CREATININE 2.1 mg/dL (0.55-1.3); POTASSIUM 4.3 mmol/L (3.5-5.1); TOT PROT 7.3 g/dl (6.4-8.2)
--- NOTE | 2019-01-05 13:38 | EKG ---
Test Reason : Blood Pressure : / mmHG Vent. Rate : 070 BPM Atrial Rate : 068 BPM P-R Int : 000 ms QRS Dur : 186 ms QT Int : 502 ms P-R-T Axes : 000 145 -10 degrees QTc Int : 542 ms AV dual-paced rhythm Confirmed by ALCON DAWKINS MD ([id number]) on 01/05/2019 1:37:52 PM Referred By: Confirmed By:ALCON DAWKINS MD
--- NOTE | 2019-01-05 13:56 | CONSULT ---
Consult Consult Specialty:: Nephrology Reason for Consultation:: CKD - History of Present Illness Chief Complaint: vomiting History of Present Illness: Pt is a 78 year old male with pmhx of htn, hld, a-fib, ckd, gi bleed, cad, cva, and cad who presents to the ER with vomiting. He is awake and appears comfortable. I was called to evaluate him for elevated loom blower. He was recently hospitalized. He denies hematemesis. He denies diearrhea or constipation. He does not remember if he passed stool. - History Source History Provided By: Patient, Medical Record - Past Medical History MANAGER FILM: Yes: CVA (rt hemiparesis) Cardio/Vascular: Yes: AFIB, CAD (08/26 RCA stent), CHF (systolic dysfunction, Cardiomyopathy, 09/28 ecfho- severe global hypokinesis), HTN, Hyperlipdemia, Murmur, Pulmonary Hypertension, Other (AICD/PPM, tricuspid regurgitation 09/28 echo) Pulmonary: Yes: Other (pulmonary nodules, interstitial changes) Gastrointestinal: Yes: Diverticulosis, Gastritis, GI Bleed, Other (colon adenoma rmeoved 2009. EGD WNL 2013l) Hepatobiliary: Yes: Cholelithiasis Renal/: Yes: Renal Inusuff (Baseline Scr 1.3mg/dL - CKD Stage III), BPH, Renal Calculi, Other (renal cysts) Musculoskeletal: Yes: Osteoarthritis - Past Surgical History Past Surgical History: Yes: Colonoscopy, Permanent Pacemaker (FOR SSS, AICD), Stent (RCA 2008), TURP, Upper Endoscopy - Alcohol/Substance Use Hx Alcohol Use: No History of Substance Use: reports: None - Smoking History Smoking history: Unknown if ever smoked Have you smoked in the past 12 months: No Aproximately how many cigarettes per day: 0 If you are a former smoker, when did you quit?: 20 YRS AGO - Social History Usual Living Arrangement: Senior Care ADL: Support Services 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 History of Recent Travel: No Home Medications - Allergies Allergies/Adverse Reactions: Allergies Allergy/AdvReac Type Severity Reaction Status Date / Time No Known Allergies Allergy Verified 01/04/19 18:50 - Home Medications Home Medications: Ambulatory Orders Apixaban [Eliquis -] 5 mg PO BID #60 tablet 08/04/18 Atorvastatin Ca [Lipitor] 80 mg PO HS #30 tablet 08/04/18 Sacubitril/Valsartan [Entresto 49 mg-51 mg Tablet] 1 tab PO BID #60 tablet 08/04 Furosemide [Lasix -] 40 mg PO BID@0600,1400 tablet 12/20/18 Pantoprazole Sodium [Protonix -] 40 mg PO BID tablet.ec 12/20/18 Acetaminophen 325 mg PO PRN PRN 01/05/19 Bisacodyl [Dulcolax] 10 mg RC PRN 01/05/19 Carvedilol 25 mg PO BID 01/05/19 Cholecalciferol (Vitamin D3) [Vitamin D3] 1,000 unit PO DAILY 01/05/19 Eplerenone 25 mg PO BID 01/05/19 Fleet Enema 118 ml NC PRN 01/05/19 Magnesium Hydroxide [Milk of Magnesia] 400 mg PO PRN 01/05/19 Tuberculin Ppd 5 Tu/0.1ML [TUBERSOL (PARK CARE ONLY) 5mL VIAL] 0.1 ml ONCE 01/05 Family Disease History - Family Disease History Family Disease History: Other: Father (estranged), Mother (forgot when she passed) Review of Systems - Review of Systems Constitutional: reports: Malaise Eyes: reports: No Symptoms HENT: reports: No Symptoms Neck: reports: No Symptoms Cardiovascular: reports: No Symptoms Respiratory: reports: No Symptoms Gastrointestinal: reports: Vomiting Genitourinary: reports: No Symptoms Musculoskeletal: reports: No Symptoms Integumentary: reports: No Symptoms Neurological: reports: No Symptoms Endocrine: reports: No Symptoms Hematology/Lymphatic: reports: No Symptoms Psychiatric: reports: No Symptoms Physical Exam Vital Signs: Vital Signs Temperature 98.1 F 01/05/19 07:50 Pulse Rate 71 01/05/19 07:50 Respiratory Rate 20 01/05/19 08:00 Blood Pressure 104/65 01/05/19 07:50 O2 Sat by Pulse Oximetry (%) 96 01/05/19 08:00 Constitutional: Yes: Calm Eyes: Yes: Conjunctiva Clear HENT: Yes: Atraumatic Neck: Yes: Supple Cardiovascular: Yes: S1, S2 Respiratory: Yes: CTA Bilaterally Gastrointestinal: Yes: Soft Renal/: Yes: WNL Musculoskeletal: Yes: Muscle Weakness Edema: Yes Edema: LLE: Trace, RLE: Trace Neurological: Yes: Oriented, Pre-Existing Deficit Labs: CBC, BMP 01/05/19 11:30 01/05/19 11:30 Imaging - Results Cat Scan: Report Reviewed Problem List - Problems (1) CKD (chronic kidney disease) Code(s): N18.9 - CHRONIC KIDNEY DISEASE, UNSPECIFIED (2) JASMYN (acute kidney injury) Code(s): N17.9 - ACUTE KIDNEY FAILURE, UNSPECIFIED (3) Abdominal pain Code(s): R10.9 - UNSPECIFIED ABDOMINAL PAIN (4) SBO (small bowel obstruction) Code(s): K56.609 - UNSP INTESTNL OBST, UNSP TO PARTIAL VERSUS COMPLETE OBST (5) CHF (congestive heart failure) Code(s): I50.9 - HEART FAILURE, UNSPECIFIED Assessment/Plan Current Medications Generic Name Dose Route Start Last Admin Trade Name Freq PRN Reason Stop Dose Admin Atorvastatin Calcium 80 mg 01/05/19 22:00 Lipitor - PO HS FELICIA Bisacodyl 10 mg 01/05/19 06:30 Dulcolax Suppository - RC PRN FELICIA Carvedilol 25 mg 01/05/19 10:00 01/05/19 10:00 Coreg - PO 25 mg BID FELICIA Administration Magnesium Hydroxide ml 01/05/19 06:30 Milk Of Magnesia - PO PRN FELICIA Non-Formulary Medication 118 ml 01/05/19 06:30 Fleet Enema NC PRN FELICIA Pantoprazole Sodium 40 mg 01/05/19 10:00 01/05/19 10:00 Protonix - PO 40 mg BID FELICIA Administration Laboratory Tests 07/30/18 12/18/18 12/19/18 15:30 05:37 06:02 Creatinine 1.8 H 1.6 H Total Protein Ttecl-4-Xdbsgyjsw (%) 5.2 Mylym-6-Upjpslvpo (%) 11.3 Albumin (PEP) MARISSA M-Fredi 12/20/18 12/20/18 01/04/19 05:24 05:24 19:55 Creatinine 1.7 H 2.2 H Total Protein Ukytg-2-Otefuzjxq (%) Bdebe-1-Grcvhfxhu (%) Albumin (PEP) 3.3 MARISSA M-Fredi Not observed 01/05/19 11:30 Creatinine 2.1 H Total Protein 7.3 Seums-7-Fmekbdvys (%) Tebpd-7-Manwjqnnb (%) Albumin (PEP) MARISSA M-Fredi Impression 1. CKD 2. partial SBO 3. CHF 4. dementia 5. pulm nodules 6. renal cysts 7. HLD Plan - hold diuretics for now - will give gentle hydration as he has chf and is npo - he does not appear overloaded - check ua - check urine electrolytes and loom blower - avoid nsaids
[2019-01-05] MEDS ORDERED: DEXTROSE 5%-0.45% SALINE 1,000 ML IV SCH (14:00)
--- NOTE | 2019-01-05 18:14 | CON.GI ---
Consult Consult Specialty:: GI: For Dr. Villegas: Dr. العراقي covering through the weekend Referred by:: Dr. De La Cruz - History of Present Illness Chief Complaint: Vomiting History of Present Illness: 78F [place] from [place] for evaluation of vomiting. CT scan reveqaled nodular, cirrhotic appering liver and was noted to have high grade SBO with transition point at incarecerated umbilical hernia. The H&P describes the hernia being reduced in the ED. he currently denies abdominal pain and there has been no further vomiting. Awaiting surgical evaluation. Mr. Garcia was evaluated by Dr. Villegas earlier this month when he was admitted with dyspnea and weakness. His Hb was 8.7. It was 10 on 08/04/18. There was no overt bleeding at that time. There was no hematemesis. There was no constipation, dysphagia or early satiety reported at that time. He had a colonoscopy with Dr. Villegas on 05/20/10 when tubular adenomas were removed from the cecum and transverse colon and hyperplastic polyps from the sigmoid and rectum. Moderate diverticulosis was noted universally. He also had an EGD with Dr. Fitzpatrick on 03/11/13 which was normal. Mr. 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 he was guaiac negative on Dr. Villegas's physical exam 12/19/18. while there was no obvious or occult bleeding, Dr. Villegas wrote that he could not exclude chronic indolent GI blood losses from vascular ectasias, recurrent colon adenomas or cancer, silent GERD and ulcer disease. He felt that he should ideally have an EGD, colonoscopy and capsule endoscopy but his cardiac and respiratory risks precluded doing these safely. If brisk bleeding ensues he would reconsider those options. - Past Medical History TRASH MAN: Yes: CVA (rt hemiparesis) Cardio/Vascular: Yes: AFIB, CAD (08/26 RCA stent), CHF (systolic dysfunction, Cardiomyopathy, 09/28 ecfho- severe global hypokinesis), HTN, Hyperlipdemia, Murmur, Pulmonary Hypertension, Other (AICD/PPM, tricuspid regurgitation 09/28 echo) Pulmonary: Yes: Other (pulmonary nodules, interstitial changes) Gastrointestinal: Yes: Diverticulosis, Gastritis, GI Bleed, Other (colon adenoma rmeoved 2009. EGD WNL 2013l) Hepatobiliary: Yes: Cholelithiasis Renal/: Yes: Renal Inusuff (Baseline Scr 1.3mg/dL - CKD Stage III), BPH, Renal Calculi, Other (renal cysts) Musculoskeletal: Yes: Osteoarthritis - Past Surgical History Past Surgical History: Yes: Colonoscopy, Permanent Pacemaker (FOR SSS, AICD), Stent (RCA 2008), TURP, Upper Endoscopy - Alcohol/Substance Use Hx Alcohol Use: Yes (heavily in past) History of Substance Use: reports: None - Smoking History Smoking history: Former smoker (heavily in past) Have you smoked in the past 12 months: No Aproximately how many cigarettes per day: 0 If you are a former smoker, when did you quit?: 20 YRS AGO - Social History Usual Living Arrangement: Detention ADL: Support Services 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 Place of : [facility] History of Recent Travel: No Home Medications - Allergies Allergies/Adverse Reactions: Allergies Allergy/AdvReac Type Severity Reaction Status Date / Time No Known Allergies Allergy Verified 01/04/19 18:50 - Home Medications Home Medications: Ambulatory Orders Apixaban [Eliquis -] 5 mg PO BID #60 tablet 08/04/18 Atorvastatin Ca [Lipitor] 80 mg PO HS #30 tablet 08/04/18 Sacubitril/Valsartan [Entresto 49 mg-51 mg Tablet] 1 tab PO BID #60 tablet 08/04 Furosemide [Lasix -] 40 mg PO BID@0600,1400 tablet 12/20/18 Pantoprazole Sodium [Protonix -] 40 mg PO BID tablet.ec 12/20/18 Acetaminophen 325 mg PO PRN PRN 01/05/19 Bisacodyl [Dulcolax] 10 mg RC PRN 01/05/19 Carvedilol 25 mg PO BID 01/05/19 Cholecalciferol (Vitamin D3) [Vitamin D3] 1,000 unit PO DAILY 01/05/19 Eplerenone 25 mg PO BID 01/05/19 Fleet Enema 118 ml [place] PRN 01/05/19 Magnesium Hydroxide [Milk of Magnesia] 400 mg PO PRN 01/05/19 Tuberculin Ppd 5 Tu/0.1ML [TUBERSOL (PARK CARE ONLY) 5mL VIAL] 0.1 ml ONCE 06/21 /19 Family Disease History - Family Disease History Family Disease History: Other: Father (estranged), Mother (forgot when she passed), Brother (unclear how he ), Son (2, healthy) Other Family History: no family history of colorectal cancer Review of Systems - Review of Systems Constitutional: denies: Chills Cardiovascular: denies: Chest Pain Respiratory: reports: SOB (Chronic). denies: Cough Gastrointestinal: reports: Abdominal Pain (resolved), Vomiting (resolved). denies: Melena, Rectal Bleeding, Vomiting Blood Physical Exam-GI Vital Signs: Vital Signs Temperature 98.1 F 01/05/19 07:50 Pulse Rate 71 01/05/19 07:50 Respiratory Rate 20 01/05/19 08:00 Blood Pressure 104/65 01/05/19 07:50 O2 Sat by Pulse Oximetry (%) 96 01/05/19 08:00 Constitutional: Yes: Calm Eyes: No: Sclera Icterus Cardiovascular: Yes: Regular Rate and Rhythm, Other (paplable PPM in left upper chest) Gastrointestinal Inspection: Yes: Distention (protuberant abdomen,tympanitic), Hernia (reducible umbilical hernia) ...Auscultate: Yes: Normoactive Bowel Sounds ...Palpate: No: Tenderness ...Percussion: Yes: Tympanitic Extremities: Yes: Other (Chronic stasis changes and dry LE skin bilaterally) Edema: LLE: 1+, RLE: 1+ Neurological: Yes: Alert Labs: CBC, BMP 01/05/19 11:30 01/05/19 11:30 INR, PTT INR 1.94 (0.83-1.09) H 01/04/19 19:55 MELD: 25 Laboratory Tests 12/20/18 05:24 Hep A IgM Ab Confirm Negative Hepatitis A Ab Total Positive H Hep Bs Antigen Negative Hep Bs Antibody Non reactive Hep B Core Total Ab Negative Hep C Ab Diagnostic <0.1 Problem List - Problems (1) SBO (small bowel obstruction) Assessment/Plan: Patient with small bowel obstruction related to umbilical hernia Cirrhosis noted on recent imaging study: bilirubin and coaguloapthy along with renal insufficiency increases MELD to 25, making him a high surgical risk Continue medical optimization Monitor hepatic panel, INR for continued improving trend Surgical evaluation Follow-up abdominal X-Ray ordered for this evening Dr. العراقي covering over the weekend Dr. Villegas resumes coverage 01/08 Code(s): K56.609 - UNSP INTESTNL OBST, UNSP TO PARTIAL VERSUS COMPLETE OBST
[2019-01-05] MEDS ORDERED: SODIUM PHOSPHATE/NA BIPHOS 133 ML ENEMA RC PRN (20:34)
[2019-01-05] MEDS: ATORVASTATIN CA 80 MG TABLET (FP) PO SCH (22:10)
[2019-01-05 22:41] LABS: BILIRUBIN,TOTAL 3.1 mg/dL (0.2-1); BLOOD UREA NITROGEN 34.8 mg/dL (7-18); CALCIUM 8.4 mg/dL (8.5-10.1); POTASSIUM 3.9 mmol/L (3.5-5.1); TOT PROT 6.8 g/dl (6.4-8.2)
[2019-01-06 04:09] LABS: SERUM IRON SATURATION 14 % (15-55); TOTAL IRON BINDING CAPACITY 270 ug/dL (250-450); UIBC 231 ug/dL (111-343)
[2019-01-06 08:50] LABS: ALBUMIN 2.9 g/dl (3.4-5.0); BILIRUBIN,DIRECT 1.2 mg/dL (0.0-0.2); CALCIUM 8.1 mg/dL (8.5-10.1); POTASSIUM 3.8 mmol/L (3.5-5.1); TOT PROT 6.4 g/dl (6.4-8.2)
[2019-01-06 09:12] LABS: INR 1.79 (0.83-1.09); PROTHROMBIN TIME (PATIENT) 21.3 SEC (9.7-13.0)
--- NOTE | 2019-01-06 09:45 | PN ---
Progress Note (short form) - Note Progress Note: Renal follow up or JASMYN/CKD Coverage for Dr. Madrigal Pt seen and examined at the bedside awake and alert denies any Nausea or vomiting has abd distension, no pain no NGT in place making urine on IVF Vital Signs Temperature 97.8 F 01/06/19 06:00 Pulse Rate 78 01/06/19 06:00 Respiratory Rate 20 01/06/19 06:00 Blood Pressure 95/52 L 01/06/19 06:00 O2 Sat by Pulse Oximetry (%) 96 01/05/19 21:00 Intake & Output 01/03/19 01/04/19 01/05/19 01/06/19 23:59 23:59 23:59 23:59 Intake Total 770 252 Balance 770 252 Weight 104.326 kg 104.326 kg 95.481 kg NAD on NC O2 RRR Dec Bs, no overt rales soft, distended,n on tenderness in Abd + edema in LE CBC, BMP 01/05/19 11:30 01/06/19 05:30 Current Medications Atorvastatin Calcium (Lipitor -) 80 mg PO HS [facility] Last Admin: 01/05/19 22:10 Dose: 80 mg Bisacodyl (Dulcolax Suppository -) 10 mg RC PRN FELICIA Carvedilol (Coreg -) 25 mg PO BID [facility] Last Admin: 01/05/19 22:10 Dose: 25 mg Dextrose/Sodium Chloride (D5-1/2ns -) 1,000 mls @ 42 mls/hr IV ASDIR [facility] Last Admin: 01/05/19 15:00 Dose: 42 mls/hr Magnesium Hydroxide (Milk Of Magnesia -) 30 ml PO PRN FELICIA Pantoprazole Sodium (Protonix -) 40 mg PO BID [facility] Last Admin: 01/05/19 22:10 Dose: 40 mg Sodium Phosphate (Fleet Adult Rectal Enema -) 133 ml RC PRN PRN PRN Reason: CONSTIPATION 78 year old male with pmhx of htn, hld, a-fib, ckd, gi bleed, cad, cva, and cad who presents to the ER with vomiting and found have SBO. Impression 1. CKD 2. partial SBO 3. CHF/Le edema 4. dementia 5. pulm nodules 6. renal cysts 7. HLD 8. Anemia Plan Renal function stable, no overt electrolyte or acid base disturbance. Continue to hold diuretics for now, but can give PRN if any signs of respiratory distress hold IVF for now as pt with bilateral effusions and LE edema. No signs of dehydration at this time. Trend H/H Check iron studies GI/Surgical follow up for SBO Sodium phosphate enema discontinued, phosphate based enemas should be avoided in all patients with CKD - avoid nsaids
[2019-01-06] MEDS: CARVEDILOL 25 MG TABLET (FP) PO SCH ×2 (09:47→22:39)
[2019-01-06] MEDS: PANTOPRAZOLE 40 MG TABLET (FP) PO SCH ×2 (09:47→22:39)
--- NOTE | 2019-01-06 10:05 | PN ---
Progress Note, Physician Chief Complaint: Events noted Was difficult to arouse this morning History of Present Illness: Patient was seen and examined. Chart was reviewed - Current Medication List Current Medications: Active Medications Atorvastatin Calcium (Lipitor -) 80 mg PO HS [facility] Last Admin: 01/05/19 22:10 Dose: 80 mg Bisacodyl (Dulcolax Suppository -) 10 mg RC PRN FELICIA Carvedilol (Coreg -) 25 mg PO BID [facility] Last Admin: 01/06/19 09:47 Dose: 25 mg Magnesium Hydroxide (Milk Of Magnesia -) 30 ml PO PRN FELICIA Pantoprazole Sodium (Protonix -) 40 mg PO BID [facility] Last Admin: 01/06/19 09:47 Dose: 40 mg - Objective Vital Signs: Vital Signs Temperature 97.8 F 01/06/19 09:05 Pulse Rate 78 01/06/19 09:05 Respiratory Rate 18 01/06/19 09:05 Blood Pressure 109/65 01/06/19 09:05 O2 Sat by Pulse Oximetry (%) 96 01/05/19 21:00 Neck: Yes: Supple Cardiovascular: Yes: Regular Rate and Rhythm, Murmur (Soft SM), S1, S2 Respiratory: Yes: Diminished Gastrointestinal: No: Tenderness Edema: No Labs: CBC, BMP 01/05/19 11:30 01/06/19 05:30 INR, PTT INR 1.79 (0.83-1.09) H 01/06/19 05:30 Problem List - Problems (1) JASMYN (acute kidney injury) Code(s): N17.9 - ACUTE KIDNEY FAILURE, UNSPECIFIED (2) CHF exacerbation Code(s): I50.9 - HEART FAILURE, UNSPECIFIED Qualifiers: (3) CKD (chronic kidney disease) Code(s): N18.9 - CHRONIC KIDNEY DISEASE, UNSPECIFIED (4) SBO (small bowel obstruction) Code(s): K56.609 - UNSP INTESTNL OBST, UNSP TO PARTIAL VERSUS COMPLETE OBST (5) Sepsis Code(s): A41.9 - SEPSIS, UNSPECIFIED ORGANISM (6) Systolic CHF, acute on chronic Code(s): I50.23 - ACUTE ON CHRONIC SYSTOLIC (CONGESTIVE) HEART FAILURE (7) AICD (automatic cardioverter/defibrillator) present Code(s): Z95.810 - PRESENCE OF AUTOMATIC (IMPLANTABLE) CARDIAC DEFIBRILLATOR (8) Acute hypoxemic respiratory failure Code(s): J96.01 - ACUTE RESPIRATORY FAILURE WITH HYPOXIA (9) Acute renal failure superimposed on stage 3 chronic kidney disease Code(s): N17.9 - ACUTE KIDNEY FAILURE, UNSPECIFIED; N18.3 - CHRONIC KIDNEY DISEASE, STAGE 3 (MODERATE) (10) CAD (coronary artery disease) Code(s): I25.10 - ATHSCL HEART DISEASE OF [place] CORONARY ARTERY W/O ANG PCTRS Qualifiers: Coronary Disease-Associated Artery/Lesion type: [place] artery [place] vs. transplanted heart: [place] heart Associated angina: without angina Qualified Code(s): I25.10 - Atherosclerotic heart disease of [place] coronary artery without angina pectoris (11) COPD (chronic obstructive pulmonary disease) Code(s): J44.9 - CHRONIC OBSTRUCTIVE PULMONARY DISEASE, UNSPECIFIED Qualifiers: Emphysema type: unspecified (12) CVA (cerebral infarction) Code(s): I63.9 - CEREBRAL INFARCTION, UNSPECIFIED Qualifiers: Cerebral infarction mechanism: unspecified mechanism Qualified Code(s): I63.9 - Cerebral infarction, unspecified (13) HLD (hyperlipidemia) Code(s): E78.5 - HYPERLIPIDEMIA, UNSPECIFIED Qualifiers: Hyperlipidemia type: pure hypercholesterolemia Qualified Code(s): E78.00 - Pure hypercholesterolemia, unspecified; E78.0 - Pure hypercholesterolemia (14) HTN (hypertension) Code(s): I10 - ESSENTIAL (PRIMARY) HYPERTENSION Qualifiers: Hypertension type: essential hypertension Qualified Code(s): I10 - Essential (primary) hypertension (15) Pulmonary hypertension Code(s): I27.2 - OTHER SECONDARY PULMONARY HYPERTENSION * DO NOT USE * (16) Status post coronary artery stent placement Code(s): Z95.5 - PRESENCE OF CORONARY ANGIOPLASTY IMPLANT AND GRAFT Assessment/Plan 1. High grade partial SBO referable to incarcerated umbilical hernia 2. LV systolic dysfunction with history of failure 3. CAD post PCI/stent, angina pectoris 4. 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 HTN/HCVD 7. Hypercholesterolemia 8. History of CVA with right hemiparesis 9. Acute on CKD 3 (pre-renal) secondary to Hypertensive Nephrosclerosis vs. Acquired Cystic Renal Disease (unlikely PCKD given normal size kidneys) 10. Anemia of CKD 11. PAD 12. COPD and pulmonary HTN PLAN: 1. No absolute contraindication for surgery in view of absence of ischemic symptoms, decompensated congestive heart failure or malignant arrhythmia 2. Lasix, Eplerenone and Entresto are held with monitoring renal recovery and electrolytes 3. Continue Coreg 25 mg BID, Lipitor 80 mg QHS and BiDil as outpatient 4. Hold Eliqus 2 days prior to surgery and resume once hemostasis achieved Further plans are to follow Ari Hinojosa MD
--- NOTE | 2019-01-06 12:24 | PN ---
Progress Note, Physician Chief Complaint: Abdominal Pain SBO History of Present Illness: Previous notes and events reviewed awake and alert NAD denies chest pain or SOB no reports of BM or passing flatus - Current Medication List Current Medications: Active Medications Atorvastatin Calcium (Lipitor -) 80 mg PO [facility] Last Admin: 01/05/19 22:10 Dose: 80 mg Bisacodyl (Dulcolax Suppository -) 10 mg RC PRN [facility] Carvedilol (Coreg -) 25 mg PO BID [facility] Last Admin: 01/06/19 09:47 Dose: 25 mg Magnesium Hydroxide (Milk Of Magnesia -) 30 ml PO PRN FELICIA Pantoprazole Sodium (Protonix -) 40 mg PO BID [facility] Last Admin: 01/06/19 09:47 Dose: 40 mg - Objective Vital Signs: Vital Signs Temperature 97.8 F 01/06/19 09:05 Pulse Rate 78 01/06/19 09:05 Respiratory Rate 18 01/06/19 09:05 Blood Pressure 109/65 01/06/19 09:05 O2 Sat by Pulse Oximetry (%) 96 01/05/19 21:00 Constitutional: Yes: No Distress, Calm Eyes: Yes: Conjunctiva Clear HENT: Yes: Atraumatic Cardiovascular: Yes: Regular Rate and Rhythm Respiratory: Yes: Regular, Diminished Gastrointestinal: Yes: Soft, Distention, Hypoactive Bowel Sounds Genitourinary: Yes: Incontinence Musculoskeletal: Yes: Muscle Weakness Extremities: Yes: WNL Edema: Yes Edema: LLE: 1+, RLE: 1+ Neurological: Yes: Alert, Pre-Existing Deficit Psychiatric: Yes: Alert Labs: CBC, BMP 01/05/19 11:30 01/06/19 05:30 INR, PTT INR 1.79 (0.83-1.09) H 01/06/19 05:30 Microbiology 01/05/19 11:30 Blood - Peripheral Venous Blood Culture - Preliminary NO GROWTH OBTAINED AFTER 24 HOURS, INCUBATION TO CONTINUE FOR 4 DAYS. 01/05/19 11:40 Blood - Peripheral Venous Blood Culture - Preliminary NO GROWTH OBTAINED AFTER 24 HOURS, INCUBATION TO CONTINUE FOR 4 DAYS. - ....Imaging Cat Scan: Report Reviewed Problem List - Problems (1) CHF exacerbation Assessment/Plan: -Lasix and Entresto on hold due to renal function -cardiology on board -1L fluid restriction -daily weights -I&Os -BNP 37688 Code(s): I50.9 - HEART FAILURE, UNSPECIFIED Qualifiers: (2) CKD (chronic kidney disease) Assessment/Plan: -BUN/Cr 36.0/2.0 -renal on board -monitor renal function Code(s): N18.9 - CHRONIC KIDNEY DISEASE, UNSPECIFIED (3) Periumbilical hernia Assessment/Plan: -Surgical consult -GI on board -NPO -Abdomen and Pelvic CT scan reviewed Code(s): K42.9 - UMBILICAL HERNIA WITHOUT OBSTRUCTION OR GANGRENE (4) SBO (small bowel obstruction) Assessment/Plan: -Surgery Consult -GI on board -NPO -Abdomen/Pelvic CT scan shows high-grade SBO believed to be related to incarcerated umbilical hernia Code(s): K56.609 - UNSP INTESTNL OBST, UNSP TO PARTIAL VERSUS COMPLETE OBST (5) Sepsis Assessment/Plan: -BC neg -afebrile -no leukocytosis -LA 2.1 Code(s): A41.9 - SEPSIS, UNSPECIFIED ORGANISM (6) AICD (automatic cardioverter/defibrillator) present Code(s): Z95.810 - PRESENCE OF AUTOMATIC (IMPLANTABLE) CARDIAC DEFIBRILLATOR (7) Afib Assessment/Plan: -Eliquis on hold due to pending surgery Code(s): I48.91 - UNSPECIFIED ATRIAL FIBRILLATION Qualifiers: Atrial fibrillation type: chronic Qualified Code(s): I48.2 - Chronic atrial fibrillation (8) CVA (cerebral infarction) Assessment/Plan: -Atorvastatin and Eliquis Code(s): I63.9 - CEREBRAL INFARCTION, UNSPECIFIED Qualifiers: Cerebral infarction mechanism: unspecified mechanism Qualified Code(s): I63.9 - Cerebral infarction, unspecified (9) HLD (hyperlipidemia) Assessment/Plan: -Atorvastatin Code(s): E78.5 - HYPERLIPIDEMIA, UNSPECIFIED Qualifiers: Hyperlipidemia type: pure hypercholesterolemia Qualified Code(s): E78.00 - Pure hypercholesterolemia, unspecified; E78.0 - Pure hypercholesterolemia (10) HTN (hypertension) Assessment/Plan: -Coreg -Echo shows EF 15% Code(s): I10 - ESSENTIAL (PRIMARY) HYPERTENSION Qualifiers: Hypertension type: essential hypertension Qualified Code(s): I10 - Essential (primary) hypertension Assessment/Plan see problem list dvt ppx
--- NOTE | 2019-01-06 13:01 | PN ---
Progress Note (short form) - Note Progress Note: Pt denies abdominal pain. Films from yesterday show persistent dilated small bowel loops. On exam today his abdomen is distended and tympanitic, but he has no pain and there is no tenderness, either direct or rebound. Will obtain FUA to assess small bowel distention.
[2019-01-06 13:08] VITALS: BMI 31.9
--- NOTE | 2019-01-06 16:56 | CONS ---
SURGICAL CONSULTATION DATE OF CONSULTATION: 01/06/2019 REQUESTING PHYSICIAN: Leighann De La Cruz MD CONSULTING PHYSICIAN: Hong Bruno MD REASON FOR CONSULTATION: Umbilical hernia/small-bowel obstruction. HISTORY: This is a 78-year-old man who is a very poor historian. However, review of the chart and associated lab and imaging studies demonstrate that the patient is a cirrhotic with ascites, has history of congestive heart failure, coronary artery disease, CVA. Apparently, the patient presented with small-bowel obstruction. Noted to have incarcerated umbilical hernia in the emergency room, which was reduced. Patient was subsequently admitted. PHYSICAL EXAMINATION: General: He is awake and alert, in no acute distress. Denies any pain at this time. Actually hungry. Again, patient a poor historian, cannot tell me how long he has had the abdominal wall hernia. Vital Signs: Stable. Abdomen: Softly distended. He has clinical ascites. There is a reducible umbilical hernia noted. LABORATORY DATA: White count 3.4/platelets 21,000. His bilirubin is elevated at 3. His A/G ratio is reversed with his albumin of 2.9. Notes in the chart indicate he has a cardiac ejection fraction in the 10% to 20% range. IMPRESSION: A 78-year-old class C cirrhotic who presented with small-bowel obstruction which appears to have been related to an incarcerated umbilical hernia which has since been reduced. Patient with neutropenia/thrombocytopenia/ diminished cardiac ejection fraction, class 3 cirrhosis. Patient no candidate for surgery at the [facility]. In addition to his multiple medical issues, the presence of his advanced liver disease and ascites would be associated with high mortality and morbidity in the operative arena. RECOMMENDATIONS: At this time, it is my opinion patient should be transferred to a tertiary center where both hepatic and cardiac support services are available. Certainly, if he is to undergo any surgery, considering the significant associated morbidity and mortality, this should be performed at a tertiary center as well. I left a message for Dr. De La Cruz. I would not manage this patient here in the [facility]. Dr. De La Cruz free to get another opinion regarding surgical management. PROGNOSIS: Poor/guarded. HONG BRUNO M.D. [id number] MTDD
--- NOTE | 2019-01-06 19:28 | PN ---
Progress Note (short form) - Note Progress Note: ID CONSULT DICTATED SBO/UMBILICAL HERNIA LEUKOPENIA CHRONIC OBSERVE OFF ANTIBIOTICS
[2019-01-06] MEDS: ATORVASTATIN CA 80 MG TABLET (FP) PO SCH (22:39)
[2019-01-07 07:25] LABS: BASO % 0.7 % (0-2.0); EOS % 2.6 % (0-4.5); HEMATOCRIT 25.7 % (35.4-49); HEMOGLOBIN 8.4 GM/dL (11.7-16.9); LYMPH % 13.2 % (8-40); MCH 29.3 pg (25.7-33.7); MCHC 32.8 g/dl (32.0-35.9); MEAN CELL VOLUME 89.3 fl (80-96); MONO % 12.5 % (3.8-10.2); PLATELET COUNT 243 K/MM3 (134-434); RBC 2.88 M/mm3 (4.00-5.60); RDW 18.5 % (11.9-15.9); WHITE BLOOD COUNT 3.9 K/mm3 (4.0-10.0)
[2019-01-07 08:14] LABS: BLOOD UREA NITROGEN 33.6 mg/dL (7-18); CALCIUM 8.4 mg/dL (8.5-10.1); MAGNESIUM 2.6 mg/dL (1.8-2.4); PHOSPHOROUS 3.6 mg/dL (2.5-4.9); POTASSIUM 3.7 mmol/L (3.5-5.1)
--- NOTE | 2019-01-07 09:27 | PN ---
Progress Note, Physician Chief Complaint: Events noted Awake today and not in distress Does not know where he is History of Present Illness: Patient was seen and examined. Chart was reviewed Denies chest pain, SOB or palpitations - Current Medication List Current Medications: Active Medications Atorvastatin Calcium (Lipitor -) 80 mg PO HS [facility] Last Admin: 01/06/19 22:39 Dose: 80 mg Bisacodyl (Dulcolax Suppository -) 10 mg RC PRN [facility] Carvedilol (Coreg -) 25 mg PO BID [facility] Last Admin: 01/06/19 22:39 Dose: Not Given Magnesium Hydroxide (Milk Of Magnesia -) 30 ml PO PRN [facility] Pantoprazole Sodium (Protonix -) 40 mg PO BID [facility] Last Admin: 01/06/19 22:39 Dose: 40 mg - Objective Vital Signs: Vital Signs Temperature 97.1 F L 01/07/19 06:00 Pulse Rate 70 01/07/19 06:00 Respiratory Rate 20 01/07/19 06:00 Blood Pressure 109/65 01/07/19 06:00 O2 Sat by Pulse Oximetry (%) 100 01/06/19 21:00 HENT: Yes: Atraumatic Neck: Yes: Supple Cardiovascular: Yes: Regular Rate and Rhythm, S1, S2 Respiratory: Yes: Diminished Gastrointestinal: Yes: Normal Bowel Sounds, Soft. No: Tenderness Edema: No Labs: CBC, BMP 01/07/19 05:35 01/07/19 05:35 INR, PTT INR 1.79 (0.83-1.09) H 01/06/19 05:30 Problem List - Problems (1) JASMYN (acute kidney injury) Code(s): N17.9 - ACUTE KIDNEY FAILURE, UNSPECIFIED (2) CHF exacerbation Code(s): I50.9 - HEART FAILURE, UNSPECIFIED Qualifiers: (3) CKD (chronic kidney disease) Code(s): N18.9 - CHRONIC KIDNEY DISEASE, UNSPECIFIED (4) SBO (small bowel obstruction) Code(s): K56.609 - UNSP INTESTNL OBST, UNSP TO PARTIAL VERSUS COMPLETE OBST (5) Sepsis Code(s): A41.9 - SEPSIS, UNSPECIFIED ORGANISM (6) Systolic CHF, acute on chronic Code(s): I50.23 - ACUTE ON CHRONIC SYSTOLIC (CONGESTIVE) HEART FAILURE (7) AICD (automatic cardioverter/defibrillator) present Code(s): Z95.810 - PRESENCE OF AUTOMATIC (IMPLANTABLE) CARDIAC DEFIBRILLATOR (8) Acute hypoxemic respiratory failure Code(s): J96.01 - ACUTE RESPIRATORY FAILURE WITH HYPOXIA (9) Acute renal failure superimposed on stage 3 chronic kidney disease Code(s): N17.9 - ACUTE KIDNEY FAILURE, UNSPECIFIED; N18.3 - CHRONIC KIDNEY DISEASE, STAGE 3 (MODERATE) (10) CAD (coronary artery disease) Code(s): I25.10 - ATHSCL HEART DISEASE OF [place] CORONARY ARTERY W/O ANG PCTRS Qualifiers: Coronary Disease-Associated Artery/Lesion type: [place] artery [place] vs. transplanted heart: [place] heart Associated angina: without angina Qualified Code(s): I25.10 - Atherosclerotic heart disease of [place] coronary artery without angina pectoris (11) COPD (chronic obstructive pulmonary disease) Code(s): J44.9 - CHRONIC OBSTRUCTIVE PULMONARY DISEASE, UNSPECIFIED Qualifiers: Emphysema type: unspecified (12) CVA (cerebral infarction) Code(s): I63.9 - CEREBRAL INFARCTION, UNSPECIFIED Qualifiers: Cerebral infarction mechanism: unspecified mechanism Qualified Code(s): I63.9 - Cerebral infarction, unspecified (13) HLD (hyperlipidemia) Code(s): E78.5 - HYPERLIPIDEMIA, UNSPECIFIED Qualifiers: Hyperlipidemia type: pure hypercholesterolemia Qualified Code(s): E78.00 - Pure hypercholesterolemia, unspecified; E78.0 - Pure hypercholesterolemia (14) HTN (hypertension) Code(s): I10 - ESSENTIAL (PRIMARY) HYPERTENSION Qualifiers: Hypertension type: essential hypertension Qualified Code(s): I10 - Essential (primary) hypertension (15) Pulmonary hypertension Code(s): I27.2 - OTHER SECONDARY PULMONARY HYPERTENSION * DO NOT USE * (16) Status post coronary artery stent placement Code(s): Z95.5 - PRESENCE OF CORONARY ANGIOPLASTY IMPLANT AND GRAFT Assessment/Plan 1. High grade partial SBO referable to incarcerated umbilical hernia 2. LV systolic dysfunction with history of failure 3. CAD post PCI/stent, angina pectoris 4. Permanent atrial fibrillation on chronic anticoagulation (Eliquis), [id number] score of 4 5. RESISTOR COATER-D (post device upgrade), history of sick sinus syndrome 6. HTN/HCVD 7. Hypercholesterolemia 8. History of CVA with right hemiparesis 9. Acute on CKD 3 (pre-renal) secondary to Hypertensive Nephrosclerosis vs. Acquired Cystic Renal Disease (unlikely PCKD given normal size kidneys) 10. Anemia of CKD 11. PAD 12. COPD and pulmonary HTN PLAN: 1. Surgery assessment, currently not planned. 2. Lasix, Eplerenone and Entresto are held with monitoring renal recovery and electrolytes 3. Continue Coreg 25 mg BID, Lipitor 80 mg QHS and BiDil as outpatient 4. Currently off Eliquis. If it is to be off for prolonged time, may require Heparin drip in the interim. If surgery is not planned, would restart Eliquis unless otherwise Further plans are to follow Ari Hinojosa MD
--- NOTE | 2019-01-07 10:40 | PN ---
Progress Note, Physician History of Present Illness: AWAKE, ALERT NO C/O ABDOMINAL PAIN NO N/V NO BM AFEBRILE BC (-) - Current Medication List Current Medications: Active Medications Apixaban (Eliquis -) 5 mg PO BID [facility] Atorvastatin Calcium (Lipitor -) 80 mg PO HS [facility] Last Admin: 01/06/19 22:39 Dose: 80 mg Bisacodyl (Dulcolax Suppository -) 10 mg RC PRN [facility] Carvedilol (Coreg -) 25 mg PO BID [facility] Last Admin: 01/06/19 22:39 Dose: Not Given Magnesium Hydroxide (Milk Of Magnesia -) 30 ml PO PRN [facility] Pantoprazole Sodium (Protonix -) 40 mg PO BID [facility] Last Admin: 01/06/19 22:39 Dose: 40 mg - Objective Vital Signs: Vital Signs Temperature 97.1 F L 01/07/19 06:00 Pulse Rate 70 01/07/19 06:00 Respiratory Rate 20 01/07/19 06:00 Blood Pressure 109/65 01/07/19 06:00 O2 Sat by Pulse Oximetry (%) 100 01/06/19 21:00 Constitutional: Yes: No Distress Eyes: Yes: Conjunctiva Clear Cardiovascular: Yes: Regular Rate and Rhythm, S1, S2 Respiratory: Yes: CTA Bilaterally Gastrointestinal: Yes: Normal Bowel Sounds, Soft, Other (DISTENDED, TYMPANITIC) . No: Tenderness Edema: Yes Edema: LLE: 1+, RLE: 1+ Labs: CBC, BMP 01/07/19 05:35 01/07/19 05:35 INR, PTT INR 1.79 (0.83-1.09) H 01/06/19 05:30 Assessment/Plan BOWEL OBSTRUCTION UMBILICAL HERNIA CHRONIC LEUKOPENIA CHRONIC LIVER DISEASE OBSERVE OFF ANTIBIOTICS
--- NOTE | 2019-01-07 11:22 | PN ---
Progress Note, Physician Chief Complaint: Abdominal Pain SBO History of Present Illness: Previous notes and events reviewed awake and alert NAD denies chest pain or SOB no reports of BM or passing flatus denies abdominal pain - Current Medication List Current Medications: Active Medications Apixaban (Eliquis -) 5 mg PO BID [facility] Atorvastatin Calcium (Lipitor -) 80 mg PO HS [facility] Last Admin: 01/06/19 22:39 Dose: 80 mg Bisacodyl (Dulcolax Suppository -) 10 mg RC PRN [facility] Carvedilol (Coreg -) 25 mg PO BID [facility] Last Admin: 01/06/19 22:39 Dose: Not Given Magnesium Hydroxide (Milk Of Magnesia -) 30 ml PO PRN [facility] Pantoprazole Sodium (Protonix -) 40 mg PO BID [facility] Last Admin: 01/06/19 22:39 Dose: 40 mg - Objective Vital Signs: Vital Signs Temperature 97.1 F L 01/07/19 06:00 Pulse Rate 70 01/07/19 06:00 Respiratory Rate 20 01/07/19 06:00 Blood Pressure 109/65 01/07/19 06:00 O2 Sat by Pulse Oximetry (%) 100 01/06/19 21:00 Constitutional: Yes: No Distress, Calm Eyes: Yes: Conjunctiva Clear HENT: Yes: Atraumatic Cardiovascular: Yes: Regular Rate and Rhythm Respiratory: Yes: Regular, CTA Bilaterally Gastrointestinal: Yes: Normal Bowel Sounds, Soft, Distention, Hypoactive Bowel Sounds Genitourinary: Yes: Incontinence Musculoskeletal: Yes: Muscle Weakness Extremities: Yes: WNL Edema: No Neurological: Yes: Alert, Pre-Existing Deficit Psychiatric: Yes: Alert Labs: CBC, BMP 01/07/19 05:35 01/07/19 05:35 INR, PTT INR 1.79 (0.83-1.09) H 01/06/19 05:30 Microbiology 01/05/19 11:30 Blood - Peripheral Venous Blood Culture - Preliminary NO GROWTH OBTAINED AFTER 24 HOURS, INCUBATION TO CONTINUE FOR 4 DAYS. 01/05/19 11:40 Blood - Peripheral Venous Blood Culture - Preliminary NO GROWTH OBTAINED AFTER 24 HOURS, INCUBATION TO CONTINUE FOR 4 DAYS. Problem List - Problems (1) CHF exacerbation Assessment/Plan: -Lasix and Entresto on hold due to renal function -cardiology on board -1L fluid restriction -daily weights -I&Os -BNP 08419 -Echo with EF 15% Code(s): I50.9 - HEART FAILURE, UNSPECIFIED Qualifiers: (2) CKD (chronic kidney disease) Assessment/Plan: -BUN/Cr 33.6/2.0 -renal on board -monitor renal function Code(s): N18.9 - CHRONIC KIDNEY DISEASE, UNSPECIFIED (3) Periumbilical hernia Assessment/Plan: -Surgical consult -GI on board -trial of clear liquids -Abdomen and Pelvic CT scan reviewed Code(s): K42.9 - UMBILICAL HERNIA WITHOUT OBSTRUCTION OR GANGRENE (4) SBO (small bowel obstruction) Assessment/Plan: -Surgery recommendations reviewed -GI on board -clear liquids -Abdomen/Pelvic CT scan shows high-grade SBO believed to be related to incarcerated umbilical hernia -pending official read of Abdominal Xray Code(s): K56.609 - UNSP INTESTNL OBST, UNSP TO PARTIAL VERSUS COMPLETE OBST (5) Sepsis Assessment/Plan: -BC neg -afebrile -no leukocytosis -LA 2.1 Code(s): A41.9 - SEPSIS, UNSPECIFIED ORGANISM (6) AICD (automatic cardioverter/defibrillator) present Code(s): Z95.810 - PRESENCE OF AUTOMATIC (IMPLANTABLE) CARDIAC DEFIBRILLATOR (7) Afib Assessment/Plan: -restarted on Eliquis Code(s): I48.91 - UNSPECIFIED ATRIAL FIBRILLATION Qualifiers: Atrial fibrillation type: chronic Qualified Code(s): I48.2 - Chronic atrial fibrillation (8) CVA (cerebral infarction) Assessment/Plan: -Atorvastatin and Eliquis Code(s): I63.9 - CEREBRAL INFARCTION, UNSPECIFIED Qualifiers: Cerebral infarction mechanism: unspecified mechanism Qualified Code(s): I63.9 - Cerebral infarction, unspecified (9) HLD (hyperlipidemia) Assessment/Plan: -Atorvastatin Code(s): E78.5 - HYPERLIPIDEMIA, UNSPECIFIED Qualifiers: Hyperlipidemia type: pure hypercholesterolemia Qualified Code(s): E78.00 - Pure hypercholesterolemia, unspecified; E78.0 - Pure hypercholesterolemia (10) HTN (hypertension) Assessment/Plan: -Coreg -Echo shows EF 15% Code(s): I10 - ESSENTIAL (PRIMARY) HYPERTENSION Qualifiers: Hypertension type: essential hypertension Qualified Code(s): I10 - Essential (primary) hypertension Assessment/Plan see problem list dvt ppx
--- NOTE | 2019-01-07 11:29 | PN ---
Progress Note (short form) - Note Progress Note: Renal follow up or JASMYN/CKD Coverage for Dr. Madrigal Pt seen and examined at the bedside awake and alert denies any Nausea or vomiting no BM making urine off IVF Vital Signs Temperature 97.1 F L 01/07/19 06:00 Pulse Rate 70 01/07/19 06:00 Respiratory Rate 20 01/07/19 06:00 Blood Pressure 109/65 01/07/19 06:00 O2 Sat by Pulse Oximetry (%) 100 01/06/19 21:00 Intake & Output 01/04/19 01/05/19 01/06/19 01/07/19 23:59 23:59 23:59 23:59 Intake Total 770 499 Output Total 350 150 Balance 770 149 -150 Weight 104.326 kg 104.326 kg 95.254 kg 93.349 kg NAD on NC O2 RRR Dec Bs, no overt rales soft, distended,n on tenderness in Abd + edema in LE CBC, BMP 01/07/19 05:35 01/07/19 05:35 Current Medications Apixaban (Eliquis -) 5 mg PO BID [facility] Atorvastatin Calcium (Lipitor -) 80 mg PO HS [facility] Last Admin: 01/06/19 22:39 Dose: 80 mg Bisacodyl (Dulcolax Suppository -) 10 mg RC PRN [facility] Carvedilol (Coreg -) 25 mg PO BID [facility] Last Admin: 01/06/19 22:39 Dose: Not Given Magnesium Hydroxide (Milk Of Magnesia -) 30 ml PO PRN [facility] Pantoprazole Sodium (Protonix -) 40 mg PO BID [facility] Last Admin: 01/06/19 22:39 Dose: 40 mg 78 year old male with pmhx of htn, hld, a-fib, ckd, gi bleed, cad, cva, and cad who presents to the ER with vomiting and found have SBO. Impression 1. CKD 2. partial SBO 3. CHF/Le edema 4. dementia 5. pulm nodules 6. renal cysts 7. HLD 8. Anemia Plan Renal function stable, no overt electrolyte or acid base disturbance. Serum Na uptrending off IVF Continue to hold diuretics for now, but can give PRN if any signs of respiratory distress will start Clinmix at low rate as pt is NPO Trend H/H iron studies pending GI/Surgical follow up for SBO Sodium phosphate enema discontinued, phosphate based enemas should be avoided in all patients with CKD - avoid nsaids
[2019-01-07] MEDS: CARVEDILOL 25 MG TABLET (FP) PO SCH ×2 (11:54→21:56)
[2019-01-07] MEDS: APIXABAN 5 MG TABLET PO SCH ×2 (11:54→21:57)
[2019-01-07] MEDS: PANTOPRAZOLE 40 MG TABLET (FP) PO SCH ×2 (11:54→21:56)
--- NOTE | 2019-01-07 12:36 | PN ---
Progress Note (short form) - Note Progress Note: Tolerating diet so far. Denies vomiting or abdominal pain. KUB to my eye looks improved; hazy secondary to ascites but small bowel less distended. To continue to advance diet as tolerated. Surgical note appreciated. Pt does not appear to need surgery now.
[2019-01-07] MEDS: AMINO ACIDS 4.25%/D5W 1,000 ML IV SCH (13:30)
[2019-01-07] MEDS: ATORVASTATIN CA 80 MG TABLET (FP) PO SCH (21:56)
[2019-01-08 07:07] LABS: SERUM IRON SATURATION 16 % (15-55); TOTAL IRON BINDING CAPACITY 238 ug/dL (250-450); UIBC 200 ug/dL (111-343)
[2019-01-08 07:11] LABS: BASO % 0.9 % (0-2.0); EOS % 1.9 % (0-4.5); HEMATOCRIT 26.2 % (35.4-49); HEMOGLOBIN 8.6 GM/dL (11.7-16.9); LYMPH % 15.3 % (8-40); MCH 29.6 pg (25.7-33.7); MCHC 32.9 g/dl (32.0-35.9); MEAN PLT VOLUME 8.9 fl (7.5-11.1); MONO % 13.1 % (3.8-10.2); NEUT % 68.8 % (42.8-82.8); PLATELET COUNT 225 K/MM3 (134-434); RBC 2.91 M/mm3 (4.00-5.60); RDW 18.8 % (11.9-15.9); WHITE BLOOD COUNT 4.3 K/mm3 (4.0-10.0)
[2019-01-08 07:48] LABS: CALCIUM 8.3 mg/dL (8.5-10.1); CREATININE 1.9 mg/dL (0.55-1.3); MAGNESIUM 2.5 mg/dL (1.8-2.4); PHOSPHOROUS 2.8 mg/dL (2.5-4.9)
--- NOTE | 2019-01-08 09:34 | PN ---
Progress Note, Physician History of Present Illness: Tolerating clear liquid diet and having BM, denies nausea, emesis, abdominal pain since umbilical hernia. AXR shows improvement of pSBO. Surgery not warranted now, but would benefit from eventual umbilical hernia repair. - Current Medication List Current Medications: Active Medications Apixaban (Eliquis -) 5 mg PO BID [facility] Last Admin: 01/07/19 21:57 Dose: 5 mg Atorvastatin Calcium (Lipitor -) 80 mg PO HS [facility] Last Admin: 01/07/19 21:56 Dose: 80 mg Bisacodyl (Dulcolax Suppository -) 10 mg RC PRN [facility] Carvedilol (Coreg -) 25 mg PO BID [facility] Last Admin: 01/07/19 21:56 Dose: 25 mg Amino Acids (Clinimix -) 1,000 mls @ 42 mls/hr IV Q24H [facility] Last Admin: 01/07/19 13:30 Dose: 42 mls/hr Magnesium Hydroxide (Milk Of Magnesia -) 30 ml PO PRN [facility] Pantoprazole Sodium (Protonix -) 40 mg PO BID [facility] Last Admin: 01/07/19 21:56 Dose: 40 mg - Objective Vital Signs: Vital Signs Temperature 98.2 F 01/08/19 06:00 Pulse Rate 74 01/08/19 06:00 Respiratory Rate 20 01/08/19 06:00 Blood Pressure 100/69 01/08/19 06:00 O2 Sat by Pulse Oximetry (%) 97 01/07/19 21:00 Constitutional: Yes: No Distress, Calm Neck: Yes: Supple Cardiovascular: Yes: Regular Rate and Rhythm Respiratory: Yes: Regular, Diminished, On Nasal O2 Gastrointestinal: Yes: Soft, Distention, Hypoactive Bowel Sounds Edema: Yes Edema: LLE: 1+, RLE: 1+ Labs: CBC, BMP 01/08/19 05:05 01/08/19 05:05 INR, PTT INR 1.79 (0.83-1.09) H 01/06/19 05:30 - ....Imaging EKG: Report Reviewed (Tele: AV paced) Problem List - Problems (1) JASMYN (acute kidney injury) Code(s): N17.9 - ACUTE KIDNEY FAILURE, UNSPECIFIED (2) Periumbilical hernia Code(s): K42.9 - UMBILICAL HERNIA WITHOUT OBSTRUCTION OR GANGRENE (3) SBO (small bowel obstruction) Code(s): K56.609 - UNSP INTESTNL OBST, UNSP TO PARTIAL VERSUS COMPLETE OBST (4) AICD (automatic cardioverter/defibrillator) present Code(s): Z95.810 - PRESENCE OF AUTOMATIC (IMPLANTABLE) CARDIAC DEFIBRILLATOR (5) Afib Code(s): I48.91 - UNSPECIFIED ATRIAL FIBRILLATION Qualifiers: Atrial fibrillation type: chronic Qualified Code(s): I48.2 - Chronic atrial fibrillation (6) Anemia Code(s): D64.9 - ANEMIA, UNSPECIFIED Qualifiers: Anemia type: unspecified type Qualified Code(s): D64.9 - Anemia, unspecified (7) CAD (coronary artery disease) Code(s): I25.10 - ATHSCL HEART DISEASE OF [place] CORONARY ARTERY W/O ANG PCTRS Qualifiers: Coronary Disease-Associated Artery/Lesion type: [place] artery [place] vs. transplanted heart: [place] heart Associated angina: without angina Qualified Code(s): I25.10 - Atherosclerotic heart disease of [place] coronary artery without angina pectoris (8) CHF (congestive heart failure) Code(s): I50.9 - HEART FAILURE, UNSPECIFIED (9) CVA (cerebral infarction) Code(s): I63.9 - CEREBRAL INFARCTION, UNSPECIFIED Qualifiers: Cerebral infarction mechanism: unspecified mechanism Qualified Code(s): I63.9 - Cerebral infarction, unspecified (10) HLD (hyperlipidemia) Code(s): E78.5 - HYPERLIPIDEMIA, UNSPECIFIED Qualifiers: Hyperlipidemia type: pure hypercholesterolemia Qualified Code(s): E78.00 - Pure hypercholesterolemia, unspecified; E78.0 - Pure hypercholesterolemia (11) HTN (hypertension) Code(s): I10 - ESSENTIAL (PRIMARY) HYPERTENSION Qualifiers: Hypertension type: essential hypertension Qualified Code(s): I10 - Essential (primary) hypertension (12) Leg edema Code(s): R60.0 - LOCALIZED EDEMA (13) Status post coronary artery stent placement Code(s): Z95.5 - PRESENCE OF CORONARY ANGIOPLASTY IMPLANT AND GRAFT Assessment/Plan December 19, 2017 Dilated LV with severely decreased LVEF 30%, DAV LA 4.8 cm, mod MR , mild TR, RVP 39 mmHg, mild ao dilatation 4.3 cm Sep 14, 2017 Pharm stress: Severe diffuse global HK LVEF 22% Jul 31, [address]: Pulm HTN, congestion, trace ascites, cholelithiasis with thickened GB January 04, 2019 Abd&pelvic CT: High grade pSBO with incarcerated umbilical hernia , ascites, bilateral effusions, cardiomegaly, cholelithiasis and left nephrolithiasis 1. High grade partial SBO referable to incarcerated umbilical hernia resolving 2. LV systolic dysfunction with history of failure 3. CAD post PCI/stent, angina pectoris 4. Permanent atrial fibrillation on chronic anticoagulation (Eliquis), [id number] score of 4 5. LEARNING DISABILITIES SPECIALIST-D (post device upgrade), history of sick sinus syndrome 6. HTN/HCVD 7. Hypercholesterolemia 8. History of CVA with right hemiparesis 9. Acute on CKD 3 (pre-renal) secondary to Hypertensive Nephrosclerosis vs. Acquired Cystic Renal Disease (unlikely PCKD given normal size kidneys) 10. Anemia of CKD 11. PAD 12. COPD and pulmonary HTN PLAN: 1. Surgery input appreciated, continue conservative management, judicious Clinimix 2. Resume Entresto, Lasix, and Eplerenone pending renal recovery and monitor electrolytes 3. Continue Coreg 25 mg BID, Lipitor 80 mg QHS and consider BiDil as outpatient 4. Resumed Eliquis 5 bid as surgery is not planned
[2019-01-08] MEDS: APIXABAN 5 MG TABLET PO SCH ×2 (09:35→21:11)
[2019-01-08] MEDS: PANTOPRAZOLE 40 MG TABLET (FP) PO SCH ×2 (09:35→21:11)
[2019-01-08] MEDS: CARVEDILOL 25 MG TABLET (FP) PO SCH ×2 (09:35→21:11)
--- NOTE | 2019-01-08 12:17 | PN ---
Progress Note, Physician - Current Medication List Current Medications: Active Medications Apixaban (Eliquis -) 5 mg PO BID [facility] Last Admin: 01/08/19 09:35 Dose: 5 mg Atorvastatin Calcium (Lipitor -) 80 mg PO HS [facility] Last Admin: 01/07/19 21:56 Dose: 80 mg Bisacodyl (Dulcolax Suppository -) 10 mg RC PRN [facility] Carvedilol (Coreg -) 25 mg PO BID [facility] Last Admin: 01/08/19 09:35 Dose: 25 mg Amino Acids (Clinimix -) 1,000 mls @ 42 mls/hr IV Q24H [facility] Last Admin: 01/07/19 13:30 Dose: 42 mls/hr Magnesium Hydroxide (Milk Of Magnesia -) 30 ml PO PRN [facility] Pantoprazole Sodium (Protonix -) 40 mg PO BID [facility] Last Admin: 01/08/19 09:35 Dose: 40 mg - Objective Vital Signs: Vital Signs Temperature 98 F 01/08/19 10:00 Pulse Rate 70 01/08/19 10:00 Respiratory Rate 18 01/08/19 10:00 Blood Pressure 114/70 01/08/19 10:00 O2 Sat by Pulse Oximetry (%) 98 01/08/19 09:00 Labs: CBC, BMP 01/08/19 05:05 01/08/19 05:05 INR, PTT INR 1.79 (0.83-1.09) H 01/06/19 05:30 Assessment/Plan (1) CHF exacerbation Assessment/Plan: -Lasix and Entresto on hold due to renal function -cardiology on board -1L fluid restriction -daily weights -I&Os -BNP 53596 -Echo with EF 15% Code(s): I50.9 - HEART FAILURE, UNSPECIFIED Qualifiers: (2) CKD (chronic kidney disease) Assessment/Plan: -BUN/Cr 33.6/2.0 -renal on board -monitor renal function Code(s): N18.9 - CHRONIC KIDNEY DISEASE, UNSPECIFIED (3) Periumbilical hernia Assessment/Plan: -Surgical consult -GI on board -trial of clear liquids -Abdomen and Pelvic CT scan reviewed Code(s): K42.9 - UMBILICAL HERNIA WITHOUT OBSTRUCTION OR GANGRENE (4) SBO (small bowel obstruction) Assessment/Plan: -Surgery recommendations reviewed -GI on board -clear liquids -Abdomen/Pelvic CT scan shows high-grade SBO believed to be related to incarcerated umbilical hernia -pending official read of Abdominal Xray Code(s): K56.609 - UNSP INTESTNL OBST, UNSP TO PARTIAL VERSUS COMPLETE OBST (5) Sepsis Assessment/Plan: -BC neg -afebrile -no leukocytosis -LA 2.1 Code(s): A41.9 - SEPSIS, UNSPECIFIED ORGANISM (6) AICD (automatic cardioverter/defibrillator) present Code(s): Z95.810 - PRESENCE OF AUTOMATIC (IMPLANTABLE) CARDIAC DEFIBRILLATOR (7) Afib Assessment/Plan: -restarted on Eliquis Code(s): I48.91 - UNSPECIFIED ATRIAL FIBRILLATION Qualifiers: Atrial fibrillation type: chronic Qualified Code(s): I48.2 - Chronic atrial fibrillation (8) CVA (cerebral infarction) Assessment/Plan: -Atorvastatin and Eliquis Code(s): I63.9 - CEREBRAL INFARCTION, UNSPECIFIED Qualifiers: Cerebral infarction mechanism: unspecified mechanism Qualified Code(s): I63.9 - Cerebral infarction, unspecified (9) HLD (hyperlipidemia) Assessment/Plan: -Atorvastatin Code(s): E78.5 - HYPERLIPIDEMIA, UNSPECIFIED Qualifiers: Hyperlipidemia type: pure hypercholesterolemia Qualified Code(s): E78.00 - Pure hypercholesterolemia, unspecified; E78.0 - Pure hypercholesterolemia (10) HTN (hypertension) Assessment/Plan: -Coreg -Echo shows EF 15% Code(s): I10 - ESSENTIAL (PRIMARY) HYPERTENSION Qualifiers: Hypertension type: essential hypertension Qualified Code(s): I10 - Essential (primary) hypertension
--- NOTE | 2019-01-08 14:00 | PN ---
Progress Note, Physician History of Present Illness: Pt seen and examined at bedside. He is tolerating clear liquids. - Current Medication List Current Medications: Active Medications Apixaban (Eliquis -) 5 mg PO BID [facility] Last Admin: 01/08/19 09:35 Dose: 5 mg Atorvastatin Calcium (Lipitor -) 80 mg PO HS [facility] Last Admin: 01/07/19 21:56 Dose: 80 mg Bisacodyl (Dulcolax Suppository -) 10 mg RC PRN [facility] Carvedilol (Coreg -) 25 mg PO BID [facility] Last Admin: 01/08/19 09:35 Dose: 25 mg Amino Acids (Clinimix -) 1,000 mls @ 42 mls/hr IV Q24H [facility] Last Admin: 01/07/19 13:30 Dose: 42 mls/hr Magnesium Hydroxide (Milk Of Magnesia -) 30 ml PO PRN FELICIA Pantoprazole Sodium (Protonix -) 40 mg PO BID [facility] Last Admin: 01/08/19 09:35 Dose: 40 mg - Objective Vital Signs: Vital Signs Temperature 98 F 01/08/19 10:00 Pulse Rate 70 01/08/19 10:00 Respiratory Rate 18 01/08/19 10:00 Blood Pressure 114/70 01/08/19 10:00 O2 Sat by Pulse Oximetry (%) 98 01/08/19 09:00 Constitutional: Yes: Calm Eyes: Yes: Conjunctiva Clear HENT: Yes: Atraumatic Neck: Yes: Supple Cardiovascular: Yes: S1, S2 Respiratory: Yes: CTA Bilaterally Gastrointestinal: Yes: Soft Genitourinary: Yes: WNL Musculoskeletal: Yes: WNL Edema: Yes Edema: LLE: Trace, RLE: Trace Integumentary: Yes: Venous Stasis Changes Neurological: Yes: Oriented Psychiatric: Yes: Oriented Labs: CBC, BMP 01/08/19 05:05 01/08/19 05:05 INR, PTT INR 1.79 (0.83-1.09) H 01/06/19 05:30 Problem List - Problems (1) CKD (chronic kidney disease) Code(s): N18.9 - CHRONIC KIDNEY DISEASE, UNSPECIFIED (2) JASMYN (acute kidney injury) Code(s): N17.9 - ACUTE KIDNEY FAILURE, UNSPECIFIED (3) Abdominal pain Code(s): R10.9 - UNSPECIFIED ABDOMINAL PAIN (4) SBO (small bowel obstruction) Code(s): K56.609 - UNSP INTESTNL OBST, UNSP TO PARTIAL VERSUS COMPLETE OBST (5) CHF (congestive heart failure) Code(s): I50.9 - HEART FAILURE, UNSPECIFIED Assessment/Plan Current Medications Generic Name Dose Route Start Last Admin Trade Name Freq PRN Reason Stop Dose Admin Apixaban 5 mg 01/07/19 10:00 01/08/19 09:35 Eliquis - PO 5 mg BID FELICIA Administration Atorvastatin Calcium 80 mg 01/05/19 22:00 01/07/19 21:56 Lipitor - PO 80 mg HS FELICIA Administration Bisacodyl 10 mg 01/05/19 06:30 Dulcolax Suppository - RC PRN FELICIA Carvedilol 25 mg 01/05/19 10:00 01/08/19 09:35 Coreg - PO 25 mg BID FELICIA Administration Amino Acids 1,000 mls @ 42 mls/hr 01/07/19 12:00 01/07/19 13:30 Clinimix - IV 42 mls/hr Q24H FELICIA Administration Magnesium Hydroxide 30 ml 01/05/19 06:30 Milk Of Magnesia - PO PRN FELICIA Pantoprazole Sodium 40 mg 01/05/19 10:00 01/08/19 09:35 Protonix - PO 40 mg BID FELICIA Administration Impression 1. CKD 2. partial SBO 3. CHF 4. dementia 5. pulm nodules 6. renal cysts 7. HLD Plan - renal function is stable - pt tolerating clears - can d/c clinimix - diuretics on hold - avoid nsaids
--- NOTE | 2019-01-08 14:20 | CONS ---
DATE OF CONSULTATION: DATE OF DICTATION: 01/07/2019 HISTORY: A 78-year-old male evaluated for possible sepsis. He was admitted to the hospital from the care home on January 04, 2019, with complaints of periumbilical abdominal pain, nausea, and vomiting. In the emergency room, he was noted to have an umbilical hernia, which was reduced. A CAT scan of the abdomen and pelvis showed small-bowel obstruction secondary to possible incarcerated umbilical hernia. He also was noted to have ascites and cholelithiasis. His course was significant for leukopenia, which appears chronic in nature. At the present time, he has no complaints of abdominal pain. Denies nausea and vomiting. He has not had a bowel movement. He remains afebrile. Lactic acid is elevated. PAST MEDICAL HISTORY: Positive for hypertension, hyperlipidemia, atrial fibrillation, coronary artery disease, congestive heart failure, GI bleed, stroke, BPH, osteoarthritis. PAST SURGICAL HISTORY: Status post coronary artery stent and implanted defibrillator. ALLERGIES: No known allergies. MEDICATIONS: Vitamin D, Coreg, Eliquis, Lipitor, Entresto, Lasix, spironolactone, Protonix. SOCIAL HISTORY: Resides in a [facility] facility. He is a former smoker. Nondrinker. SYSTEMS REVIEW: Neurologic: Positive for stroke. Cardiac: Negative chest pain or palpitations. Respiratory: Negative cough or sputum production. Gastrointestinal: As per HPI. Genitourinary: Negative for urinary tract infection. LABORATORY DATA: White count 3.4 with 72 neutrophils, 12 lymphocytes, 13 monocytes, BUN 36, creatinine 2.0. Liver enzymes normal. Urinalysis 6 white cells. Blood cultures preliminarily negative. Chest x-ray negative for acute infiltrate. CAT scan as described. PHYSICAL EXAMINATION: General: He is awake and alert. He is not acutely toxic appearing in no acute distress. Vital Signs: Temperature 98, blood pressure 113/62, pulse 76 regular, respirations 18 per minute. HEENT: Sclerae anicteric. Heart: Sounds S1, S2. Lungs: Clear. Abdomen: Distended. Tympanitic. No appreciable bowel sounds. Soft, nontender. No mass, rebound, or rigidity. Extremities: Edema 2+. IMPRESSION: 1. Small-bowel obstruction secondary to umbilical hernia. 2. Leukopenia, chronic. 3. Chronic liver disease with cirrhosis. PLAN: Patient not clinically septic. Await cultures. Would observe off antibiotic therapy. Surgical and GI followups. Thank you for the kind referral. ALCON SARMIENTO M.D. [id number]
[2019-01-08] MEDS: AMINO ACIDS 4.25%/D5W 1,000 ML IV SCH (19:56)
[2019-01-08] MEDS: ATORVASTATIN CA 80 MG TABLET (FP) PO SCH (21:11)
--- NOTE | 2019-01-09 09:14 | PN ---
Progress Note (short form) - Note Progress Note: Chief Complaint: Events noted, notes reviewed, denies any chest pain or dyspnea , denies any abdominal pain History of Present Illness: Seen and examined on telemetry. Events noted, notes reviewed, denies any chest pain or dyspnea, denies any abdominal pain Current Medications: Current Medications Apixaban (Eliquis -) 5 mg PO BID [facility] Last Admin: 01/09/19 10:06 Dose: 5 mg Atorvastatin Calcium (Lipitor -) 80 mg PO HS [facility] Last Admin: 01/08/19 21:11 Dose: 80 mg Bisacodyl (Dulcolax Suppository -) 10 mg RC PRN [facility] Carvedilol (Coreg -) 25 mg PO BID [facility] Last Admin: 01/09/19 10:06 Dose: 25 mg Magnesium Hydroxide (Milk Of Magnesia -) 30 ml PO PRN [facility] Last Admin: 01/09/19 10:05 Dose: 30 ml Pantoprazole Sodium (Protonix -) 40 mg PO BID [facility] Last Admin: 01/09/19 10:06 Dose: 40 mg - Objective Vital Signs: Last Vital Signs Temp Pulse Resp BP Pulse Ox 97.8 F 70 18 107/80 99 01/09/19 09:00 01/09/19 09:00 01/09/19 09:00 01/09/19 09:00 01/08/19 21:00 Intake & Output 01/06/19 01/07/19 01/08/19 01/09/19 23:59 23:59 23:59 23:59 Intake Total 499 1142 0 Output Total 350 150 Balance 149 -150 1142 0 Weight 210 lb 205 lb 12.8 oz 207 lb 208 lb 9.6 oz Constitutional: No Distress, Calm Neck: Supple Negative JVD No Bruit Respiratory: Diminished Breath Sounds at the Bases Cardiovascular: S1 S2 Regular Rate and Rhythm Grade 2-3/6 SM Gastrointestinal: Soft Benign Normal Bowel Sounds Ext: Bilateral Edema Labs: CBC, BMP 01/08/19 05:05 01/08/19 05:05 Hepatic Panel Total Bilirubin 3.0 mg/dL (0.2-1) H 01/06/19 05:30 Direct Bilirubin 1.2 mg/dL (0.0-0.2) H 01/06/19 05:30 AST 19 U/L (15-37) 01/06/19 05:30 ALT 13 U/L (13-61) 01/06/19 05:30 Alkaline Phosphatase 70 U/L (45-117) 01/06/19 05:30 Albumin 2.9 g/dl (3.4-5.0) L 01/06/19 05:30 INR, PTT INR 1.79 (0.83-1.09) H 01/06/19 05:30 Assessment/Plan ASSESSMENT: 1. High grade partial SBO referable to incarcerated umbilical hernia, resolved 2. Systolic LV dysfunction with chronic class I-II NYHA classification LV failure, clinically compensated/euvolemic 3. CAD post PCI/stent angina pectoris, clinically stable 4. Persistent atrial fibrillation [id number] score of 5, currently off of A/C recommend re-initiation unless contraindicated 5. LISW-D, history of sick sinus syndrome 6. HTN 7. Hypercholesterolemia 8. History of CVA with right hemiparesis 9. COPD 10. Pulmonary HTN 11. CKD 12. Anemia PLAN: 1. Continue Coreg 2. Recommend resumption of Entresto unless contraindicated with close monitoring of renal function 3. Recommend resumption of Lasix and Eplerenone with close monitoring of renal function 4. Continue DOAC's/Eliquis at 5 mg twice daily with close monitoring of CBC 5. Continue Lipitor 6. D/C as per the primary team Lucretia Amaro M.D.
[2019-01-09] MEDS: APIXABAN 5 MG TABLET PO SCH (10:06)
[2019-01-09] MEDS: PANTOPRAZOLE 40 MG TABLET (FP) PO SCH (10:06)
[2019-01-09] MEDS: CARVEDILOL 25 MG TABLET (FP) PO SCH (10:06)
--- NOTE | 2019-01-09 14:11 | DS ---
Physical Examination Vital Signs: Vital Signs Temperature 97.8 F 01/09/19 09:00 Pulse Rate 70 01/09/19 09:00 Respiratory Rate 18 01/09/19 09:00 Blood Pressure 107/80 01/09/19 09:00 O2 Sat by Pulse Oximetry (%) 99 01/08/19 21:00 Findings/Remarks: Pt is a 78-yo male with a PMHx of HTN, HLD, Afib (on Eliquis), CHF, CAD s/p PCI , CVA with right-sided hemiparesis, BPH, and OA BIBEMS from [facility] with one day hx of vomiting. Per records, patient had 4 episodes of orange colored emesis earlier today and reports a new onset of bulging in the umbilical region associated pain. In the ED, ice was placed on the hernia and the pt sent to CT, then post CT, the hernai was reduced. When I saw the pt, he was drowsy but arousable but unable to provide hx. He had no subsequent vomting episodes in ED and was able to rest comfortably. Following hernia reduction ED wanted pt admitted for CHF exacerbation. Pt's LA was however elevated 2.3 without concomitant rise in WBC, or temperature. Trop-25,000, CXR similar to prior with evidence of persistent effusions. CT: Partial bowel obstruction with amos-umbilical hernia (4 x3.4 x3.4) short segment of SBO (probably fluid- containing, with uncertain bowel wall thickening but no visible pneumatosis. Minimally dilated small bowel all 4 quadrants with transition point at hernia sac. Diverticulosis colon. Small stone L kidney. No ureterolithiasis or obstructive uropathy. No bladder calculi. Cystic foci b/l kidneys. Cholelithiasis. Nodular liver contour, possible cirrhosis. Calcified lymphnodes RUQ. CArdiomegaly. ICD. Small b/l pleural effusions. b/l ground glass densities and interstitial thickening, possibly interstitial edema. Dependent atelectasis lung bases, L>R gynecomastia. Constitutional: Yes: Well Nourished, No Distress, Calm Cardiovascular: Yes: Regular Rate and Rhythm Respiratory: Yes: Regular Gastrointestinal: Yes: Normal Bowel Sounds, Soft Musculoskeletal: Yes: WNL Extremities: Yes: WNL Edema: No Peripheral Pulses WNL: Yes Neurological: Yes: Alert, Pre-Existing Deficit Psychiatric: Yes: Alert Labs: CBC, BMP 06/24/19 05:05 01/08/19 05:05 Discharge Summary Reason For Visit: ACUTE KIDNEY INJURY/ABDOMINAL PAIN/ACUTE ON Current Active Problems JASMYN (acute kidney injury) (Acute) Abdominal pain (Acute) CHF exacerbation (Acute) CKD (chronic kidney disease) (Acute) Periumbilical hernia (Acute) SBO (small bowel obstruction) (Acute) Sepsis (Acute) Shortness of breath (Acute) Systolic CHF, acute on chronic (Acute) Hospital Course: Laboratory Last Values WBC 4.3 K/mm3 (4.0-10.0) 01/08/19 05:05 RBC 2.91 M/mm3 (4.00-5.60) L 01/08/19 05:05 Hgb 8.6 GM/dL (11.7-16.9) L 01/08/19 05:05 Hct 26.2 % (35.4-49) L 01/08/19 05:05 MCV 90.0 fl (80-96) 01/08/19 05:05 MCH 29.6 pg (25.7-33.7) 01/08/19 05:05 MCHC 32.9 g/dl (32.0-35.9) 01/08/19 05:05 RDW 18.8 % (11.9-15.9) H 01/08/19 05:05 Plt Count 225 K/MM3 (134-434) 01/08/19 05:05 MPV 8.9 fl (7.5-11.1) D 01/08/19 05:05 Absolute Neuts (auto) 3.0 K/mm3 (1.5-8.0) 01/08/19 05:05 Neutrophils % 68.8 % (42.8-82.8) 01/08/19 05:05 Lymphocytes % 15.3 % (8-40) 01/08/19 05:05 Monocytes % 13.1 % (3.8-10.2) H 01/08/19 05:05 Eosinophils % 1.9 % (0-4.5) 01/08/19 05:05 Basophils % 0.9 % (0-2.0) 01/08/19 05:05 Nucleated RBC % 0 % (0-0) 01/08/19 05:05 Retic Count 1.14 % (0.5-1.5) 01/05/19 05:55 PT with INR 21.30 SEC (9.7-13.0) H 01/06/19 05:30 INR 1.79 (0.83-1.09) H 01/06/19 05:30 Sodium 144 mmol/L (136-145) 01/08/19 05:05 Potassium 4.0 mmol/L (3.5-5.1) 01/08/19 05:05 Chloride 107 mmol/L (98-107) 01/08/19 05:05 Carbon Dioxide 29 mmol/L (21-32) 01/08/19 05:05 Anion Gap 8 MMOL/L (8-16) 01/08/19 05:05 BUN 32.0 mg/dL (7-18) H 01/08/19 05:05 Creatinine 1.9 mg/dL (0.55-1.3) H 01/08/19 05:05 Est GFR (CKD-EPI)AfAm 38.28 01/08/19 05:05 Est GFR (CKD-EPI)NonAf 33.03 01/08/19 05:05 POC Glucometer 115 UNITS (80-120) 01/05/19 03:10 Random Glucose 117 mg/dL (74-106) H 01/08/19 05:05 Lactic Acid 2.1 mmol/L (0.4-2.0) H 01/05/19 03:21 Calcium 8.3 mg/dL (8.5-10.1) L 01/08/19 05:05 Phosphorus 2.8 mg/dL (2.5-4.9) 01/08/19 05:05 Magnesium 2.5 mg/dL (1.8-2.4) H 01/08/19 05:05 Iron 38 ug/dL (38-169) 01/07/19 05:35 TIBC 238 ug/dL (250-450) L 01/07/19 05:35 Iron Saturation 16 % (15-55) 01/07/19 05:35 Unsaturated IBC 200 ug/dL (111-343) 01/07/19 05:35 Ferritin 30.8 ng/ml (8-388) 01/07/19 05:35 Total Bilirubin 3.0 mg/dL (0.2-1) H 01/06/19 05:30 Direct Bilirubin 1.2 mg/dL (0.0-0.2) H 01/06/19 05:30 AST 19 U/L (15-37) 01/06/19 05:30 ALT 13 U/L (13-61) 01/06/19 05:30 Alkaline Phosphatase 70 U/L (45-117) 01/06/19 05:30 LD Total Cancelled 01/05/19 03:21 Troponin I 0.06 ng/ml (0.00-0.05) H 01/04/19 19:55 B-Natriuretic Peptide 28411.7 pg/ml (5-450) H 01/04/19 19:55 Total Protein 6.4 g/dl (6.4-8.2) 01/06/19 05:30 Albumin 2.9 g/dl (3.4-5.0) L 01/06/19 05:30 Total Amylase Cancelled 01/05/19 03:21 Lipase 97 U/L (73-393) 01/04/19 19:55 Urine Color Dk yellow 01/04/19 22:15 Urine Appearance Cloudy 01/04/19 22:15 Urine pH 5.0 (5.0-8.0) 01/04/19 22:15 Ur Specific Corinna 1.017 (1.010-1.035) 01/04/19 22:15 Urine Protein 2+ (NEGATIVE) H 01/04/19 22:15 Urine Glucose (UA) Negative (NEGATIVE) 01/04/19 22:15 Urine Ketones Negative (NEGATIVE) 01/04/19 22:15 Urine Blood Negative (NEGATIVE) 01/04/19 22:15 Urine Nitrite Negative (NEGATIVE) 01/04/19 22:15 Urine Bilirubin Negative (NEGATIVE) 01/04/19 22:15 Urine Urobilinogen 1.0 mg/dL (0.2-1.0) 01/04/19 22:15 Ur Leukocyte Esterase Negative (NEGATIVE) 01/04/19 22:15 Urine WBC (Auto) 6 /hpf (0-5) 01/04/19 22:15 Urine RBC (Auto) 4.8 /hpf (0-4) 01/04/19 22:15 Urine Casts (Auto) 42 /lpf (0-8) 01/04/19 22:15 U Pathogenic Cast Auto None /lpf (NEGATIVE) 01/04/19 22:15 U Epithel Cells (Auto) 4.3 /HPF (0-5/HPF) 01/04/19 22:15 U Sm Round Cell (Auto) None 01/04/19 22:15 Urine Bacteria (Auto) 9.6 /hpf (NEGATIVE) 01/04/19 22:15 Urine Yeast (Auto) None (NEGATIVE) 01/04/19 22:15 Blood Type O NEGATIVE 01/04/19 19:55 Antibody Screen Negative 01/04/19 19:55 Microbiology 01/05/19 11:40 Blood - Peripheral Venous Blood Culture - Preliminary NO GROWTH OBTAINED AFTER 96 HOURS, INCUBATION TO CONTINUE FOR 1 DAYS. 01/05/19 11:30 Blood - Peripheral Venous Blood Culture - Preliminary NO GROWTH OBTAINED AFTER 96 HOURS, INCUBATION TO CONTINUE FOR 1 DAYS. Vital Signs Temp 97.8 F 01/09/19 09:00 Pulse 70 01/09/19 09:00 Resp 18 01/09/19 09:00 BP 107/80 01/09/19 09:00 Pulse Ox 99 01/08/19 21:00 Intake & Output 01/08/19 01/09/19 01/09/19 23:59 11:59 23:59 Intake Total 480 0 Balance 480 0 Weight 94.619 kg Intake: IV 0 clinimix 0 Oral 480 Other: Voiding Method Urinal # Unmeasured Voids Void 1 1 Bowel Movement No Weight Measurement Method Standing Scale Condition: Stable - Instructions Referrals: Lucretia Amaro MD [Staff Physician] - Jose Blackwell MD [Staff Physician] - Disposition: [facility] F[facility] - Home Medications Comprehensive Discharge Medication List: Ambulatory Orders Apixaban [Eliquis -] 5 mg PO BID #60 tablet 08/04/18 Atorvastatin Ca [Lipitor] 80 mg PO HS #30 tablet 08/04/18 Sacubitril/Valsartan [Entresto 49 mg-51 mg Tablet] 1 tab PO BID #60 tablet 08/04 Furosemide [Lasix -] 40 mg PO BID@0600,1400 tablet 12/20/18 Pantoprazole Sodium [Protonix -] 40 mg PO BID tablet.ec 12/20/18 Acetaminophen 325 mg PO PRN PRN 01/05/19 Bisacodyl [Dulcolax] 10 mg RC PRN 01/05/19 Carvedilol 25 mg PO BID 01/05/19 Cholecalciferol (Vitamin D3) [Vitamin D3] 1,000 unit PO DAILY 01/05/19 Eplerenone 25 mg PO BID 01/05/19 Fleet Enema 118 ml [place] PRN 01/05/19 Magnesium Hydroxide [Milk of Magnesia] 400 mg PO PRN 01/05/19 Tuberculin Ppd 5 Tu/0.1ML [TUBERSOL ([facility] ONLY) 5mL VIAL] 0.1 ml ONCE 01/05
--- NOTE | 2019-01-09 14:46 | PN ---
Progress Note, Physician History of Present Illness: Pt seen and examined at bedside. He is awake and appears comfortable. He denies shortness of breath. - Current Medication List Current Medications: Active Medications Apixaban (Eliquis -) 5 mg PO BID [facility] Last Admin: 01/09/19 10:06 Dose: 5 mg Atorvastatin Calcium (Lipitor -) 80 mg PO HS [facility] Last Admin: 01/08/19 21:11 Dose: 80 mg Bisacodyl (Dulcolax Suppository -) 10 mg RC PRN FELICIA Carvedilol (Coreg -) 25 mg PO BID [facility] Last Admin: 01/09/19 10:06 Dose: 25 mg Magnesium Hydroxide (Milk Of Magnesia -) 30 ml PO PRN [facility] Last Admin: 01/09/19 10:05 Dose: 30 ml Pantoprazole Sodium (Protonix -) 40 mg PO BID [facility] Last Admin: 01/09/19 10:06 Dose: 40 mg - Objective Vital Signs: Vital Signs Temperature 97.8 F 01/09/19 09:00 Pulse Rate 70 01/09/19 09:00 Respiratory Rate 18 01/09/19 09:00 Blood Pressure 107/80 01/09/19 09:00 O2 Sat by Pulse Oximetry (%) 99 01/08/19 21:00 Constitutional: Yes: Calm Eyes: Yes: Conjunctiva Clear HENT: Yes: Atraumatic Neck: Yes: Supple Cardiovascular: Yes: S1, S2 Respiratory: Yes: CTA Bilaterally Gastrointestinal: Yes: Normal Bowel Sounds, Soft Genitourinary: Yes: WNL Edema: Yes Edema: LLE: 1+, RLE: 1+ Neurological: Yes: Oriented Psychiatric: Yes: Oriented Labs: CBC, BMP 01/08/19 05:05 01/08/19 05:05 INR, PTT INR 1.79 (0.83-1.09) H 01/06/19 05:30 Problem List - Problems (1) CKD (chronic kidney disease) Code(s): N18.9 - CHRONIC KIDNEY DISEASE, UNSPECIFIED (2) JASMYN (acute kidney injury) Code(s): N17.9 - ACUTE KIDNEY FAILURE, UNSPECIFIED (3) Abdominal pain Code(s): R10.9 - UNSPECIFIED ABDOMINAL PAIN (4) SBO (small bowel obstruction) Code(s): K56.609 - UNSP INTESTNL OBST, UNSP TO PARTIAL VERSUS COMPLETE OBST (5) CHF (congestive heart failure) Code(s): I50.9 - HEART FAILURE, UNSPECIFIED Assessment/Plan Current Medications Generic Name Dose Route Start Last Admin Trade Name Freq PRN Reason Stop Dose Admin Apixaban 5 mg 01/07/19 10:00 01/09/19 10:06 Eliquis - PO 5 mg BID FELICIA Administration Atorvastatin Calcium 80 mg 01/05/19 22:00 01/08/19 21:11 Lipitor - PO 80 mg HS FELICIA Administration Bisacodyl 10 mg 01/05/19 06:30 Dulcolax Suppository - RC PRN FELICIA Carvedilol 25 mg 01/05/19 10:00 01/09/19 10:06 Coreg - PO 25 mg BID FELICIA Administration Magnesium Hydroxide 30 ml 01/05/19 06:30 01/09/19 10:05 Milk Of Magnesia - PO 30 ml PRN FELICIA Administration Pantoprazole Sodium 40 mg 01/05/19 10:00 01/09/19 10:06 Protonix - PO 40 mg BID FELICIA Administration Impression 1. CKD 2. partial SBO 3. CHF 4. dementia 5. pulm nodules 6. renal cysts 7. HLD Plan - renal function back to baseline - will need to monitor in rehab - can resume home meds - cardio input appreciated - discussed with primary team
[2019-01-09 15:54] VITALS: BP 106/69; PULSE 77; TEMP 98
== END 2019-01-09 19:13 | DRG 393 ==
LOC: JER 18:18 → JERBED 22:03 → J4W 01-05 17:49
PROVIDERS: ADMIT Internal Medicine; ATTEND Family Medicine
DX: K42.0 Umbilical hernia with obstruction, without gangrene (principal); I50.23 Acute on chronic systolic (congestive) heart failure; K56.600 Partial intestinal obstruction, unspecified as to cause; I42.0 Dilated cardiomyopathy; N17.9 Acute kidney failure, unspecified; I13.0 Hypertensive heart and chronic kidney disease with heart failure and stage 1 through stage 4 chronic kidney disease, or unspecified chronic kidney disease; E87.2 Acidosis; J98.11 Atelectasis; I69.351 Hemiplegia and hemiparesis following cerebral infarction affecting right dominant side; I48.2 Chronic atrial fibrillation; Z79.01 Long term (current) use of anticoagulants; I25.10 Atherosclerotic heart disease of native coronary artery without angina pectoris; E78.5 Hyperlipidemia, unspecified; N40.0 Benign prostatic hyperplasia without lower urinary tract symptoms; M19.90 Unspecified osteoarthritis, unspecified site; I69.392 Facial weakness following cerebral infarction; F17.210 Nicotine dependence, cigarettes, uncomplicated; Z95.810 Presence of automatic (implantable) cardiac defibrillator; I36.1 Nonrheumatic tricuspid (valve) insufficiency; I34.0 Nonrheumatic mitral (valve) insufficiency; N18.9 Chronic kidney disease, unspecified; D63.1 Anemia in chronic kidney disease; E66.9 Obesity, unspecified; Z68.31 Body mass index [BMI] 31.0-31.9, adult; I27.20 Pulmonary hypertension, unspecified; N18.3 Chronic kidney disease, stage 3 (moderate); N28.1 Cyst of kidney, acquired; Z95.5 Presence of coronary angioplasty implant and graft; K57.30 Diverticulosis of large intestine without perforation or abscess without bleeding; I45.81 Long QT syndrome; R91.8 Other nonspecific abnormal finding of lung field
CPT/HCPCS: 36415; 71045-TC-FY; 74018-TC-FY; 74176-TC; 80048; 80053; 80076; 81003; 82728; 82962; 83540; 83550; 83605; 83690; 83735; 83880; 84100; 84484; 85025; 85027; 85044; 85610; 86850; 86900; 86901; 87040; 93005; 93010; 93306-TC; 99285-25; J0131

== ENCOUNTER 2019-02-27 16:32 | Emergency (ER) | payer OTHER | END 2019-02-28 01:00 | disposition short-term general hospital (02) | LOC: JER 02-28 01:00 ==

== ENCOUNTER 2019-03-27 02:48 | Emergency (ER) | payer OTHER | END 2019-03-27 08:15 | LOC: JER 02:48 | DX: T85.698A Other mechanical complication of other specified internal prosthetic devices, implants and grafts, initial encounter (principal); Y83.8 Other surgical procedures as the cause of abnormal reaction of the patient, or of later complication, without mention of misadventure at the time of the procedure; Y82.8 Other medical devices associated with adverse incidents; E87.6 Hypokalemia; I25.10 Atherosclerotic heart disease of native coronary artery without angina pectoris; I11.0 Hypertensive heart disease with heart failure; I50.9 Heart failure, unspecified; Z95.5 Presence of coronary angioplasty implant and graft; I48.2 Chronic atrial fibrillation; I25.5 Ischemic cardiomyopathy; J44.9 Chronic obstructive pulmonary disease, unspecified; N40.0 Benign prostatic hyperplasia without lower urinary tract symptoms; I69.854 Hemiplegia and hemiparesis following other cerebrovascular disease affecting left non-dominant side; I69.891 Dysphagia following other cerebrovascular disease; I69.898 Other sequelae of other cerebrovascular disease; R13.19 Other dysphagia; D52.9 Folate deficiency anemia, unspecified; E83.51 Hypocalcemia; Z87.19 Personal history of other diseases of the digestive system ==

== ENCOUNTER 2020-10-07 04:54 | Inpatient (IN) | payer OTHER ==
[2020-10-07 05:18] VITALS: BMI 23.0
[2020-10-07 05:45] LABS: BASO % 2.3 % (0-2.0); EOS % 3.4 % (0-4.5); HEMATOCRIT 24.7 % (35.4-49); HEMOGLOBIN 8.3 GM/dL (11.7-16.9); LYMPH % 22.7 % (8-40); MCHC 33.4 g/dl (32.0-35.9); MEAN CELL VOLUME 92.7 fl (80-96); MEAN PLT VOLUME 9.1 fl (7.5-11.1); MONO % 15.7 % (3.8-10.2); NEUT % 55.9 % (42.8-82.8); PLATELET COUNT 124 K/MM3 (134-434); RBC 2.67 M/mm3 (4.00-5.60); RDW 16.5 % (11.9-15.9); WHITE BLOOD COUNT 2.8 K/mm3 (4.0-10.0)
[2020-10-07 05:52] LABS: INR 3.77 (0.83-1.09); PROTHROMBIN TIME (PATIENT) 43.9 SEC (9.7-13.0)
[2020-10-07 05:54] LABS: ACTIVATED PTT 41.8 SECONDS (25.2-36.5)
[2020-10-07 06:12] LABS: CHLORIDE 105 mmol/L (98-107); CHOLESTEROL 142 mg/dL (50-200); LDL CHOLESTEROL (ONLY SJRH) 43 mg/dL (5-100); SODIUM 132 mmol/L (136-145); TRIGLYCERIDES 31 mg/dL (0-150)
[2020-10-07 06:15] LABS: ALBUMIN 3.5 g/dl (3.4-5.0); BLOOD UREA NITROGEN 94.6 mg/dL (7-18); CALCIUM 8.5 mg/dL (8.5-10.1); CO2 23 mmol/L (21-32); GLUCOSE,RANDOM 96 mg/dL (74-106); HDL CHOLESTEROL 88 mg/dL (40-60)
[2020-10-07 06:17] LABS: SGPT/ALT 21 U/L (13-61)
[2020-10-07 06:18] LABS: CREATININE 2.8 mg/dL (0.55-1.3); SGOT/AST 24 U/L (15-37)
[2020-10-07 06:19] LABS: BILIRUBIN,TOTAL 0.6 mg/dL (0.2-1); TOT PROT 7.8 g/dl (6.4-8.2)
[2020-10-07 06:21] LABS: ALK PHOS 52 U/L (45-117)
[2020-10-07 06:43] LABS: ANION GAP 4 MMOL/L (8-16); POTASSIUM 6.7 mmol/L (3.5-5.1)
[2020-10-07] MEDS ORDERED: DEXTROSE 50%-WATER - 25 GM/50 ML VIAL IVPUSH ONE ×2 (06:49→06:50)
[2020-10-07] MEDS ORDERED: INSULIN REGULAR HUMAN 100 UNITS/ML *VIAL IVPUSH ONE (06:49)
[2020-10-07] MEDS ORDERED: CALCIUM GLUCONATE 10% - 1,000 MG/10 ML VIAL IVPB ONE (06:49)
[2020-10-07] MEDS ORDERED: SODIUM ZIRCONIUM CYCLOSILICATE (LOKELMA) 5 GM PACKET PO ONE (06:50)
[2020-10-07] MEDS ORDERED: SODIUM BICARBONATE 4.2% 5 MEQ/10 ML DISP.SYRIN IVPUSH ONE ×2 (06:50→07:11)
[2020-10-07] MEDS ORDERED: DEXTROSE 50%-WATER 25 GM/50 ML DISP.SYRIN ONE ×2 (07:11→13:38)
[2020-10-07] MEDS ORDERED: CALCIUM CHLORIDE 1 GM/10 ML *DISP.SYRIN ONE (07:11)
[2020-10-07] MEDS ORDERED: CALCIUM GLUC IN NACL, ISO-OSM 1 GM/50 ML BAG IVPB ONE ×2 (07:12→13:38)
[2020-10-07] MEDS ORDERED: SODIUM ZIRCONIUM CYCLOSILICATE (LOKELMA) 5 GM PACKET ONE ×2 (08:42→16:00)
[2020-10-07 09:49] LABS: CHLORIDE 107 mmol/L (98-107); SODIUM 133 mmol/L (136-145)
[2020-10-07 09:51] LABS: ANION GAP 4 MMOL/L (8-16); CO2 22 mmol/L (21-32); GLUCOSE,RANDOM 70 mg/dL (74-106); POTASSIUM 6.4 mmol/L (3.5-5.1)
[2020-10-07 09:54] LABS: CREATININE 2.7 mg/dL (0.55-1.3)
[2020-10-07 11:13] LABS: POTASSIUM 6.6 mmol/L (3.5-5.1)
[2020-10-07 12:29] LABS: POTASSIUM 6.2 mmol/L (3.5-5.1)
[2020-10-07] MEDS ORDERED: SODIUM CHLORIDE 500 ML IV STA (13:39)
[2020-10-07] MEDS ORDERED: SODIUM ZIRCONIUM CYCLOSILICATE (LOKELMA) 5 GM PACKET PO SCH (13:45)
[2020-10-07] MEDS: INSULIN REGULAR HUMAN 100 UNITS/ML *VIAL IVPUSH ONE ×2 (13:47→13:50)
[2020-10-07] MEDS: CALCIUM GLUCONATE IN NACL 1 GM/50 ML BAG IVPB ONE ×2 (13:47→13:50)
[2020-10-07] MEDS: DEXTROSE 50%-WATER - 25 GM/50 ML VIAL IVPUSH ONE ×2 (13:47→13:50)
[2020-10-07] MEDS: SODIUM CHLORIDE 0.45% 1,000 ML IV SCH (16:11)
[2020-10-07] MEDS ORDERED: SPIRONOLACTONE 25 MG TABLET PO SCH (22:00)
[2020-10-07] MEDS ORDERED: CARVEDILOL 3.125 MG TABLET (FP) ONE (23:05)
[2020-10-07] MEDS ORDERED: WARFARIN NA 5 MG TABLET ONE (23:06)
[2020-10-07] MEDS ORDERED: ATORVASTATIN CA 80 MG TABLET (FP) ONE (23:06)
[2020-10-07] MEDS ORDERED: DOCUSATE SODIUM 100 MG CAPSULE (FP) PO ONE (23:06)
[2020-10-07 23:08] LABS: EPI CELLS 6 /uL (0-25.1); HYALINE CASTS 0 /uL (0-3.1); PH,URINE 5.5 (5.0-8.0); URINE APPEARANCE CLOUDY; URINE BACTERIA 47 /uL (0-1359); URINE BILIRUBIN NEGATIVE (NEGATIVE); URINE COLOR YELLOW; URINE GLUCOSE (UA) NEGATIVE (NEGATIVE); URINE KETONE NEGATIVE (NEGATIVE); URINE LEUK ESTERASE 3+ (NEGATIVE); URINE NITRITE NEGATIVE (NEGATIVE); URINE PROTEIN TRACE (NEGATIVE); URINE RBC 49 /uL (0-23.9); URINE UROBILINOGEN 0.2 mg/dL (0.2-1.0); URINE WBC 1230 /uL (0-25.8)
[2020-10-07] MEDS: WARFARIN NA 5 MG TABLET PO SCH (23:08)
[2020-10-07] MEDS: FLUTICASONE/SALMETEROL 100 MCG/50 MCG DISKUS IH SCH (23:08)
[2020-10-07] MEDS: CARVEDILOL 6.25 MG TABLET (FP) PO SCH (23:08)
[2020-10-07] MEDS: DOCUSATE SODIUM 100 MG CAPSULE (FP) PO SCH (23:08)
[2020-10-07] MEDS: ATORVASTATIN CA 80 MG TABLET (FP) PO SCH (23:09)
[2020-10-07] MEDS: SACUBITRIL/VALSARTAN 97 MG-103 MG TABLET PO SCH (23:38)
[2020-10-07] MEDS: ALBUTEROL SO4 HFA INHALER IH SCH ×2 (23:38→23:40)
[2020-10-08 07:18] LABS: BASO % 1.2 % (0-2.0); EOS % 3.3 % (0-4.5); HEMATOCRIT 21.5 % (35.4-49); HEMOGLOBIN 7.4 GM/dL (11.7-16.9); LYMPH % 17.1 % (8-40); MCHC 34.2 g/dl (32.0-35.9); MEAN CELL VOLUME 90.7 fl (80-96); MEAN PLT VOLUME 9.2 fl (7.5-11.1); MONO % 17.5 % (3.8-10.2); NEUT % 60.9 % (42.8-82.8); PLATELET COUNT 114 K/MM3 (134-434); RBC 2.37 M/mm3 (4.00-5.60); RDW 16.2 % (11.9-15.9); WHITE BLOOD COUNT 3.3 K/mm3 (4.0-10.0)
[2020-10-08 07:45] LABS: POTASSIUM 5.5 mmol/L (3.5-5.1)
[2020-10-08 07:58] LABS: ALBUMIN 3.1 g/dl (3.4-5.0); CALCIUM 8.4 mg/dL (8.5-10.1)
[2020-10-08 07:59] LABS: BLOOD UREA NITROGEN 76.2 mg/dL (7-18)
[2020-10-08 08:01] LABS: BILIRUBIN,TOTAL 0.8 mg/dL (0.2-1); TOT PROT 6.8 g/dl (6.4-8.2)
[2020-10-08 08:03] LABS: CREATININE 2.2 mg/dL (0.55-1.3)
[2020-10-08] MEDS ORDERED: ASCORBIC ACID 500 MG TABLET (FP) PO SCH (10:00)
[2020-10-08] MEDS: TAMSULOSIN HCL 0.4 MG CAP PO SCH (11:31)
[2020-10-08] MEDS: FERROUS SO4 300 MG/5 ML ORAL SOLN UNIT DOSE CUPS PO SCH (11:31)
[2020-10-08] MEDS: CALCIUM 500MG/VIT-D 200 UNITS COMBO TABLET (FP) PO SCH (11:31)
[2020-10-08] MEDS: PANTOPRAZOLE 40 MG TABLET PO SCH (11:31)
[2020-10-08] MEDS: THIAMINE HCL 100 MG TABLET (FP) PO SCH (11:31)
[2020-10-08] MEDS: SODIUM ZIRCONIUM CYCLOSILICATE (LOKELMA) 10 GM PACKET PO SCH (11:33)
[2020-10-08] MEDS: FOLIC ACID 1 MG TABLET (FP) PO SCH (11:33)
[2020-10-08 13:54] LABS: BASO % 1.1 % (0-2.0); EOS % 4.4 % (0-4.5); HEMATOCRIT 24.6 % (35.4-49); HEMOGLOBIN 8.2 GM/dL (11.7-16.9); MCH 30.9 pg (25.7-33.7); MCHC 33.3 g/dl (32.0-35.9); MEAN CELL VOLUME 92.8 fl (80-96); MEAN PLT VOLUME 9.8 fl (7.5-11.1); MONO % 13.1 % (3.8-10.2); NEUT % 65.4 % (42.8-82.8); PLATELET COUNT 132 K/MM3 (134-434); RBC 2.66 M/mm3 (4.00-5.60); RDW 16.4 % (11.9-15.9); WHITE BLOOD COUNT 3.4 K/mm3 (4.0-10.0)
[2020-10-08] MEDS ORDERED: PNEUMOC 13-VAL CONJ-DIP CRM/PF 0.5 ML DISP.SYRIN IM ONE (15:00)
[2020-10-08] MEDS: ALBUTEROL SO4 HFA INHALER IH SCH ×4 (15:09→22:03)
[2020-10-08] MEDS: FLUTICASONE/SALMETEROL 100 MCG/50 MCG DISKUS IH SCH ×2 (15:10→22:03)
[2020-10-08] MEDS: SODIUM CHLORIDE 0.45% 1,000 ML IV SCH (15:11)
[2020-10-08] MEDS: WARFARIN NA 5 MG TABLET PO SCH (17:40)
[2020-10-08] MEDS: ATORVASTATIN CA 80 MG TABLET (FP) PO SCH (22:03)
[2020-10-08] MEDS: DOCUSATE SODIUM 100 MG CAPSULE (FP) PO SCH (22:03)
[2020-10-08] MEDS: ASCORBIC ACID 500 MG TABLET (FP) PO SCH (22:03)
[2020-10-09 07:37] LABS: BASO % 1.5 % (0-2.0); EOS % 4.5 % (0-4.5); HEMATOCRIT 20.8 % (35.4-49); HEMOGLOBIN 7.1 GM/dL (11.7-16.9); LYMPH % 20.3 % (8-40); MCH 31.2 pg (25.7-33.7); MCHC 34.1 g/dl (32.0-35.9); MEAN CELL VOLUME 91.4 fl (80-96); MEAN PLT VOLUME 9.2 fl (7.5-11.1); MONO % 17.1 % (3.8-10.2); NEUT % 56.6 % (42.8-82.8); PLATELET COUNT 110 K/MM3 (134-434); RBC 2.27 M/mm3 (4.00-5.60); RDW 16.4 % (11.9-15.9); WHITE BLOOD COUNT 3.1 K/mm3 (4.0-10.0)
[2020-10-09 07:59] LABS: CHLORIDE 110 mmol/L (98-107); POTASSIUM 5.2 mmol/L (3.5-5.1); SODIUM 138 mmol/L (136-145)
[2020-10-09 08:03] LABS: ALBUMIN 2.9 g/dl (3.4-5.0); BLOOD UREA NITROGEN 63.9 mg/dL (7-18); CALCIUM 8.6 mg/dL (8.5-10.1)
[2020-10-09 08:04] LABS: ANION GAP 5 MMOL/L (8-16); CO2 24 mmol/L (21-32); GLUCOSE,RANDOM 89 mg/dL (74-106); MAGNESIUM 2.1 mg/dL (1.8-2.4)
[2020-10-09 08:06] LABS: SGOT/AST 20 U/L (15-37); SGPT/ALT 18 U/L (13-61)
[2020-10-09 08:09] LABS: ALK PHOS 46 U/L (45-117); BILIRUBIN,TOTAL 0.6 mg/dL (0.2-1); LDH 172 U/L (87-246); TOT PROT 6.7 g/dl (6.4-8.2)
[2020-10-09] MEDS ORDERED: PT OWN MED DRAWER 7, Y5N ONE ×3 (08:40→21:01)
[2020-10-09] MEDS ORDERED: DEXTROSE 5%-WATER - 50 ML IVPB ONE (08:41)
[2020-10-09] MEDS ORDERED: cefTRIAXone SODIUM 1 GM VIAL ONE (08:41)
[2020-10-09] MEDS: SACUBITRIL/VALSARTAN 97 MG-103 MG TABLET PO SCH ×2 (10:00→21:15)
[2020-10-09] MEDS: CEFTRIAXONE 1 GM in DEXTROSE 5%-WATER - 50 ML IVPB SCH (10:00)
[2020-10-09] MEDS: SODIUM ZIRCONIUM CYCLOSILICATE (LOKELMA) 10 GM PACKET PO SCH (10:01)
[2020-10-09] MEDS: ZINC SULFATE 220 MG CAPSULE (FP) PO SCH (10:01)
[2020-10-09] MEDS: FERROUS SO4 300 MG/5 ML ORAL SOLN UNIT DOSE CUPS PO SCH (10:01)
[2020-10-09] MEDS: FUROSEMIDE 40 MG TABLET (FP) PO SCH (10:02)
[2020-10-09] MEDS: THIAMINE HCL 100 MG TABLET (FP) PO SCH (10:02)
[2020-10-09] MEDS: ASCORBIC ACID 500 MG TABLET (FP) PO SCH ×2 (10:02→21:16)
[2020-10-09] MEDS: TAMSULOSIN HCL 0.4 MG CAP PO SCH (10:02)
[2020-10-09] MEDS: CALCIUM 500MG/VIT-D 200 UNITS COMBO TABLET (FP) PO SCH (10:02)
[2020-10-09] MEDS: CHOLECALCIFEROL (VIT D3) 1,000 UNIT (25 MCG) TABLET PO SCH (10:02)
[2020-10-09] MEDS: PANTOPRAZOLE 40 MG TABLET PO SCH (10:02)
[2020-10-09] MEDS: FOLIC ACID 1 MG TABLET (FP) PO SCH (10:02)
[2020-10-09] MEDS: ALBUTEROL SO4 HFA INHALER IH SCH ×4 (10:10→21:16)
[2020-10-09] MEDS: FLUTICASONE/SALMETEROL 100 MCG/50 MCG DISKUS IH SCH ×2 (10:10→21:16)
[2020-10-09] MEDS: SODIUM CHLORIDE 0.45% 1,000 ML IV SCH ×2 (10:10→17:02)
[2020-10-09] MEDS: CARVEDILOL 6.25 MG TABLET (FP) PO SCH (10:15)
[2020-10-09 11:10] LABS: IRON SERUM 62 ug/dL (50-175)
[2020-10-09 11:11] LABS: TOTAL IRON BINDING CAPACITY 273 ug/dL (250-450)
[2020-10-09 11:19] LABS: RETICULOCYTES 0.67 % (0.5-1.5)
[2020-10-09] MEDS ORDERED: IRON SUCROSE INJECTION 100 MG in SODIUM CHLORIDE 95 ML IVPB ONE (11:37)
[2020-10-09 15:30] LABS: INR 4.86 (0.83-1.09); PROTHROMBIN TIME (PATIENT) 57.1 SEC (9.7-13.0)
[2020-10-09 16:03] LABS: BASO % 0.8 % (0-2.0); EOS % 3.1 % (0-4.5); HEMATOCRIT 21.4 % (35.4-49); LYMPH % 16.6 % (8-40); MCH 30.2 pg (25.7-33.7); MCHC 32.7 g/dl (32.0-35.9); MEAN CELL VOLUME 92.3 fl (80-96); MEAN PLT VOLUME 9.3 fl (7.5-11.1); MONO % 15.9 % (3.8-10.2); NEUT % 63.6 % (42.8-82.8); PLATELET COUNT 113 K/MM3 (134-434); RBC 2.32 M/mm3 (4.00-5.60); RDW 16.7 % (11.9-15.9); WHITE BLOOD COUNT 3.5 K/mm3 (4.0-10.0)
[2020-10-09] MEDS: DOCUSATE SODIUM 100 MG CAPSULE (FP) PO SCH (21:16)
[2020-10-09] MEDS: ATORVASTATIN CA 80 MG TABLET (FP) PO SCH (21:16)
[2020-10-10] MEDS: SODIUM CHLORIDE 0.45% 1,000 ML IV SCH ×2 (01:33→17:13)
[2020-10-10 07:20] LABS: BASO % 1.1 % (0-2.0); EOS % 3.8 % (0-4.5); HEMATOCRIT 21.2 % (35.4-49); HEMOGLOBIN 7.2 GM/dL (11.7-16.9); LYMPH % 18.8 % (8-40); MCH 30.9 pg (25.7-33.7); MEAN CELL VOLUME 90.8 fl (80-96); MEAN PLT VOLUME 9.5 fl (7.5-11.1); MONO % 14.3 % (3.8-10.2); PLATELET COUNT 117 K/MM3 (134-434); RBC 2.34 M/mm3 (4.00-5.60); RDW 16.4 % (11.9-15.9); WHITE BLOOD COUNT 3.2 K/mm3 (4.0-10.0)
[2020-10-10 07:39] LABS: CHLORIDE 108 mmol/L (98-107); POTASSIUM 4.6 mmol/L (3.5-5.1); SODIUM 139 mmol/L (136-145)
[2020-10-10 07:43] LABS: CALCIUM 8.4 mg/dL (8.5-10.1)
[2020-10-10 07:44] LABS: ALBUMIN 2.9 g/dl (3.4-5.0); BLOOD UREA NITROGEN 58.9 mg/dL (7-18); GLUCOSE,RANDOM 89 mg/dL (74-106); MAGNESIUM 1.8 mg/dL (1.8-2.4)
[2020-10-10 07:47] LABS: CREATININE 1.9 mg/dL (0.55-1.3); SGOT/AST 21 U/L (15-37); SGPT/ALT 19 U/L (13-61)
[2020-10-10 07:48] LABS: BILIRUBIN,TOTAL 0.8 mg/dL (0.2-1); LDH 174 U/L (87-246); TOT PROT 6.8 g/dl (6.4-8.2)
[2020-10-10 07:49] LABS: ALK PHOS 46 U/L (45-117)
[2020-10-10] MEDS ORDERED: MAGNESIUM OXIDE 400 MG TABLET (FP) PO ONE (07:50)
[2020-10-10 07:53] LABS: ANION GAP 7 MMOL/L (8-16); CO2 24 mmol/L (21-32)
[2020-10-10] MEDS ORDERED: PT OWN MED DRAWER 7, Y5N ONE ×2 (08:36→09:07)
[2020-10-10 08:47] LABS: INR 3.6 (0.83-1.09)
[2020-10-10] MEDS ORDERED: DEXTROSE 5%-WATER - 50 ML IVPB ONE (09:07)
[2020-10-10] MEDS ORDERED: cefTRIAXone SODIUM 1 GM VIAL ONE (09:07)
[2020-10-10] MEDS ORDERED: WARFARIN NA 3 MG TABLET PO SCH (09:29)
[2020-10-10] MEDS: ZINC SULFATE 220 MG CAPSULE (FP) PO SCH (09:33)
[2020-10-10] MEDS: FUROSEMIDE 40 MG TABLET (FP) PO SCH (09:33)
[2020-10-10] MEDS: CALCIUM 500MG/VIT-D 200 UNITS COMBO TABLET (FP) PO SCH (09:33)
[2020-10-10] MEDS: PANTOPRAZOLE 40 MG TABLET PO SCH (09:33)
[2020-10-10] MEDS: CEFTRIAXONE 1 GM in DEXTROSE 5%-WATER - 50 ML IVPB SCH (09:33)
[2020-10-10] MEDS: CHOLECALCIFEROL (VIT D3) 1,000 UNIT (25 MCG) TABLET PO SCH (09:34)
[2020-10-10] MEDS: SACUBITRIL/VALSARTAN 97 MG-103 MG TABLET PO SCH ×2 (09:34→21:08)
[2020-10-10] MEDS: FOLIC ACID 1 MG TABLET (FP) PO SCH (09:34)
[2020-10-10] MEDS: TAMSULOSIN HCL 0.4 MG CAP PO SCH (09:34)
[2020-10-10] MEDS: THIAMINE HCL 100 MG TABLET (FP) PO SCH (09:34)
[2020-10-10] MEDS: FERROUS SO4 300 MG/5 ML ORAL SOLN UNIT DOSE CUPS PO SCH (09:34)
[2020-10-10] MEDS: FLUTICASONE/SALMETEROL 100 MCG/50 MCG DISKUS IH SCH ×2 (09:40→21:08)
[2020-10-10] MEDS: CARVEDILOL 3.125 MG TABLET (FP) PO SCH ×2 (09:41→21:08)
[2020-10-10] MEDS: ALBUTEROL SO4 HFA INHALER IH SCH ×4 (09:41→21:09)
[2020-10-10] MEDS: ASCORBIC ACID 500 MG TABLET (FP) PO SCH ×2 (09:41→21:08)
[2020-10-10] MEDS: DOCUSATE SODIUM 100 MG CAPSULE (FP) PO SCH (21:08)
[2020-10-10] MEDS: ATORVASTATIN CA 80 MG TABLET (FP) PO SCH (21:08)
[2020-10-11] MEDS: SODIUM CHLORIDE 0.45% 1,000 ML IV SCH (01:05)
[2020-10-11 08:15] LABS: BASO % 1.4 % (0-2.0); EOS % 4.5 % (0-4.5); HEMATOCRIT 21.3 % (35.4-49); HEMOGLOBIN 7.3 GM/dL (11.7-16.9); LYMPH % 16.8 % (8-40); MCH 31.5 pg (25.7-33.7); MCHC 34.4 g/dl (32.0-35.9); MEAN CELL VOLUME 91.5 fl (80-96); MEAN PLT VOLUME 9.4 fl (7.5-11.1); MONO % 14.1 % (3.8-10.2); NEUT % 63.2 % (42.8-82.8); PLATELET COUNT 124 K/MM3 (134-434); RBC 2.33 M/mm3 (4.00-5.60); RDW 16.1 % (11.9-15.9); WHITE BLOOD COUNT 3.4 K/mm3 (4.0-10.0)
[2020-10-11 08:26] LABS: INR 1.95 (0.83-1.09); PROTHROMBIN TIME (PATIENT) 23.5 SEC (9.7-13.0)
[2020-10-11 08:33] LABS: POTASSIUM 4.8 mmol/L (3.5-5.1)
[2020-10-11 09:17] LABS: BLOOD UREA NITROGEN 57.8 mg/dL (7-18)
[2020-10-11 09:18] LABS: CALCIUM 8.8 mg/dL (8.5-10.1)
[2020-10-11 09:19] LABS: MAGNESIUM 1.8 mg/dL (1.8-2.4)
[2020-10-11] MEDS ORDERED: PT OWN MED DRAWER 7, Y5N ONE (09:21)
[2020-10-11 09:22] LABS: CREATININE 1.9 mg/dL (0.55-1.3)
[2020-10-11] MEDS ORDERED: cefTRIAXone SODIUM 1 GM VIAL ONE (09:22)
[2020-10-11] MEDS ORDERED: DEXTROSE 5%-WATER - 50 ML IVPB ONE (09:22)
[2020-10-11 09:23] LABS: BILIRUBIN,TOTAL 0.7 mg/dL (0.2-1); TOT PROT 6.8 g/dl (6.4-8.2)
[2020-10-11] MEDS: FERROUS SO4 300 MG/5 ML ORAL SOLN UNIT DOSE CUPS PO SCH (09:40)
[2020-10-11] MEDS: PANTOPRAZOLE 40 MG TABLET PO SCH (09:41)
[2020-10-11] MEDS: TAMSULOSIN HCL 0.4 MG CAP PO SCH (09:41)
[2020-10-11] MEDS: THIAMINE HCL 100 MG TABLET (FP) PO SCH (09:41)
[2020-10-11] MEDS: CHOLECALCIFEROL (VIT D3) 1,000 UNIT (25 MCG) TABLET PO SCH (09:41)
[2020-10-11] MEDS: ZINC SULFATE 220 MG CAPSULE (FP) PO SCH (09:41)
[2020-10-11] MEDS: FUROSEMIDE 40 MG TABLET (FP) PO SCH (09:41)
[2020-10-11] MEDS: CALCIUM 500MG/VIT-D 200 UNITS COMBO TABLET (FP) PO SCH (09:41)
[2020-10-11] MEDS: FLUTICASONE/SALMETEROL 100 MCG/50 MCG DISKUS IH SCH (09:42)
[2020-10-11] MEDS: FOLIC ACID 1 MG TABLET (FP) PO SCH (09:42)
[2020-10-11] MEDS ORDERED: FUROSEMIDE 20 MG TABLET (FP) PO SCH (09:42)
[2020-10-11] MEDS: CEFTRIAXONE 1 GM in DEXTROSE 5%-WATER - 50 ML IVPB SCH (09:42)
[2020-10-11] MEDS: ASCORBIC ACID 500 MG TABLET (FP) PO SCH (09:42)
[2020-10-11] MEDS: SACUBITRIL/VALSARTAN 97 MG-103 MG TABLET PO SCH (09:42)
[2020-10-11] MEDS: ALBUTEROL SO4 HFA INHALER IH SCH ×2 (09:42→15:23)
[2020-10-11] MEDS: CARVEDILOL 3.125 MG TABLET (FP) PO SCH (09:42)
[2020-10-11 14:13] VITALS: BP 98/47; PULSE 71; TEMP 97.6
[2020-10-11] MEDS ORDERED: WARFARIN NA 5 MG TABLET PO SCH (18:00)
== END 2020-10-11 17:48 | DRG 808 ==
LOC: JER 04:54 → JERBED 12:25 → J4S 10-08 03:04
PROVIDERS: ADMIT Internal Medicine; ATTEND Nurse Practitioner Acute Care
DX: D61.818 Other pancytopenia (principal); U07.1 COVID-19; J96.01 Acute respiratory failure with hypoxia; N17.9 Acute kidney failure, unspecified; I50.22 Chronic systolic (congestive) heart failure; I69.354 Hemiplegia and hemiparesis following cerebral infarction affecting left non-dominant side; I69.351 Hemiplegia and hemiparesis following cerebral infarction affecting right dominant side; E87.5 Hyperkalemia; I48.91 Unspecified atrial fibrillation; N18.30 Chronic kidney disease, stage 3 unspecified; N40.0 Benign prostatic hyperplasia without lower urinary tract symptoms; F03.90 Unspecified dementia, unspecified severity, without behavioral disturbance, psychotic disturbance, mood disturbance, and anxiety; E78.5 Hyperlipidemia, unspecified; N28.1 Cyst of kidney, acquired
CPT/HCPCS: 36415; 70450-TC; 71045-TC-FY; 76775-TC; 76856-TC; 80048; 80053; 80061; 81003; 82436; 82550; 82570; 82607; 82728; 82746; 83540; 83550; 83615; 83721; 83735; 84100; 84132; 84133; 84300; 84466; 84484; 84540; 85025; 85045; 85379; 85610; 85730; 86140; 86850; 86900; 86901; 87086; 87804; 90670; 93005; 93010; 93880-TC; 97116-GP; 97161-GP; 99285-25; C9803; J1756; U0003; U0005

== ENCOUNTER 2020-11-13 12:58 | Inpatient (IN) | payer OTHER ==
[2020-11-13] MEDS ORDERED: FUROSEMIDE 40 MG/4 ML INJECTABLE VIAL IVPUSH ONE (15:07)
[2020-11-13 15:17] LABS: EOS % 2.7 % (0-4.5); HEMATOCRIT 28.5 % (35.4-49); LYMPH % 10.9 % (8-40); MCH 30.5 pg (25.7-33.7); MCHC 31.4 g/dl (32.0-35.9); MEAN CELL VOLUME 96.9 fl (80-96); MEAN PLT VOLUME 9.8 fl (7.5-11.1); MONO % 12.4 % (3.8-10.2); PLATELET COUNT 236 K/MM3 (134-434); RBC 2.94 M/mm3 (4.00-5.60); WHITE BLOOD COUNT 4.5 K/mm3 (4.0-10.0)
[2020-11-13 15:18] LABS: ALBUMIN 3.4 g/dl (3.4-5.0); BLOOD UREA NITROGEN 34.6 mg/dL (7-18); CALCIUM 8.7 mg/dL (8.5-10.1)
[2020-11-13 15:21] LABS: CREATININE 2.5 mg/dL (0.55-1.3)
[2020-11-13 15:22] LABS: BILIRUBIN,TOTAL 1.6 mg/dL (0.2-1); TOT PROT 8.2 g/dl (6.4-8.2)
[2020-11-13 15:23] LABS: PROTHROMBIN TIME (PATIENT) 60.2 SEC (9.7-13.0)
[2020-11-13 15:26] LABS: ACTIVATED PTT 46.3 SECONDS (25.2-36.5)
[2020-11-13] MEDS ORDERED: FUROSEMIDE 40 MG/4 ML INJECTABLE VIAL ONE ×2 (15:26→19:15)
[2020-11-13 15:32] LABS: INR 5.22 (0.83-1.09)
[2020-11-13 15:43] LABS: N-TERMINAL BNP 38537.4 pg/ml (5-450)
[2020-11-13] MEDS ORDERED: PIPERACILLIN/TAZOB 4.5 GM 4.5 GM/100 ML BAG IVPB ONE (16:27)
[2020-11-13] MEDS ORDERED: ONDANSETRON 4 MG/2 ML VIAL ONE (16:55)
[2020-11-13] MEDS ORDERED: WARFARIN NA 5 MG TABLET PO SCH (18:00)
[2020-11-13] MEDS: FUROSEMIDE 40 MG/4 ML INJECTABLE VIAL IVPUSH SCH (19:20)
[2020-11-13] MEDS ORDERED: ATORVASTATIN CA 80 MG TABLET (FP) ONE (22:06)
[2020-11-13] MEDS ORDERED: CARVEDILOL 3.125 MG TABLET (FP) ONE (22:06)
[2020-11-13] MEDS ORDERED: DOCUSATE SODIUM 100 MG CAPSULE (FP) PO ONE (22:07)
[2020-11-13] MEDS: ATORVASTATIN CA 80 MG TABLET (FP) PO SCH (22:15)
[2020-11-13] MEDS: DOCUSATE SODIUM 100 MG CAPSULE (FP) PO SCH (22:15)
[2020-11-13] MEDS: CARVEDILOL 3.125 MG TABLET (FP) PO SCH (22:15)
[2020-11-13] MEDS: FLUTICASONE/SALMETEROL 100 MCG/50 MCG DISKUS IH SCH (22:33)
[2020-11-13] MEDS: SACUBITRIL/VALSARTAN 97 MG-103 MG TABLET PO SCH (22:33)
[2020-11-14] MEDS: FUROSEMIDE 40 MG/4 ML INJECTABLE VIAL IVPUSH SCH ×2 (06:20→14:29)
[2020-11-14] MEDS ORDERED: FUROSEMIDE 40 MG/4 ML INJECTABLE VIAL ONE (06:25)
[2020-11-14 07:59] LABS: EOS % 1.4 % (0-4.5); HEMATOCRIT 26.3 % (35.4-49); HEMOGLOBIN 8.6 GM/dL (11.7-16.9); LYMPH % 7.5 % (8-40); MCH 30.4 pg (25.7-33.7); MCHC 32.6 g/dl (32.0-35.9); MEAN CELL VOLUME 93.3 fl (80-96); MEAN PLT VOLUME 8.9 fl (7.5-11.1); MONO % 12.1 % (3.8-10.2); PLATELET COUNT 189 K/MM3 (134-434); RBC 2.81 M/mm3 (4.00-5.60); RDW 18.4 % (11.9-15.9); WHITE BLOOD COUNT 6.3 K/mm3 (4.0-10.0)
[2020-11-14 08:20] LABS: ALBUMIN 3.2 g/dl (3.4-5.0); BLOOD UREA NITROGEN 35.1 mg/dL (7-18); CALCIUM 8.5 mg/dL (8.5-10.1); MAGNESIUM 2.6 mg/dL (1.8-2.4)
[2020-11-14 08:24] LABS: CREATININE 2.6 mg/dL (0.55-1.3)
[2020-11-14 08:26] LABS: TOT PROT 7.5 g/dl (6.4-8.2)
[2020-11-14] MEDS ORDERED: TAMSULOSIN HCL 0.4 MG CAP ONE (08:29)
[2020-11-14] MEDS: TAMSULOSIN HCL 0.4 MG CAP PO SCH (08:42)
[2020-11-14] MEDS ORDERED: CARVEDILOL 3.125 MG TABLET (FP) ONE (09:16)
[2020-11-14] MEDS ORDERED: PANTOPRAZOLE 40 MG TABLET ONE (09:17)
[2020-11-14] MEDS: PANTOPRAZOLE 40 MG TABLET PO SCH (09:27)
[2020-11-14] MEDS: SACUBITRIL/VALSARTAN 97 MG-103 MG TABLET PO SCH ×2 (09:27→22:30)
[2020-11-14] MEDS: CARVEDILOL 3.125 MG TABLET (FP) PO SCH ×2 (09:27→22:29)
[2020-11-14] MEDS: FLUTICASONE/SALMETEROL 100 MCG/50 MCG DISKUS IH SCH ×2 (09:27→22:30)
[2020-11-14] MEDS: ACETAMINOPHEN 325 MG TABLET (FP) PO PRN (09:28)
[2020-11-14 15:15] VITALS: BMI 28.0
[2020-11-14 19:14] LABS: EPI CELLS 8 /uL (0-25.1); HYALINE CASTS 4 /uL (0-3.1); URINE APPEARANCE TURBID; URINE BACTERIA 378 /uL (0-1359); URINE BILIRUBIN NEGATIVE (NEGATIVE); URINE COLOR YELLOW; URINE GLUCOSE (UA) NEGATIVE (NEGATIVE); URINE KETONE NEGATIVE (NEGATIVE); URINE LEUK ESTERASE 3+ (NEGATIVE); URINE NITRITE NEGATIVE (NEGATIVE); URINE PROTEIN 1+ (NEGATIVE); URINE RBC 90 /uL (0-23.9); URINE UROBILINOGEN 0.2 mg/dL (0.2-1.0); URINE WBC 6355 /uL (0-25.8)
[2020-11-14 20:02] LABS: YEAST MODERATE (NEGATIVE)
[2020-11-14] MEDS ORDERED: PT OWN MED DRAWER 7, Y5N ONE (21:07)
[2020-11-14] MEDS: DOCUSATE SODIUM 100 MG CAPSULE (FP) PO SCH (22:27)
[2020-11-14] MEDS: ATORVASTATIN CA 80 MG TABLET (FP) PO SCH (22:31)
[2020-11-15] MEDS: FUROSEMIDE 40 MG/4 ML INJECTABLE VIAL IVPUSH SCH (06:55)
[2020-11-15 08:29] LABS: INR 1.13 (0.83-1.09); PROTHROMBIN TIME (PATIENT) 13.6 SEC (9.7-13.0)
[2020-11-15 08:38] LABS: CHLORIDE 113 mmol/L (98-107); SODIUM 140 mmol/L (136-145)
[2020-11-15 08:42] LABS: ANION GAP 8 MMOL/L (8-16); BLOOD UREA NITROGEN 38.9 mg/dL (7-18); CALCIUM 8.4 mg/dL (8.5-10.1); CO2 19 mmol/L (21-32); GLUCOSE,RANDOM 89 mg/dL (74-106); MAGNESIUM 1.9 mg/dL (1.8-2.4)
[2020-11-15] MEDS ORDERED: PT OWN MED DRAWER 7, Y5N ONE ×3 (09:29→21:42)
[2020-11-15] MEDS: SACUBITRIL/VALSARTAN 97 MG-103 MG TABLET PO SCH ×2 (09:39→22:01)
[2020-11-15] MEDS: CARVEDILOL 3.125 MG TABLET (FP) PO SCH ×2 (09:39→22:00)
[2020-11-15] MEDS: TAMSULOSIN HCL 0.4 MG CAP PO SCH (09:39)
[2020-11-15] MEDS: PANTOPRAZOLE 40 MG TABLET PO SCH (09:39)
[2020-11-15] MEDS: FLUTICASONE/SALMETEROL 100 MCG/50 MCG DISKUS IH SCH ×2 (09:39→21:57)
[2020-11-15 11:22] LABS: ARTERIAL BLOOD GAS BASE EXCESS -1.2 mmol/L (-2-2); ARTERIAL BLOOD GAS PO2 74.6 mmHg (80-100); ARTERIAL BLOOD GAS pH 7.398 (7.350-7.450)
[2020-11-15 11:23] LABS: ALLENS TEST POSITIVE
[2020-11-15] MEDS ORDERED: SODIUM CHLORIDE 0.45% 1,000 ML IV SCH (13:00)
[2020-11-15 16:11] LABS: PROTHROMBIN TIME (PATIENT) 77.6 SEC (9.7-13.0)
[2020-11-15 16:38] LABS: INR 6.78 (0.83-1.09)
[2020-11-15] MEDS: ACETAMINOPHEN 325 MG TABLET (FP) PO PRN (21:57)
[2020-11-15] MEDS: DOCUSATE SODIUM 100 MG CAPSULE (FP) PO SCH (22:00)
[2020-11-15] MEDS: ATORVASTATIN CA 80 MG TABLET (FP) PO SCH (22:02)
[2020-11-16 07:53] LABS: BASO % 0.9 % (0-2.0); EOS % 7.6 % (0-4.5); HEMATOCRIT 24.6 % (35.4-49); LYMPH % 10.6 % (8-40); MCH 30.7 pg (25.7-33.7); MCHC 32.6 g/dl (32.0-35.9); MEAN CELL VOLUME 94.2 fl (80-96); MEAN PLT VOLUME 8.8 fl (7.5-11.1); MONO % 12.7 % (3.8-10.2); NEUT % 68.2 % (42.8-82.8); PLATELET COUNT 164 K/MM3 (134-434); RBC 2.62 M/mm3 (4.00-5.60); RDW 18.1 % (11.9-15.9); WHITE BLOOD COUNT 4.4 K/mm3 (4.0-10.0)
[2020-11-16 07:55] LABS: PROTHROMBIN TIME (PATIENT) 59.4 SEC (9.7-13.0)
[2020-11-16 08:08] LABS: ALBUMIN 2.7 g/dl (3.4-5.0); BLOOD UREA NITROGEN 36.7 mg/dL (7-18); CALCIUM 7.6 mg/dL (8.5-10.1)
[2020-11-16 08:12] LABS: CREATININE 2.2 mg/dL (0.55-1.3)
[2020-11-16 08:13] LABS: BILIRUBIN,TOTAL 1.3 mg/dL (0.2-1); TOT PROT 6.6 g/dl (6.4-8.2)
[2020-11-16 08:26] LABS: INR 5.15 (0.83-1.09)
[2020-11-16] MEDS: CARVEDILOL 3.125 MG TABLET (FP) PO SCH ×2 (09:31→21:12)
[2020-11-16] MEDS: TAMSULOSIN HCL 0.4 MG CAP PO SCH (09:31)
[2020-11-16] MEDS: PANTOPRAZOLE 40 MG TABLET PO SCH (09:31)
[2020-11-16] MEDS: SACUBITRIL/VALSARTAN 97 MG-103 MG TABLET PO SCH ×2 (09:32→21:12)
[2020-11-16] MEDS: FLUTICASONE/SALMETEROL 100 MCG/50 MCG DISKUS IH SCH ×2 (09:32→21:14)
[2020-11-16] MEDS ORDERED: PT OWN MED DRAWER 7, Y5N ONE ×2 (11:04→20:50)
[2020-11-16] MEDS: DEXTROSE 5%-WATER - 1,000 ML IV SCH (11:25)
[2020-11-16] MEDS: DOCUSATE SODIUM 100 MG CAPSULE (FP) PO SCH (21:12)
[2020-11-16] MEDS: ATORVASTATIN CA 80 MG TABLET (FP) PO SCH (21:12)
[2020-11-17 07:49] LABS: ALBUMIN 2.8 g/dl (3.4-5.0); BLOOD UREA NITROGEN 34.7 mg/dL (7-18)
[2020-11-17 07:55] LABS: BILIRUBIN,TOTAL 1.1 mg/dL (0.2-1); TOT PROT 6.7 g/dl (6.4-8.2)
[2020-11-17] MEDS ORDERED: PT OWN MED DRAWER 7, Y5N ONE ×2 (09:21→21:08)
[2020-11-17] MEDS: PANTOPRAZOLE 40 MG TABLET PO SCH (10:04)
[2020-11-17] MEDS: FLUTICASONE/SALMETEROL 100 MCG/50 MCG DISKUS IH SCH ×2 (10:04→21:27)
[2020-11-17] MEDS: CARVEDILOL 3.125 MG TABLET (FP) PO SCH ×2 (10:04→21:43)
[2020-11-17] MEDS: TAMSULOSIN HCL 0.4 MG CAP PO SCH (10:04)
[2020-11-17] MEDS: SACUBITRIL/VALSARTAN 97 MG-103 MG TABLET PO SCH ×2 (10:05→21:28)
[2020-11-17] MEDS ORDERED: TAMSULOSIN HCL 0.4 MG CAP PO ONE (12:56)
[2020-11-17] MEDS ORDERED: FERRIC CARBOXYMALTOSE 750 MG in SODIUM CHLORIDE 250 ML IVPB ONE (13:30)
[2020-11-17] MEDS: DEXTROSE 5%-WATER - 1,000 ML IV SCH (20:58)
[2020-11-17] MEDS: DOCUSATE SODIUM 100 MG CAPSULE (FP) PO SCH (21:28)
[2020-11-17] MEDS: MEMANTINE HCL 5 MG TABLET (UD) PO SCH (21:28)
[2020-11-17] MEDS: ATORVASTATIN CA 80 MG TABLET (FP) PO SCH (21:28)
[2020-11-18 03:12] VITALS: PULSE 70
[2020-11-18 07:26] LABS: BASO % 1.7 % (0-2.0); EOS % 7.2 % (0-4.5); HEMATOCRIT 23.6 % (35.4-49); HEMOGLOBIN 7.6 GM/dL (11.7-16.9); LYMPH % 15.4 % (8-40); MCH 30.1 pg (25.7-33.7); MCHC 32.2 g/dl (32.0-35.9); MEAN CELL VOLUME 93.4 fl (80-96); MEAN PLT VOLUME 9.2 fl (7.5-11.1); MONO % 13.5 % (3.8-10.2); NEUT % 62.2 % (42.8-82.8); PLATELET COUNT 170 K/MM3 (134-434); RBC 2.53 M/mm3 (4.00-5.60); RDW 17.5 % (11.9-15.9); WHITE BLOOD COUNT 2.9 K/mm3 (4.0-10.0)
[2020-11-18 08:00] LABS: ALBUMIN 2.6 g/dl (3.4-5.0); BLOOD UREA NITROGEN 30.8 mg/dL (7-18); CALCIUM 7.8 mg/dL (8.5-10.1)
[2020-11-18 08:03] LABS: BILIRUBIN,DIRECT 0.5 mg/dL (0.0-0.2); BILIRUBIN,TOTAL 1.1 mg/dL (0.2-1); CREATININE 1.7 mg/dL (0.55-1.3)
[2020-11-18 08:04] LABS: TOT PROT 6.8 g/dl (6.4-8.2)
[2020-11-18] MEDS ORDERED: TAMSULOSIN HCL 0.4 MG CAP PO SCH (08:30)
[2020-11-18] MEDS ORDERED: PT OWN MED DRAWER 7, Y5N ONE (08:43)
[2020-11-18 08:56] LABS: INR 2.1 (0.83-1.09); PROTHROMBIN TIME (PATIENT) 24.9 SEC (9.7-13.0)
[2020-11-18] MEDS: FLUTICASONE/SALMETEROL 100 MCG/50 MCG DISKUS IH SCH (09:33)
[2020-11-18] MEDS: CARVEDILOL 3.125 MG TABLET (FP) PO SCH (09:34)
[2020-11-18] MEDS: SACUBITRIL/VALSARTAN 97 MG-103 MG TABLET PO SCH (09:35)
[2020-11-18] MEDS: PANTOPRAZOLE 40 MG TABLET PO SCH (09:36)
[2020-11-18] MEDS: MEMANTINE HCL 5 MG TABLET (UD) PO SCH (09:36)
[2020-11-18] MEDS ORDERED: FUROSEMIDE 40 MG TABLET (FP) PO SCH (10:00)
[2020-11-18] MEDS ORDERED: FERROUS SO4 325 MG TABLET (FP) PO SCH (10:00)
[2020-11-18 14:12] VITALS: BP 121/78; TEMP 98.4
== END 2020-11-18 16:33 | DRG 291 ==
LOC: JER 12:58 → JERBED 13:43 → J4W 11-14 13:50
PROVIDERS: ADMIT Family Medicine; ATTEND Family Medicine
DX: I13.0 Hypertensive heart and chronic kidney disease with heart failure and stage 1 through stage 4 chronic kidney disease, or unspecified chronic kidney disease (principal); I50.43 Acute on chronic combined systolic (congestive) and diastolic (congestive) heart failure; I69.354 Hemiplegia and hemiparesis following cerebral infarction affecting left non-dominant side; N17.9 Acute kidney failure, unspecified; I48.21 Permanent atrial fibrillation; J44.9 Chronic obstructive pulmonary disease, unspecified; I27.20 Pulmonary hypertension, unspecified; N18.9 Chronic kidney disease, unspecified; I50.9 Heart failure, unspecified; E78.5 Hyperlipidemia, unspecified; I25.10 Atherosclerotic heart disease of native coronary artery without angina pectoris; Z86.16 Personal history of COVID-19; Z95.810 Presence of automatic (implantable) cardiac defibrillator; F03.90 Unspecified dementia, unspecified severity, without behavioral disturbance, psychotic disturbance, mood disturbance, and anxiety; N40.0 Benign prostatic hyperplasia without lower urinary tract symptoms; Z79.01 Long term (current) use of anticoagulants; N18.30 Chronic kidney disease, stage 3 unspecified; D63.1 Anemia in chronic kidney disease; I73.9 Peripheral vascular disease, unspecified; R91.1 Solitary pulmonary nodule; N28.1 Cyst of kidney, acquired; D64.9 Anemia, unspecified; K74.60 Unspecified cirrhosis of liver; I42.0 Dilated cardiomyopathy; E66.3 Overweight; Z68.27 Body mass index [BMI] 27.0-27.9, adult
CPT/HCPCS: 36415; 36600; 70450-TC; 71045-TC-FY; 76775-TC; 80048; 80053; 80061; 80076; 81003; 82140; 82436; 82550; 82570; 82607; 82728; 82803; 83540; 83550; 83721; 83735; 83880; 84133; 84300; 84443; 84484; 85025; 85610; 85651; 85730; 87077; 87086; 87186; 93005; 93010; 93971-TC; 97116-GP; 97161-GP; 99285-25; C9803; J1439; U0003; U0005

== ENCOUNTER 2020-12-02 15:11 | Inpatient (IN) | payer OTHER ==
[2020-12-02] MEDS ORDERED: MAGNESIUM SULFATE IN WATER 2 GM/50 ML IVPB IVPB ONE (15:25)
[2020-12-02] MEDS ORDERED: SODIUM CHLORIDE 1,000 ML IV ONE (15:35)
[2020-12-02] MEDS ORDERED: VANCOMYCIN 1 GM in D5W (PRE-DOCKED) 1,000 MG/250 ML IVPB ONE (15:59)
[2020-12-02] MEDS ORDERED: PIPERACILLIN/TAZOB 4.5 GM 4.5 GM in DEXTROSE 5%-WATER 100 ML IVPB ONE (15:59)
[2020-12-02 16:25] LABS: BASO % 0.6 % (0-2.0); EOS % 2.7 % (0-4.5); HEMATOCRIT 29.1 % (35.4-49); HEMOGLOBIN 8.9 GM/dL (11.7-16.9); LYMPH % 23.2 % (8-40); MCH 30.6 pg (25.7-33.7); MCHC 30.4 g/dl (32.0-35.9); MEAN CELL VOLUME 100.6 fl (80-96); MEAN PLT VOLUME 9.8 fl (7.5-11.1); MONO % 4.7 % (3.8-10.2); NEUT % 68.8 % (42.8-82.8); PLATELET COUNT 145 K/MM3 (134-434); RBC 2.89 M/mm3 (4.00-5.60); RDW 21.5 % (11.9-15.9); WHITE BLOOD COUNT 4.2 K/mm3 (4.0-10.0)
[2020-12-02 16:34] LABS: INR 1.87 (0.83-1.09); PROTHROMBIN TIME (PATIENT) 22.6 SEC (9.7-13.0)
[2020-12-02 16:36] LABS: ACTIVATED PTT 32.6 SECONDS (25.2-36.5)
[2020-12-02 16:54] LABS: ALBUMIN 2.6 g/dl (3.4-5.0); CALCIUM 8.3 mg/dL (8.5-10.1); MAGNESIUM 2.2 mg/dL (1.8-2.4)
[2020-12-02 16:57] LABS: PHOSPHOROUS 3.8 mg/dL (2.5-4.9)
[2020-12-02 16:59] LABS: BILIRUBIN,TOTAL 1.4 mg/dL (0.2-1); TOT PROT 6.4 g/dl (6.4-8.2)
[2020-12-02 17:06] LABS: LACTIC ACID 5.9 mmol/L (0.4-2.0)
[2020-12-02 17:22] LABS: N-TERMINAL BNP 18015.2 pg/ml (5-450)
[2020-12-02] MEDS: NOREPINEPHRINE BITARTRATE 8,000 MCG/500 ML BAG IVPB SCH (17:22)
[2020-12-02] MEDS ORDERED: PIPERACILLIN/TAZOB 4.5 GM 4.5 GM/100 ML BAG IVPB ONE (17:23)
[2020-12-02] MEDS ORDERED: VANCOMYCIN 1 GRAM (PRE-DOCKED) 1,000 MG/250 ML BAG IVPB ONE (17:24)
[2020-12-02] MEDS ORDERED: levETIRAcetam 500 MG/5 ML INJECTION VIAL IVPB ONE ×2 (18:24→19:30)
[2020-12-02] MEDS ORDERED: MIDAZOLAM HCL 2 MG/2 ML SINGLE DOSE VIAL IVPUSH ONE (18:30)
[2020-12-02] MEDS ORDERED: MIDAZOLAM IN 0.9 % SOD.CHLORID 1 MG/1 ML PLAST..BAG ONE (18:33)
[2020-12-02] MEDS ORDERED: LORazepam 2 MG/ML SDV VIAL IVPUSH ONE (18:35)
[2020-12-02] MEDS: FENTANYL NS IVPB 500 MCG/100 ML BAG IVPB SCH (18:44)
[2020-12-02] MEDS ORDERED: MIDAZOLAM IN 0.9 % SOD.CHLORID 100 MG/100 ML PLAST..BAG IVPB PRN (18:45)
[2020-12-02] MEDS ORDERED: MIDAZOLAM 100 MG/100 ML MG IVPB PRN (18:45)
[2020-12-02] MEDS: PROPOFOL 1,000,000 MCG/100 ML VIAL IVPUSH SCH (18:53)
[2020-12-02 18:54] LABS: ARTERIAL BLD GAS O2 SATURATION 99.8 mmHg (95-98); ARTERIAL BLOOD GAS BASE EXCESS -4.4 mmol/L (-2-2); ARTERIAL BLOOD GAS PO2 375.3 mmHg (80-100); ARTERIAL BLOOD GAS pH 7.333 (7.350-7.450)
[2020-12-02 18:56] LABS: ALLENS TEST POSITIVE; VENT MODE AC; VENT RATE 18
[2020-12-02] MEDS ORDERED: FUROSEMIDE 40 MG/4 ML INJECTABLE VIAL IVPUSH ONE (19:30)
[2020-12-02 20:11] LABS: ARTERIAL BLD GAS O2 SATURATION 99.7 mmHg (95-98); ARTERIAL BLOOD GAS BASE EXCESS -4.7 mmol/L (-2-2); ARTERIAL BLOOD GAS PO2 281.2 mmHg (80-100); ARTERIAL BLOOD GAS pH 7.389 (7.350-7.450)
[2020-12-02 20:13] LABS: ALLENS TEST POSITIVE; VENT MODE A/C; VENT RATE 18
[2020-12-02] MEDS ORDERED: FAMOTIDINE 20 MG/50 ML IVPB 20 MG/50 ML MG IVPB SCH (20:15)
[2020-12-02 20:56] LABS: BASO % 0.3 % (0-2.0); EOS % 0.5 % (0-4.5); HEMATOCRIT 29.6 % (35.4-49); HEMOGLOBIN 9.5 GM/dL (11.7-16.9); LYMPH % 4.2 % (8-40); MCHC 32.2 g/dl (32.0-35.9); MEAN CELL VOLUME 96.3 fl (80-96); MEAN PLT VOLUME 10.1 fl (7.5-11.1); PLATELET COUNT 187 K/MM3 (134-434); RBC 3.07 M/mm3 (4.00-5.60); RDW 20.3 % (11.9-15.9)
[2020-12-02 21:14] LABS: CHLORIDE 115 mmol/L (98-107); SODIUM 147 mmol/L (136-145)
[2020-12-02 21:16] LABS: CALCIUM 8.4 mg/dL (8.5-10.1)
[2020-12-02 21:17] LABS: ANION GAP 10 MMOL/L (8-16); BLOOD UREA NITROGEN 26.1 mg/dL (7-18); CO2 22 mmol/L (21-32); GLUCOSE,RANDOM 194 mg/dL (74-106); MAGNESIUM 2.2 mg/dL (1.8-2.4)
[2020-12-02 21:21] LABS: PHOSPHOROUS 2.7 mg/dL (2.5-4.9); SGOT/AST 63 U/L (15-37); SGPT/ALT 27 U/L (13-61)
[2020-12-02 21:23] LABS: ALK PHOS 87 U/L (45-117); BILIRUBIN,TOTAL 1.8 mg/dL (0.2-1); TOT PROT 6.8 g/dl (6.4-8.2)
[2020-12-02 21:31] LABS: LACTIC ACID 2.3 mmol/L (0.4-2.0)
[2020-12-02] MEDS ORDERED: ASPIRIN 81 MG CHEWABLE TABLETS PO ONE (22:10)
[2020-12-02] MEDS: HEPARIN NA (PORCINE) 5,000 UNITS/ML 1ML VIAL SQ SCH (22:13)
[2020-12-02] MEDS: SACUBITRIL/VALSARTAN 97 MG-103 MG TABLET PO SCH (22:13)
[2020-12-02] MEDS: MUPIROCIN 2% TOPICAL OINTMENT FOR DECOLONIZATION NS SCH (22:13)
[2020-12-02] MEDS: CHLORHEXIDINE GLUCONATE 4% CLEANSER FOR DECOLONIZATION TP SCH (22:13)
[2020-12-03 05:00] LABS: BASO % 0.2 % (0-2.0); EOS % 0.1 % (0-4.5); HEMATOCRIT 29.3 % (35.4-49); HEMOGLOBIN 9.4 GM/dL (11.7-16.9); LYMPH % 4.8 % (8-40); MCHC 32.2 g/dl (32.0-35.9); MEAN CELL VOLUME 96.3 fl (80-96); MEAN PLT VOLUME 9.2 fl (7.5-11.1); MONO % 5.8 % (3.8-10.2); NEUT % 89.1 % (42.8-82.8); PLATELET COUNT 169 K/MM3 (134-434); RBC 3.05 M/mm3 (4.00-5.60); RDW 20.3 % (11.9-15.9); WHITE BLOOD COUNT 6.7 K/mm3 (4.0-10.0)
[2020-12-03 05:10] LABS: CHLORIDE 115 mmol/L (98-107); SODIUM 146 mmol/L (136-145)
[2020-12-03 05:13] LABS: ALBUMIN 2.6 g/dl (3.4-5.0); ANION GAP 6 MMOL/L (8-16); BLOOD UREA NITROGEN 29.3 mg/dL (7-18); CO2 25 mmol/L (21-32); GLUCOSE,RANDOM 123 mg/dL (74-106)
[2020-12-03 05:15] LABS: MAGNESIUM 2.2 mg/dL (1.8-2.4)
[2020-12-03 05:17] LABS: CREATININE 2.2 mg/dL (0.55-1.3); PHOSPHOROUS 2.6 mg/dL (2.5-4.9); SGOT/AST 89 U/L (15-37); SGPT/ALT 29 U/L (13-61)
[2020-12-03 05:18] LABS: BILIRUBIN,TOTAL 1.7 mg/dL (0.2-1); INR 1.85 (0.83-1.09); PROTHROMBIN TIME (PATIENT) 22.4 SEC (9.7-13.0); TOT PROT 6.1 g/dl (6.4-8.2)
[2020-12-03 05:19] LABS: ALK PHOS 75 U/L (45-117)
[2020-12-03 05:57] VITALS: BMI 28.7
[2020-12-03 06:48] LABS: ARTERIAL BLD GAS O2 SATURATION 98.3 mmHg (95-98); ARTERIAL BLOOD GAS BASE EXCESS -6.1 mmol/L (-2-2); ARTERIAL BLOOD GAS PO2 125.3 mmHg (80-100); ARTERIAL BLOOD GAS pH 7.338 (7.350-7.450)
[2020-12-03 06:56] LABS: ALLENS TEST POSITIVE; VENT MODE A/C; VENT RATE 16
[2020-12-03] MEDS: HEPARIN NA (PORCINE) 5,000 UNITS/ML 1ML VIAL SQ SCH (07:43)
[2020-12-03] MEDS ORDERED: PT OWN MED DRAWER 7, Y5N ONE (09:09)
[2020-12-03] MEDS ORDERED: HEPARIN NA (PORCINE) 5,000 UNITS/ML 1ML VIAL IVPUSH PRN ×2 (09:20)
[2020-12-03] MEDS: HEPARIN INFUSION - 25,000 UNITS/500 ML INFUS.BAG IVPB SCH (09:38)
[2020-12-03] MEDS: MUPIROCIN 2% TOPICAL OINTMENT FOR DECOLONIZATION NS SCH ×2 (09:44→21:19)
[2020-12-03] MEDS: levETIRAcetam 500 MG/5 ML INJECTION VIAL IVPB SCH ×2 (09:47→21:19)
[2020-12-03] MEDS: FENTANYL NS IVPB 500 MCG/100 ML BAG IVPB SCH ×3 (09:52→21:20)
[2020-12-03] MEDS: SACUBITRIL/VALSARTAN 97 MG-103 MG TABLET PO SCH (09:56)
[2020-12-03] MEDS ORDERED: VANCOMYCIN 1 GRAM (PRE-DOCKED) 1,000 MG/250 ML BAG IVPB ONE (11:25)
[2020-12-03] MEDS ORDERED: DEXTROSE 5%-WATER - 50 ML IVPB ONE ×2 (11:57→15:16)
[2020-12-03] MEDS ORDERED: PIPERACILLIN/TAZOBACTAM 2.25 GM VIAL IVPB ONE ×3 (11:57→20:47)
[2020-12-03] MEDS: PIPERACILLIN/TAZOB 2.25 GM 2.25 GM in DEXTROSE 5%-WATER - 50 ML IVPB SCH ×3 (12:01→21:17)
[2020-12-03] MEDS: DOBUTAMINE 250 MG/D5W - 250,000 MCG/250 ML INFUS.BAG IV SCH (12:01)
[2020-12-03 12:20] LABS: EPI CELLS >36 /uL (0-25.1); HYALINE CASTS 36 /uL (0-3.1); URINE APPEARANCE CLOUDY; URINE BACTERIA 58 /uL (0-1359); URINE BILIRUBIN NEGATIVE (NEGATIVE); URINE COLOR YELLOW; URINE GLUCOSE (UA) TRACE (NEGATIVE); URINE KETONE NEGATIVE (NEGATIVE); URINE LEUK ESTERASE 2+ (NEGATIVE); URINE NITRITE NEGATIVE (NEGATIVE); URINE PROTEIN 4+ (NEGATIVE); URINE UROBILINOGEN 0.2 mg/dL (0.2-1.0); URINE WBC 63 /uL (0-25.8)
[2020-12-03 12:21] LABS: URINE RBC 508.8 /uL (0-23.9)
[2020-12-03 12:32] LABS: URINE CRYSTALS NON SEEN /hpf; YEAST NON SEEN (NEGATIVE)
[2020-12-03 13:16] LABS: ANION GAP 6 MMOL/L (8-16); CALCIUM 8.1 mg/dL (8.5-10.1); CHLORIDE 114 mmol/L (98-107); CO2 24 mmol/L (21-32); GLUCOSE,RANDOM 111 mg/dL (74-106); SODIUM 144 mmol/L (136-145)
[2020-12-03 13:55] LABS: ALBUMIN 2.4 g/dl (3.4-5.0); ALK PHOS 75 U/L (45-117); BILIRUBIN,TOTAL 1.7 mg/dL (0.2-1); BLOOD UREA NITROGEN 29.4 mg/dL (7-18); CREATININE 2.4 mg/dL (0.55-1.3); SGOT/AST 100 U/L (15-37); SGPT/ALT 29 U/L (13-61)
[2020-12-03] MEDS ORDERED: FUROSEMIDE 100 MG/10 ML INJECTABLE VIAL IVPB ONE (14:48)
[2020-12-03] MEDS ORDERED: VASOPRESSIN 40 UNITS in SODIUM CHLORIDE 98 ML IVPB SCH (15:00)
[2020-12-03] MEDS ORDERED: AMIODARONE HCL INJECTION 450 MG in DEXTROSE 5%-WATER - 241 ML IVPB SCH (15:00)
[2020-12-03] MEDS ORDERED: AMIODARONE IN DEXTROSE,ISO-OSM 150 MG/100 ML BAG IVPB ONE (15:15)
[2020-12-03] MEDS: FUROSEMIDE 100 MG/10 ML INJECTABLE VIAL IVPB SCH (15:21)
[2020-12-03] MEDS ORDERED: AMIODARONE IN DEXTROSE,ISO-OSM 360 MG/200 ML BAG IVPB ONE ×2 (15:25→21:25)
[2020-12-03] MEDS ORDERED: NOREPINEPHRINE D5W PREMIX 16,000 MCG/500 ML BAG IVPB SCH (16:00)
[2020-12-03] MEDS: PROPOFOL 1,000,000 MCG/100 ML VIAL IVPUSH SCH (18:50)
[2020-12-03 20:01] LABS: BASO % 0.2 % (0-2.0); EOS % 0.6 % (0-4.5); HEMATOCRIT 30.8 % (35.4-49); HEMOGLOBIN 9.7 GM/dL (11.7-16.9); LYMPH % 3.5 % (8-40); MCH 30.8 pg (25.7-33.7); MCHC 31.5 g/dl (32.0-35.9); MEAN CELL VOLUME 97.8 fl (80-96); MEAN PLT VOLUME 8.9 fl (7.5-11.1); MONO % 4.3 % (3.8-10.2); NEUT % 91.4 % (42.8-82.8); PLATELET COUNT 137 K/MM3 (134-434); RBC 3.15 M/mm3 (4.00-5.60); RDW 20.8 % (11.9-15.9); WHITE BLOOD COUNT 5.3 K/mm3 (4.0-10.0)
[2020-12-03 20:16] LABS: INR 1.93 (0.83-1.09); PROTHROMBIN TIME (PATIENT) 22.9 SEC (9.7-13.0)
[2020-12-03 20:42] LABS: ACTIVATED PTT 167.6 SECONDS (25.2-36.5)
[2020-12-03 20:48] LABS: ANISOCYTOSIS 2+; MACROCYTOSIS 0; PLATELET ESTIMATE DECREASED
[2020-12-03 21:04] LABS: BLOOD UREA NITROGEN 31.1 mg/dL (7-18); CALCIUM 7.3 mg/dL (8.5-10.1); CHLORIDE 111 mmol/L (98-107); CO2 22 mmol/L (21-32); CREATININE 2.6 mg/dL (0.55-1.3); GLUCOSE,RANDOM 166 mg/dL (74-106); SODIUM 143 mmol/L (136-145)
[2020-12-03 21:05] LABS: ALBUMIN 2.2 g/dl (3.4-5.0); ALK PHOS 72 U/L (45-117); BILIRUBIN,TOTAL 1.4 mg/dL (0.2-1); SGOT/AST 88 U/L (15-37); SGPT/ALT 29 U/L (13-61); TOT PROT 5.6 g/dl (6.4-8.2)
[2020-12-03] MEDS ORDERED: AMIODARONE IN DEXTROSE,ISO-OSM 150 MG/100 ML BAG ONE (21:10)
[2020-12-03] MEDS ORDERED: AMIODARONE IN DEXTROSE,ISO-OSM 360 MG/200 ML BAG ONE (21:13)
[2020-12-03] MEDS: CHLORHEXIDINE GLUCONATE 4% CLEANSER FOR DECOLONIZATION TP SCH (21:19)
[2020-12-03] MEDS: ASPIRIN 81 MG CHEWABLE TABLETS PO SCH (21:19)
[2020-12-03] MEDS: ATORVASTATIN CA 40 MG TABLET (FP) PO SCH ×2 (21:19→21:20)
[2020-12-03 21:43] LABS: ANION GAP 10 MMOL/L (8-16); PHOSPHOROUS 3.1 mg/dL (2.5-4.9)
[2020-12-04] MEDS ORDERED: PIPERACILLIN/TAZOBACTAM 2.25 GM VIAL IVPB ONE ×3 (01:13→13:28)
[2020-12-04] MEDS ORDERED: DEXTROSE 5%-WATER - 50 ML IVPB ONE ×3 (01:13→13:29)
[2020-12-04] MEDS: PIPERACILLIN/TAZOB 2.25 GM 2.25 GM in DEXTROSE 5%-WATER - 50 ML IVPB SCH ×2 (02:23→09:39)
[2020-12-04] MEDS: FUROSEMIDE 100 MG/10 ML INJECTABLE VIAL IVPB SCH ×2 (06:17→13:40)
[2020-12-04] MEDS ORDERED: AMIODARONE IN DEXTROSE,ISO-OSM 360 MG/200 ML BAG ONE (06:39)
[2020-12-04 08:56] LABS: EOS % 0.5 % (0-4.5); HEMATOCRIT 28.2 % (35.4-49); HEMOGLOBIN 9.2 GM/dL (11.7-16.9); LYMPH % 2.7 % (8-40); MCH 31.2 pg (25.7-33.7); MCHC 32.8 g/dl (32.0-35.9); MEAN CELL VOLUME 94.9 fl (80-96); MEAN PLT VOLUME 9.8 fl (7.5-11.1); MONO % 3.9 % (3.8-10.2); NEUT % 92.5 % (42.8-82.8); PLATELET COUNT 134 K/MM3 (134-434); RBC 2.97 M/mm3 (4.00-5.60); RDW 19.9 % (11.9-15.9); WHITE BLOOD COUNT 5.4 K/mm3 (4.0-10.0)
[2020-12-04 08:57] LABS: BASO % 0.4 % (0-2.0)
[2020-12-04] MEDS: levETIRAcetam 500 MG/5 ML INJECTION VIAL IVPB SCH ×2 (09:39→21:49)
[2020-12-04] MEDS: ASPIRIN 81 MG CHEWABLE TABLETS PO SCH (09:39)
[2020-12-04] MEDS: MUPIROCIN 2% TOPICAL OINTMENT FOR DECOLONIZATION NS SCH (09:39)
[2020-12-04 09:47] LABS: ALBUMIN 2.1 g/dl (3.4-5.0); ANISOCYTOSIS 1+; BILIRUBIN,TOTAL 1.4 mg/dL (0.2-1); BLOOD UREA NITROGEN 34.1 mg/dL (7-18); CALCIUM 7.3 mg/dL (8.5-10.1); CREATININE 2.8 mg/dL (0.55-1.3); PHOSPHOROUS 3.2 mg/dL (2.5-4.9); PLATELET ESTIMATE DECREASED; TOT PROT 5.6 g/dl (6.4-8.2)
[2020-12-04] MEDS: DOBUTAMINE 250 MG/D5W - 250,000 MCG/250 ML INFUS.BAG IV SCH ×2 (12:16→18:44)
[2020-12-04] MEDS: FENTANYL NS IVPB 500 MCG/100 ML BAG IVPB SCH ×2 (12:17→18:46)
[2020-12-04] MEDS ORDERED: MORPHINE SULFATE/0.9% NACL/PF 100 MG/100 ML BAG IVPB PRN (14:30)
[2020-12-04] MEDS: VANCOMYCIN 1 GRAM (PRE-DOCKED) 1,000 MG/250 ML BAG IVPB ONE ×2 (16:52→18:49)
[2020-12-04] MEDS ORDERED: NOREPINEPHRINE D5W PREMIX 16,000 MCG/500 ML BAG IVPB SCH (17:45)
[2020-12-04] MEDS ORDERED: AMIODARONE HCL INJECTION 450 MG in DEXTROSE 5%-WATER - 241 ML IVPB ONE (17:46)
[2020-12-04] MEDS ORDERED: HEPARIN NA (PORCINE) 5,000 UNITS/ML 1ML VIAL IVPUSH PRN ×2 (17:47)
[2020-12-04] MEDS ORDERED: DOBUTAMINE 250 MG/D5W - 250,000 MCG/250 ML INFUS.BAG ONE (17:52)
[2020-12-04] MEDS ORDERED: MIDAZOLAM 100 MG in SODIUM CHLORIDE 100 ML IVPB SCH (18:00)
[2020-12-04] MEDS ORDERED: HEPARIN INFUSION - 25,000 UNITS/500 ML INFUS.BAG IVPB SCH (18:00)
[2020-12-04] MEDS ORDERED: AMIODARONE IN DEXTROSE,ISO-OSM 150 MG/100 ML BAG IVPB ONE (18:00)
[2020-12-04] MEDS ORDERED: AMIODARONE IN DEXTROSE,ISO-OSM 360 MG/200 ML BAG IVPB ONE (18:10)
[2020-12-04] MEDS ORDERED: MIDAZOLAM IN 0.9 % SOD.CHLORID 1 MG/1 ML PLAST..BAG ONE (18:21)
[2020-12-04] MEDS: VASOPRESSIN 40 UNITS in SODIUM CHLORIDE 98 ML IVPB SCH (18:46)
[2020-12-04] MEDS: PROPOFOL 1,000,000 MCG/100 ML VIAL IVPB SCH (19:00)
[2020-12-04] MEDS: NOREPINEPHRINE BITARTRATE 8,000 MCG/500 ML BAG IVPB SCH (19:32)
[2020-12-04] MEDS: HEPARIN INFUSION - 25,000 UNITS/500 ML INFUS.BAG IVPB SCH (19:33)
[2020-12-04 19:48] LABS: INR 1.73 (0.83-1.09)
[2020-12-04] MEDS ORDERED: ATORVASTATIN CA 80 MG TABLET (FP) PO SCH (22:00)
[2020-12-05] MEDS ORDERED: AMIODARONE IN DEXTROSE,ISO-OSM 360 MG/200 ML BAG IVPB ONE (00:10)
[2020-12-05 02:05] LABS: INR 1.73 (0.83-1.09); PROTHROMBIN TIME (PATIENT) 20.9 SEC (9.7-13.0)
[2020-12-05 02:08] LABS: ACTIVATED PTT 88.2 SECONDS (25.2-36.5)
[2020-12-05] MEDS ORDERED: AMIODARONE IN DEXTROSE,ISO-OSM 150 MG/100 ML BAG IVPB ONE (06:31)
[2020-12-05] MEDS: AMIODARONE IN DEXTROSE,ISO-OSM 360 MG/200 ML BAG IVPB SCH (06:46)
[2020-12-05] MEDS: DOBUTAMINE 250 MG/D5W - 250,000 MCG/250 ML INFUS.BAG IV SCH ×3 (08:32→18:13)
[2020-12-05] MEDS: levETIRAcetam 500 MG/5 ML INJECTION VIAL IVPB SCH ×2 (09:30→22:36)
[2020-12-05] MEDS ORDERED: MIDAZOLAM IN 0.9 % SOD.CHLORID 1 MG/1 ML PLAST..BAG ONE (10:02)
[2020-12-05] MEDS ORDERED: CEFTRIAXONE 2 GM in DEXTROSE 5%-WATER 2 GM/50 ML BAG IVPB SCH (11:00)
[2020-12-05] MEDS: NOREPINEPHRINE D5W PREMIX 16,000 MCG/500 ML BAG IVPB SCH (12:16)
[2020-12-05] MEDS ORDERED: CEFTRIAXONE 2 GM in DEXTROSE 5%-WATER 2 GM/100 ML BAG IVPB SCH (12:23)
[2020-12-05] MEDS ORDERED: DEXTROSE 5%-WATER 100 ML IVPB ONE (12:27)
[2020-12-05] MEDS: CEFTRIAXONE 2 GM in DEXTROSE 5%-WATER 2 GM/100 ML BAG IVPB SCH (12:28)
[2020-12-05] MEDS: MIDAZOLAM IN 0.9 % SOD.CHLORID 100 MG/100 ML PLAST..BAG IVPB SCH (13:13)
[2020-12-05] MEDS: FENTANYL NS IVPB 500 MCG/100 ML BAG IVPB SCH (13:15)
[2020-12-05] MEDS ORDERED: VANCOMYCIN 1 GRAM (PRE-DOCKED) 1,000 MG/250 ML BAG IVPB ONE (14:45)
[2020-12-05] MEDS: VASOPRESSIN 40 UNITS in SODIUM CHLORIDE 98 ML IVPB SCH (16:54)
[2020-12-05] MEDS: PROPOFOL 1,000,000 MCG/100 ML VIAL IVPB SCH (19:00)
[2020-12-06 03:53] LABS: HIV INTERPRETATION NEGATIVE (NEGATIVE)
[2020-12-06] MEDS: AMIODARONE IN DEXTROSE,ISO-OSM 360 MG/200 ML BAG IVPB SCH ×2 (07:01→11:35)
[2020-12-06] MEDS: MIDAZOLAM IN 0.9 % SOD.CHLORID 100 MG/100 ML PLAST..BAG IVPB SCH (09:06)
[2020-12-06] MEDS: DOBUTAMINE 250 MG/D5W - 250,000 MCG/250 ML INFUS.BAG IV SCH ×3 (09:24→23:41)
[2020-12-06] MEDS ORDERED: DEXTROSE 5%-WATER 100 ML IVPB ONE (10:27)
[2020-12-06] MEDS: CEFTRIAXONE 2 GM in DEXTROSE 5%-WATER 2 GM/100 ML BAG IVPB SCH (10:29)
[2020-12-06] MEDS: levETIRAcetam 500 MG/5 ML INJECTION VIAL IVPB SCH ×2 (10:30→21:58)
[2020-12-06] MEDS: NOREPINEPHRINE D5W PREMIX 16,000 MCG/500 ML BAG IVPB SCH (10:35)
[2020-12-06] MEDS: FENTANYL NS IVPB 500 MCG/100 ML BAG IVPB SCH (10:35)
[2020-12-06] MEDS ORDERED: BENZOIN/ALOE VERA/STORAX/TOLU 58 ML BOTTLE ONE (15:53)
[2020-12-06] MEDS ORDERED: LORazepam 2 MG/ML SDV VIAL IVPUSH ONE (20:12)
[2020-12-06] MEDS ORDERED: AMIODARONE HCL 150 MG/3 ML VIAL ONE (21:29)
[2020-12-06] MEDS: VASOPRESSIN 40 UNITS in SODIUM CHLORIDE 98 ML IVPB SCH (23:40)
[2020-12-07] MEDS: AMIODARONE IN DEXTROSE,ISO-OSM 360 MG/200 ML BAG IVPB SCH ×2 (02:00→08:13)
[2020-12-07] MEDS ORDERED: LORazepam 2 MG/ML SDV VIAL ONE (03:31)
[2020-12-07] MEDS: LORazepam 2 MG/ML SDV VIAL IVPUSH PRN ×2 (03:48→05:45)
[2020-12-07] MEDS: FENTANYL NS IVPB 500 MCG/100 ML BAG IVPB SCH ×2 (05:07→17:20)
[2020-12-07] MEDS: DOBUTAMINE 250 MG/D5W - 250,000 MCG/250 ML INFUS.BAG IV SCH ×3 (05:07→18:36)
[2020-12-07] MEDS: NOREPINEPHRINE D5W PREMIX 16,000 MCG/500 ML BAG IVPB SCH (08:45)
[2020-12-07] MEDS: CEFTRIAXONE 2 GM in DEXTROSE 5%-WATER 2 GM/100 ML BAG IVPB SCH (09:58)
[2020-12-07] MEDS: levETIRAcetam 500 MG/5 ML INJECTION VIAL IVPB SCH ×2 (10:10→22:10)
[2020-12-07] MEDS ORDERED: MORPHINE SULFATE/0.9% NACL/PF 100 MG/100 ML BAG ONE (16:51)
[2020-12-07] MEDS: MORPHINE SULFATE/0.9% NACL/PF 100 MG/100 ML BAG IVPB SCH (18:34)
[2020-12-07] MEDS: MIDAZOLAM IN 0.9 % SOD.CHLORID 100 MG/100 ML PLAST..BAG IVPB SCH (18:35)
[2020-12-07 20:10] VITALS: TEMP 35
[2020-12-08] MEDS: levETIRAcetam 500 MG/5 ML INJECTION VIAL IVPB SCH ×2 (09:20→22:18)
[2020-12-08] MEDS: MORPHINE SULFATE/0.9% NACL/PF 100 MG/100 ML BAG IVPB SCH (19:00)
[2020-12-09 03:54] VITALS: PULSE 56
[2020-12-09] MEDS: LORazepam 2 MG/ML SDV VIAL IVPUSH PRN ×2 (05:44→14:20)
[2020-12-09] MEDS: levETIRAcetam 500 MG/5 ML INJECTION VIAL IVPB SCH (11:00)
[2020-12-09 15:55] VITALS: BP 163/134
== END 2020-12-09 18:12 | disposition expired ==
LOC: JER 15:11 → JERBED 17:10 → JICU 18:11
PROVIDERS: ADMIT Internal Medicine Pulmonary Disease; ATTEND Internal Medicine Pulmonary Disease
PROC: 06HM33Z Insertion of Infusion Device into Right Femoral Vein, Percutaneous Approach (ICD-10-PCS; principal; 2020-12-02)
PROC: 5A1945Z Respiratory Ventilation, 24-96 Consecutive Hours (ICD-10-PCS; 2020-12-02)
PROC: 05HM33Z Insertion of Infusion Device into Right Internal Jugular Vein, Percutaneous Approach (ICD-10-PCS; 2020-12-04)
PROC: B543ZZA Ultrasonography of Right Jugular Veins, Guidance (ICD-10-PCS; 2020-12-04)
DX: I21.A1 Myocardial infarction type 2 (principal); J96.01 Acute respiratory failure with hypoxia; I42.0 Dilated cardiomyopathy; E87.2 Acidosis; G81.94 Hemiplegia, unspecified affecting left nondominant side; N17.9 Acute kidney failure, unspecified; I13.0 Hypertensive heart and chronic kidney disease with heart failure and stage 1 through stage 4 chronic kidney disease, or unspecified chronic kidney disease; I50.22 Chronic systolic (congestive) heart failure; I47.2 Ventricular tachycardia; I48.19 Other persistent atrial fibrillation; R78.81 Bacteremia; R57.0 Cardiogenic shock; I46.9 Cardiac arrest, cause unspecified; N18.30 Chronic kidney disease, stage 3 unspecified; J44.9 Chronic obstructive pulmonary disease, unspecified; D63.1 Anemia in chronic kidney disease; I25.10 Atherosclerotic heart disease of native coronary artery without angina pectoris; R68.0 Hypothermia, not associated with low environmental temperature; B95.7 Other staphylococcus as the cause of diseases classified elsewhere; E78.5 Hyperlipidemia, unspecified; N40.0 Benign prostatic hyperplasia without lower urinary tract symptoms; I27.20 Pulmonary hypertension, unspecified; K57.90 Diverticulosis of intestine, part unspecified, without perforation or abscess without bleeding; N28.1 Cyst of kidney, acquired; R56.9 Unspecified convulsions; R77.8 Other specified abnormalities of plasma proteins; R60.0 Localized edema; R91.8 Other nonspecific abnormal finding of lung field; F03.90 Unspecified dementia, unspecified severity, without behavioral disturbance, psychotic disturbance, mood disturbance, and anxiety; Z66 Do not resuscitate; Z95.810 Presence of automatic (implantable) cardiac defibrillator
CPT/HCPCS: 36415; 36600; 70450-TC; 71045-TC-FY; 80053; 81003; 82550; 82553; 82803; 83036; 83605; 83735; 83880; 84100; 84443; 84484; 85025; 85610; 85730; 86850; 86900; 86901; 87040; 87070; 87077; 87086; 87186; 87205; 87389; 93005; 93010; 93306-TC; 94002; 99285-25; C9803; G0480; J0282; J1250; J1644; U0003; U0005